=== PATIENT | female | born 1940 | race Caucasian/White ===

== ENCOUNTER 2025-06-24 08:58 | Outpatient (REF) | payer OTHER, SELFPAY ==
--- OUTSIDE RECORDS SUMMARY | 2025-06-20 01:24 | XMS_ITS | Encounter Summary ---
Author Organization [facility] Address [address] [facility] [address] [place] [address] Care Team Providers Care Hospitality Specialist Name Role Phone Unknown, Unknown Primary Care Provider Unavailab le Reason for Visit * Reason Comments Fall * Auth/Cert (Routine) Specialty Diagnoses / Procedures Referred By Contac t Referred To Contact Diagnoses Fall, initial encounter Closed fracture of neck of left femur, initial encounter Guillaume Peck MD [address] [place] [address] Phone: tel: fax: [facility] [address] [place] [phone] Phone: tel: Referral ID Status Reason Start Date Expiration Date Visits Re quested Visits Authorized [id number] 1 1 Encounter Details Date Type Department Care Team (Late st Contact Info) Description 06/20/2025 1:24 AM EST - 06/22/2025 2:30 PM [facility] Hospital Encounter [facility] [address] [place] [phone] Zuly Lees MD [address] [place] [address] Perla Keys MD [address] [facility] [address] [place] [address] Ryan Pierce MD [address] [facility] [address] [place] [address] Sinan Escobedo MD [address] [facility] [address] [place] [address] Guillaume Peck MD [address] [place] [address] Bill Kang MD [address] [place] [address] Closed fracture of neck of left femur, initial encounter (Primary Dx); Fall, initial encounter Discharge Disposition: Penitentiary Facility Social History Tobacco Use Types Packs/Day Years Used Date Smoking Tobacco: Never Smokeless Tobacco: Never Tobacco Cessation:Counseling Given: Not Answered Alcohol Use Standard Drinks/Week Comments Yes 1 (1 standard drink = 0.6 oz pur e alcohol) Social Connection and Isolation Panel Answer Date Recorded In a typical week, how many times do you talk on the phone with family, friends, or neighbors? Three times a week 06/20/2025 How often do you get togethe r with friends or relatives? Twice a week 06/20/2025 How often do you attend [facility] or cheondoism services? Never 06/20/2025 Do you belong to any clubs o r organizations such as presybeterian groups, unions, fraternal or athletic groups, or school groups? No 06/20/2025 How often do you attend meet ings of the clubs or organizations you belong to? Never 06/20/2025 Are you , , di vorced, , never , or living with a partner? Patient declined 06/20/2025 AUDIT-C Answer Date Recorded Q1: How often do you have a drink containing alc ohol? 2-4 times a month 06/20/2025 Q2: How many drinks containi ng alcohol do you have on a typical day when you are drinking? 1 or 2 06/20/2025 Q3: How often do you have si x or more drinks on one occasion? Never 06/20/2025 Overall Financial Resource Strain (CARDIA) Answe r Date Recorded How hard is it for you to pa y for the very basics like food, housing, medical care, and heating? Not hard at all 06/20/2025 Hunger Vital Sign Answer Date Recorded Within the past 12 months, y ou worried that your food would run out before you got the money to buy more. Never true 06/20/20 Ran Out of Food in the Last Year Not on file 06/20/2025 PRAPARE - Transportation Answer Date Re corded In the past 12 months, has l ack of transportation kept you from medical appointments or from getting medications? No 05/28 In the past 12 months, has l ack of transportation kept you from meetings, work, or from getting things needed for daily living? No 06/20/2025 Housing Stability Vital Sign Answer Silverio e Recorded Unable to Pay for Housing in the Last Year Not o n file 06/20/2025 Number of Times Moved in the Last Year Not on fi le 06/20/2025 At any time in the past 12 m [facility], were you homeless or living in a longterm (including now)? No 06/20/2025 Utilities Answer Date Recorded In the past 12 months has th e [email or web address], gas, oil, or water company threatened to shut off services in your home? No 06/20/2025 Comments Unknown Sex and Gender Information Value Date Recorded Sex Assigned at Female 06/20/2025 2:51 PM EST Legal Sex Female 6:05 AM EST Gender Identity Female 06/20/2025 3:20 AM EST Sexual Orientation Straight 06/20/2025 2: 51 PM EST documented as of this encounter Last Filed Vital Signs Vital Sign Reading Time Taken Comments Blood Pressure 122/61 06/22/2025 2:09 PM EST Pulse 83 06/22/2025 2:09 PM EST Temperature 37.2 C (98.9 F) 06/22/2025 2:09 PM EST Respiratory Rate 22 06/22/2025 2:09 PM EST Oxygen Saturation 100% 06/22/2025 2:09 PM EST Inhaled Oxygen Concentration - - Weight 45.6 kg (100 lb 8.5 oz) 06/20/2025 9:21 A M EST Height 154.9 cm (5' 0.98 ) 06/20/2025 9:21 AM ES T Body Mass Index 19 06/20/2025 9:21 AM EST documented in this encounter Functional Status * Head, Ears, Eyes, Nose, and Throat (HEENT) Question Answer Date of Assessment Author Head, Ears, Eyes, Nose, and Throat (WDL) X 06/22/2025 8:00 AM Lucero Zuluaga RN R Eye Mildly impaired vision 06/22/2025 8:00 AM Lucero Zuluaga RN L Eye Mildly impaired vision 06/22/2025 8:00 AM Lucero Zuluaga RN Teeth Dentures upper 06/22/2025 8:00 AM Lucero Zuluaga RN * Post Discharge Planning Question Answer Date of Assessment Author Type of Home Treatment/Devices/Equipme nt Needed for Discharge Standard walker 06/20/2025 2:23 PM Driss Weston RN Assistance Needed For Discharge None 06/20/2025 2:23 PM Driss Weston RN Discharge Plan Discussion Patient agrees with plan;Family agrees with plan;Discussed with interdisciplinary team 06/22/2025 10:36 AM Fior Dodd RN Lives With Alone 06/22/2025 10:36 AM Fior Dodd RN Support Systems Family members;Children 06/22/20 10:36 AM Fior Dodd RN Current Patient Responsibilities Housekeeping;Meal prep;Personal care;Shopping 06/20/2025 2:23 PM Driss Weston RN Type of Residence Apartment 06/22/2025 10: 36 AM Fior Dodd RN Home or Post Acute Services SNF 06/22/2025 10:36 AM Fior Dodd RN Patient [facility] to be discharged to: [facility] 06/22/2025 10:36 AM Fior Dodd RN Does the patient need discharge transport arranged? Yes 06/22/2025 10:36 AM Fior Dodd RN Has discharge transport been arranged? Yes 06/22/2025 10:36 AM Fior Dodd RN What day is the transport expected? [id number] 06/22/2025 10:36 AM Fior Dodd RN What time is the transport expected? [id number] 06/22/2025 10:36 AM Fior Dodd RN Who is requesting discharge planning? Provider 06/22/2025 10:36 AM Fior Dodd RN * Neuromuscular Assessment Question Answer Date of Assessment Author Auditory WFL 06/21/2025 9:24 AM Weston Fall, PT Vestibular WFL 06/21/2025 9:24 AM Weston Fall, PT Vision WFL 06/21/2025 9:24 AM Weston Fall, PT * ADL Question Answer Date of Assessment Author Lower Body Dressing Dependent 06/21/2025 9:23 AM Padmini Vega, OTR/L * Ambulation Question Answer Date of Assessment Author Distance (Feet) 40' 06/22/2025 9:12 AM Yaakov Quinones cas, PT Assistance Level Minimal Assist;X1 Assist;Cues for Sequencing 06/22/2025 9:12 AM Yaakov Spivey PT Assistive Device Rolling Walker 06/22/2025 9:12 AM Yaakov Spivey PT [employer] lateral weightshift, step to leading w/ LLE, RLE held in knee flexion throughout, reduced LE clearance 06/22/2025 9:12 AM Yaakov Spivey PT Ambulation Comments NT 06/21/2025 9:24 AM Weston Mcleod PT * Stairs Question Answer Date of Assessment Author Stairs Comments NT 06/21/2025 9:24 AM Weston Baires, PT * PT Assessment Question Answer Date of Assessment Author PT Functional Impairments Impaired gait;Functional Mobility deficit;Impaired activity tolerance;Impaired safety awareness;Pain;Balanc e deficit;Strength deficit 06/21/2025 9:24 AM Weston Rousseau PT Prognosis Good 06/21/2025 9:24 AM Weston Fall PT * PACU Interventions Question Answer Date of Assessment Author Anti-Embolism Devices Bilateral;Sequenti al compression devices, below knee 06/20/2025 12:10 PM Nicole Smith Anti-Embolism Intervention On 06/20/2025 12:10 PM Nicole Smith Warm Whitakers Applied 06/20/2025 12:10 PM Nicole Smith Additional Comfort/Environmental Interventions Warm blanket 06/20/2025 12:10 PM Nicole Smith * Pupils Question Answer Date of Assessment Author Pupil Reaction Left Brisk 06/20/2025 1:34 AM Darleen Garrido RN Pupil Reaction Right Brisk 06/20/2025 1:34 AM Darleen Hilton RN Pupil Size Left (mm) 3 06/20/2025 1:34 AM Darleen Hilton RN Pupil Size Right (mm) 3 06/20/2025 1:34 AM Darleen Damon RN * [facility] Fall Risk Screening Question Answer Date of Assessment Author Patient has complete paralysis or completely immobilized No (Continue Assessment) 06/22/2025 10:53 AM Lucero Zuluaga RN Patient has a history of more than one fall within 6 months before admission. Yes (Implement High Fall Risk Interventions) 06/22/2025 10:53 AM Lucero Zuluaga RN Patient has experienced a fall during this hospitalization No (Continue Assessment) 06/22/2025 10:53 AM Lucero Zuluaga RN Patient is deemed high fall-risk per protocol (e.g., seizure precautions) Yes (Implement High Fall Risk Interventions) 06/22/2025 10:53 AM Lucero Zuluaga RN * Case Management Initial Assessment Question Answer Date of Assessment Author Source of Information Patient;Family 06/21/2025 1:07 P M Giovana Pereira CM Discharge Services Anticipated at this Time Yes 06/21/2025 1:07 PM Helene Pereira ra, CM Expected Discharge Needs [facility] 06/21/2025 1:07 PM Giovana Pereira CM Patient Discharged Before Able to Interview/Assess No 06/21/2025 1:07 PM Helene Pereira ra, CM Type of Residence Apartment 06/21/2025 1:07 PM Giovana Pereira CM Lives With Alone 06/21/2025 1:07 PM Giovana Balderrama CM * Patient Information Question Answer Date of Assessment Author Anthropology Department Chair Needs None 06/21/2025 1:07 PM Giovana Pereira CM Home Caregiver Self 06/21/2025 1:07 PM Giovana Munguia CM Accompanied by Family 06/21/2025 1:07 PM Giovana Munguia CM Support Systems Children/Family 06/21/2025 1:07 PM Giovana Pereira CM Services Active Prior to Admission Elder services 06/21/2025 1:07 PM Giovana Pereira C M Need PCP on Discharge No 06/21/2025 1:07 PM Giovana Pereira CM * HOUSE COORDINATOR Functional Status Question Answer Date of Assessment Author Stairs to Enter House 0 06/21/2025 1:07 PM Giovana Pereira CM * Current Functional Status Question Answer Date of Assessment Author Bathing Independent 06/21/2025 1:07 PM Giovana Balderrama CM Toileting Independent 06/21/2025 1:07 PM Giovana Balderrama CM Walking in Home Independent 06/21/2025 1:07 PM Giovana Shin CM Assistive Device Used None 06/21/2025 1:07 PM Giovana Pereira CM Community Mobility Independent 06/21/2025 1:07 PM Giovana Pereira CM IADL Assistance Needed No 06/21/2025 1:07 PM Giovana Pereira CM * Financial Information Question Answer Date of Assessment Author Insurance Confirmed with Patient Yes 06/21/20 1:07 PM Giovana Pereira CM Bed Hold No 06/21/2025 1:07 PM Giovana Balderrama CM Financial Coordination Notified Not Needed 1:07 PM Giovana Pereira CM * Legal Information Question Answer Date of Assessment Author Does Patient Have HCP Yes 06/21/2025 1:07 PM Giovana Pereira CM Patient Requests Assistance for HCP Yes 06/21 1:07 PM Giovana Pereira CM Acid Operator Notified to Complete/Assist No 06/21/2025 1:07 PM Giovana Pereira C M Business Dean/Guardian No 06/21/2025 1:07 PM Giovana Pereira CM Business Dean/Guardian Paper work Available No 06/21/2025 1:07 PM Giovana Pereira C M Business Dean/Guardian/SW Notified No 2024 1:07 PM Giovana Pereira CM * Discharge Planning Question Answer Date of Assessment Author Patient/Family/Caregiver Dis charge Preference SNF 06/21/2025 1:07 PM Giovana Pereira C M Anticipated Discharge Disposition SNF 025 1:07 PM Giovana Pereira CM * Referrals Question Answer Date of Assessment Author Is a Social Work Referral Indicated? No 05/28 1:07 PM Giovana Pereira CM Was Social Work referral placed? No 06/21/20 1:07 PM Giovana Pereira CM * Next Actions Question Answer Date of Assessment Author Assessment/High Risk Screening Complete 06/21/2025 1:07 PM Giovana Pereira CM * Audit-C Question Answer Date of Assessment Author Unable To Assess No 06/20/2025 2:47 PM Driss Vasquez RN AUDIT-C Score 2 06/20/2025 8:40 AM Driss Nair RN Q1: How often do you have a drink containing alcohol? 2-4 times a month 06/20/2025 8:40 AM Driss Weston RN Q2: How many drinks containing alcohol do you have on a typical day when you are drinking? 1 or 2 06/20/2025 8:40 AM Driss Weston RN Q3: How often do you have six or more drinks on one occasion? Never 06/20/2025 8:40 AM Driss Weston RN * Four Eyes Assessment Question Answer Date of Assessment Author Four Eyes Skin Assessment Completed on Admission/Transfer? Yes 06/20/2025 2:50 PM Driss Nair RN Were Pressure Injuries Identified? No 2024 2:50 PM Driss Weston RN Four Eyes Skin Assessment Completed With Tita CERNA 06/20/2025 2:50 PM Driss Weston RN * Vital Signs Question Answer Date of Assessment Author Heart Rate Source Monitor 06/21/2025 3:21 PM Rhonda Maldonado RN MAP (mmHg) 95 06/21/2025 9:24 AM Weston Fall, PT * Oxygen Therapy Question Answer Date of Assessment Author O2 Flow Rate (L/min) 10 06/20/2025 12:10 PM Nicole Smith SpO2 Alarm Limit Low 90 06/20/2025 12:10 PM Nicole Smith SpO2 Alarm Limit High 100 06/20/2025 12:10 PM Nicole Smith O2 Delivery Method Simple mask 06/20/2025 12:10 PM ES T Nicole Spivey * Height and Weight Question Answer Date of Assessment Author Height Method Stated 06/20/2025 9:21 AM EST Queta Robledo RN Weight Method Bed scale 06/20/2025 9:21 AM EST Queta Robledo RN * Cardiac Question Answer Date of Assessment Author Cardiac Rhythm NSR 06/20/2025 12:10 PM EST Nicole Pope * Sprinkler Fitter Apprentice Question Answer Date of Assessment Author Bedside Sprinkler Fitter Apprentice On Yes 06/20/2025 12: 10 PM Nicole Smith Bedside Cardiac Audible Yes 06/20/2025 12:10 PM Nicole Smith Bedside Cardiac Alarms Set Yes 06/20/2025 12: 10 PM Nicole Smith * Gastrointestinal Question Answer Date of Assessment Author Last BM Date [address] 06/22/2025 8:00 AM Lucero Zuluaga RN Passing Flatus No 06/22/2025 8:00 AM Lucero Zuluaga RN Abdominal Tenderness Soft 06/22/2025 8:[address] Lucero Morrison RN Bowel Sounds (All Quadrants) Active 06/22/2025 8 :00 AM Lucero Zuluaga RN Gastrointestinal (WDL) X 06/22/2025 8:00 AM Lucero Zuluaga RN Abdomen Inspection Distended;Rounded 06/22/2025 8:00 A M Lucero Zuluaga RN Gastrointestinal Symptoms Distention 06/22/2025 8:00 AM Lucero Zuluaga RN Bowel Sounds All quadrants 06/22/2025 8:00 AM Lucero Zuluaga RN * Peripheral Vascular Question Answer Date of Assessment Author Peripheral Vascular (WDL) X 06/22/2025 8:00 AM Lucero Zuluaga R N Capillary Refill Less than/equal to 2 seconds (All extremities) 06/22/2025 8:00 AM Lucero Zuluaga RN Pulses Right posterior tibial;Left posterior tibial;Right pedal dorsalis;Left pedal dorsalis 06/22/2025 8:00 AM Lucero Zuluaga RN Cyanosis None 06/22/2025 8:00 AM Lucero Zuluaga RN Peripheral Vascular Additional Assessments Right lower extremity;Left lower extremity 06/22/2025 8:00 AM Lucero Zuluaga RN * RUE Neurovascular Assessment Question Answer Date of Assessment Author Right Radial Pulse +2 06/20/2025 7:35 PM Tita Jaimes RN * LUE Neurovascular Assessment Question Answer Date of Assessment Author Left Radial Pulse +2 06/20/2025 7:35 PM Tita Jaimes RN * RLE Neurovascular Assessment Question Answer Date of Assessment Author RLE Capillary Refill Less than/equal to 2 seconds 06/22/2025 8:00 AM Lucero Zuluaga RN RLE Color Appropriate for ethnicity 06/22/2025 8:00 AM Lucero Zuluaga RN RLE Temperature/Moisture Warm;Dry 06/22/2025 8:00 AM Lucero Zuluaga RN Right Posterior Tibial Pulse +2 06/22/2025 8:00 AM Lucero Zuluaga R N Right Pedal Dorsalis Pulse +2 06/22/2025 8:00 AM Lucero Zuluaga R N * LLE Neurovascular Assessment Question Answer Date of Assessment Author Left Buttocks Non-pitting 06/22/2025 8:00 AM Lucero Zuluaga RN Left Thigh Non-pitting 06/22/2025 8:00 AM Lucero Zuluaga RN LLE Edema Left Thigh;Left Buttocks 06/22/2025 8:00 AM Lucero Zuluaga RN LLE Capillary Refill Less than/equal to 2 seconds 06/22/2025 8:00 AM Lucero Zuluaga RN LLE Color Appropriate for ethnicity 06/22/2025 8:00 AM Lucero Zuluaga RN LLE Temperature/Moisture Warm;Dry 06/22/2025 8:00 AM Lucero Zuluaga RN Left Posterior Tibial Pulse +2 06/22/2025 8:00 AM Lucero Zuluaga R N Left Pedal Dorsalis Pulse +2 06/22/2025 8:00 AM Lucero Zuluaga R N * Musculoskeletal Question Answer Date of Assessment Author RUE Full movement 06/22/2025 8:00 AM Lucero Zuluaga RN RLE Full movement 06/22/2025 8:00 AM Lucero Zuluaga RN LUE Full movement 06/22/2025 8:00 AM Lucero Zuluaga RN LLE Limited movement;Injury/traum a;Surgery 06/22/2025 8:00 AM Lucero Zuluaga RN Musculoskeletal ([facility]) X 06/22/2025 8:00 AM Lucero Zuluaga RN * Psychosocial Question Answer Date of Assessment Author Psychosocial (L) WDL 06/22/2025 8:00 AM Lucero Zuluaga RN * Jhoan Scale Question Answer Date of Assessment Author Jhoan Scale Score 19 06/22/2025 8:00 AM Lucero Zuluaga RN Patient Turned No 06/22/2025 8:00 AM Lucero Zuluaga RN * Cardiac Question Answer Date of Assessment Author Cardiac Regularity Regular 06/21/2025 8:42 AM Driss Weston RN Roof Bolter Status Off 06/22/2025 8:00 AM Lucero Zuluaga RN Cardiac ([facility]) WD 06/22/2025 8:00 AM Lucero Zuluaga RN * Respiratory Question Answer Date of Assessment Author Bilateral Breath Sounds Clear;Diminished 06/21/2025 8: 42 AM Driss Weston RN Respiratory Pattern Normal 06/21/2025 1 1:00 PM Edith Anaya RN Chest Assessment Symmetrical 06/20/2025 7:35 PM Tita Cody RN Respiratory ([facility]) WDL 06/22/2025 8:00 AM Lucero Zuluaga RN Respiratory Effort Unlabored 06/21/2025 11 :00 PM Edith Anaya RN Respiratory Depth/Rhythm Regular 06/21/2025 11:00 PM Edith Anaya RN Breath Sounds Bilateral breath sounds 06/21/2025 8:42 AM Driss Weston RN * Charting Type Question Answer Date of Assessment Author Charting Type Shift assessment 06/22/2025 8:00 AM Lucero Zuluaga, RN * Bed Mobility Question Answer Date of Assessment Author Bed Mobility Comments Slow and effortful to incrementally scoot LLE over EOB, ROAD ROLLER OPERATOR to RUE and support at trunk to upright to seated, Mod A for balace while scooting 06/22/2025 9:12 AM Yaakov Spivey PT Bed Position HOB elevated;Use of bedrail 06/22/2025 9:12 AM Yaakov Spivey PT Scooting Moderate Assist;X1 Assist;Cues for Sequencing 06/22/2025 9:12 AM Yaakov Spivey PT Supine to Sit Moderate Assist;X1 Assist;Cues for Sequencing 06/22/2025 9:12 AM Yaakov Spivey, PT * Transfers Question Answer Date of Assessment Author Stand to Sit Minimal Assist;X1 Assist;Cues for Sequencing;Cues for Hand Placement 06/22/2025 9:12 AM Yaakov Spivey PT Transfers Comments slightly retropulsiv e while rising to stand, reduced eccentric control 06/22/2025 9:12 AM Yaakov Spivey PT Assistive Device Rolling Walker 06/22/2025 9:12 AM Yaakov Spivey PT Sit to Stand Minimal Assist;X1 Assist;Cues for Sequencing;Cues for Hand Placement 06/22/2025 9:12 AM Yaakov Spivey PT Bed to Chair Moderate Assist;X2 Assists;Cues for Hand Placement;Cues for Sequencing 06/21/2025 9:24 AM Weston Rousseau PT * Vitals Question Answer Date of Assessment Author Temp src Oral 06/22/2025 2:09 PM Mandy Erwin BP Location Right arm 06/22/2025 2:09 PM Mandy Erwin BP Method Automatic 06/22/2025 2:09 PM Mandy Erwin Patient Position Sitting 06/22/2025 2:09 PM Mandy Lizarraga * Cognition Question Answer Date of Assessment Author Orientation Level Oriented X4 06/22/2025 9:12 AM Yaakov Spivey, PT * Nutrition Screen Question Answer Date of Assessment Author Difficulty Chewing or Swallowing No 06/20/20 8:39 AM Driss Weston RN Pressure Injury or Non-Heali ng Wound No 06/20/2025 8:39 AM Driss Weston RN Home Tube Feeding or Total Parenteral Nutrition (TPN) No 06/20/2025 8:39 AM Cindy Weston RN Dietitian Consult Needed No 06/20/2025 8:39 AM Driss Weston RN * Trauma/Abuse Assessment Question Answer Date of Assessment Author Physical Abuse Denies 06/20/2025 2:47 PM Driss Everett RN Verbal Abuse Denies 06/20/2025 2:47 PM Driss Coates RN * Values/Beliefs Question Answer Date of Assessment Author Cultural Requests During Hospitalization n/a 06/20/2025 2:47 PM Driss Weston RN Spiritual Requests During Hospitalization n/a 06/20/2025 2:47 PM Driss Weston RN * Genitourinary Question Answer Date of Assessment Author Urine Color Yellow/straw 06/22/2025 8:00 AM Lucero Zuluaga RN Urine Appearance Clear 06/22/2025 8:00 AM Lucero Zuluaga RN Urine Odor Malodorous 06/22/2025 8:00 AM Lucero Zuluaga RN Genitourinary (WDL) WDL 06/22/2025 8 :00 AM Lucero Zuluaga RN Urinary Incontinence No 06/22/2025 8:00 AM Lucero Zuluaga RN Genitourinary Symptoms None 8:42 AM Driss Weston RN Genitourinary Additional Assessments Drain/Catheter present: see LDA Documentation 06/20/2025 2:17 PM Driss Weston RN Suprapubic Tenderness No 06/20/2025 2:17 PM Driss Weston RN * Neurological Question Answer Date of Assessment Author Level of Consciousness Alert 06/22/2025 8:00 AM Lucero Zuluaga RN Cognition Follows commands;Appropriate judgement;Appropriate safety awareness 06/21/2025 11:00 PM Edith Anaya RN Speech Delayed responses 06/22/2025 8:00 AM Lucero Zuluaga RN Neuro (WDL) X 06/22/2025 8:00 AM Lucero Zuluaga RN Swallow Other (Comment) 06/21/2025 11:00 PM Edith Anaya RN Neuro Symptoms Forgetful 06/22/2025 8:00 AM Lucero Zuluaga RN Facial Symmetry Symmetrical 06/20/2025 2:17 PM Driss Carter RN * Hygiene Question Answer Date of Assessment Author Bathing/Skin Care bath, complete 06/21/2025 1:00 PM Driss Calixto RN Bathing Assist 06/21/2025 1:00 PM Driss Coates RN Linen Changed Total Bed Change 06/21/2025 1:00 PM Driss Weston RN * Food Insecurity Question Answer Date of Assessment Author Within the past 12 months, y ou worried that your food would run out before you got the money to buy more. Never true 06/20/2025 2:52 PM Driss Weston RN * Safe Environment Question Answer Date of Assessment Author Arm Bands On ID 06/20/2025 12:10 PM EST Nicole Marte Side Rails/Bed Safety 09/2806/20/2025 12:10 PM Nicole Smith The Patient's Environment is Safe Yes 025 12:10 PM Nicole Smith * Mobility Question Answer Date of Assessment Author Positioning Frequency Able to turn self 06/22/2025 10: 53 AM Lucero Zuluaga RN * Precautions Question Answer Date of Assessment Author Precautions Other (Comment) 06/20/2025 12:10 PM EST Nicole Leal * ADL Screening Question Answer Date of Assessment Author Patient's Vision Adequate to Safely Complete Daily Activities No 06/20/2025 8:39 AM Driss Weston RN Patient's Judgment Adequate to Safely Complete Daily Activities No 06/20/2025 8:39 AM Driss Weston RN Patient's Memory Adequate to Safely Complete Daily Activities No 06/20/2025 8:39 AM Driss Weston RN Patient Able to Express Needs/Desires No 06/20/2025 8:39 AM Driss Weston RN Dressing Independent 06/20/2025 8:39 AM Driss Coates RN Grooming Independent 06/20/2025 8:39 AM Driss Coates RN Feeding Independent 06/20/2025 8:39 AM Driss Coates RN Bathing Independent 06/20/2025 8:39 AM Driss Coates RN Toileting Independent 06/20/2025 8:39 AM Driss Coates RN In/Out Bed Independent 06/20/2025 8:39 AM Driss Coates RN Walks in Home Independent 06/20/2025 8:39 AM Driss Nair RN Weakness of Legs None 06/20/2025 8:39 AM Driss Vasquez RN Weakness of Arms/Hands None 06/20/2025 8:39 AM Driss Weston RN Hearing - Right Ear Functional 06/20/2025 8:39 AM Driss Calixto RN Hearing - Left Ear Functional 06/20/2025 8:39 AM Driss Weston RN Which is your dominant hand? Right 06/20/2025 8 :39 AM Driss Weston RN * Therapy Consults Question Answer Date of Assessment Author PT Evaluation Needed 1 06/20/2025 8:39 AM Driss Artis RN OT Evaluation Needed 1 06/20/2025 8:39 AM Driss Artis RN OVERHEAD LINE WORKER Evaluation Needed 2 06/20/2025 8:39 AM Driss Weston RN Spiritual Care Consult Needed No 06/20/2025 8:39 AM Driss Weston RN Social Services Consult Needed No 06/20/2025 8:39 AM Driss Weston RN * Suicide Screening Status Answer Date of Assessment Author NEGATIVE SCREEN 06/20/2025 1:22 AM Radha Ang RN * Airway Question Answer Date of Assessment Author Patency Patent 06/20/2025 1:34 AM Vikram Umanaa, ERYN * Primary Circulation Question Answer Date of Assessment Author Jugular Venous Distention (JVD) No 1:34 AM EST Darleen Srivastava RN * Leveling and Initial Visit Question Answer Date of Assessment Author Leveling Score Moderate 06/21/2025 12:[address]uly Gonzalez RD * Airway Question Answer Date of Assessment Author Airway (L) [facility] 06/20/2025 1:21 AM EST Yudy Epstein RN * Breathing Question Answer Date of Assessment Author Breathing ([facility]) [facility] 06/20/2025 1:21 AM EST Yudy Bustamante RN * Circulation Question Answer Date of Assessment Author Circulation ([facility]) [facility] 06/20/2025 1:21 AM EST Yudy Bazan RN * Disability Question Answer Date of Assessment Author Disability ([facility]) [facility] 06/20/2025 1:21 AM EST Yudy Duval RN * OT Assessment Question Answer Date of Assessment Author Prognosis Good 06/21/2025 9:23 AM EST Padmini Vieira OTR/L OT Functional Impairments ADL/Self care deficit;IADL deficit;Functional Mobility deficit;Strength deficit;Impaired activity tolerance;Impaired safety awareness;Balance deficit;Pain;Range of motion deficit;Impaired cognition 06/21/2025 9:23 AM EST Padmini Vieira OTR/L * Br??set Violence Checklist (BVC) Question Answer Date of Assessment Author Confused 0 06/22/2025 10:00 AM Lucero Zuluaga RN Irritable 0 06/22/2025 10:00 AM Lucero Zuluaga RN Boisterous 0 06/22/2025 10:00 AM Lucero Zuluaga RN Verbal Threats 0 06/22/2025 10:00 AM Lucero Zuluaga RN Physical Threats 0 06/22/2025 10:0 0 AM Lucero Zuluaga RN Attacking Objects 0 06/22/2025 10: 00 AM Lucero Zuluaga RN BVC - SUM (Calculated) 0 10:00 AM Lucero Zuluaga RN Score Interpretation (Calculated) Small Risk of Violence 06/22/2025 10:00 AM Lucero Zuluaga RN * Influenza Vaccine Screen - Feb Through October Question Answer Date of Assessment Author Influenza Vaccine Contraindications/Refu sed Patient or agent declines/refuses vaccine and was educated on benefits of receiving vaccine 06/20/2025 2:59 PM Driss Weston RN Have you had an influenza vaccine this season? No 06/20/2025 2:59 PM Driss Weston RN * Legal Status Answer Date of Assessment Author Voluntary - Patient (ADM) 06/20/2025 2:47 PM Driss Weston RN * Skip to questions 9-10? Answer Date of Assessment Author 1 06/20/2025 8:40 AM Brady Weston RN * Social Connections Question Answer Date of Assessment Author In a typical week, how many times do you talk on the phone with family, friends, or neighbors? Three times a week 06/20/2025 2:57 PM Driss Weston RN Do you belong to any clubs or organizations such as presybeterian groups, unions, fraDidatuan or athletic groups, or school groups? No 06/20/2025 2:57 PM Deb Weston RN * Brief Confusion Assessment Method - bCAM Question Answer Date of Assessment Author Feature 1: Acute Onset or Fluctuating Course Negative 06/20/2025 2:44 AM Zuly Adam MD * bCAM Score Answer Date of Assessment Author Negative 06/20/2025 2:44 AM Zuly Adma MD * Anthropometrics Question Answer Date of Assessment Author Weight Change 0 06/20/2025 9:21 AM Queta Warner RN * Pain Assessment Question Answer Date of Assessment Author Pain Location Hip 06/22/2025 9:12 AM Yaakov Nascimento, PT Pain Orientation Left 06/22/2025 9:12 AM Yaakov Cisneros PT Pain Onset Ongoing 06/22/2025 8:00 AM Lucero Zuluaga, ERYN Patient's Stated Pain Goal No pain 06/22/2025 8:00 AM Lucero Zuluaga R N Pain Type Surgical pain 06/22/2025 9:12 AM Yaakov Nascimento, PT Clinical Progression Gradually improving 06/22/2025 8: 00 AM Lucero Zuluaga RN Pain Assessment 0-10 06/22/2025 9:12 AM Yaakov Quinones cas, PT * IBW (kg) (Calculated) Answer Date of Assessment Author 47.76 06/20/2025 9:21 AM Juan Pablo Burns RN * Patient Belongings at Bedside Question Answer Date of Assessment Author Dentures Uppers 06/20/2025 8:38 AM Driss Coates RN Vision - Corrective Lenses Glasses 06/20/2025 8:38 AM Driss Weston RN Clothing Pants;Shirt;Sweater; Footwear;Jacket/coat 06/20/2025 8:38 AM Driss Weston RN Belongings at Bedside Clothing;Dentures; Vi mercedez 06/20/2025 8:38 AM Driss Weston RN * Integumentary Question Answer Date of Assessment Author Skin Color Ecchymosis 06/22/2025 8:00 AM Lucero Zuluaga RN Skin Condition/Temp Warm;Dry 06/22/2025 8 :00 AM Lucero Zuluaga RN Skin Integrity Bruising;Surgical Incision 06/22/2025 8:00 AM Lucero Zuluaga RN Skin Turgor Epidermis thin with loss of subcutaneous tissue 06/22/2025 8:00 AM Lucero Zuluaga RN Bruising Characteristics scattered 06/22/ 025 8:00 AM Lucero Zuluaga RN Integumentary (WDL) X 06/22/2025 8 :00 AM Lucero Zuluaga RN * Edema Question Answer Date of Assessment Author Edema Left lower extremity 06/22/2025 8:00 AM E Lucero Montoya RN * Pain Score Answer Date of Assessment Author 3 06/22/2025 1:49 PM Edwar Zuluaga RN * Confusion Assessment Method (CAM) Question Answer Date of Assessment Author Acute Onset and Fluctuating Course (1A) No 06/22/2025 8:00 AM Lucero Zuluaga R N * Urine Output/Assessment Question Answer Date of Assessment Author Bladder Scan Volume (mL) 179 06/21/2025 5:00 PM Rhonda Maldonado RN * Stool Output/Assessment Question Answer Date of Assessment Author Stool Color Brown 06/21/2025 10:30 AM Driss Nair RN Stool Amount Medium 06/21/2025 10:30 AM Driss Nair RN Stool Appearance Loose;Watery 06/21/2025 10:30 AM Driss Weston RN Bowel Incontinence No 06/21/2025 10:30 AM Driss Calixto RN * ACS Disability Status Question Answer Date of Assessment Author Are you deaf or do you have serious difficulty hearing? No 06/20/2025 8:39 AM Brady Weston RN Are you blind or do you have serious difficulty seeing, even when wearing glasses? No 06/20/2025 8:39 AM Efra Weston RN Because of a physical, menta l, or emotional condition, do you have serious difficulty concentrating, remembering, or making decisions? No 06/20/2025 8:39 AM Driss Everett RN Do you have serious difficul ty walking or climbing stairs? No 06/20/2025 8:39 AM Brady Weston RN Do you have serious difficul ty dressing or bathing? No 06/20/2025 8:39 AM Driss Weston RN Because of a physical, menta l, or emotional condition, do you have difficulty doing errands such as visiting the doctor's office or shopping? No 06/20/2025 8:39 AM Driss Weston RN * [place] Suicide Severity Rating Scale Question Answer Date of Assessment Author 1. In the past month, have y ou wished you were or wished you could go to sleep and not wake up? No 06/20/2025 2:58 PM Driss Carter RN 2. In the past month, have y ou actually had any thoughts of killing yourself? No 06/20/2025 2:58 PM Driss Weston RN 6. (Lifetime) Have you ever done anything, started to do anything, or prepared to do anything to end your life? No 06/20/2025 2:58 PM Driss Weston RN * Able to Complete Psychiatric Screening Question Answer Date of Assessment Author Were you able to complete al l the behavioral health screenings? Yes 06/20/2025 2:47 PM Driss Weston RN * Patient Strengths/Barriers Question Answer Date of Assessment Author Strengths (Must Choose Two) Support from organized community;Stable domestic situation 06/20/2025 2:47 PM Driss Weston RN Barriers Recreational/leisure /h obbies 06/20/2025 2:47 PM Driss Weston RN * Drug Screening Question Answer Date of Assessment Author Have you used any substances (cocaine, heroin, hallucinogens, inhalants, etc.) in the past 12 months? No 06/20/2025 2:47 PM Driss Weston RN Have you used any prescripti on drugs other than prescribed in the past 12 months? No 06/20/2025 2:47 PM Driss Weston RN * Oxygen Question Answer Date of Assessment Author Oximetry Probe Site Changed Yes 06/22/2025 2: 09 PM Mandy Erwin Pulse Oximetry Type Intermittent 06/22/2025 2:09 PM Mandy Denise Patient Activity During SpO2 Measurement At rest 06/22/2025 2:09 PM Mandy Erwin Oxygen Therapy None (Room air) 06/22/2025 2:09 PM Mandy Erwin * Patient Safety Screener 3 Question Answer Date of Assessment Author Over the past 2 weeks, have you felt down, depressed, or hopeless? No 06/20/2025 1:22 AM Yudy Clarke RN Over the past 2 weeks, have you had thoughts of killing yourself? No 06/20/2025 1:22 AM Yudy Ang RN Have you ever attempted to k ill yourself? No 06/20/2025 1:22 AM uYdy Ang RN * Deterioration Index Score Question Answer Date of Assessment Author Deterioration Index Score 36.2 06/22/2025 2:31 PM Haily Correa * Risk of Suicide Answer Date of Assessment Author No Risk 06/20/2025 2:58 PM Brady Weston RN * Malnutrition Screening Tool (MST) Question Answer Date of Assessment Author Have you recently lost weigh t without trying? 0 06/20/2025 8:39 AM Driss Weston RN Have you been eating poorly because of a decreased appetite? 0 06/20/2025 8:39 AM Driss Nair RN * Weight Loss Score Answer Date of Assessment Author 0 06/20/2025 8:39 AM Brady Weston RN * Malnutrition Score Answer Date of Assessment Author 0 06/20/2025 8:39 AM Brady Weston RN * [facility] Fall Risk Score Question Answer Date of Assessment Author Age 2 06/22/2025 10:53 AM Lucero Zuluaga RN Fall History 5 06/22/2025 10:53 AM Lucero Zuluaga RN Elimination, Bowel and Urine 0 06/22/2025 10:53 AM Lucero Zuluaga RN Medications 5 06/22/2025 10:53 AM Lucero Zuluaga RN Patient Care Equipment 1 10:53 AM Lucero Zuluaga RN Mobility 2 - Requires Assistance 06/22/2025 10:53 AM Lucero Zuluaga RN Cognition Not applicable 06/22/2025 10:53 AM Lucero Zuluaga RN Total Fall Risk Score 14 06/22/2025 10:53 AM Lucero Zuluaga RN * [facility] Question Answer Date of Assessment Author History of falling in the la st 3 months, including since admission? 1 06/20/2025 1:22 AM Yudy Ang RN Confusion, disorientation or delerium? 0 06/20/2025 1:22 AM Yuyd Ang RN Intoxicated or sedated? 0 06/20/2025 1:22 A M Yudy Ang RN Impaired gait? 1 06/20/2025 1:22 AM Yudy Talley RN Altered elimination? 0 06/20/2025 1:22 AM E Yudy Parker RN Mobility assist device used? 0 06/20/2025 1 :22 AM Yudy Ang RN Fall Risk Score 2 06/20/2025 1:22 AM Yudy Clarke RN Assessment Low Risk 06/20/2025 1:22 AM Yudy Reeves RN * Are you deaf or do you have serious difficulty hearing? Answer Date of Assessment Author No 06/20/2025 8:39 AM Brady Weston RN * Are you blind or do you have serious difficulty seeing, even when wearing glasses? Answer Date of Assessment Author No 06/20/2025 8:39 AM EST * Do you have serious difficulty walking or climbing stairs? Answer Date of Assessment Author No 06/20/2025 8:39 AM Brady Weston RN * Do you have serious difficulty dressing or bathing? Answer Date of Assessment Author No 06/20/2025 8:39 AM Brady Weston RN * Because of a physical, mental, or emotional condition, do you have difficulty doing errands such asvisiting the doctor's office or shopping? Answer Date of Assessment Author No 06/20/2025 8:39 AM Brady Weston RN * Head, Ears, Eyes, Nose, and Throat (HEENT) Question Answer Date of Assessment Author Head, Ears, Eyes, Nose, and Throat (WDL) X 06/22/2025 8:00 AM Lucero Zuluaga RN R Eye Mildly impaired vision 06/22/2025 8:00 AM Lucero Zuluaga RN L Eye Mildly impaired vision 06/22/2025 8:00 AM Lucero Zuluaga RN Teeth Dentures upper 06/22/2025 8:00 AM Lucero Zuluaga RN * Post Discharge Planning Question Answer Date of Assessment Author Type of Home Treatment/Devices/Equipme nt Needed for Discharge Standard walker 06/20/2025 2:23 PM Driss Weston RN Assistance Needed For Discharge None 06/20/2025 2:23 PM Driss Weston RN Discharge Plan Discussion Patient agrees with plan;Family agrees with plan;Discussed with interdisciplinary team 06/22/2025 10:36 AM Fior Dodd RN Lives With Alone 06/22/2025 10:36 AM Fior Dodd RN Support Systems Family members;Children 06/22/20 10:36 AM Fior Dodd RN Current Patient Responsibilities Housekeeping;Meal prep;Personal care;Shopping 06/20/2025 2:23 PM Driss Weston RN Type of Residence Apartment 06/22/2025 10: 36 AM Fior Dodd RN Home or Post Acute Services SNF 06/22/2025 10:36 AM Fior Dodd RN Patient [facility] to be discharged to: [facility] 06/22/2025 10:36 AM Fior Dodd RN Does the patient need discharge transport arranged? Yes 06/22/2025 10:36 AM Fior Dodd RN Has discharge transport been arranged? Yes 06/22/2025 10:36 AM Fior Dodd RN What day is the transport expected? [id number] 06/22/2025 10:36 AM Fior Dodd RN What time is the transport expected? [id number] 06/22/2025 10:36 AM Fior Dodd RN Who is requesting discharge planning? Provider 06/22/2025 10:36 AM Fior Dodd RN * General Info Question Answer Date [place] [id number] 06/22/2025 9:12 AM Yaakov Campos, PT * ADL Question Answer Date of Assessment Author Lower Body Dressing Dependent 06/21/2025 9:23 AM Padmini Vega, OTR/L * PACU Interventions Question Answer Date of Assessment Author Anti-Embolism Devices Bilateral;Sequenti al compression devices, below knee 06/20/2025 12:10 PM Nicole Smith Anti-Embolism Intervention On 06/20/2025 12:10 PM Nicole Smith Warm Whitakers Applied 06/20/2025 12:10 PM Nicole Smith Additional Comfort/Environmental Interventions Warm blanket 06/20/2025 12:10 PM Nicole Smith * AMPAC - (Basic Mobility Inpatient Short Form) How much help from another person do you currently need? Question Answer Date of Assessment Author Turning from your back to yo ur side while in a flat bed without using bedrails? 2 - A Lot 06/22/2025 9:12 AM Yaakov Spivey PT Moving from lying on your ba ck to sitting on the side of a flat bed without using bedrails? 2 - A Lot 06/22/2025 9:12 AM Yaakov Sipvey, PT Moving to and from a bed to a chair (including a wheelchair)? 3 - A little 06/22/2025 9:12 AM Yaakov Spivey, PT Standing up from a chair usi ng your arms (e.g., wheelchair, or bedside chair)? 3 - A little 06/22/2025 9:12 AM Yaakov Spivey PT Climbing 3-5 steps with a railing? 1 - Total 06/22/2025 9:12 AM Yaakov Spivey PT To walk in hospital room? 3 - A little 06/22/2025 9:12 AM Yaakov Spivey, PT Raw Score 14 06/22/2025 9:12 AM Yaakov Spivey PT * Pupils Question Answer Date of Assessment Author Pupil Reaction Left Brisk 06/20/2025 1:34 AM Darleen Garrido RN Pupil Reaction Right Brisk 06/20/2025 1:34 AM Darleen Hilton RN Pupil Size Left (mm) 3 06/20/2025 1:34 AM Darleen Hilton RN Pupil Size Right (mm) 3 06/20/2025 1:34 AM Darleen Damon RN * [facility] Fall Risk Screening Question Answer Date of Assessment Author Patient has complete paralysis or completely immobilized No (Continue Assessment) 06/22/2025 10:53 AM Lucero Zuluaga RN Patient has a history of more than one fall within 6 months before admission. Yes (Implement High Fall Risk Interventions) 06/22/2025 10:53 AM Lucero Zuluaga RN Patient has experienced a fall during this hospitalization No (Continue Assessment) 06/22/2025 10:53 AM Lucero Zuluaga RN Patient is deemed high fall-risk per protocol (e.g., seizure precautions) Yes (Implement High Fall Risk Interventions) 06/22/2025 10:53 AM Lucero Zuluaga, ERYN * Case Management Initial Assessment Question Answer Date of Assessment Author Source of Information Patient;Family 06/21/2025 1:07 P M Giovana Pereira CM Discharge Services Anticipated at this Time Yes 06/21/2025 1:07 PM Helene Pereira ra, CM Expected Discharge Needs SNF 06/21/2025 1:07 PM Giovana Pereira CM Patient Discharged Before Able to Interview/Assess No 06/21/2025 1:07 PM Taylor CM Type of Residence Apartment 06/21/2025 1:07 PM Giovana Pereira CM Lives With Alone 06/21/2025 1:07 PM Giovana Balderrama CM * Patient Information Question Answer Date of Assessment Author Anthropology Department Chair Needs None 06/21/2025 1:07 PM Giovana Pereira CM Home Caregiver Self 06/21/2025 1:07 PM Giovana Munguia CM Accompanied by Family 06/21/2025 1:07 PM Giovana Munguia CM Support Systems Children/Family 06/21/2025 1:07 PM Giovana Pereira CM Services Active Prior to Admission Elder services 06/21/2025 1:07 PM Giovana Pereira C M Need PCP on Discharge No 06/21/2025 1:07 PM Giovana Pereira CM * HOUSE COORDINATOR Functional Status Question Answer Date of Assessment Author Stairs to Enter House 0 06/21/2025 1:07 PM Giovana Pereira CM * Current Functional Status Question Answer Date of Assessment Author Bathing Independent 06/21/2025 1:07 PM Giovana Balderrama CM Toileting Independent 06/21/2025 1:07 PM Giovana Balderrama CM Walking in Home Independent 06/21/2025 1:07 PM Giovana Shin CM Assistive Device Used None 06/21/2025 1:07 PM Giovana Pereira CM Community Mobility Independent 06/21/2025 1:07 PM Giovana Pereira CM IADL Assistance Needed No 06/21/2025 1:07 PM Giovana Pereira CM * Financial Information Question Answer Date of Assessment Author Insurance Confirmed with Patient Yes 06/21/20 1:07 PM Giovana Pereira CM Bed Hold No 06/21/2025 1:07 PM Giovana Balderrama CM Financial Coordination Notified Not Needed 1:07 PM Giovana Pereira CM * Legal Information Question Answer Date of Assessment Author Does Patient Have HCP Yes 06/21/2025 1:07 PM Giovana Pereira CM Patient Requests Assistance for HCP Yes 06/21 1:07 PM Giovana Pereira CM Acid Operator Notified to Complete/Assist No 06/21/2025 1:07 PM Giovana Pereira C M Business Dean/Guardian No 06/21/2025 1:07 PM Giovana Pereira CM Business Dean/Guardian Paper work Available No 06/21/2025 1:07 PM Giovana Pereira C M Business Dean/Guardian/SW Notified No 2024 1:07 PM Giovana Pereira CM * Discharge Planning Question Answer Date of Assessment Author Patient/Family/Caregiver Dis charge Preference SNF 06/21/2025 1:07 PM Giovana Pereira C M Anticipated Discharge Disposition SNF 025 1:07 PM Giovana Pereira CM * Referrals Question Answer Date of Assessment Author Is a Social Work Referral Indicated? No 05/28 1:07 PM Giovana Pereira CM Was Social Work referral placed? No 06/21/20 1:07 PM Giovana Pereira CM * Next Actions Question Answer Date of Assessment Author Assessment/High Risk Screening Complete 06/21/2025 1:07 PM Giovana Pereira CM * Vital Signs Question Answer Date of Assessment Author Heart Rate Source Monitor 06/21/2025 3:21 PM Rhonda Maldonado RN MAP (mmHg) 95 06/21/2025 9:24 AM EST Weston Calvillo, PT * Oxygen Therapy Question Answer Date of Assessment Author SpO2 Alarm Limit Low 90 06/20/2025 12:10 PM Nicole Smith SpO2 Alarm Limit High 100 06/20/2025 12:10 PM EST Nicole Spivey * Height and Weight Question Answer Date of Assessment Author Height Method Stated 06/20/2025 9:21 AM EST Queta Robledo RN Weight Method Bed scale 06/20/2025 9:21 AM EST Queta Robledo RN * Cardiac Question Answer Date of Assessment Author Cardiac Rhythm NSR 06/20/2025 12:10 PM EST Nicole Pope * Sprinkler Fitter Apprentice Question Answer Date of Assessment Author Bedside Sprinkler Fitter Apprentice On Yes 06/20/2025 12: 10 PM EST Nicole Spivey Bedside Cardiac Audible Yes 06/20/2025 12:10 PM Nicole Smith Bedside Cardiac Alarms Set Yes 06/20/2025 12: 10 PM Nicole Smith * Gastrointestinal Question Answer Date of Assessment Author [place] BM Date [id number] 06/22/2025 8:00 AM Lucero Zuluaga RN Passing Flatus No 06/22/2025 8:00 AM Lucero Zuluaga RN Abdominal Tenderness Soft 06/22/2025 8:[address] Lucero Morrison RN Bowel Sounds (All Quadrants) Active 06/22/2025 8 :00 AM Lucero Zuluaga RN Gastrointestinal (WDL) X 06/22/2025 8:00 AM Lucero Zuluaga RN Abdomen Inspection Distended;Rounded 06/22/2025 8:00 A M Lucero Zuluaga RN Gastrointestinal Symptoms Distention 06/22/2025 8:00 AM Lucero Zuluaga RN Bowel Sounds All quadrants 06/22/2025 8:00 AM Lucero Zuluaga RN * Peripheral Vascular Question Answer Date of Assessment Author Peripheral Vascular (WDL) X 06/22/2025 8:00 AM Lucero Zuluaga R N Capillary Refill Less than/equal to 2 seconds (All extremities) 06/22/2025 8:00 AM Lucero Zuluaga RN Pulses Right posterior tibial;Left posterior tibial;Right pedal dorsalis;Left pedal dorsalis 06/22/2025 8:00 AM Lucero Zuluaga RN Cyanosis None 06/22/2025 8:00 AM Lucero Zuluaga RN Peripheral Vascular Additional Assessments Right lower extremity;Left lower extremity 06/22/2025 8:00 AM Lucero Zuluaga RN * RURadha Neurovascular Assessment Question Answer Date of Assessment Author Right Radial Pulse +2 06/20/2025 7:35 PM Tita Jaimes RN * LUE Neurovascular Assessment Question Answer Date of Assessment Author Left Radial Pulse +2 06/20/2025 7:35 PM Tita Jaimes RN * RLE Neurovascular Assessment Question Answer Date of Assessment Author RLE Capillary Refill Less than/equal to 2 seconds 06/22/2025 8:00 AM Lucero Zuluaga RN RLE Color Appropriate for ethnicity 06/22/2025 8:00 AM Lucero Zuluaga RN RLRadha Temperature/Moisture Warm;Dry 06/22/2025 8:00 AM Lucero Zuluaga RN Right Posterior Tibial Pulse +2 06/22/2025 8:00 AM Lucero Zuluaga R N Right Pedal Dorsalis Pulse +2 06/22/2025 8:00 AM Lucero Zuluaga R N * LLE Neurovascular Assessment Question Answer Date of Assessment Author Left Buttocks Non-pitting 06/22/2025 8:00 AM Lucero Zuluaga RN Left Thigh Non-pitting 06/22/2025 8:00 AM Lucero Zuluaga RN LLE Edema Left Thigh;Left Buttocks 06/22/2025 8:00 AM Lucero Zuluaga RN LLE Capillary Refill Less than/equal to 2 seconds 06/22/2025 8:00 AM Lucero Zuluaga RN LLE Color Appropriate for ethnicity 06/22/2025 8:00 AM Lucero Zuluaga RN LLE Temperature/Moisture Warm;Dry 06/22/2025 8:00 AM Lucero Zuluaga RN Left Posterior Tibial Pulse +2 06/22/2025 8:00 AM Lucero Zuluaga R N Left Pedal Dorsalis Pulse +2 06/22/2025 8:00 AM Lucero Zuluaga R N * Musculoskeletal Question Answer Date of Assessment Author RUE Full movement 06/22/2025 8:00 AM Lucero Zuluaga RN RLE Full movement 06/22/2025 8:00 AM Lucero Zuluaga RN LUE Full movement 06/22/2025 8:00 AM Lucero Zuluaga RN LLE Limited movement;Injury/traum a;Surgery 06/22/2025 8:00 AM Lucero Zuluaga RN Musculoskeletal (WDL) X 06/22/2025 8:00 AM Lucero Zuluaga RN * Psychosocial Question Answer Date of Assessment Author Psychosocial (WDL) WDL 06/22/2025 8:00 AM Luceor Zuluaga RN * Jhoan Scale Question Answer Date of Assessment Author Jhoan Scale Score 19 06/22/2025 8:00 AM Lucero Zuluaga RN Patient Turned No 06/22/2025 8:00 AM Lucero Zuluaga RN * Cardiac Question Answer Date of Assessment Author Cardiac Regularity Regular 06/21/2025 8:42 AM Driss Weston RN Roof Bolter Status Off 06/22/2025 8:00 AM Lucero Zuluaga RN Cardiac ([facility]) WD 06/22/2025 8:00 AM Lucero Zuluaga RN * Respiratory Question Answer Date of Assessment Author Bilateral Breath Sounds Clear;Diminished 06/21/2025 8: 42 AM Driss Weston RN Respiratory Pattern Normal 06/21/2025 1 1:00 PM Edith Anaya RN Chest Assessment Symmetrical 06/20/2025 7:35 PM Tita Cody RN Respiratory ([facility]) WDL 06/22/2025 8:00 AM Lcuero Zuluaga RN Respiratory Effort Unlabored 06/21/2025 11 :00 PM Edith Anaya RN Respiratory Depth/Rhythm Regular 06/21/2025 11:00 PM Edith Anaya RN Breath Sounds Bilateral breath sounds 06/21/2025 8:42 AM Driss Weston RN * Charting Type Question Answer Date of Assessment Author Charting Type Shift assessment 06/22/2025 8:00 AM Lucero Zuluaga RN * Bed Mobility Question Answer Date of Assessment Author Bed Mobility Comments Slow and effortful to incrementally scoot LLE over EOB, ROAD ROLLER OPERATOR to RUE and support at trunk to upright to seated, Mod A for balace while scooting 06/22/2025 9:12 AM Yaakov Spivey PT Bed Position HOB elevated;Use of bedrail 06/22/2025 9:12 AM Yaakov Spivey PT Scooting Moderate Assist;X1 Assist;Cues for Sequencing 06/22/2025 9:12 AM Yaakov Spivey PT Supine to Sit Moderate Assist;X1 Assist;Cues for Sequencing 06/22/2025 9:12 AM Yaakov Spivey PT * Transfers Question Answer Date of Assessment Author Stand to Sit Minimal Assist;X1 Assist;Cues for Sequencing;Cues for Hand Placement 06/22/2025 9:12 AM Yaakov Spivey PT Transfers Comments slightly retropulsiv e while rising to stand, reduced eccentric control 06/22/2025 9:12 AM Yaakov Spivey PT Sit to Stand Minimal Assist;X1 Assist;Cues for Sequencing;Cues for Hand Placement 06/22/2025 9:12 AM Yaakov Spivey PT Bed to Chair Moderate Assist;X2 Assists;Cues for Hand Placement;Cues for Sequencing 06/21/2025 9:24 AM Weston Rousseau, PT * PROM Right Lower Extremity Question Answer Date of Assessment Author Overall RLE PROM WFL 06/21/2025 9:24 AM Weston Vergara, PT * Strength Right Lower Extremity Question Answer Date of Assessment Author RLE Overall Strength WFL 06/21/2025 9:24 AM E Weston Aguirre, PT * PROM Left Lower Extremity Question Answer Date of Assessment Author Overall LLE PROM Not Tested 06/21/2025 9:24 AM Weston Vergara, PT * Strength Left Lower Extremity Question Answer Date of Assessment Author LLE Overall Strength Not Tested 06/21/2025 9:24 AM E Weston Aguirre, PT * Vitals Question Answer Date of Assessment Author Temcolby src Oral 06/22/2025 2:09 PM Mandy Erwin * Cognition Question Answer Date of Assessment Author Behavioral/Affect Comments pleasantly confused and cooperative 06/22/2025 9:12 AM Yaakov Spivey PT Communication Tangential thoughts 06/22/2025 9 :12 AM EST Andrea, Yaakov, PT Orientation Level Oriented X4 06/22/2025 9:1 2 AM Yaakov Spivey, PT Overall Cognitive Status Impaired 025 9:12 AM Yaakov Spivey, PT Attention Span Impaired 06/22/2025 9:12 AM Yaakov Spivey PT Memory Impaired 06/22/2025 9:12 AM Yaakov Spivey PT Following Commands Follows one step commands 06/22/2025 9:12 AM Yaakov Spivey PT Safety Judgment Decreased Safety awareness 06/22/2025 9:12 AM Yaakov Spivey PT Awareness of Errors/Deficits Impaired 06/22/2025 9:12 AM Yaakov Spivey PT Problem Solving Impaired 06/22/2025 9:12 AM Yaakov Spivey PT * Nutrition Screen Question Answer Date of Assessment Author Difficulty Chewing or Swallowing No 06/20/20 8:39 AM Driss Weston RN Pressure Injury or Non-Heali ng Wound No 06/20/2025 8:39 AM Driss Weston RN Home Tube Feeding or Total Parenteral Nutrition (TPN) No 06/20/2025 8:39 AM Cindy Weston RN Dietitian Consult Needed No 06/20/2025 8:39 AM Driss Weston RN * Trauma/Abuse Assessment Question Answer Date of Assessment Author Physical Abuse Denies 06/20/2025 2:47 PM Driss Everett RN Verbal Abuse Denies 06/20/2025 2:47 PM Driss Coates RN * Values/Beliefs Question Answer Date of Assessment Author Cultural Requests During Hospitalization n/a 06/20/2025 2:47 PM Driss Weston RN Spiritual Requests During Hospitalization n/a 06/20/2025 2:47 PM Driss Weston RN * Genitourinary Question Answer Date of Assessment Author Urine Color Yellow/straw 06/22/2025 8:00 AM Lucero Zuluaga RN Urine Appearance Clear 06/22/2025 8:00 AM Lucero Zuluaga RN Urine Odor Malodorous 06/22/2025 8:00 AM Lucero Zuluaga RN Genitourinary (WDL) WDL 06/22/2025 8 :00 AM Lucero Zuluaga RN Urinary Incontinence No 06/22/2025 8:00 AM Lucero Zuluaga RN Genitourinary Symptoms None 8:42 AM Driss Weston RN Genitourinary Additional Assessments Drain/Catheter present: see LDA Documentation 06/20/2025 2:17 PM Driss Weston RN Suprapubic Tenderness No 06/20/2025 2:17 PM Driss Weston RN * Neurological Question Answer Date of Assessment Author Level of Consciousness Alert 06/22/2025 8:00 AM Lucero Zuluaga RN Cognition Follows commands;Appropriate judgement;Appropriate safety awareness 06/21/2025 11:00 PM Edith Anaya RN Speech Delayed responses 06/22/2025 8:00 AM Lucero Zuluaga RN Neuro (WDL) X 06/22/2025 8:00 AM Lucero Zuluaga RN Swallow Other (Comment) 06/21/2025 11:00 PM Edith Anaya RN Neuro Symptoms Forgetful 06/22/2025 8:00 AM Lucero Zuluaga RN Facial Symmetry Symmetrical 06/20/2025 2:17 PM Driss Carter RN * Strength Right Upper Extremity Question Answer Date of Assessment Author RUE Overall Strength [facility] 06/21/2025 9:24 AM Weston Ferguson, PT * PROM Left Upper Extremity Question Answer Date of Assessment Author Overall LUE PROM WF 06/21/2025 9:24 AM EST Weston Arellano, PT * Strength Left Upper Extremity Question Answer Date of Assessment Author LUE Overall Strength [facility] 06/21/2025 9:24 AM Weston Ferguson, PT * PROM Right Upper Extremity Question Answer Date of Assessment Author Overall RUE PROM WFL 06/21/2025 9:24 AM Weston Vergara, PT * Plan Question Answer Date of Assessment Author PT Frequency and Duration 5-7 x/week unt il Discharge;Twice Daily 06/22/2025 9:12 AM Yaakov Spivey PT Continue or D/C PT? Continued Skilled Inpatient PT Services 06/22/2025 9:12 AM Yaakov Spivey PT Treatment Interventions Therapeutic exercise;Assistive device training;Functional mobility training;Gait training;Stair training 06/22/2025 9:12 AM Yaakov Spivey PT * Hygiene Question Answer Date of Assessment Author Bathing/Skin Care bath, complete 06/21/2025 1:00 PM Driss Calixto RN Bathing Assist 06/21/2025 1:00 PM Driss Coates RN Linen Changed Total Bed Change 06/21/2025 1:00 PM Driss Weston RN * Safe Environment Question Answer Date of Assessment Author Arm Bands On ID 06/20/2025 12:10 PM Nicole Osorio Side Rails/Bed Safety 09/2806/20/2025 12:10 PM Nicole Smith The Patient's Environment is Safe Yes 025 12:10 PM Nicole Smith * Mobility Question Answer Date of Assessment Author Positioning Frequency Able to turn self 06/22/2025 10: 53 AM Lucero Zuluaga RN * Precautions Question Answer Date of Assessment Author Precautions Other (Comment) 06/20/2025 12:10 PM Nicole Jimenez * ADL Screening Question Answer Date of Assessment Author Patient's Vision Adequate to Safely Complete Daily Activities No 06/20/2025 8:39 AM Driss Weston RN Patient's Judgment Adequate to Safely Complete Daily Activities No 06/20/2025 8:39 AM Driss Weston RN Patient's Memory Adequate to Safely Complete Daily Activities No 06/20/2025 8:39 AM Driss Weston RN Patient Able to Express Needs/Desires No 06/20/2025 8:39 AM Driss Weston RN Dressing Independent 06/20/2025 8:39 AM Driss Coates RN Grooming Independent 06/20/2025 8:39 AM Driss Coates RN Feeding Independent 06/20/2025 8:39 AM Driss Coates RN Bathing Independent 06/20/2025 8:39 AM Driss Coates RN Toileting Independent 06/20/2025 8:39 AM Driss Coates RN In/Out Bed Independent 06/20/2025 8:39 AM Driss Coates RN Walks in Home Independent 06/20/2025 8:39 AM Driss Nair RN Weakness of Legs None 06/20/2025 8:39 AM MARIO crowleytyDriss RN Weakness of Arms/Hands None 06/20/2025 8:39 AM Driss Weston RN Hearing - Right Ear Functional 06/20/2025 8:39 AM Driss Calixto RN Hearing - Left Ear Functional 06/20/2025 8:39 AM Driss Weston RN Which is your dominant hand? Right 06/20/2025 8 :39 AM Driss Weston RN * Therapy Consults Question Answer Date of Assessment Author PT Evaluation Needed 1 06/20/2025 8:39 AM Driss Artis RN OT Evaluation Needed 1 06/20/2025 8:39 AM Driss Artis RN OVERHEAD LINE WORKER Evaluation Needed 2 06/20/2025 8:39 AM Driss Weston RN Spiritual Care Consult Needed No 06/20/2025 8:39 AM Driss Weston RN Social Services Consult Needed No 06/20/2025 8:39 AM Driss Weston RN * Primary Circulation Question Answer Date of Assessment Author Jugular Venous Distention (JVD) No 1:34 AM Darleen Damon RN * Br??set Violence Checklist (BVC) Question Answer Date of Assessment Author Confused 0 06/22/2025 10:00 AM Lucero Zuluaga RN Irritable 0 06/22/2025 10:00 AM Lucero Zuluaga RN Boisterous 0 06/22/2025 10:00 AM Lucero Zuluaga RN Verbal Threats 0 06/22/2025 10:00 AM Lucero Zuluaga RN Physical Threats 0 06/22/2025 10:0 0 AM Lucero Zuluaga RN Attacking Objects 0 06/22/2025 10: 00 AM Lucero Zuluaga RN BVC - SUM (Calculated) 0 10:00 AM Lucero Zuluaga RN Score Interpretation (Calculated) Small Risk of Violence 06/22/2025 10:00 AM Lucero Zuluaga RN * Legal Status Answer Date of Assessment Author Voluntary - Patient (ADM) 06/20/2025 2:47 PM Driss Weston RN * Pain Assessment Question Answer Date of Assessment Author Pain Location Hip 06/22/2025 9:12 AM Yaakov Nascimento, PT Pain Orientation Left 06/22/2025 9:12 AM Yaakov Cisneros PT Pain Onset Ongoing 06/22/2025 8:00 AM Lucero Zuluaga RN Patient's Stated Pain Goal No pain 06/22/2025 8:00 AM Lucero Zuluaga R N Pain Type Surgical pain 06/22/2025 9:12 AM Yaakov Nascimento, PT Clinical Progression Gradually improving 06/22/2025 8: 00 AM Lucero Zuluaga RN Pain Assessment 0-10 06/22/2025 9:12 AM Yaakov Quinones cas, RICK * Patient Belongings at Bedside Question Answer Date of Assessment Author Dentures Uppers 06/20/2025 8:38 AM Driss Coates RN Vision - Corrective Lenses Glasses 06/20/2025 8:38 AM Driss Weston RN Clothing Pants;Shirt;Sweater; Footwear;Jacket/coat 06/20/2025 8:38 AM Driss Weston RN Belongings at Bedside Clothing;Dentures; Vi mercedez 06/20/2025 8:38 AM Driss Weston RN * Integumentary Question Answer Date of Assessment Author Skin Color Ecchymosis 06/22/2025 8:00 AM Lucero Zuluaga RN Skin Condition/Temp Warm;Dry 06/22/2025 8 :00 AM Lucero Zuluaga RN Skin Integrity Bruising;Surgical Incision 06/22/2025 8:00 AM Lucero Zuluaga RN Skin Turgor Epidermis thin with loss of subcutaneous tissue 06/22/2025 8:00 AM Lucero Zuluaga RN Bruising Characteristics scattered 025 8:00 AM Lucero Zuluaga RN Integumentary (WDL) X 06/22/2025 8 :00 AM Lucero Zuluaga RN * Edema Question Answer Date of Assessment Author Edema Left lower extremity 06/22/2025 8:[address] Lucero Morrison RN * Pain Score Answer Date of Assessment Author 3 06/22/2025 1:49 PM Edwar Zuluaga RN * Stool Output/Assessment Question Answer Date of Assessment Author Stool Color Brown 06/21/2025 10:30 AM Driss Nair RN Stool Appearance Loose;Watery 06/21/2025 10:30 AM Driss Weston RN Bowel Incontinence No 06/21/2025 10:30 AM Driss Calixto RN * ACS Disability Status Question Answer Date of Assessment Author Are you deaf or do you have serious difficulty hearing? No 06/20/2025 8:39 AM Brady Weston RN Are you blind or do you have serious difficulty seeing, even when wearing glasses? No 06/20/2025 8:39 AM Efra Weston RN Because of a physical, menta l, or emotional condition, do you have serious difficulty concentrating, remembering, or making decisions? No 06/20/2025 8:39 AM Driss Everett RN Do you have serious difficul ty walking or climbing stairs? No 06/20/2025 8:39 AM Brady Weston RN Do you have serious difficul ty dressing or bathing? No 06/20/2025 8:39 AM Driss Weston RN Because of a physical, menta l, or emotional condition, do you have difficulty doing errands such as visiting the doctor's office or shopping? No 06/20/2025 8:39 AM Driss Weston RN * [place] Suicide Severity Rating Scale Question Answer Date of Assessment Author 1. In the past month, have y ou wished you were or wished you could go to sleep and not wake up? No 06/20/2025 2:58 PM Driss Carter RN 2. In the past month, have y ou actually had any thoughts of killing yourself? No 06/20/2025 2:58 PM Driss Weston RN 6. (Lifetime) Have you ever done anything, started to do anything, or prepared to do anything to end your life? No 06/20/2025 2:58 PM Driss Weston RN * Patient Strengths/Barriers Question Answer Date of Assessment Author Strengths (Must Choose Two) Support from organized community;Stable domestic situation 06/20/2025 2:47 PM Driss Weston RN Barriers Recreational/leisure /h obbies 06/20/2025 2:47 PM Driss Weston RN * Risk of Suicide Answer Date of Assessment Author No Risk 06/20/2025 2:58 PM Brady Weston RN * Malnutrition Screening Tool (MST) Question Answer Date of Assessment Author Have you recently lost weigh t without trying? 0 06/20/2025 8:39 AM Driss Weston RN Have you been eating poorly because of a decreased appetite? 0 06/20/2025 8:39 AM Driss Nair RN * Weight Loss Score Answer Date of Assessment Author 0 06/20/2025 8:39 AM Brady Weston RN * Malnutrition Score Answer Date of Assessment Author 0 06/20/2025 8:39 AM Brady Weston RN * [facility] Fall Risk Score Question Answer Date of Assessment Author Age 2 06/22/2025 10:53 AM Lucero Zuluaga RN Fall History 5 06/22/2025 10:53 AM Lucero Zuluaga RN Elimination, Bowel and Urine 0 06/22/2025 10:53 AM Lucero Zuluaga RN Medications 5 06/22/2025 10:53 AM Lucero Zuluaga RN Patient Care Equipment 1 10:53 AM Lucero Zuluaga RN Mobility 2 - Requires Assistance 06/22/2025 10:53 AM Lucero Zuluaga RN Cognition Not applicable 06/22/2025 10:53 AM Lucero Zuluaga RN Total Fall Risk Score 14 06/22/2025 10:53 AM Lucero Zuluaga RN documented as of this encounter Mental Status * Head, Ears, Eyes, Nose, and Throat (HEENT) Question Answer Entry Date Author Head, Ears, Eyes, Nose, and Throat (WDL) X 06/22/2025 8:00 AM Lucero Zuluaga RN R Eye Mildly impaired vision 8:00 AM Lucero Zuluaga RN L Eye Mildly impaired vision 8:00 AM Lucero Zuluaga RN Teeth Dentures upper 06/22/2025 8:00 AM Lucero Zuluaga RN * Post Discharge Planning Question Answer Entry Date Author Type of Home Treatment/Devices/Equipment Needed for Discharge Standard walker 06/20/2025 2:23 PM Driss Weston RN Assistance Needed For Discharge None 06/20/2025 2:23 PM Driss Weston RN Discharge Plan Discussion Patient agrees with plan;Family agrees with plan;Discussed with interdisciplinary team 06/22/2025 10:36 AM Fior Dodd RN Lives With Alone 06/22/2025 10:36 AM Fior Dodd RN Support Systems Family members;Children 06/22/20 10:36 AM Fior Dodd RN Current Patient Responsibilities Housekeeping;Meal prep;Personal care;Shopping 06/20/2025 2:23 PM Driss Weston RN Type of Residence Apartment 06/22/2025 10:36 AM Fior Dodd RN Home or Post Acute Services SNF 05/28 10:36 AM Fior Dodd RN Patient [facility] to be discharged to: [facility] 06/22/2025 10:36 AM Fior Dodd RN Does the patient need discharge transport arranged? Yes 06/22/2025 10:36 AM Fior Dodd RN Has discharge transport been arranged? Yes 06/22/2025 10:36 AM Fior Dodd RN What day is the transport expected? [id number] 06/22/2025 10:36 AM Fior Dodd RN What time is the transport expected? [id number] 06/22/2025 10:36 AM Fior Dodd RN Who is requesting discharge planning? Provider 06/22/2025 10:36 AM Fior Dodd RN * Neuromuscular Assessment Question Answer Entry Date Author Auditory WFL 06/21/2025 9:24 AM EST Weston Porter, PT Vestibular WFL 06/21/2025 9:24 AM EST Weston Porter, PT Vision WFL 06/21/2025 9:24 AM EST Weston Porter, PT * Education Question Answer Entry Date Author Education Provided Role of PT/Plan of Care;Discharge Planning;Activities of Daily Living;Adaptive Equipment/Assistive Device;Mobility Training;Safety Awareness/Fall Risk;Precautions;Weight Bearing Status;Activities Guidelines 06/22/2025 9:12 AM EST Yaakov Mendez, PT * Education Question Answer Entry Date Author Barriers to Learning Cognitive deficits;Memory problems 06/21/2025 9:23 AM EST Padmini Vieira, OTR/L * PACU Interventions Question Answer Entry Date Author Anti-Embolism Devices Bilateral;Sequenti al compression devices, below knee 06/20/2025 12:10 PM Nicole Smith Anti-Embolism Intervention On 06/20 12:10 PM Nicole Smith Warm Whitakers Applied 06/20/2025 12:10 PM Nicole Smith Additional Comfort/Environmental Interventions Warm blanket 06/20/2025 12:10 PM Nicole Smith * Pupils Question Answer Entry Date Author Pupil Reaction Left Brisk 06/20/2025 1:34 AM Darleen Garrido RN Pupil Reaction Right Brisk 06/20/2025 1:34 AM Darleen Hilton RN Pupil Size Left (mm) 3 06/20/2025 1:34 AM Darleen Hilton RN Pupil Size Right (mm) 3 06/20/2025 1:34 AM Darleen Damon RN * [place] Fall Risk Screening Question Answer Entry Date Author Patient has complete paralysis or completely immobilized No (Continue Assessment) 06/22/2025 10:53 AM Lucero Zuluaga RN Patient has a history of mor e than one fall within 6 months before admission. Yes (Implement High Fall Risk Interventions) 06/22/2025 10:53 AM Lucero Zuluaga RN Patient has experienced a fall during this hospitalization No (Continue Assessment) 06/22/2025 10:53 AM Lucero Zuluaga RN Patient is deemed high fall-risk per protocol (e.g., seizure precautions) Yes (Implement High Fall Risk Interventions) 06/22/2025 10:53 AM Lucero Zuluaga RN * Audit-C Question Answer Entry Date Author Unable To Assess No 06/20/2025 2:47 PM Driss Weston RN AUDIT-C Score 2 06/20/2025 8:40 AM Driss Weston RN Q1: How often do you have a drink containing alcohol? 2-4 times a month 06/20/2025 8:40 AM Driss Weston RN Q2: How many drinks containing alcohol do you have on a typical day when you are drinking? 1 or 2 06/20/2025 8:40 AM Driss Weston RN Q3: How often do you have six or more drinks on one occasion? Never 06/20/2025 8:40 AM Driss Weston RN * Vital Signs Question Answer Entry Date Author MAP (mmHg) 95 06/21/2025 9:24 AM EST Weston Porter PT * Cardiac Question Answer Entry Date Author Cardiac Rhythm NSR 06/20/2025 12:10 PM EST Nicole Pope * Sprinkler Fitter Apprentice Question Answer Entry Date Author Bedside Sprinkler Fitter Apprentice On Yes 06/20/2025 12: 10 PM Nicole Smith Bedside Cardiac Audible Yes 06/20/2025 12:10 PM Nicole Smith Bedside Cardiac Alarms Set Yes 06/20/2025 12: 10 PM Nicole Smith * Gastrointestinal Question Answer Entry Date Author Last BM Date [id number] 06/22/2025 8:00 AM Lucero Zuluaga RN Passing Flatus No 06/22/2025 8:00 AM Lucero Zuluaga RN Abdominal Tenderness Soft 06/22/2025 8:00 AM Lucero Zuluaga RN Bowel Sounds (All Quadrants) Active 8:00 AM Lucero Zuluaga RN Gastrointestinal (WDL) X 8:00 AM Lucero Zuluaga RN Abdomen Inspection Distended;Rounded 06/22/2025 8:00 AM Lucero Zuluaga RN Gastrointestinal Symptoms Distention 2024 8:00 AM Lucero Zuluaga RN Bowel Sounds All quadrants 06/22/2025 8:00 AM Lucero Zuluaga RN * Peripheral Vascular Question Answer Entry Date Author Peripheral Vascular (WDL) X 2024 8:00 AM Lucero Zuluaga RN Capillary Refill Less than/equal to 2 seconds (All extremities) 06/22/2025 8:00 AM Lucero Zuluaga RN Pulses Right posterior tibial;Left posterior tibial;Right pedal dorsalis;Left pedal dorsalis 06/22/2025 8:00 AM Lucero Zuluaga RN Cyanosis None 06/22/2025 8:00 AM Lucero Zuluaga RN Peripheral Vascular Additional Assessments Right lower extremity;Left lower extremity 06/22/2025 8:00 AM Lucero Zuluaga RN * RUE Neurovascular Assessment Question Answer Entry Date Author Right Radial Pulse +2 06/20/2025 7:35 PM Tita Jaimes RN * LURadha Neurovascular Assessment Question Answer Entry Date Author Left Radial Pulse +2 06/20/2025 7:35 PM Tita Jaimes RN * RLE Neurovascular Assessment Question Answer Entry Date Author RLE Capillary Refill Less than/equal to 2 seconds 06/22/2025 8:00 AM Lucero Zuluaga RN RLE Color Appropriate for ethnicity 2024 8:00 AM Lucero Zuluaga RN RLE Temperature/Moisture Warm;Dry 06/22/2025 8:00 AM Lucero Zuluaga RN Right Posterior Tibial Pulse +2 06/22/2025 8:00 AM Lucero Zuluaga RN Right Pedal Dorsalis Pulse +2 06/22/2025 8:00 AM Lucero Zuluaga RN * LLE Neurovascular Assessment Question Answer Entry Date Author Left Buttocks Non-pitting 06/22/2025 8:00 AM Lucero Zuluaga RN Left Thigh Non-pitting 06/22/2025 8:00 AM Lucero Zuluaga RN LLE Edema Left Thigh;Left Buttocks 025 8:00 AM Lucero Zuluaga RN LLE Capillary Refill Less than/equal to 2 seconds 06/22/2025 8:00 AM Lucero Zuluaga RN LLE Color Appropriate for ethnicity 2024 8:00 AM Lucero Zuluaga RN LLE Temperature/Moisture Warm;Dry 06/22/2025 8:00 AM Lucero Zuluaga RN Left Posterior Tibial Pulse +2 06/22/2025 8:00 AM Lucero Zuluaga RN Left Pedal Dorsalis Pulse +2 06/22/2025 8:00 AM Lucero Zuluaga RN * Musculoskeletal Question Answer Entry Date Author RUE Full movement 06/22/2025 8:00 AM Lucero Zuluaga RN RLE Full movement 06/22/2025 8:00 AM Lucero Zuluaga RN LUE Full movement 06/22/2025 8:00 AM Lucero Zuluaga RN LLRadha Limited movement;Injury/trauma;S urgery 06/22/2025 8:00 AM Lucero Zuluaga RN Musculoskeletal (WDL) X 06/22/2025 8:00 AM Lucero Zuluaga RN * Psychosocial Question Answer Entry Date Author Psychosocial (WDL) WDL 06/22/2025 8:00 AM Lucero Zuluaga RN * Jhoan Scale Question Answer Entry Date Author Jhoan Scale Score 19 06/22/2025 8:00 AM Lucero Zuluaga RN Patient Turned No 06/22/2025 8:00 AM Lucero Zuluaga RN * Cardiac Question Answer Entry Date Author Cardiac Regularity Regular 06/21/2025 8:42 AM Driss Weston RN Roof Bolter Status Off 06/22/2025 8:00 AM Lucero Zuluaga RN Cardiac (WDL) WDL 06/22/2025 8:00 AM Lucero Zuluaga RN * Respiratory Question Answer Entry Date Author Bilateral Breath Sounds Clear;Diminished 8:42 AM Driss Weston RN Respiratory Pattern Normal 06/21/2025 1 1:00 PM Edith Anaya RN Chest Assessment Symmetrical 06/20/2025 7:35 PM Tita Jaimes RN Respiratory ([facility]) WDL 06/22/2025 8:0 0 AM Lucero Zuluaga RN Respiratory Effort Unlabored 06/21/2025 11 :00 PM Edith Anaya RN Respiratory Depth/Rhythm Regular 11:00 PM Edith Anaya RN Breath Sounds Bilateral breath sounds 06/21/20 8:42 AM Driss Weston RN * Charting Type Question Answer Entry Date Author Charting Type Shift assessment 06/22/2025 8:00 AM Lucero Zuluaga RN * Cognition Question Answer Entry Date Author Behavioral/Affect Comments pleasantly co nfused and cooperative 06/22/2025 9:12 AM Yaakov Spivey PT Communication Tangential thoughts 06/22/2025 9 :12 AM Yaakov Spivey PT Orientation Level Oriented X4 06/22/2025 9:1 2 AM Yaakov Spivey, PT Overall Cognitive Status Impaired 9:12 AM Yaakov Spivey, PT Attention Span Impaired 06/22/2025 9:12 AM Yaakov Spivey PT Memory Impaired 06/22/2025 9:12 AM Yaakov Spivey PT Following Commands Follows one step commands 06/22/2025 9:12 AM Yaakov Spivey PT Safety Judgment Decreased Safety awareness 06/22/2025 9:12 AM Yaakov Spivey PT Awareness of Errors/Deficits Impaired 06/22/2025 9:12 AM Yaakov Spivey, PT Problem Solving Impaired 06/22/2025 9:12 AM Yaakov Spivey PT * Nutrition Screen Question Answer Entry Date Author Difficulty Chewing or Swallowing No 06/20/20 8:39 AM Driss Weston RN Pressure Injury or Non-Heali ng Wound No 06/20/2025 8:39 AM Driss Weston RN Home Tube Feeding or Total Parenteral Nutrition (TPN) No 06/20/2025 8:39 AM Cindy Weston RN Dietitian Consult Needed No 06/20/2025 8:39 AM Driss Weston RN * Trauma/Abuse Assessment Question Answer Entry Date Author Physical Abuse Denies 06/20/2025 2:47 PM Driss Everett RN Verbal Abuse Denies 06/20/2025 2:47 PM Driss Coates RN * Values/Beliefs Question Answer Entry Date Author Cultural Requests During Hospitalization n/a 06/20/2025 2:47 PM Driss Weston RN Spiritual Requests During Hospitalization n/a 06/20/2025 2:47 PM Driss Weston RN * Genitourinary Question Answer Entry Date Author Urine Color Yellow/straw 06/22/2025 8:00 AM Lucero Zuluaga RN Urine Appearance Clear 06/22/2025 8:00 AM Lucero Zuluaga RN Urine Odor Malodorous 06/22/2025 8:00 AM Lucero Zuluaga RN Genitourinary (WDL) WDL 06/22/2025 8 :00 AM Lucero Zuluaga RN Urinary Incontinence No 06/22/2025 8:00 AM Lucero Zuluaga RN Genitourinary Symptoms None 8:42 AM Driss Weston RN Genitourinary Additional Assessments Drain/Catheter present: see LDA Documentation 06/20/2025 2:17 PM Driss Weston RN Suprapubic Tenderness No 06/20/2025 2:17 PM Driss Weston RN * Neurological Question Answer Entry Date Author Level of Consciousness Alert 8:00 AM Lucero Zuluaga RN Cognition Follows commands;Appropriate judgement;Appropriate safety awareness 06/21/2025 11:00 PM Edith Anaya RN Speech Delayed responses 06/22/2025 8:0 0 AM Lucero Zuluaga RN Neuro (WDL) X 06/22/2025 8:00 AM Lucero Zuluaga RN Swallow Other (Comment) 06/21/2025 11:00 PM Edith Anaya RN Neuro Symptoms Forgetful 06/22/2025 8:00 AM Lucero Zuluaga RN Facial Symmetry Symmetrical 06/20/2025 2:17 PM Driss Weston RN * Strength Right Upper Extremity Question Answer Entry Date Author RUE Overall Strength WFL 06/21/2025 9:24 AM E Weston Aguirre, PT * PROM Left Upper Extremity Question Answer Entry Date Author Overall LUE PROM WFL 06/21/2025 9:24 AM EST Weston Arellano, PT * Strength Left Upper Extremity Question Answer Entry Date Author LUE Overall Strength WFL 06/21/2025 9:24 AM E Weston Aguirre, PT * PROM Right Upper Extremity Question Answer Entry Date Author Overall RUE PROM WFL 06/21/2025 9:24 AM EST Weston Arellano, PT * Hygiene Question Answer Entry Date Author Bathing/Skin Care bath, complete 06/21/2025 1:00 PM Driss Calixto RN * Safe Environment Question Answer Entry Date Author Arm Bands On ID 06/20/2025 12:10 PM EST Nicole Marte Side Rails/Bed Safety /06/20/2025 12:10 PM EST Nicole Spivey * Mobility Question Answer Entry Date Author Positioning Frequency Able to turn self 06/22/2025 10: 53 AM Lucero Zuluaga RN * Precautions Question Answer Entry Date Author Precautions Other (Comment) 06/20/2025 12:10 PM EST Nicole Leal * ADL Screening Question Answer Entry Date Author Patient's Vision Adequate to Safely Complete Daily Activities No 06/20/2025 8:39 AM Driss Weston RN Patient's Judgment Adequate to Safely Complete Daily Activities No 06/20/2025 8:39 AM Driss Weston RN Patient's Memory Adequate to Safely Complete Daily Activities No 06/20/2025 8:39 AM Driss Weston RN Patient Able to Express Needs/Desires No 06/20/2025 8:39 AM Driss Weston RN Dressing Independent 06/20/2025 8:39 AM Driss Coates RN Grooming Independent 06/20/2025 8:39 AM Driss Coates RN Feeding Independent 06/20/2025 8:39 AM Driss Coates RN Bathing Independent 06/20/2025 8:39 AM Driss Coates RN Toileting Independent 06/20/2025 8:39 AM Driss Coates RN In/Out Bed Independent 06/20/2025 8:39 AM Driss Coates RN Walks in Home Independent 06/20/2025 8:39 AM Driss Nair RN Weakness of Legs None 06/20/2025 8:39 AM Driss Vasquez RN Weakness of Arms/Hands None 06/20/2025 8:39 AM Driss Weston RN Hearing - Right Ear Functional 06/20/2025 8:39 AM Driss Calixto RN Hearing - Left Ear Functional 06/20/2025 8:39 AM Driss Weston RN Which is your dominant hand? Right 06/20/2025 8 :39 AM Driss Weston RN * Therapy Consults Question Answer Entry Date Author PT Evaluation Needed 1 06/20/2025 8:39 AM Driss Artis RN OT Evaluation Needed 1 06/20/2025 8:39 AM Driss Artis RN OVERHEAD LINE WORKER Evaluation Needed 2 06/20/2025 8:39 AM Driss Weston RN Spiritual Care Consult Needed No 06/20/2025 8:39 AM Driss Weston RN Social Services Consult Needed No 06/20/2025 8:39 AM Driss Weston RN * Primary Circulation Question Answer Entry Date Author Jugular Venous Distention (JVD) No 1:34 AM Darleen Damon RN * Legal Status Answer Entry Date Author Voluntary - Patient (ADM) 06/20/2025 2:47 PM Driss Weston RN * Brief Confusion Assessment Method - bCAM Question Answer Entry Date Author Feature 1: Acute Onset or Fluctuating Course Negative 06/20/2025 2:44 AM Zuly Adam MD * bCAM Score Answer Entry Date Author Negative 06/20/2025 2:44 AM Zuly Adam MD * Pain Assessment Question Answer Entry Date Author Pain Location Hip 06/22/2025 9:12 AM Yaakov Spivey, PT Pain Orientation Left 06/22/2025 9:12 AM Yaakov Spivey, PT Pain Onset Ongoing 06/22/2025 8:00 AM Lucero Zuluaga RN Patient's Stated Pain Goal No pain 06/22 8:00 AM Lucero Zuluaga RN Pain Type Surgical pain 06/22/2025 9:12 AM Yaakov Spivey, PT Clinical Progression Gradually improving 025 8:00 AM Lucero Zuluaga RN Pain Assessment 0-10 06/22/2025 9:12 AM Yaakov Spivey, PT * Patient Belongings at Bedside Question Answer Entry Date Author Dentures Uppers 06/20/2025 8:38 AM Driss Weston RN Vision - Corrective Lenses Glasses 06/20/2025 8:38 AM Driss Weston RN Clothing Pants;Shirt;Sweater; F ootwear;Jacket/coat 06/20/2025 8:38 AM Driss Weston RN Belongings at Bedside Clothing;Dentures; Vis ion 06/20/2025 8:38 AM Driss Weston RN * Integumentary Question Answer Entry Date Author Skin Color Ecchymosis 06/22/2025 8:00 AM Lucero Zuluaga RN Skin Condition/Temp Warm;Dry 06/22/2025 8 :00 AM Lucero Zuluaga RN Skin Integrity Bruising;Surgical Incision 06/22/2025 8:00 AM Lucero Zuluaga RN Skin Turgor Epidermis thin with loss of subcutaneous tissue 06/22/2025 8:00 AM Lucero Zuluaga RN Bruising Characteristics scattered 025 8:00 AM Lucero Zuluaga RN Integumentary (WDL) X 06/22/2025 8 :00 AM Lucero Zuluaga RN * Edema Question Answer Entry Date Author Edema Left lower extremity 06/22/2025 8:[address] Lucero Morrison RN * Pain Score Answer Entry Date Author 3 06/22/2025 1:49 PM Edwar Zuluaga RN * Confusion Assessment Method (CAM) Question Answer Entry Date Author Acute Onset and Fluctuating Course (1A) No 06/22/2025 8:00 AM Lucero Zuluaga R N * Urine Output/Assessment Question Answer Entry Date Author Bladder Scan Volume (mL) 179 06/21/2025 5:00 PM Rhonda Maldonado RN * Stool Output/Assessment Question Answer Entry Date Author Stool Color Brown 06/21/2025 10:30 AM Driss Nair RN Stool Appearance Loose;Watery 06/21/2025 10:30 AM Driss Weston RN Bowel Incontinence No 06/21/2025 10:30 AM Driss Calixto RN * [place] Suicide Severity Rating Scale Question Answer Entry Date Author 1. In the past month, have y ou wished you were or wished you could go to sleep and not wake up? No 06/20/2025 2:58 PM Driss Carter RN 2. In the past month, have y ou actually had any thoughts of killing yourself? No 06/20/2025 2:58 PM Driss Weston RN 6. (Lifetime) Have you ever done anything, started to do anything, or prepared to do anything to end your life? No 06/20/2025 2:58 PM Driss Weston RN * Able to Complete Psychiatric Screening Question Answer Entry Date Author Were you able to complete al l the behavioral health screenings? Yes 06/20/2025 2:47 PM Driss Weston RN * Patient Strengths/Barriers Question Answer Entry Date Author Strengths (Must Choose Two) Support from organized community;Stable domestic situation 06/20/2025 2:47 PM Driss Weston RN Barriers Recreational/leisure /ho bbies 06/20/2025 2:47 PM Driss Weston RN * Drug Screening Question Answer Entry Date Author Have you used any substances (cocaine, heroin, hallucinogens, inhalants, etc.) in the past 12 months? No 06/20/2025 2:47 PM Driss Weston RN Have you used any prescripti on drugs other than prescribed in the past 12 months? No 06/20/2025 2:47 PM Driss Weston RN * Risk of Suicide Answer Entry Date Author No Risk 06/20/2025 2:58 PM Brady Weston RN * Malnutrition Screening Tool (MST) Question Answer Entry Date Author Have you recently lost weigh t without trying? 0 06/20/2025 8:39 AM Driss Weston RN Have you been eating poorly because of a decreased appetite? 0 06/20/2025 8:39 AM Driss Nair RN * Weight Loss Score Answer Entry Date Author 0 06/20/2025 8:39 AM Brady Weston RN * Malnutrition Score Answer Entry Date Author 0 06/20/2025 8:39 AM Brady Weston RN * [facility] Fall Risk Score Question Answer Entry Date Author Age 2 06/22/2025 10:53 AM Lucero Zuluaga RN Fall History 5 06/22/2025 10:53 AM Lucero Zuluaga RN Elimination, Bowel and Urine 0 06/22/2025 10:53 AM Lucero Zuluaga RN Medications 5 06/22/2025 10:53 AM Lucero Zuluaga RN Patient Care Equipment 1 10:53 AM Lucero Zuluaga RN Mobility 2 - Requires Assistance 06/22/20 10:53 AM Lucero Zuluaga RN Cognition Not applicable 06/22/2025 10:53 AM Lucero Zuluaga RN Total Fall Risk Score 14 06/22/2025 10:53 AM Lucero Zuluaga RN * Because of a physical, mental, or emotional condition, do you have serious difficulty concentrating, remembering, or making decisions? Answer Entry Date Author No 06/20/2025 8:39 AM EST Driss Meek RN documented in this encounter Discharge Summaries * Bill Kang MD - 06/22/2025 10:19 AM EST Discharge Summary Hospital diagnosis: #Mechanical fall #Impacted angulated subcapital left femur fracture s/p hemiarthroplasty 06/20, suspected pathologicfracture #Demand ischemia #Uncontrolled hypertension, chronic #ITP, chronic Discharge summary: 84-year-old female with a past medical history significant for ITP, hypertension, and lymphoma who presented to [facility] after a mechanical fall and was found to have an impacted angulated subcapital left femoral neck fracture. Imaging showed an impacted angulated subcapital fracture ofthe left femur without evidence of an underlying lytic or suspicious lesion, most consistent with afracture in the setting of significant osteopenia. Orthopedic surgery was consulted and the patientunderwent left hemiarthroplasty on 06/20. Postoperatively, she was allowed weight bearing as tolerated on the left lower extremity with posterior hip precautions. DVT prophylaxis with apixaban 2.5 mg twice daily to be continued for a month following repair. Pain management with scheduled acetaminophen and low-dose oxycodone as needed. Started on arteaga regimen as needed. Physical and occupational therapy evaluated the patient and recommended discharge to short-term rehabilitation. Orthopedic follow-up with Dr. Keys has been arranged for approximately two weeks after discharge. Of note, during admission, the patient was noted to have a mild troponin elevation of 22 to 23 without associated chest pain, dyspnea, or other ischemic symptoms, most consistent with demand ischemiain the setting of acute injury and stress. Intraoperatively, there was concern for possible ST elevation in a precordial lead; however, repeat electrocardiograms showed no evidence of acute ischemia,and the patient remained asymptomatic postoperatively. Cardiology was notified and reviewed the case, noting a flat low-level troponin elevation without clinical concern for acute coronary syndrome and recommending no further cardiac workup in the absence of symptoms. The patient was also noted to have persistently elevated blood pressures on admission. She reportednonadherence to her outpatient antihypertensive regimen due to perceived side effects. Postoperatively, blood pressures improved. Lisinopril was continued at 20 mg daily, and amlodipine was resumed at a reduced dose of 5 mg daily. 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 She is maintained on eltrombopag and experienced no significant perioperative bleeding beyond expected surgical blood loss. Eltrombopag was resumed on 06/20. Hematology r ecommendations include repeating platelet counts in two weeks and adjusting eltrombopag dosing based on platelet response, with dose increases if platelets fall below 50, decreases if platelets exceed 200, and holding the medication if platelets exceed 400. [facility]. At the time of discharge, the patient was hemodynamically stable with well- controlled pain, no cardiopulmonary symptoms, and appropriate postoperative recovery. She was discharged to rehabilitation in stable condition with close orthopedic and hematology follow-up arranged. Test Results Pending At Discharge Pending Labs Order Current Status Urinalysis Collected (06/20/25311) Urine Testing (UA, UARC, Urine Culture) Collected (06/20/25311) Urine culture Collected (06/20/25311) Vitamin D 25 hydroxy In process Prepare RBC, Leukoreduced: 2 Units Preliminary result Pertinent Physical Exam At Time of Discharge General: well-appearing, in no acute distress, resting comfortably HEENT: normocephalic/atraumatic, extra-ocular movements intact, mucus membranes moist CV: regular rate and rhythm, no murmurs, rubs or gallops, loud S1/S2 Pulm: clear to auscultation bilaterally, no wheezing, crackles or rhonchi, no accessory muscle use Ext: no overlying ecchymosis or gross deformity of L hip, warm and well perfused, no edema, DPs palpable. Bandage c/d/i Skin: no major lesions or rashes noted Neuro: Awake, alert & oriented x3, nonfocal Psych: Mood and affect euthymic, calm and cooperative, intermittently forgetful Outpatient Follow-Up Future Appointments Date Time Provider Department Center 07/05/2025 10:15 AM Perla Keys MD [facility] Bill Kang MD Division of Hospital Medicine [facility] documented in this encounter Discharge Instructions * Discharge Instructions* BLANKA Tran - 06/20/2025 5:17 PM EST Dear Tanisha Cota, Please see the instructions below for the exact medications that you should take as well as symptoms for which you should seek further care. Please do not hesitate to contact us with any questions orconcerns. Your scheduled follow up appointments are attached. Thank you for allowing us to participate in your care. It was a pleasure taking care of you while you were here. Best Regards, Your Inpatient Medicine Team at [facility] Please call your primary care doctor or go to an emergency room or call 911 if you are experiencingany of the following symptoms: Shortness of breath Persistent cough associated with sputum or fever or both Light-headedness/loss of consciousness/ dizziness Persistent nausea, vomiting, or severe abdominal pain Chest pain/palpitations/sudden sweating with radiation down both arms Confusion Any other concerning symptoms In case of an emergency, please call 911, and not your PCP???s office, in order to get immediate medical attention Medication Changes 1. Some of your medications were changed during your visit 2. Please refer to your medication reconciliation sheet for a full list of your discharge medications. 3. Do not start any new medications without discussing them with your PCP. Future Appointments: Future Appointments Date Time Provider Department Center 07/05/2025 10:15 AM Perla Keys MD [facility] Additional Appointments: 1. PCP: Please follow up with your primary care doctor within 1-2 weeks of discharge regarding thisadmission. An appointment request has been made for you. If you do not hear back within 1-2 days, please call the clinic to schedule one. General Discharge Instructions ?? Diet: as tolerated ?? Activity: as tolerated Make sure to bring this paperwork with you to all of your follow-up and primary care appointments regarding this admission. Hematology recommendations regarding Promacta: - Promacta can be restarted at patient's prior home dose. - Should have labs checked in about 2 weeks. - After 2 weeks, if plt count<50k, then increase 25 mg daily for 2 weeks; max is 75 mg. If plt count >200k, decrease 25 mg daily every two weeks. If plt count >400k, hold off med. ORTHOPEDIC DISCHARGE INSTRUCTIONS: Diagnosis: L femoral neck fracture Procedure: left hemiarthroplasty 1. Activity/Restrictions - Weight bearing as tolerated on operative leg with assistive device if needed. Posterior Precautions: ?? Do not bend hip more than 90 degrees ?? Do not cross legs ?? Do not turn leg inward; keep toes pointed to ceiling 2. Wound care - Aquacel dressing, monitor daily for saturation. If dressing remains dry keep intact until follow upvisit. If saturated remove immediately and apply dry sterile dressing and monitor for continued drainage. May shower immediately with Mepilex intact. 3. DVT Prophylaxis: Eliquis 2.5 BID 4. FOLLOW UP: Dr. Keys Location: [address] [place] [address] [facility] [facility] Contact: documented in this encounter Medications at Time of Discharge acetaminophen (Tylenol) 325 mg tabletIndications :Closed fracture of neck of left femur, initial encounter Take 3 tablets (975 mg) by mouth three times daily for 10 doses. 06/22/2025 06/26/2025 amLODIPine (Norvasc) 10 mg tablet Take 10 mg by mouth once daily. apixaban (Eliquis) 2.5 mg tabletIndications :Closed fracture of neck of left femur, initial encounter Take 1 tablet (2.5 mg) by mouth twice daily. 06/22/2025 07/21/2025 calcium citrate-vitamin D3 (Citracal+D) 315 mg-5 mcg (200 unit) tabletIndications :Closed fracture of neck of left femur, initial encounter Take 1 tablet by mouth three times daily. 06/22/2025 cholecalciferol, vitamin D3, (Vitamin D-3) 25 MCG (1000 UT) tabletIndications :Closed fracture of neck of left femur, initial encounter Take 1 tablet (1,000 Units) by mouth once daily. 06/23/2025 eltrombopag olamine (Promacta) 50 mg tablet Take 50 mg by mouth once daily. 08/23/2022 escitalopram (Lexapro) 10 mg tablet Take 10 mg by mouth in the morning. 10/26/2024 lisinopril 20 mg tablet Take 20 mg by mouth in the morning. 08/29/2024 oxyCODONE (Roxicodone) 5 mg immediate release tabletIndications :Closed fracture of neck of left femur, initial encounter Take 1 tablet (5 mg) by mouth every 4 (four) hours if needed for pain score 7-10 (severe) for up to 5 days. 8 tablet 06/22/2025 06/27/2025 polyethylene glycol (Glycolax) 17 gram packetIndications :Closed fracture of neck of left femur, initial encounter Take 17 g by mouth once daily for 3 days. Mix each packet (17 g) with 4 to 8 ounces of liquid. 06/23/2025 06/26/2025 sennosides (Senokot) 8.6 mg tabletIndications :Closed fracture of neck of left femur, initial encounter Take 2 tablets (17.2 mg) by mouth at bedtime. 06/22/2025 documented as of this encounter Progress Notes * Fior Ureña RN - 06/22/2025 10:47 AM EST 06/22/25 1036 Post Discharge Planning Type of Residence Apartment Lives With Alone Support Systems Family members;Children Current Patient Responsibilities (Independent HOUSE COORDINATOR) Who is requesting discharge planning? Provider Home or Post Acute Services SNF Patient expects to be discharged to: [facility] Discharge Plan Discussion Patient agrees with plan;Family agrees with plan;Discussed with interdisciplinary team Does the patient need discharge transport arranged? Yes Has discharge transport been arranged? Yes What day is the transport expected? 06/22/25 What time is the transport expected? 1230 Patient is medically ready for discharge today. Patient is being discharged to to SNF([facility]). CM met with patient at bedside d/c plan reviewed. Pt agreeable with plan. Patients daughter Natty updated with patients permission. Daughter Natty to bring patients home medication(Promacta) to SNF, per SNF request. Transportation via [facility]. D/C Summary and PAS sent via [employer]. * Yaakov Mendez, PT - 06/22/2025 9:12 AM EST Physical Therapy Treatment Progress Note Patient Name: Tanisha Cota : 1940 Today's Date: 06/22/2025 Subjective I can't believe I walked today! Objective General Information General Info PT Received On: 06/22/25 Following Therapy Session:: Call betts within reach, Patient in Chair, Chair Alarm Activated, Nursing Staff Aware of Patient Location Plan of Care Reviewed With:: Patient, RN/Charge Nurse Recommended mobility with nursing staff: 2A w/ RW for OOB to chair/commode, posterior hip precautions, encourage OOB for meals and as tolerated Precautions Precautions Weight Bearing Status-1: LLE, Weight Bearing as Tolerated Hip Precautions: Posterior Hip Precautions Other Precautions: Fall Risk, Delirium Risk Activity Restrictions: Ambulate with assist Pain Pain Assessment Pain Assessment: 0-10 Pain Score: 6 Pain Type: Surgical pain Pain Location: Hip Pain Orientation: Left Vital Signs Oxygen Therapy SpO2: 99 % Patient Activity During SpO2 Measurement: At rest Cognition Overall Cognitive Status: Impaired Orientation Level: Oriented X4 Following Commands: Follows one step commands Safety Judgment: Decreased Safety awareness Awareness of Errors/Deficits: Impaired Attention Span: Impaired Memory: Impaired Problem Solving: Impaired Communication: Tangential thoughts Behavioral/Affect Comments: pleasantly confused and cooperative Integumentary Integumentary Integumentary: surgical dressing c/d/i, visible skin intact LDA Integrity: Intact Pre and Post Therapy Mobility Assessment Bed Position: HOB elevated, Use of bedrail Supine to Sit: Moderate Assist, X1 Assist, Cues for Sequencing Scooting: Moderate Assist, X1 Assist, Cues for Sequencing Bed Mobility Comments: Slow and effortful to incrementally scoot LLE over EOB, ROAD ROLLER OPERATOR to RUE and support at trunk to upright to seated, Mod A for balace while scooting Sit to Stand: Minimal Assist, X1 Assist, Cues for Sequencing, Cues for Hand Placement Stand to Sit: Minimal Assist, X1 Assist, Cues for Sequencing, Cues for Hand Placement Assistive Device: Rolling Walker Transfers Comments: slightly retropulsive while rising to stand, reduced eccentric control Distance (Feet): 40' Assistance Level: Minimal Assist, X1 Assist, Cues for Sequencing Assistive Device: Rolling Walker Gait Characteristics: Inc lateral weightshift, step to leading w/ LLE, RLE held in knee flexion throughout, reduced LE clearance [facility] Balance Scale: Yes Sitting Balance Scale: 2 - Independently supports self with both upper extremities. [facility] Standing Balance Scale: 1 - Supports self with upper extremities but requires therapist assistance. Patient performs 25-50% of effort (moderate assist). AMPAC - (Basic Mobility Inpatient Short Form) How much help from another person do you currently need? Turning from your back to your side while in a flat bed without using bedrails?: 2 - A Lot Moving from lying on your back to sitting on the side of a flat bed without using bedrails?: 2 - A Lot Moving to and from a bed to a chair (including a wheelchair)?: 3 - A little Standing up from a chair using your arms (e.g., wheelchair, or bedside chair)?: 3 - A little To walk in hospital room?: 3 - A little Climbing 3-5 steps with a railing?: 1 - Total Raw Score: 14 Education Education Education Provided: Role of PT/Plan of Care, Discharge Planning, Activities of Daily Living, Adaptive Equipment/Assistive Device, Mobility Training, Safety Awareness/Fall Risk, Precautions, Weight Bearing Status, Activities Guidelines Education Provided to: Patient Teaching Method: Demonstration, Discussion Barriers to learning: Acuity of illness, Cognitive deficits Learning Evaluation: Verbalizes understanding, Needs practice, Needs reinforcement/further teaching Assessment Pt is 84/F reporting to [facility] on 06/20/25 for management of closed fracture of Lt femur resulting from a fall. Now s/p L hip hemiarthroplasty with Dr Keys on 06/20/25 without complication. Pt presents to PT follow up session continuing to mobilize well below functional baseline, but shows excellent progression towards short term PT goals. Pt able to tolerate pre-gait and ambulatory activity w/ fairly well controlled pain and reduced assistance needs as compared to evaluation. Pt remains limited by impaired balance, strength, activity tolerance, and safety awareness, and will require rehab d/c to optimize mobility independence prior to returning home. PT will continue to follow and progress pt as able. Goals Short Term Goals Date Established/Amended: 06/21/25 Goal timeframe: 2 weeks Bed mobility goal: perform bed mobility supine<>sit with CGA (Progressing) Transfers goal: sit<>stand transfers with RW and CGA (Progressing) Ambulation goal: ambulate for >50 feet with RW and CGA (Progressing) Stairs goal: stair climb 4 steps with hand rail and CGA (Ongoing) Group Home Goals Goal established/Amended: 06/21/25 Goal timeframe: 6 weeks Transfers goal: perform sit<>stand transfers with LRAD and MOD I (Progressing) Ambulation goal: ambulate for >300 feet with LRAD and MOD I (Progressing) Stairs goal: stair climb 1 FOS with LRAD and MOD I (Ongoing) Plan Plan: Continued Skilled Inpatient PT Services Treatment Interventions: Therapeutic exercise, Assistive device training, Functional mobility training, Gait training, Stair training PT Frequency and Duration: 5-7 x/week until Discharge, Twice Daily Recommendations Anticipate Discharge to: Rehab Recommended mobility with nursing staff: 2A w/ RW for OOB to chair/commode, posterior hip precautions, encourage OOB for meals and as tolerated Yaakov Mendez PT [place] lic # [id number] * Julita Mustafa MD - 06/22/2025 7:40 AM EST Images from the original note were not included. DEPARTMENT OF ORTHOPAEDIC SURGERY Orthopaedic Surgery Progress Note Subjective: Resting comfortably, pain controlled. Continues to be confused and forgetful overnight but easily redirectable. Seen by PT who is recommending rehab Physical Exam: Temp: [36.7 ??C (98 ??F)-37.1 ??C (98.8 ??F)] 36.8 ??C (98.3 ??F) Pulse: [68-96] 68 Resp: [16-22] 22 SpO2: [96 %-99 %] 99 % BP: (114-153)/(59-73) 139/73 Gen: resting comfortably, NAD Left Lower Extremity Exam: Dressing c/d/i Fires TA, EHL, GSC, peroneals, wiggles lesser toes SILT Sa, Santiago, T, DP, SP nerve distributions Palpable DP pulse, foot WWP Labs: Lab Results Component Value Date WBC 10.0 06/22/2025 HGB 10.5 (L) 06/22/2025 HCT 31.8 (L) 06/22/2025 MCV 91.9 06/22/2025 PLT 135 (L) 06/22/2025 Lab Results Component Value Date GLUCOSE 98 06/22/2025 CALCIUM 8.7 06/22/2025 NA 132 (L) 06/22/2025 K 3.9 06/22/2025 CO2 25 06/22/2025 CL 98 06/22/2025 BUN 11 06/22/2025 CREATININE 0.61 06/22/2025 A/P: Tanisha Cota is a 84 y.o. 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 Intraoperatively, had ST elevations. Cardiology recommended no further work-up. - LLE: WBAT, posterior precautions - PT/OT - dvt ppx: eliquis 2.5 BID x 30 days - periop abx: ancef x 24 - pain control per primary team - would avoid IV narcotics - dressing: dermabond, aquacel - dispo: PT recommending rehab Julita Mustafa MD [employer] [facility] Adult/Ped Res Consult * BLANKA Tran - 06/21/2025 3:00 PM EST [facility] Daily Progress Note Date: June 21, 2025 Time: 3:00 PM Attending: Sinan Escobedo MD Hospital Day: 1 SUBJECTIVE AND INTERVAL EVENTS: Interval events: S/p L hip hemiarthroplasty 06/20 Subjective: Patient seated in chair in no acute distress. Reports difficulty with word finding but is otherwiseA&O x3. Informed patient we will be removing blanco today. No acute complaints at this time. OBJECTIVE: Physical Exam: General: well-appearing, in no acute distress, resting comfortably HEENT: normocephalic/atraumatic, extra-ocular movements intact, mucus membranes moist CV: regular rate and rhythm, no murmurs, rubs or gallops, loud S1/S2 Pulm: clear to auscultation bilaterally, no wheezing, crackles or rhonchi, no accessory muscle use Ext: no overlying ecchymosis or gross deformity of L hip, warm and well perfused, no edema, DPs palpable. Bandage c/d/i Skin: no major lesions or rashes noted Neuro: Awake, alert & oriented x3, nonfocal Psych: Mood and affect euthymic, calm and cooperative, intermittently forgetful Data/Results: Vitals, Labs, microbiology, and imaging, medications reviewed on team rounds. ASSESSMENT AND PLAN: Tanisha Cota is a 84 y.o. female with a past medical history of ITP, hypertension, lymphoma [facility] after mechanical fall found to have left femoral neck fracture. #Impacted angulated subcapital left femur fracture s/p hemiarthroplasty 06/20- new #Suspected pathologic fracture #Mechanical fall- new Patient presented after mechanical fall. Patient reports she was bending over, lost her balance andthen fell which she was then unable to get back up prompting visit to the ED. Patient was found to have an impacted angulated subcapital left femur fracture without suspicious underlying lesion, mostlikely in the setting of pronounced osteopenia per radiology. Patient underwent hemiarthroplasty 06/20 with EBL 200 cc. - Orthopedics consulted, appreciate recs - LLE: WBAT, posterior precautions - DVT ppx: eliquis 2.5 BID - periop abx: ancef x 24 - dressing: dermabond, aquacel - Follow up Dr. Keys in 2 weeks which orthopedics will schedule at discharge - PT/OT recs rehab - Pain control: tylenol 975 mg Q8hrs, oxycodone 2.5-5 mg Q4hrs PRN mod-severe pain - Bowel regimen #Elevated troponin most likely in the setting of demand ischemia- new #Possible ST elevation intra-operatively, ruled out via EKG- resolved #Hypertension, uncontrolled- chronic Patient noted to have elevated troponin 22 -> 23 upon admission though remained asymptomatic- was likely due to demand ischemia at that time. Intra-operatively, patient was noted to have possible ST elevation in lead V though EKG showed no evidence of ST elevation, patient remained asymptomatic post-op without chest pain, SOB, and nausea. Cardiology was made aware of this by orthopedics and thiago mcclelland in PACU and reported her elevated troponin, with repeat post-op troponin of 22, appears to be a flat low level troponin elevation that could be from very minor cardiac injury in the setting of her fall. Cardiology recommended no further work-up if patient asymptomatic which she continued to deny any symptoms concerning for acute cardiac etiology. This was also confirmed with anesthesia a s well and they stated no further concerns on their end- most likely demand ischemia given reassuring post-op EKG. In addition, patient noted to be persistently hypertensive upon admission. Reports she is supposed to be taking lisinopril and amlodipine but has stopped because of various side effects. Post- op BPs improved at this time. - Continue lisinopril 20 mg daily - Decreased amlodipine 5 mg from 10 mg #ITP- chronic #History of lymphoma- chronic Patient on promacta. Op note states 200 cc EBL intra-operatively. Promacta resumed 06/20. She follows with Dr. Javad Camejo at [facility] for Hematology. Heme recs: - Repeat labs in 2 weeks - If plt count<50k, then increase 25 mg daily for 2 weeks; max is 75 mg. If plt count >200k, decrease 25 mg daily every two weeks. If plt count >400k, hold off med. Hospital Bundle Code Status: Full Code Diet: Adult diet Regular DVT Prophylaxis: Eliquis 2.5 mg BID Contact: no contacts provided #) Readmission Risk Reduction: -Factors Affecting Readmission Risk: [x] Medical Complexity [x] Medication Management [] SDOH [] Other: -Interventions: [x] Discussion at CAPP Rounds [] Pharmacy Consultation (i.e. Complex medication regimen, high risk medications, medication education, challenges obtaining medications) [] Social Work Consultation (i.e. SDOH, community services, transportation challenges) [] Palliative Care Consultation [] Behavioral Health Consultation -Discharge Planning: [] Follow Up Appointments with PCP/Specialist (ideally within 7 days) [] Disease Management Follow Up (Diabetes Management and Anticoagulation Management for Primary Care [place] patients) 30 minutes spent with patient and coordinating care Cortez Reddy PA-C [facility] Direct Care Hospitalist Team Cosigned by Sinan Escobedo MD at 06/21/2025 3:54 PM EST Associated attestation - Sinan Escobedo MD - 06/21/2025 3:54 PM EST I saw and evaluated the patient, participating in the richey portions of the service. I reviewed with the PA the medical history and findings on physical examination. I discussed with the PA the patient???s diagnosis, reviewed new studies in the past 24 hours (labs, radiographic, and diagnostic) as noted, and concur with the treatment plan as documented in their note. 84 yo female with hx of ITP, HTN, lymphoma p/w mechanical fall (bending over, lost balance) resulting in left femur fracture now s/p hemiarthroplasty 06/20. POD1 already sitting in chair with PT/OT recommending rehab. Void trial today, otherwise plan for pain management, HTN management. Mild hyponatremia - encourage po intake, monitor daily. Corrected calcium is wnl. Resume home promacta today with heme recs to repeat labs in 2 weeks. After 2 weeks, if plt count<50k, then increase 25 mg daily for 2 weeks; max is 75 mg. If plt count >200k, decrease 25 mg daily every two weeks. If plt count >400k, hold off med. She follows with Dr. Javad Camejo at [facility] for Hematology. On exam- AOx4, CN intact; 5/5 strength in UE, LLE is pain limited; RLE normal. SNF auth sent 06/21 * Guillaume Peck MD - 06/21/2025 2:09 PM EST Trauma Surgery staff. Principal Problem: Closed fracture of neck of left femur, initial encounter Active Problems: Impaired functional mobility and activity tolerance Assessment and Plan Isolated hip fracture. Yesterday underwent surgical fixation of the fracture. No acute events. Trauma surgery will sign off. I saw and evaluated the patient, participating in the richey portions of the service. I personally reviewed patient's labs, and radiology studies. I reviewed the resident???s/fellow's note. I agree withthe resident???s/fellow's findings and plan. * Giovana Gruber CM - 06/21/2025 1:09 PM EST 06/21/25 3882 Case Management Initial Assessment Patient Discharged Before Able to Interview/Assess No Source of Information Patient;Family Type of Residence Apartment Lives With Alone Discharge Services Anticipated at this Time Yes Expected Discharge Needs SNF Patient Information Anthropology Department Chair Needs None Home Caregiver Self Accompanied by Family Support Systems Children/Family Services Active Prior to Admission Elder services Need PCP on Discharge No (Dr Nato Pugh) HOUSE COORDINATOR Functional Status Stairs to Enter House 0 Current Functional Status Bathing Independent Toileting Independent Walking in Home Independent Assistive Device Used None Community Mobility Independent IADL Assistance Needed No Financial Information Insurance Confirmed with Patient Yes Bed Hold No Financial Coordination Notified Not Needed Legal Information Does Patient Have HCP Yes Patient Requests Assistance for HCP Yes Acid Operator Notified to Complete/Assist No Business Dean/Guardian No Business Dean/Guardian Paperwork Available No Business Dean/Guardian/SW Notified No Discharge Planning Patient/Family/Caregiver Discharge Preference SNF Anticipated Discharge Disposition SNF Referrals Is a Social Work Referral Indicated? No Was Social Work referral placed? No Next Actions Assessment/High Risk Screening Complete Initial Case Management Assessment Plan Reviewed with Medical Team this AM at CaPP Rounds. Reason for Admission: S/P fall w/ L femur fx Medical Team Plan: OR yesterday Femur Fx repair Patient baseline prior to admission: Independent, lives alone in apartment, is active with [facility]. Denies DME. HCP completed w/ CM. PCP on record Barriers anticipated: Med clearance/Ins auth Patient/Caregiver Goals of Hospitalization: To return to prior level of fx independence I have explained the nurse case resource manager role and discussed patient choice, post- acute levels of care, insurance, medical clearance and discharge planning. Anticipated Discharge Plan/Needs: SNF placement-daughters live in [facility] and would like rehabplacement at [facility] if bed available-referral pending acceptance * Feliciano Oreilly MD - 06/21/2025 11:58 AM EST Images from the original note were not included. TRAUMA DIVISION - TERTIARY SURVEY EXAM: BP (!) 153/71 Pulse 96 Temp 36.4 ??C (97.5 ??F) (Oral) Resp 16 Ht 1.549 m Wt 45.6 kg BMI 19.00 kg/m?? BURRING WHEEL OPERATOR: CN 2-12 intact, No focal deficit, A&Ox3, and appropriate and cooperative PNS: Strength and sensation intact bilaterally Intubated: No HEENT: PERRL, EOMI, Neck supple, and no midline cervical tenderness Cervical Collar: No Thorax: RRR, no murmurs, rubs, or gallops, CTAB, and Chest wall nontender, atraumatic Chest Tube: No Abdomen: Soft, nontender, nondistended : Deferred Pelvis: stable Blanco Catheter: No Back: Atraumatic, no stepoffs or deformities Extremity: Left Upper: Shoulder, elbow, wrist, hand atraumatic, with no arthralgia, swelling, or pain with movement Left Lower: Left hip tender with movement, surgical dressing over left hip site Right Upper: Small abrasion to the right elbow Right Lower: Hip, knee, ankle, and foot atraumatic, with no arthralgia, swelling, or pain with movement Central Line: No CRITICAL LABS: 10.2 \ 10.3 / 132 / 31.4 \ 131 97 10 / 108 3.8 25 0.69 \ -8.1 -2.0 -3.7 IMAGING: All reads are final attending reads unless otherwise noted: All studies performed 06/20/2025 unless otherwise noted XR Chest: - No acute injuries XR Pelvis: - Acute comminuted displaced transcervical fracture of the left femoral neck CT C-spine: - No acute injuries CT Head: - No acute injuries XR Femur Left: - Acute comminuted displaced transcervical fracture of the left femoral neck XR Knee Left: - No acute injuries CT Femur Left: - Impacted angulated subcapital left femur fracture CT Chest: - No acute injuries CT Abdomen/pelvis: - Acute mildly comminuted displaced fracture of the left femoral neck FINDINGS: Non-actionable Incidental Findings: - Cervical Lordosis - 9 mm calcified meningioma along the left parietal convexity - Multilevel degenerative changes in the spine - Possible deep tissue ulcer overlying the coccyx Actionable Findings: None List of procedures performed: Hemiarthroplasty, Hip, Bipolar or Unipolar - Left 06/20/25 Summary of Injuries: - Acute mildly comminuted displaced fracture of the left femoral neck Consultants: Medicine Orthopedic Surgery ASSESSMENT AND PLAN: 84 y.o. female with a PMHx of HTN, TTP, MGUS, low-grade B cell lymphoma who is presenting as an MTRfollowing a fall from chair at home resulting in acute left hip discomfort. Primary survey intact. Secondary survey significant for pain with left hip movement. Perez scan obtained significant for Acute mildly comminuted displaced fracture of the left femoral neck now s/p L hip hemiarthroplasty on 06/20/25. No other injuries on tertiary exam. No acute surgical intervention needed by general surgery. - No acute surgical intervention by general surgery - Orthopedic surgery to manage left femoral neck fracture - Rest of care per primary team Actionable Findings None Radiology results with incidental findings: There are no matching recommendations for this patient. } Feliciano Oreilly MD General Surgery Resident Please TigerText T Emergency Surg Adult Res Consult for urgent/emergent consults or questions. The person who wrote this note may be post-call or in a procedure, and TigerTexting them personally/directly may lead to a delay in care. Cosigned by Guillaume Peck MD at 06/21/2025 6:52 PM EST Associated attestation - Guillaume Peck MD - 06/21/2025 6:52 PM EST Images from the original note were not included. Trauma Surgery staff. Principal Problem: Closed fracture of neck of left femur, initial encounter Active Problems: Impaired functional mobility and activity tolerance Assessment and Plan Isolated hip fracture. Yesterday underwent surgical fixation of the fracture. No acute events. Trauma surgery will sign off. I saw and evaluated the patient, participating in the richey portions of the service. I personally reviewed patient's labs, and radiology studies. I reviewed the resident???s/fellow's note. I agree withthe resident???s/fellow's findings and plan. * Julita Mustafa MD - 06/21/2025 6:45 AM EST Images from the original note were not included. DEPARTMENT OF ORTHOPAEDIC SURGERY Orthopaedic Surgery Progress Note Subjective: Resting comfortably, pain controlled. This morning mildly confused. Has word finding difficulties but is otherwise AOx3. Denies any new numbness/tingling. Heme consulted yesterday for ITP. Physical Exam: Temp: [36.4 ??C (97.5 ??F)-36.9 ??C (98.4 ??F)] 36.4 ??C (97.5 ??F) Pulse: [59-89] 85 Resp: [11-16] 16 SpO2: [95 %-100 %] 95 % BP: (132-167)/(53-80) 132/57 Gen: resting comfortably, NAD Left Lower Extremity Exam: Dressing c/d/i Fires TA, EHL, GSC, peroneals, wiggles lesser toes SILT Sa, Santiago, T, DP, SP nerve distributions Palpable DP pulse, foot WWP Labs: Lab Results Component Value Date WBC 10.2 06/21/2025 HGB 10.3 (L) 06/21/2025 HCT 31.4 (L) 06/21/2025 MCV 91.0 06/21/2025 PLT 132 (L) 06/21/2025 Lab Results Component Value Date GLUCOSE 96 06/20/2025 CALCIUM 9.1 06/20/2025 NA 135 06/20/2025 K 4.1 06/20/2025 CO2 26 06/20/2025 CL 98 06/20/2025 BUN 15 06/20/2025 CREATININE 0.81 06/20/2025 A/P: Tanisha Cota is a 84 y.o. 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 Intraoperatively, had ST elevations. Cardiology recommended no further work-up. - LLE: WBAT, posterior precautions - PT/OT - dvt ppx: eliquis 2.5 BID x 30 days - periop abx: ancef x 24 - pain control per primary team - would avoid IV narcotics - dressing: dermabond, aquacel Julita Mustafa MD TigerText T Ortho Adult/Ped Res Consult * Akash Ramirez MD - 06/20/2025 4:47 PM EST Hematology Communication Note: 84 yo F with history of lymphoma s/p BR and ITP on promacta (50 mg daily) who presents to [facility] aftermechanical fall and found to have L femoral neck fracture s/p hemiarthroplasty (06/20). Primary team reached out about restarting Promacta. Promacta can be restarted at patient's prior home dose. She should have labs checked in about 2 weeks. After 2 weeks, if plt count<50k, then increase 25 mg daily for 2 weeks; max is 75 mg. If plt count >200k, decrease 25 mg daily every two weeks. If plt count >400k, hold off med. She follows with Dr. Javad Camejo at [facility] for Hematology. Discussed with Hematology Consult Attending, Dr. Adeola Ramirez MD Heme Onc Fellow, PGY4 * BLANKA Rob - 06/20/2025 1:04 PM EST [facility] Daily Progress Note Date: June 20, 2025 Time: 1:05 PM Attending: Sinan Escobedo MD Hospital Day: 0 SUBJECTIVE AND INTERVAL EVENTS: Interval events: Admitted to DCS2. No acute events overnight. Noted to persistently hypertensive. Subjective: Patient reports she feels well this morning. Denies any pain, numbness or tingling of LEs. Denies any new or worsening complaints at this time. Was shortly transported to the OR after seeing the patient this morning. Patient seen post-operatively and reports she is doing well. Denies any pain at rest. A&O x3. Is glad the procedure went well. Denies any CP, dyspnea, N/V, palpitations. OBJECTIVE: Physical Exam: General: well-appearing, in no acute distress, resting comfortably HEENT: normocephalic/atraumatic, extra-ocular movements intact, mucus membranes moist CV: regular rate and rhythm, no murmurs, rubs or gallops, normal S1/S2 Pulm: clear to auscultation bilaterally, no wheezing, crackles or rhonchi, no accessory muscle use Ext: no overlying ecchymosis or gross deformity of L hip, warm and well perfused, no edema, DPs palpable Skin: no major lesions or rashes noted Neuro: Awake, alert & oriented x3, nonfocal Psych: Mood and affect euthymic, calm and cooperative, intermittently forgetful Data/Results: Vitals, Labs, microbiology, and imaging, medications reviewed on team rounds. ASSESSMENT AND PLAN: Tanisha Cota is a 84 y.o. female with a past medical history of ITP, hypertension, lymphoma whopresented to [facility] after mechanical fall found to have left femoral neck fracture. #Impacted angulated subcapital left femur fracture s/p hemiarthroplasty 06/20- new #Suspected pathologic fracture #Mechanical fall- new Patient presented after mechanical fall. Patient reports she was bending over, lost her balance andthen fell which she was then unable to get back up prompting visit to the ED. Patient was found to have an impacted angulated subcapital left femur fracture without suspicious underlying lesion, mostlikely in the setting of pronounced osteopenia per radiology. Patient underwent hemiarthroplasty 06/20 with EBL 200 cc. - Orthopedics consulted, appreciate recs - LLE: WBAT, posterior precautions - DVT ppx: eliquis 2.5 BID starting tomorrow AM x 30 days - Of note, recent orthopedic progress note states to start eliquis tonight 06/20- confirmed with orthopedics Eliquis to start tomorrow AM 06/21 - periop abx: ancef x 24 - pain control per primary team - would avoid IV narcotics - dressing: dermabond, aquacel - Remove blanco POD#1 - Follow up Dr. Keys in 2 weeks which orthopedics will schedule at discharge - PT/OT evaluation - Pain control: tylenol 975 mg Q8hrs, oxycodone 2.5-5 mg Q4hrs PRN mod-severe pain, dilaudid 0.2 [id number] PRN breakthrough pain - Bowel regimen #Elevated troponin most likely in the setting of demand ischemia- new #Possible ST elevation intra-operatively, ruled out via EKG- resolved #Hypertension, uncontrolled- chronic Patient noted to have elevated troponin 22 -> 23 upon admission though remained asymptomatic- was likely due to demand ischemia at that time. Intra-operatively, patient was noted to have possible ST elevation in lead V though EKG showed no evidence of ST elevation, patient remained asymptomatic post-op without chest pain, SOB, and nausea. Cardiology was made aware of this by orthopedics and thiago mcclelland in PACU and reported her elevated troponin, with repeat post-op troponin of 22, appears to be a flat low level troponin elevation that could be from very minor cardiac injury in the setting of her fall. Cardiology recommended no further work-up if patient asymptomatic which she continued to deny any symptoms concerning for acute cardiac etiology. This was also confirmed with anesthesia a s well and they stated no further concerns on their end- most likely demand ischemia given reassuring post-op EKG. In addition, patient noted to be persistently hypertensive upon admission. Reports she is supposed to be taking lisinopril and amlodipine but has stopped because of various side effects. Post- op BPs improved at this time. - Resume home amlodipine and lisinopril post-operatively as able - Resume lisinopril first if BP becomes elevated then amlodipine - Consider labetalol 100 mg PO PRN SBP >160 once lisinopril is resumed #ITP- chronic #History of lymphoma- chronic Patient on promacta. Op note states 200 cc EBL intra-operatively. Per discussion with heme-onc, promacta can be resumed post-operatively without issue. Most recent platelet count 114. - Monitor for bleeding post-operatively - Resume promacta post-operatively - Monitor platelet count with CBC daily Hospital Bundle Code Status: Full Code Diet: Adult diet Regular DVT Prophylaxis: Eliquis 2.5 mg BID Contact: no contacts provided #) Readmission Risk Reduction: -Factors Affecting Readmission Risk: [x] Medical Complexity [x] Medication Management [] SDOH [] Other: -Interventions: [x] Discussion at CAPP Rounds [] Pharmacy Consultation (i.e. Complex medication regimen, high risk medications, medication education, challenges obtaining medications) [] Social Work Consultation (i.e. SDOH, community services, transportation challenges) [] Palliative Care Consultation [] Behavioral Health Consultation -Discharge Planning: [] Follow Up Appointments with PCP/Specialist (ideally within 7 days) [] Disease Management Follow Up (Diabetes Management and Anticoagulation Management for Primary Care [place] patients) 30 minutes spent with patient and coordinating care BLANKA Rob-C [facility] Direct Care Hospitalist Team Cosigned by Sinan Escobedo MD at 06/20/2025 5:14 PM EST Associated attestation - Sinan Escobedo MD - 06/20/2025 5:14 PM EST I saw and evaluated the patient, participating in the richey portions of the service. I reviewed with the PA the medical history and findings on physical examination. I discussed with the PA the patient???s diagnosis, reviewed new studies in the past 24 hours (labs, radiographic, and diagnostic) as noted, and concur with the treatment plan as documented in their note. OR today Pt with ITP - asked Hematology about her promacta in periop period * Clarisa Corona MD - 06/20/2025 12:01 PM EST Images from the original note were not included. DEPARTMENT OF ORTHOPAEDIC SURGERY Orthopaedic Surgery Progress Note Subjective: Resting comfortably, pain controlled. Patient had ST elevations intraoperatively, plan for cards c/s in PACU per anesthesia recommendations. Physical Exam: Temp: [36.4 ??C (97.6 ??F)-36.9 ??C (98.4 ??F)] 36.8 ??C (98.3 ??F) Pulse: [67-88] 82 Resp: [12-21] 15 SpO2: [98 %-100 %] 98 % BP: (167-209)/(32-91) 167/80 Gen: resting comfortably, NAD Left Lower Extremity Exam: Dressing c/d/i Fires TA, EHL, GSC, peroneals, wiggles lesser toes SILT Sa, Santiago, T, DP, SP nerve distributions Palpable DP pulse, foot WWP Labs: Lab Results Component Value Date WBC 7.2 06/20/2025 HGB 13.2 06/20/2025 HCT 40.1 06/20/2025 MCV 92.0 06/20/2025 PLT 114 (L) 06/20/2025 Lab Results Component Value Date GLUCOSE 96 06/20/2025 CALCIUM 9.1 06/20/2025 NA 135 06/20/2025 K 4.1 06/20/2025 CO2 26 06/20/2025 CL 98 06/20/2025 BUN 15 06/20/2025 CREATININE 0.81 06/20/2025 A/P: Tanisha Cota is a 84 y.o. 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 Intraoperatively, had ST elevations. Plan for cards eval in PACU per anesthesia team. - LLE: WBAT, posterior precautions - PT/OT - dvt ppx: eliquis 2.5 BID starting tonight x 30 days, if ok with cards c/s - periop abx: ancef x 24 - pain control per primary team - would avoid IV narcotics - dressing: dermabond, aquacel Clarisa Corona MD TigerText T Ortho Adult/Ped Res Consult * Rafal Sheridan MD - 06/20/2025 8:10 AM EST Orthopaedic Surgery Consent Note: I had a discussion with Tanisha Cota in person and her daughter Natty was present by phone regarding her hip fracture, prognosis, and management options. We discussed that a hip fracture is a sign of organ system failure and reviewed the available evidence which demonstrates up to an 80% mortality rate with nonoperative treatment. Even with operative treatment the mortality rate is between 25and 30% at 1 year and this is truly a life-changing injury. Of those would you recover, we discussed that they typically take a step backwards in terms of mobility. Patient and daughter were interested in proceeding with surgery. We then had an extensive discussion regarding plan for left hip hemiarthroplasty surgery. Indications, alternatives, benefits, and risks were discussed. Risks include but are not limited to bleeding,infection, damage surrounding structures, painful hardware, need for further surgery, scar, incisional numbness, wound problems, stiffness, hardware failure/loosening, blood clots, groin/hip pain, limp, fracture on the implant, leg length discrepancy, dislocation, . Tanisha Cota and her daughter Natty expressed understanding of the above and agreed to proceed as planned. All questions were answered and consent forms were signed. Plan to proceed to OR. Rafal Sheridan MD PGY-2 Orthopaedic Surgery * Don aRmirez MD - 06/20/2025 8:03 AM EST Images from the original note were not included. DEPARTMENT OF ORTHOPAEDIC SURGERY Orthopaedic Surgery Progress Note Subjective: NAEO. Patient resting in bed. Pain well controlled. No CP or SOB. Denies numbness/tingling in affected extremity Physical Exam: Temp: [36.4 ??C (97.6 ??F)-36.9 ??C (98.4 ??F)] 36.8 ??C (98.3 ??F) Pulse: [67-88] 82 Resp: [12-21] 16 SpO2: [99 %-100 %] 100 % BP: (170-209)/(32-91) 170/80 Gen: resting comfortably, NAD Left Lower Extremity Exam: Skin intact Fires TA, EHL, GSC, peroneals, wiggles lesser toes SILT Sa, Santiago, T, DP, SP nerve distributions Palpable DP pulse, foot WWP Labs: Lab Results Component Value Date WBC 7.2 06/20/2025 HGB 13.2 06/20/2025 HCT 40.1 06/20/2025 MCV 92.0 06/20/2025 PLT 114 (L) 06/20/2025 Lab Results Component Value Date GLUCOSE 96 06/20/2025 CALCIUM 9.1 06/20/2025 NA 135 06/20/2025 K 4.1 06/20/2025 CO2 26 06/20/2025 CL 98 06/20/2025 BUN 15 06/20/2025 CREATININE 0.81 06/20/2025 No results found for: SEDRATE No results found for: HSCRP , CRP A/P: Tanisha Cota is a 84 y.o. female with a left femoral neck fracture. This is an operative injury. We will plan for francis vs BERTA 06/20/25 pending consent. There is also a chance the patient will require ICU post-operatively. - admit to ortho - NPO for possible OR - f/u pre-op labs, CXR, EKG, lactate - Please place blanco - NWB LLE - pain control per primary team - DVT ppx: hold prior to OR MD Rocio [facility] T Ortho Adult/Ped Res Consult * Julita Mustafa MD - 06/20/2025 5:29 AM EST Due to patient's advanced medical problems patient will be transferred to the medicine/hospitalist service. Julita Mustafa MD Orthopaedic Surgery [id number] or [facility] Ortho Adult/Ped Res Consult Role with questions * Ryan Pierce MD - 06/20/2025 3:36 AM EST Assessment/Plan 84-year-old lady with a history of ITP, hypertension, lymphoma presented to ED with a mechanical fall. She was found to have a left femoral neck fracture and several rib fracture as well. Left femoral neck fracture Rib fracture Seems like patient would like to discuss with family before making a decision on surgery versus conservative management. However, in a medicine standpoint, her platelet count was greater than 100. Patient had no history of significant bleeding. At the same time, patient's were active at her baseline and had no history of stroke or heart attack in the past, therefore pulm medicine perspective there is no contraindication for surgery should she decide to go through her surgery. -No contraindication for surgery and the medicine perspective - Please continue to monitor for bleeding ITP History of lymphoma -Please monitor for bleeding -Suggest consulting heme regarding its management and resuming promacta Hypertension Patient is supposed to be taking lisinopril and amlodipine but was stop because of various side effect. -Suggest labetalol 100 mg twice daily as needed for blood pressure greater than 180 -Continue pain control Medicine will follow Consults Consulted by orthopedics team for preoperative risk assessment for Ms. Cota. Subjective Patient is a 84-year-old lady with history of ITP, hypertension, lymphoma presented to the ED with a mechanical fall. This evening, she was trying to bend over and lost balance, and had a mechanical fall. Afterward, she was unable to get up. Therefore, she came to the ED for further evaluation. In the ED, vital signs are stable except for hypertension. Lab work showed no significant change aswell. Images are pending. However, there might be some rib fracture as well. Patient denied history of stroke or heart attack. She had never had any issues with bleeding as well. She stopped her blood pressure medication a couple months ago because of problems with him. Fall Pertinent negatives include no abdominal pain. Review of Systems Review of Systems Constitutional: Negative for activity change and appetite change. HENT: Negative for congestion. Respiratory: Negative for shortness of breath. Cardiovascular: Negative for chest pain and leg swelling. Gastrointestinal: Negative for abdominal pain. Endocrine: Negative for polyuria. Genitourinary: Negative for dysuria. Musculoskeletal: Positive for arthralgias and back pain. Neurological: Negative for dizziness. Hematological: Negative for adenopathy. Psychiatric/Behavioral: Negative for agitation. Objective Vital signs for last 24 hours: Temp: [36.4 ??C (97.6 ??F)-36.9 ??C (98.4 ??F)] 36.9 ??C (98.4 ??F) Pulse: [67-88] 81 Resp: [12-21] 12 SpO2: [99 %-100 %] 99 % BP: (173-209)/(32-91) 177/32 Intake/Output this shift: No intake/output data recorded. Physical Exam Physical Exam Vitals reviewed. HENT: Head: Normocephalic. Right Ear: External ear normal. Left Ear: External ear normal. Nose: Nose normal. Eyes: Pupils: Pupils are equal, round, and reactive to light. Cardiovascular: Rate and Rhythm: Normal rate and regular rhythm. Pulmonary: Effort: Pulmonary effort is normal. Abdominal: General: Abdomen is flat. Musculoskeletal: General: Normal range of motion. Skin: General: Skin is warm. Neurological: General: No focal deficit present. Mental Status: She is alert and oriented to person, place, and time. Psychiatric: Mood and Affect: Mood normal. Behavior: Behavior normal. documented in this encounter H&P Notes * Ryan Pierce MD - 06/20/2025 5:28 AM EST ADMISSION H&P Today's Date: 06/20/2025 Name: Tanisha Cota : 1940 Chief Complaint fall History Of Present Illness Patient is a 84-year-old lady with history of ITP, hypertension, lymphoma presented to the ED with a mechanical fall. This evening, she was trying to bend over and lost balance, and had a mechanical fall. Afterward, she was unable to get up. Therefore, she came to the ED for further evaluation. In the ED, vital signs are stable except for hypertension. Lab work showed no significant change aswell. Images are pending. However, there might be some rib fracture as well. Patient denied history of stroke or heart attack. She had never had any issues with bleeding as well. She stopped her blood pressure medication a couple months ago because of problems with him. Past Medical History ITP lymphoma Surgical History She has no past surgical history on file. Social History She has no history on file for tobacco use, alcohol use, and drug use. Family History Family History[1] Advance Care Plan No emergency contact information on file. No Order I confirmed today that the patient's Advanced Care Plan is documented in the medical record either by discussing and documenting the patient's Advanced Care Plan, confirming that the patient's surrogate decision maker is documented in the medical record, or confirming that the patient's Advanced Care Plan is presently documented. Allergies Patient has no known allergies. Medications (Not in a hospital admission) Medications Start Medication Dose/Rate, Route, Frequency Ordered Stop 06/20/25 0126 sodium chloride 0.9 % flush 10 mL Placed in And Linked Group 10 mL, IV, As needed 06/20/25 0127 -- Review of System Constitutional: Negative for activity change and appetite change. HENT: Negative for congestion. Respiratory: Negative for shortness of breath. Cardiovascular: Negative for chest pain and leg swelling. Gastrointestinal: Negative for abdominal pain. Endocrine: Negative for polyuria. Genitourinary: Negative for dysuria. Musculoskeletal: Positive for arthralgias and back pain. Neurological: Negative for dizziness. Hematological: Negative for adenopathy. Psychiatric/Behavioral: Negative for agitation. Objective Last Recorded Vitals Blood pressure (!) 177/32, pulse 82, temperature 36.9 ??C (98.4 ??F), resp. rate 16, SpO2 99%. Vitals reviewed. HENT: Head: Normocephalic. Right Ear: External ear normal. Left Ear: External ear normal. Nose: Nose normal. Eyes: Pupils: Pupils are equal, round, and reactive to light. Cardiovascular: Rate and Rhythm: Normal rate and regular rhythm. Pulmonary: Effort: Pulmonary effort is normal. Abdominal: General: Abdomen is flat. Musculoskeletal: General: Normal range of motion. Skin: General: Skin is warm. Neurological: General: No focal deficit present. Mental Status: She is alert and oriented to person, place, and time. Psychiatric: Mood and Affect: Mood normal. Behavior: Behavior normal. Relevant Results See HPI Assessment/Plan Principal Problem: Closed fracture of neck of left femur, initial encounter 84-year-old lady with a history of ITP, hypertension, lymphoma presented to ED with a mechanical fall. She was found to have a left femoral neck fracture and several rib fracture as well. Left femoral neck fracture Rib fracture Seems like patient would like to discuss with family before making a decision on surgery versus conservative management. However, in a medicine standpoint, her platelet count was greater than 100. Patient had no history of significant bleeding. At the same time, patient's were active at her baseline and had no history of stroke or heart attack in the past, therefore pulm medicine perspective there is no contraindication for surgery should she decide to go through her surgery. -No contraindication for surgery and the medicine perspective - Please continue to monitor for bleeding ITP History of lymphoma -Please monitor for bleeding - will need to consult heme regarding its management and resuming promacta Hypertension Patient is supposed to be taking lisinopril and amlodipine but was stop because of various side effect. -labetalol 100 mg twice daily as needed for blood pressure greater than 180 -Continue pain control Ryan Pierce MD [1] No family history on file. * Julita Mustafa MD - 06/20/2025 2:10 AM EST [facility] Orthopaedic Surgery Consult Note Patient Name: Tanisha Cota Reason for Consult: left hip fracture History of Present Illness: Tanisha Cota is a 84 y.o. 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 Patient reports she was putting on her shoes and slipped out of the chair, landing directly on her left hip. The patienthad immediate hip pain and inability to ambulate. The patient denies head strike/LOC or any other injury, as well as numbness/tingling. Patient lives alone and is independent at baseline. Community ambulator and performs all her own ADLs including grocery shopping. Allergies: Allergies[1] Medical History: Medical History[2] Surgical History: Surgical History[3] Current Medications: Current Medications[4] Social history: Tobacco Use: Low Risk (04/15/2025) Received from [facility] Patient History Smoking Tobacco Use: Never Smokeless Tobacco Use: Never Passive Exposure: Never Alcohol Use: Not At Risk (08/23/2024) Received from [facility] AUDIT C How often have you had a drink containing alcohol, in the past year?: 2 How many standard drinks containing alcohol have you had on a typical day when you are drinking, inthe past year?: 00 How often have you had six or more drinks on one occasion, in the past year?: 0 Physical Exam Visit Vitals BP (!) 177/32 (BP Location: Right arm, Patient Position: Semi-Lou) Pulse 81 Temp 36.9 ??C (98.4 ??F) Resp 12 Gen: well-appearing, in NAD, A&O HEENT: NCAT Pulm: breathing comfortably left lower extremity: Skin is intact. Leg is shortened and externally rotated. TTP over hip. No tenderness with palpation or ROM over thigh, knee, ankle, foot. Log roll axial load deferred due to known fracture. SILT SP/DP/T/Sa/Santiago nerve distributions Fires EHL, TA, GSC, FHL Palpable DP and PT pulses, DP and PT pulses Secondary exam is otherwise negative for abrasion/ecchymosis or tenderness with palpation/ROM. Imaging: XR left hip and AP pelvis shows a femoral neck fracture Labs: Lab Results Component Value Date WBC 7.2 06/20/2025 HGB 13.2 06/20/2025 HCT 40.1 06/20/2025 PLT 114 (L) 06/20/2025 Lab Results Component Value Date NA 135 06/20/2025 K 4.1 06/20/2025 CL 98 06/20/2025 CO2 26 06/20/2025 BUN 15 06/20/2025 CREATININE 0.81 06/20/2025 Lab Results Component Value Date PT 11.5 06/20/2025 INR 1.00 06/20/2025 APTT 29.7 06/20/2025 No results found for: PRDBLDTYPE Lab Results Component Value Date LACTATE 0.8 06/20/2025 Assessment/Plan: Tanisha Cota is a 84 y.o. female with a left femoral neck fracture. This is an operative injury, and should be done within 48 hours from time of injury. Spoke with patient the expectations for recovery and overall health implications of having a hip fracture. There is chance the pt will need assistive device for ambulation post op, and may have a leg length discrepancy and/or a limp. There isalso a chance the patient will require ICU post-operatively. At this time patient did not want to engage in any of this discussion. She did not want to hear anymore about risks/benefits of surgery vs. Conservative treatment. She would like to wait to the later hours in the morning to call her daughter. She refused to call her daughter on the phone ludin. - admit to ortho - NPO past midnight for possible OR later today - f/u pre-op labs, CXR, EKG, lactate - Please place blanco - NWB LLE - pain control per primary team - DVT ppx: hold prior to OR Julita Mustafa MD Orthopaedic Surgery [id number] or [facility] T Ortho Res 1st Call Consult/Floor with questions [1] No Known Allergies [2] No past medical history on file. [3] No past surgical history on file. [4] Current Facility-Administered Medications Medication Dose Route Frequency Provider Last Rate Last Admin sodium chloride 0.9 % flush 10 mL 10 mL intravenous PRN Zuly Lees MD Current Outpatient Medications Medication Sig Dispense Refill eltrombopag olamine (Promacta) 50 mg tablet Take 50 mg by mouth once daily. escitalopram (Lexapro) 10 mg tablet Take 10 mg by mouth in the morning. lisinopril 20 mg tablet Take 20 mg by mouth in the morning. amLODIPine (Norvasc) 10 mg tablet Take 10 mg by mouth once daily. Cosigned by Perla Keys MD at 06/20/2025 9:05 AM EST Associated attestation - Perla Keys MD - 06/20/2025 9:05 AM EST I have reviewed the documentation done by my team (nurse, PA, resident) and any necessary changes are reflected below. I personally reviewed any relevant radiographs and participated in the patient'streatment recommendations. I have conducted the substantive portion of the patient???s evaluation and management by completing medical decision making (MDM). Patient with a left femoral neck fracture. Benefits and risks of surgical intervention and conservative management were discussed with the patient. Specific risks of conservative management includingblood clots, pressure ulcers, cardiopulmonary decompensation, pneumonia, nonunion and persistent pain were all addressed. Risks of surgical intervention including blood loss/bleeding, medication reactions, pulmonary aspiration, fracture, nonunion, persistent pain, neurovascular injury, dvt/pe, needfor further surgeries and length length inequality were all discussed. Will plan for left hip arthroplasty today. PERLA KEYS MD documented in this encounter Consult Notes * Milena Dodge NP - 06/21/2025 9:50 AM EST FRACTURE LIAISON SERVICE NOTE Date: 06/21/2025 Milena Dodge NP Reason for consult: Fragility Fracture Chief complaint & HPI Chief complaint: Hip fracture HPI Tanisha Cota is a 84 y.o. female with a past medical history of ITP, hypertension, lymphoma [facility] found to have left femoral neck fracture. Osteoporosis History -Diagnosed by bone density scan. No scans are available to review today. -Osteoporosis therapy to date: IV zoledronic acid annually x 3 years (07/2020-07/2022) Fracture History -No fragility fractures prior to this admission Risk Factors Race/ethnicity Height 155 cm Weight 46 kg BMI Body mass index is 19 kg/m??. Alcohol use No Tobacco use No Steroid use Based on chart review, it appears patient intermittently received systemic steroids while undergoing treatment for lymphoma. Details are not available, but it doesn't appear she has had chronic exposure to systemic steroids. Pre-admission physical activity level Patient lives alone and is independent at baseline. Communityambulator and performs all her own ADLs. Recurrent falls no Parental/family history of hip fracture or osteoporosis no Malabsorption no Early menopause (age <45) or bilateral ovariectomy Unkown Outpatient Calcium and Vit D intake -Dietary sources: She follows a vegan diet and avoids dairy. -Calcium supplement: No -Vitamin D supplement: Some days. Potential Medication Contraindications GERD/peptic ulcer/GI bleed yes- GERD CKD no Hypocalcemia no Cancer yes- B-cell lymphoma Past Medical History Medical History[1] Surgical History[2] Family History[3] Social History[4] Objective Relevant Osteoporosis Labs Lab Results Component Value Date CREATININE 0.69 06/21/2025 EGFR 85 06/21/2025 CALCIUM 8.1 (L) 06/21/2025 ALBUMIN 4.5 06/20/2025 MG 2.0 06/20/2025 PHOS 3.7 06/20/2025 ALKPHOS 84 06/20/2025 No results found for: SPEP , IFEINTERP , UPEP Assessment and Plan Tanisha Cota is a 84 y.o. female with a past medical history of ITP, hypertension, lymphoma [facility] mechanical fall found to have left femoral neck fracture. #Osteoporosis with Pathologic Fracture #Left Femoral Neck Fracture Patient presents after a ground level fall resulting in left hip fragility fracture. This fracture is likely a complication of her known osteoporosis. She previously was treated with IV bisphosphonate between 2020-07/2022, and has been on drug holiday since that time. Risk factors for osteoporosis include age, postmenopausal status, frailty and inadequate calcium and vitamin D intake. Recommend re-initiating IV bisphosphonate therapy at this time pending lab workup. Family is agreeable to this plan and prefer that she receive this inpatient if possible. -Order 25-OHD and PTH -Start calcium citrate 315 mg TID -Start vitamin D3 1000 IU daily -Administer IV zoledronic acid 3 mg over 45 minutes pending 25-OHD >25 -Follow up with pcp and heme/onc team For any questions about osteoporosis management, please contact the [facility] tiger text (T Fracture Liaison Adult ELECTRIC METER INSTALLER) from 8am - 5pm M-F. Other times contact the on-call endocrinology fellow (T Endo AdultFel Consult). Total time on the date of encounter was invested in one or more of the following activities: preparing to see the patient (e.g., review of prior notes, tests that need updating), obtaining and/or reviewing separately obtained history, performing a medically focused examination and/or evaluation, counseling and educating the patient and family, ordering medications, tests, or procedures, referringand communicating with other health cardiac care nurse (including the referring physician), documenting clinical information in the electronic or other health record, independently interpreting results and communicating results to the patient and family, care coordination. Total time invested: 55 mi sparklees [1] History reviewed. No pertinent past medical history. [2] History reviewed. No pertinent surgical history. [3] No family history on file. [4] Social History Socioeconomic History Marital status: Spouse name: None Number of children: None Years of education: None Highest education level: None Occupational History None Tobacco Use Smoking status: Never Smokeless tobacco: Never Vaping Use Vaping status: Never Used Substance and Sexual Activity Alcohol use: Yes Alcohol/week: 1.0 - 2.0 standard drink of alcohol Types: 1 - 2 Standard drinks or equivalent per week Drug use: None Sexual activity: None Other Topics Concern None Social History Narrative None Social Determinants of Health Financial Resource Strain: Low Risk (06/20/2025) Overall Financial Resource Strain (CARDIA) Difficulty of Paying Living Expenses: Not hard at all Food Insecurity: Unknown (06/20/2025) Hunger Vital Sign Worried About Running Out of Food in the Last Year: Never true Ran Out of Food in the Last Year: Not on file Transportation Needs: No Transportation Needs (06/20/2025) PRAPARE - Transportation Lack of Transportation (Medical): No Lack of Transportation (Non-Medical): No Physical Activity: Not on file Stress: Not on file Social Connections: Unknown (06/20/2025) Social Connection and Isolation Panel Frequency of Communication with Friends and Family: Three times a week Frequency of Social Gatherings with Friends and Family: Twice a week Attends Hinduism Services: Never Active Member of Clubs or Organizations: No Attends Club or Organization Meetings: Never Marital Status: Patient declined Intimate Partner Violence: Unknown (08/23/2024) Received from [facility] Humiliation, Afraid, Rape, and Kick questionnaire Within the last year, have you been afraid of your partner or ex-partner?: No Emotionally Abused: Not on file Physically Abused: Not on file Sexually Abused: Not on file Housing Stability: Unknown (06/20/2025) Housing Stability Vital Sign Unable to Pay for Housing in the Last Year: Not on file Number of Times Moved in the Last Year: Not on file Homeless in the Last Year: No * Weston Nolan, PT - 06/21/2025 9:24 AM EST Physical Therapy Evaluation Patient Name: Tanisha Cota : 1940 Evaluation Date: 06/21/2025 Subjective HPI/Hospital Course: Pt is 84/F reporting to [facility] on 06/20/25 for management of closed fracture of Lt femur resulting from a fall. Now s/p L hip hemiarthroplasty with Dr Keys on 06/20/25 without complication. Now POD 1 with no reports of adverse reaction, on posterior hip precautions. PT consulted, medically cleared for PT eval. Problem List[1] Medical History[2] Surgical History[3] Objective General Information General Info PT Received On: 06/21/25 Following Therapy Session:: Call betts within reach, Patient in Chair, Nursing Staff Aware of Patient Location, Chair Alarm Activated Plan of Care Reviewed With:: Patient, Family Consumer Science [employer] Teacher, RN/Charge Nurse, OT Recommended mobility with nursing staff: 2A w/ RW for OOB to chair/commode, posterior hip precautions, encourage OOB for meals and as tolerated Eval Information Type of Evaluation: Initial Evaluation Precautions Weight Bearing Status-1: LLE, Weight Bearing as Tolerated Hip Precautions: Posterior Hip Precautions Other Precautions: Fall Risk, Delirium Risk Activity Restrictions: Ambulate with assist Home Living Was Patient Admitted from [facility]?: No Lives With: Alone Type of Home: Apartment Home Layout: One Level Number of Stairs to Enter Home: 0 Number of Stairs Within Home: 0 Bathroom Shower/Tub: Tub/Shower Unit Bathroom Toilet: Standard Home Equipment: None ADL/IADL Equipment: None in Place Prior Level of Function Information Provided By: Patient Independent at Baseline: All Household Mobility, All Community Mobility, All ADL's/IADL's History of Recent Falls: Yes (resulting in admission) Work Status: Retired Occupational Profile/Social History: Lives alone in 9th floor apt with elevator, reports normally IND for all activities/mobility. States she has x2 daughters, with one living 90 miles away so doesnot normally assist. Takes public transit mostly [employer] so she stair climbs often. Pain Pain Assessment: 0-10 Pain Score: 8 Pain Type: Acute pain, Surgical pain Vital Signs Vital Signs Pulse: 96 BP: (!) 153/71 MAP (mmHg): 95 Oxygen Therapy SpO2: 98 % Oxygen Therapy: None (Room air) Cognition Overall Cognitive Status: Impaired Orientation Level: Oriented to person, Oriented to place, Oriented to situation (Oriented to time and situation with cueing and increased time, almost appearing that patient initially did not understand questioning of what month and year is it.) Following Commands: Follows one step commands (did well with redirection and tactile cues) Safety Judgment: Decreased Safety awareness Awareness of Errors/Deficits: Impaired Attention Span: Impaired Memory: Impaired Problem Solving: Impaired Communication: Tangential thoughts (Difficulty with word finding, tangential thoughts requiring frequent redirection) Behavioral/Affect Comments: Pleasantly confused, cooperative and motivated to participate. Impairedmemory and communication with word finding difficulty. Integumentary Integumentary: surgical dressing c/d/i, visible skin intact LDA Integrity: Intact Pre and Post Therapy ROM/Strength PROM Right Upper Extremity Overall RUE PROM: WFL PROM Left Upper Extremity Overall LUE PROM: WFL PROM Right Lower Extremity Overall RLE PROM: WFL PROM Left Lower Extremity Overall LLE PROM: Not Tested Strength Right Upper Extremity RUE Overall Strength: WFL Strength Left Upper Extremity LUE Overall Strength: WFL Strength Right Lower Extremity RLE Overall Strength: WFL Strength Left Lower Extremity LLE Overall Strength: Not Tested Neuromuscular Assessment Auditory: WFL Vestibular: WFL Vision: WFL (wearing corrective lenses) Mobility Assessment Bed Position: HOB elevated, Use of bedrail Supine to Sit: Moderate Assist, X1 Assist, Cues for Sequencing Scooting: Moderate Assist, X1 Assist, Cues for Sequencing Bed Mobility Comments: Performed bed mobility with repeated cues and redirection to task, MOD A x1.Able to maintain sitting balance at EOB with MIN A progressing to SPV. Sit to Stand: Moderate Assist, X2 Assists, Cues for Hand Placement, Cues for Sequencing Stand to Sit: Moderate Assist, X2 Assists, Cues for Hand Placement, Cues for Sequencing Bed to Chair: Moderate Assist, X2 Assists, Cues for Hand Placement, Cues for Sequencing Assistive Device: Rolling Walker Transfers Comments: Sit<>stand and stand/step transfer to bedside chair with MOD A x2 and RW,patient initially retropulsed however improved with standing weight shifting. Able to maintain standing balance with RW and MOD A. Ambulation Comments: NT Stairs Comments: NT Sitting Balance - Static: Supervision Sitting Balance - Dynamic: Min A Standing Balance - Static: Mod A w/ RW Standing Balance - Dynamic: Mod A w/ RW [facility] Balance Scale: Yes Sitting Balance Scale: 2 - Independently supports self with both upper extremities. [facility] Standing Balance Scale: 1 - Supports self with upper extremities but requires therapist assistance. Patient performs 25-50% of effort (moderate assist). AMPAC - (Basic Mobility Inpatient Short Form) How much help from another person do you currently need? Turning from your back to your side while in a flat bed without using bedrails?: 2 - A Lot Moving from lying on your back to sitting on the side of a flat bed without using bedrails?: 2 - A Lot Moving to and from a bed to a chair (including a wheelchair)?: 2 - A Lot Standing up from a chair using your arms (e.g., wheelchair, or bedside chair)?: 2 - A Lot To walk in hospital room?: 2 - A Lot Climbing 3-5 steps with a railing?: 1 - Total Raw Score: 11 Education Education Provided: Role of PT/Plan of Care, Discharge Planning, Activities of Daily Living, Adaptive Equipment/Assistive Device, Mobility Training, Safety Awareness/Fall Risk, Precautions, Weight Bearing Status, Activities Guidelines Education Provided to: Patient Teaching Method: Demonstration, Discussion Barriers to learning: Acuity of illness, Cognitive deficits Learning Evaluation: Verbalizes understanding, Needs practice, Needs reinforcement/further teaching Assessment Pt is 84/F reporting to [facility] on 06/20/25 for management of closed fracture of Lt femur resulting from a fall. Now s/p L hip hemiarthroplasty with Dr Keys on 06/20/25 without complication. Now POD 1 with no reports of adverse reaction, on posterior hip precautions. Presenting to PT evaluation below her baseline of functional mobility. Patient at baseline reports she is IND for mobility with no AD use, IND for ADLs, and IND for IADLs. She states that occasionally a daughter will come to see her, but she self manages at home. She presented with impaired strength, endurance, balance, and activity tolerance with increased pain, demonstrating an ability to perform bed mobility and transfer to bedside chair with RW and MOD A. She will benefit from continued skilled PT services in order to improve up her impairments and return to participation with normal activities. PT recommend rehab when medically cleared for DC, acute care PT will continue to follow and colby mitchell as able. Patient presents with Impaired gait, Functional Mobility deficit, Impaired activity tolerance, Impaired safety awareness, Pain, Balance deficit, Strength deficit Prognosis: Good Goals Short Term Goals Date Established/Amended: 06/21/25 Goal timeframe: 2 weeks Bed mobility goal: perform bed mobility supine<>sit with CGA Transfers goal: sit<>stand transfers with RW and CGA Ambulation goal: ambulate for >50 feet with RW and CGA Stairs goal: stair climb 4 steps with hand rail and CGA Group Home Goals Goal established/Amended: 06/21/25 Goal timeframe: 6 weeks Transfers goal: perform sit<>stand transfers with LRAD and MOD I Ambulation goal: ambulate for >300 feet with LRAD and MOD I Stairs goal: stair climb 1 FOS with LRAD and MOD I Plan Plan: Continued Skilled Inpatient PT Services Treatment Interventions: Therapeutic exercise, Assistive device training, Functional mobility training, Gait training, Stair training PT Frequency and Duration: 5-7 x/week until Discharge, Twice Daily Treatment: Comment: 1 unit functional activity Recommendations Anticipate Discharge to: Rehab Recommended mobility with nursing staff: 2A w/ RW for OOB to chair/commode, posterior hip precautions, encourage OOB for meals and as tolerated Weston Nolan PT [place] lic # [id number] [1] Patient Active Problem List Diagnosis Closed fracture of neck of left femur Closed fracture of neck of left femur, initial encounter Osteoporosis with pathological fracture [2] History reviewed. No pertinent past medical history. [3] History reviewed. No pertinent surgical history. * CORINNE Ambrocio/Stephanie - 06/21/2025 9:23 AM EST Occupational Therapy Evaluation Patient Name: Tanisha Cota : 1940 Today's Date: 06/21/2025 Subjective This wasn't as bad as I thought HPI/Hospital Course: 84 y.o. 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 Intraoperatively, had ST elevations. Cardiology recommended no further work-up. Per discussion with RN patient is appropriate for OT eval. Problem List[1] Medical History[2] Surgical History[3] Objective General Information General Info OT Received On: 06/21/25 Following Therapy Session:: Call betts within reach, Patient in Chair, Chair Alarm Activated, Nursing Staff Aware of Patient Location Plan of Care Reviewed With:: Patient, Family [employer] Teacher, RN/Charge Nurse, PT Recommended mobility with nursing staff: Weight bearing as tolerated left leg, posterior hip precautions. 2 person assist bed to chair or commode with walker, sit up in chair for meals Eval Information Type of Evaluation: Initial Evaluation Precautions Precautions Weight Bearing Status-1: LLE, Weight Bearing as Tolerated Hip Precautions: Posterior Hip Precautions Other Precautions: Fall Risk, Delirium Risk Activity Restrictions: Ambulate with assist Home Living Was Patient Admitted from [facility] No Lives With: Alone Type of Home: Apartment Home Layout: One Level Number of Stairs to Enter Home: 0 Number of Stairs Within Home: 0 Bathroom Shower/Tub: Tub/Shower Unit Prior Level of Function Information Provided By: Patient Dominance: Right Independent at Baseline: All Household Mobility, All Community Mobility, All ADL's/IADL's, Without Device (Takes MBTA for community tasks) History of Recent Falls: Yes (Fall reason for admit) Occupational Profile/Social History: Reports [place]. Pain Pain Assessment Pain Assessment: 0-10 Pain Score: 9 (Difficulty quantifying pain, requiring multiple repetitions and approaches to questioning) Pain Type: Acute pain, Surgical pain Pain Location: Hip Pain Orientation: Left Vital Signs Vital Signs Pulse: 88 BP: (!) 153/71 Oxygen Therapy SpO2: 99 % Oxygen Therapy: None (Room air) Cognition Cognition Overall Cognitive Status: Impaired Orientation Level: Oriented X4 (Requires multiple rounds of questioning to state date and situation, but ultimately able to report accurately) Following Commands: Follows one step commands (Benefits from cues and simple commands) Safety Judgment: Decreased Safety awareness Awareness of Errors/Deficits: Impaired Attention Span: Impaired Memory: Impaired Problem Solving: Impaired Communication: Other (Word finding difficulty, often talking off topic requiring frequent redirection to task.) Behavioral/Affect Comments: Pleasantly confused, impaired memory and wordfinding difficulty requiring frequent redirection and cues Integumentary Integumentary Integumentary: post operative dressing c/d/i LDA Integrity: Intact Pre and Post Therapy ROM/Strength PROM Right Upper Extremity Overall RUE PROM: WFL PROM Left Upper Extremity Overall LUE PROM: WFL PROM Right Lower Extremity Overall RLE PROM: WFL PROM Left Lower Extremity Overall LLE PROM: Other (Comment) (see PT note, pain inhibited) Strength Right Upper Extremity RUE Overall Strength: WFL Strength Left Upper Extremity LUE Overall Strength: WFL Strength Right Lower Extremity RLE Overall Strength: WFL Strength Left Lower Extremity LLE Overall Strength: Other (Comment) (See PT note, impaired and pain inhibited) Neuromuscular Assessment Neuromuscular Assessment Auditory: WFL Functional Mobility Assessment Bed Position: HOB elevated, Use of bedrail Supine to Sit: Moderate Assist, X1 Assist Scooting: Moderate Assist, X1 Assist Sit to Stand: Moderate Assist, X2 Assists, Cues for Hand Placement Stand to Sit: Moderate Assist, X2 Assists, Cues for Sequencing Bed to Chair: Moderate Assist, X2 Assists, Cues for Hand Placement Transfers Comments: Initially retropulsive, improves with practice and cues, marches in place and stand step transfer bed to chair Sitting Balance - Static: Sup Sitting Balance - Dynamic: Min A Standing Balance - Static: Mod A with RW Standing Balance - Dynamic: Mod A with RW ADL's Lower Body Dressing: Dependent (donning socks) AMPAC - (Daily Activity Inpatient Short Form) How much help from another person do you currently need? Putting on and taking off regular lower body clothing?: 1 - Total Bathing (including washing, rinsing, drying)?: 2- A Lot Toileting, which includes using toilet,bedpan or urinal?: 2- A Lot Putting on and taking off regular upper body clothing?: 2- A Lot Taking care of personal grooming such as brushing teeth?: 3 - A Little Eating meals?: 4 - None Raw Score: 14 Education Education Education Provided: Role of OT/Plan of Care, Discharge Planning, ADL Training, Adaptive Equipment/Assistive Device, Mobility Training, Safety Awareness/Fall Risk, Activities Guidelines, Weight Bearing Status Education Provided to: Patient Teaching Method: Discussion Barriers to Learning: Cognitive deficits, Memory problems Learning Evaluation: Needs reinforcement/further teaching, Needs practice Assessment 84 yo female with mechanical fall sustaining left femoral neck fracture now POD#1 from left hip hemiarthroplasty, posterior hip precautions, WBAT LLE. Patient presents to OT most limited by impaired pain control, strength, balance and cognition, resulting in significantly impaired ADLs and functional mobility. Patient is well below baseline and will benefit from OT and rehab stay to maximize safety and independence. Patient presents with ADL/Self care deficit, IADL deficit, Functional Mobility deficit, Strength deficit, Impaired activity tolerance, Impaired safety awareness, Balance deficit, Pain, Range of motion deficit, Impaired cognition Prognosis: Good Goals Short Term Goals Date Established/Amended: 06/21/25 Goal timeframe: 3 weeks Goal 1: Min A toilet transfer Goal 2: Min A toileting routine including clothing management and hygiene Goal 3: Supervision maintaining precautions with visual cue Goal 4: Min A grooming routine at sink x 8 min with seated rest breaks as needing Goal 5: Min A LB dressing with LHAE as needed Radiology Director Goals Date Established/Amended: 06/21/25 Goal timeframe: 3 months Goal 1: Mod I ADLs, light IADLs and in home mobility with LRAD Plan Plan: Continued skilled Inpatient OT services Treatment Interventions: ADLs/Self Care Training, Patient/Caregiver Education, Functional Mobility,Bed Mobility, Transfer Training, Assistive Device Training, Adaptive Equipment Training, Home Management Training, Cognitive Skills Training, Exercise/Range of Motion OT Frequency and Duration: 3-5 x/week until Discharge Treatment: Comment: 1 unit theract Recommendations Anticipate Discharge to: Rehab Recommended mobility with nursing staff: Weight bearing as tolerated left leg, posterior hip precautions. 2 person assist bed to chair or commode with walker, sit up in chair for meals CORINNE Ambrocio/Stephanie MS lic # [id number] [1] Patient Active Problem List Diagnosis Closed fracture of neck of left femur Closed fracture of neck of left femur, initial encounter Osteoporosis with pathological fracture [2] History reviewed. No pertinent past medical history. [3] History reviewed. No pertinent surgical history. * Ryan Pierce MD - 06/20/2025 3:28 AM EST error documented in this encounter Nursing Notes * Rhonda Pierce RN - 06/21/2025 5:57 PM EST Progress Note: [id number] AOx3, VSS. Pt can be confused and forgetful at times. Pt tolerating diet. X2 assist OOB pivot to BSC. Pt DTV at 430pm. Bladder scan for 179. Pt voided 100cc. Having loose stool. Dressing to L hip, c/d/i. Call light within reach and safety maintained. * Driss Meek RN - 06/21/2025 3:51 PM EST Pt A&O x4, confused & forgetful. Flight of ideas, troubles w/ word finding. VS as documented, afebrile. Denies cardiac/resp complaints. On sats, satting WDL on RA. Denies b/b complaints. Blanco pulled this shift, DTV 2:30-4:30. X1 BM in commode this shift. Tolerating regular diet well, denies n/v. L hip dressing c/d/i. +CSM +PP -numbness. PIV patent. Minimal pain controlled by PRN oxycodone. Worked w/ PT today, see note. Call light within reach, safety maintained. * Driss Meek RN - 06/20/2025 7:01 PM EST Pt went to OR this AM. Pt A&O x4, confused & forgetful. More confused after returning from PACU, takes a few minutes to remember last name & current year. VS as documented, hypertensive to 170s before OR, svc aware. BP down to 140s post-op. Denies cardiac/resp complaints. On sats, satting WDL on RA. Denies b/b complaints. Voiding CYU in blanco. Tolerating regular diet well, denies n/v.L hip dressing c/d/i. +CSM +PP -numbness. PIVs patent. Denies pain. Call light within reach, safetymaintained. * Nicole Spivey - 06/20/2025 12:52 PM EST Pt appears confused, cannot answer question appropriately. Pt does not know her last name. called Oli Paige to speak with primary nurse, Driss to get an understanding of pt mental status. Pt was alert and oriented x 4 prior to OR with occasional forgetfulness. Will continue to monitor. documented in this encounter OR Notes * Op Note - Perla Keys MD - 06/20/2025 10:14 AM EST Hemiarthroplasty, Hip, Bipolar or Unipolar (L) Operative Note Date: 06/20/2025 Location: [facility] OR Name: Tanisha oCta, : 1940, Diagnosis Pre-op Diagnosis * Closed fracture of neck of left femur, initial encounter [S72.002A] Post-op Diagnosis * Closed fracture of neck of left femur, initial encounter [S72.002A] Procedures Hemiarthroplasty, Hip, Bipolar or Unipolar 01831 - OR PARTIAL HIP REPLACEMENT Surgeons * Perla Keys - Primary Don Ramirez - Resident Clarisa Corona Resident Procedure Summary Anesthesia: General ASA: III Estimated Blood Loss: 200 Total IV Fluids: See Anesthsia Record Drains: Urethral Catheter Double-lumen/Indwelling 14 Fr. (Active) Site Assessment Clean;Skin intact 06/20/25310 Blanco/Perineal Care Provided Yes 06/20/25310 Collection Container Standard drainage bag 06/20/25310 Securement Method Securing/Stabilization Device 06/20/25310 Reason for Continuing Urinary Catheterization Hourly urinary output measures with no reasonable alternative 06/20/25310 Are there no dependent loops? Yes 06/20/25310 Is the bag not touching floor? Yes 06/20/25310 Is this a Closed System (seal intact)? Yes 06/20/25310 Is the bag below the bladder? Yes 06/20/25310 Output (mL) 2100 mL 06/20/25 0700 Implants Type Name Action Serial No. Joint Hip STEM SUMMIT FEM SZ5 CEMENTED - [id number] - [id number] Implanted [id number] Insert Stem centralizer 10mm cemented Implanted 1376-48-000 Joint Knee HEAD DELTA CER 06/09 36MM +1.5 - [id number] - [id number] Implanted [id number] Staff: Director Of Field Sales: Bonnie Freedman RN Scrub Person: Alaina Woods RN; [facility] Indications: Tanisha Cota is an 84 y.o. female who is having surgery for Closed fracture of neck of left femur, initial encounter [S72.002A]. She was noted to have a mechanical drop trip and fall. At that time she was noted to have a left femoral neck fracture which was displaced. [facility] We discussed the benefits and risks of surgical intervention. We discussedthe benefits of surgery being pain relief improve function. We discussed the risks associated with surgery including infection, fracture, blood clots, blood loss, persistent pain, reoperation, damageto nerves, arteries, vessels, tendons and ligaments. The patient would like to undergo left hip francis arthroplasty. Procedure Details: The patient was seen in the preoperative area. The risks, benefits, complications, treatment options, non-operative alternatives, expected recovery and outcomes were discussed with the patient. The patient was marked. The patient was transferred to the operating room where a preinduction timeout was performed was again confirming the correct patient and site of surgery. Anesthesia was then induced and the patient was placed in the lateral decubitus position. The patient was prepped and draped. A formal timeout was performed. A skin incision was made about the lateral aspect of the hip. This was taken down to the IT band and gluteus fascia. This was then incised with the Bovie. This exposed the glue medius. We then identified the short external rotators underneath the gluteus medius. We took down the short external rotators exposing the hip capsule. We then proceeded to elevate the glue minimus. We then performed a capsular flap. This was tagged with Ethibond. We then proceeded to remove the femoral head. This was measured to be a size 45. We then proceeded to start preparing the femur. We r used a box osteotome at the level of the piriformis fossa. We then proceeded to use a canal finder as well as reamers. We reamed up to the size 4 5 reamer. We then proceeded to broach. We broached up to a size 5 femur. We trialed this with a standard offset neck with a 45+0 trial. This trial appeared to give the best combination of leg length, offset and hip stability. We therefore removed the trial and open the stem. We inserted a cement restrictor down the canal approximately 2 cm distal to the distal tip of the stem. We then irrigated the canal and mixed the cement. We inserted the 2 bags of cement into the femur. And cemented the femoral component in appropriate anteversion. Once the cement was hardened we proceeded to trial the head again. We trialed with the +5 trial however this was noted to be too long. We then retrialed with the 45+0 trial and felt this to be appropriate. We then opened the dual mobility ceramic +1.5 construct. We reduced the hip and once again to get through a range of motion and it felt stable throughout. We then irrigated the wound with normal saline. We closed the short external rotators and capsule with Ethibond. We then proceeded to close the IT band and gluteal fascia with #1 Vicryl. We then closedthe subcutaneous tissues with 0 Nicollet Derm and 2 oh Nicollet Derm. We used Dermabond and an Aquacel for skin. The patient was transferred to the recovery room. Intraoperatively the patient was noted to have possible ST elevations. We therefore will have them consult cardiology immediately postoperatively. From surgical standpoint there were no complications. The patient to be weightbearing as tolerated with no hip precautions. She will follow-up with me in 2 weeks for wound check. She will be on Eliquis2.5 mg twice daily for DVT prophylaxis for 1 month unless cardiology feels differently. Perla Keys * Brief Op Note - Clarisa Corona MD - 06/20/2025 10:14 AM EST Date: 06/20/2025 Location: [facility] OR Name: Tanisha Cota, : 1940, Diagnosis Pre-op Diagnosis * Closed fracture of neck of left femur, initial encounter [S72.002A] Post-op Diagnosis * Closed fracture of neck of left femur, initial encounter [S72.002A] Procedures Hemiarthroplasty, Hip, Bipolar or Unipolar 04861 - OR PARTIAL HIP REPLACEMENT Left Surgeons * Perla Keys - Primary Procedure Summary Anesthesia: General ASA: III Estimated Blood Loss: See complete operative report Total IV Fluids: See anesthesia record Drains: Urethral Catheter Double-lumen/Indwelling 14 Fr. (Active) Site Assessment Clean;Skin intact 06/20/25310 Blanco/Perineal Care Provided Yes 06/20/25310 Collection Container Standard drainage bag 06/20/25310 Securement Method Securing/Stabilization Device 06/20/25310 Reason for Continuing Urinary Catheterization Hourly urinary output measures with no reasonable alternative 06/20/25310 Are there no dependent loops? Yes 06/20/25310 Is the bag not touching floor? Yes 06/20/25310 Is this a Closed System (seal intact)? Yes 06/20/25310 Is the bag below the bladder? Yes 06/20/25310 Output (mL) 2100 mL 06/20/25 0700 Implants Type Name Action Serial No. Joint Hip STEM SUMMIT FEM SZ5 CEMENTED - [id number] - [id number] Implanted [id number] Insert Stem centralizer 10mm cemented Implanted 1376-48-000 Joint Knee HEAD DELTA CER 06/09 36MM +1.5 - [id number] - [id number] Implanted [id number] Staff: Director Of Field Sales: Bonnie Freedman RN Scrub Person: Alaina Woods RN; [facility] Indications: Tanisha Cota is an 84 y.o. female who is having surgery for Closed fracture of neck of left femur, initial encounter [S72.002A]. Findings: See complete operative report Complications: None; patient tolerated the procedure well. Disposition: PACU - hemodynamically stable. Condition: stable Specimens Collected: Order Name Source Comment Collection Info Order Time PREPARE RBC, LEUKOREDUCED 06/20/2025 9:48 AM Transfusion indications Procedural requirement Has consent been obtained? Yes Cosigned by Perla Keys MD at 06/20/2025 12:10 PM EST documented in this encounter ED Notes * Chris Cain MD - 06/20/2025 1:47 AM EST INITIAL TRAUMA ENCOUNTER HISTORY AND PHYSICAL 06/20/2025 1:47 AM MTR HISTORY OF INJURY: Tanisha Cota is a 84 y.o. female with a PMHx of HTN, TTP, MGUS, low-grade B cell lymphoma who presents in [facility] following an unwitnessed fall from chair at home. Patient reports that she was bending over to tie her shoes when she lost her balance and fell out of the chair to the left. Distance tothe floor was less than 2 feet. Reports that she fell on her left hip and immediately experienced left hip pain. She has no other complaints. Denies head strike, denies loss of consciousness, no reported anticoagulation use. PMH: HTN, TTP, MGUS, low-grade B cell lymphoma PRIMARY SURVEY: A: Airway patent B: CTAB C: Hypertensive, Nontachycardic, and Pulses present and symmetric: radial, femoral BP Readings from Last 1 Encounters: 06/20/25 (!) 177/32 Pulse Readings from Last 1 Encounters: 06/20/25 81 D: GCS: 15 PERRL E: Pt fully exposed, no active bleeding. Intubation: No Chest tube: No Central Line: No Blood hung: No Fluids running: No Adequate IV Access: No ADJUNCT STUDIES: FAST Exam: Not performed CXR: No pneumothorax or effusion PXR: Notable for Left femoral neck fracture; no obvious acute pelvic injury SECONDARY SURVEY: Scalp: Atraumatic Face: Atraumatic, midface stable Eyes: Normal Ears: Normal Mandible: Normal Mouth: Normal Teeth: Normal Throat: Normal Neck: Atraumatic, No tracheal deviation, no stepoffs or deformities Cervical Collar in place: No Chest: No chest wall tenderness Lungs: Clear to auscultation bilaterally Axilla: Atraumatic Heart: has a regular rate and rhythm without murmurs, rubs, or gallops Abdomen: soft, non-tender; bowel sounds normal; no masses, no organomegaly Pelvis: stable Genitalia: exam deferred Rectum: exam deferred Back: Atraumatic, no stepoffs or deformities Extremities: LUE: Normal RUE: ABNORMAL: minor superficial hemostatic abrasion to the right elbow. Otherwise atraumatic. LLE: ABNORMAL: Left medial mid thigh tenderness. LLE shortened and externally rotated. Otherwise atraumatic. RLE: Normal Neuro: GCS: (4 - Opens eyes on own/ 5 - Alert and oriented/ 6 - Follows simple motor commands): Total: 15 IMAGING: CXR: No pneumothorax or effusion CT Head: No acute bleed, mass, or shift. CT Cspine: No acute fracture or subluxation XR PELVIS and XR LEFT HIP: Acute left femoral neck fracture LABS: 7.2 \ 13.2 / 114 / 40.1 \ 135 98 15 / 96 4.1 26 0.81 \ Results from last 7 days Lab Units 06/20/25 0150 06/20/25 0149 LACTATE mmol/L 0.8 -- INR -- 1.00 ETHANOL LEVEL, PLASMA/SERUM mg/dL -- <10 SUMMARY OF INJURIES: - Acute left femoral neck fracture ASSESSMENT/PLAN: Tanisha Cota is a 84 y.o. female with a PMHx of HTN, TTP, MGUS, low-grade B cell lymphoma who is presenting as an MTR following a fall from chair at home resulting in acute left hip discomfort. On trauma survey, patient is found to have medial mid left thigh discomfort and a shortened and externally rotated left lower extremity. CT Head is negative for acute intracranial bleeding or osseous abnormalities, CT C-spine is negative for acute fractures or malalignment. XR of the LLE notable for left femoral neck fracture. Patient is hemodynamically stable. - No acute trauma surgery intervention - Recommend Orthopedic Surgery consult, follow-up recs - Follow-up all final imaging reads - Tertiary within 24 hrs if admitted Chris Cain MD PGY 1 Die [employer] Dies Trauma Surgery Please TigerText T Emergency Surg Adult Res Consult for urgent/emergent consults or questions. The person who wrote this note may be post-call or in a procedure, and TigerTexting them personally/directly may lead to a delay in care. * Yudy Bazan RN - 06/20/2025 1:28 AM EST MTR paged @[phone] Yudy Bazan RN 06/20/25 0128 * Yudy Bazan RN - 06/20/2025 1:20 AM EST Pt BIBEMS for inability to ambulate her left leg after falling off a chair. No head strike. No LOC.Pt was unable to get up by herself. * Zuly Lees MD - 06/20/2025 1:20 AM ESTAssociated Order(s): Critical Care Procedure Critical Care Performed by: Zuly Lees MD Authorized by: Zuly Lees MD Critical care provider statement: Critical care time (minutes): 30 This time was exclusive of all other procedures, treating other patients, and teaching time. Critical care was necessary to treat or prevent imminent or life-threatening deterioration of the following conditions: Trauma Critical care was time spent personally by me on the following activities: Development of treatmentplan with patient or surrogate, discussions with consultants, examination of patient, interpretation of cardiac output measurements, obtaining history from patient or surrogate, review of old charts, ordering and review of radiographic studies, ordering and review of laboratory studies, ordering and performing treatments and interventions and re-evaluation of patient's condition Care discussed with: admitting provider Zuly Lees MD 06/20/25 0619 * Zuly Lees MD - 06/20/2025 1:20 AM EST Images from the original note were not included. [facility] [address] [place] [id number] [facility] Chief Complaint Patient presents with Fall The patient is an 84-year-old female with no documented chronic medical history who presents after a ground-level fall with left hip pain and inability to bear weight. She was seated in a chair changing her socks when she fell to her left side, landing directly on the left hip. She denies head impact or loss of consciousness. EMS noted she was unable to stand at the scene. She is not on anticoagulation. She reports focal pain in the medial left upper thigh when attempting to stand; when lying flat and with palpation in that position, she has no tenderness there. Additional injuries noted include a bruise on the left elbow and an abrasion on the right elbow. She denies abdominal pain. Reviewof systems otherwise not discussed. History provided by: Patient Patient History Medical History[1] Surgical History[2] Family History[3] Social History Tobacco Use Smoking status: Not on file Smokeless tobacco: Not on file Substance Use Topics Alcohol use: Not on file Drug use: Not on file Review of Systems Review of Systems Constitutional: As noted in HPI Physical Exam ED Triage Vitals Temp Pulse Resp BP 06/20/2512206/20/2512206/20/2512206/20/25122 36.4 ??C (97.6 ??F) 88 18 (!) 209/91 SpO2 Temp src Heart Rate Source Patient Position 06/20/25122 -- 06/20/2514406/20/25144 100 % Monitor Semi-Lou BP Location FiO2 (%) 06/20/25144 -- Left arm Physical Exam Vitals and nursing note reviewed. GENERAL: Awake, alert, conversant, GCS 15. HEENT: Head atraumatic. CV: Regular rate and rhythm; palpable distal pulses. PULMONARY: Clear to auscultation bilaterally. ABDOMEN/: Soft, non-tender, no distension. EXTREMITIES/BACK: Left leg shortened and externally rotated with approximately 2 cm leg-length discrepancy; focal tenderness over left hip; tenderness of medial left upper thigh only with weight-bearing attempt; no crepitus; normal strength at feet and ankles. Bruise noted on left elbow; abrasion on right elbow. SKIN: Bruising left elbow; abrasion right elbow; no other rashes or breaks. NEURO: Moves all extremities to command. PSYCH: Calm, cooperative CT ABDOMEN PELVIS W CONTRAST Preliminary Result 1. Acute comminuted displaced transcervical fracture of the left femoral neck. No evidence of periarticular hemorrhage. 2. Refer to same day separately reported CT chest for thoracic findings. DICTATED: Alejandro Campo MD IN ACCORDANCE WITH DEPARTMENT POLICY, TEACHING PHYSICIANS REVIEW ALL IMAGES, AND EDIT REPORTS REQUIRED. A REPORT IS NOT FINAL UNTIL APPROVED BY A STAFF RADIOLOGIST. XR KNEE LEFT 1-2 VIEWS Preliminary Result No acute osseous abnormality. DICTATED: Alejandro Campo MD IN ACCORDANCE WITH DEPARTMENT POLICY, TEACHING PHYSICIANS REVIEW ALL IMAGES, AND EDIT REPORTS REQUIRED. A REPORT IS NOT FINAL UNTIL APPROVED BY A STAFF RADIOLOGIST. XR FEMUR LEFT 2+ VIEWS Preliminary Result Acute comminuted displaced transcervical fracture of the left femoral neck. DICTATED: Alejandro Campo MD IN ACCORDANCE WITH DEPARTMENT POLICY, TEACHING PHYSICIANS REVIEW ALL IMAGES, AND EDIT REPORTS REQUIRED. A REPORT IS NOT FINAL UNTIL APPROVED BY A STAFF RADIOLOGIST. CT HEAD WO CONTRAST Preliminary Result No acute territorial infarct, space-occupying lesion, or intracranial hemorrhage. Preliminary imaging findings were communicated via telephone at the time of image acquisition by Alejandro Campo MD, to Dr. Leonid Bella. The clinical scenario, relevant exam findings, and impression were discussed. Full findings and a final report will follow. DICTATED: Alejandro Campo MD IN ACCORDANCE WITH DEPARTMENT POLICY, TEACHING PHYSICIANS REVIEW ALL IMAGES, AND EDIT REPORTS REQUIRED. A REPORT IS NOT FINAL UNTIL APPROVED BY A STAFF RADIOLOGIST. CT CERVICAL SPINE WO CONTRAST Preliminary Result No acute fracture or malalignment of the cervical spine. Degenerative changes. DICTATED: Alejandro Campo MD IN ACCORDANCE WITH DEPARTMENT POLICY, TEACHING PHYSICIANS REVIEW ALL IMAGES, AND EDIT REPORTS REQUIRED. A REPORT IS NOT FINAL UNTIL APPROVED BY A STAFF RADIOLOGIST. XR HIP LEFT 2 OR 3 VIEWS Preliminary Result Acute comminuted displaced transcervical fracture of the left femoral neck. DICTATED: Alejandro Campo MD IN ACCORDANCE WITH DEPARTMENT POLICY, TEACHING PHYSICIANS REVIEW ALL IMAGES, AND EDIT REPORTS REQUIRED. A REPORT IS NOT FINAL UNTIL APPROVED BY A STAFF RADIOLOGIST. XR PELVIS 1-2 VIEWS Preliminary Result Acute comminuted displaced transcervical fracture of the left femoral neck. DICTATED: Alejandro Campo MD IN ACCORDANCE WITH DEPARTMENT POLICY, TEACHING PHYSICIANS REVIEW ALL IMAGES, AND EDIT REPORTS REQUIRED. A REPORT IS NOT FINAL UNTIL APPROVED BY A STAFF RADIOLOGIST. XR CHEST PORTABLE Final Result Suspected acute mildly displaced fractures of the posterior right seventh, eighth, and ninth ribs. Consider dedicated CT chest. DICTATED: Alejandro Campo MD IN ACCORDANCE WITH DEPARTMENT POLICY, TEACHING PHYSICIANS REVIEW ALL IMAGES, AND EDIT REPORTS REQUIRED. A REPORT IS NOT FINAL UNTIL APPROVED BY A STAFF RADIOLOGIST. APPROVED BY STAFF RADIOLOGIST: Paulino Harris 06/20/2025 3:26 AM EST Labs Reviewed COMPREHENSIVE METABOLIC PANEL - Abnormal Result Value Sodium 135 Potassium 4.1 Chloride 98 CO2 (Bicarbonate) 26 Anion Gap 11 BUN 15 Creatinine 0.81 eGFRcr 71 Glucose 96 Fasting? Unknown Calcium 9.1 AST 32 ALT 15 Alkaline phosphatase 84 Protein, total 8.8 (*) Albumin 4.5 Bilirubin, total 0.6 CBC WITH DIFFERENTIAL - Abnormal WBC 7.2 RBC 4.36 Hemoglobin 13.2 Hematocrit 40.1 MCV 92.0 MCH 30.3 MCHC 32.9 RDW-CV 13.0 RDW-SD 43.9 Platelets 114 (*) MPV 10.2 Neutrophil % 90.4 Lymphocyte % 4.0 Monocytes % 4.3 Eosinophils % 0.3 Basophils % 0.4 Immature Granulocytes % 0.6 NRBC % 0.0 Neutrophils Absolute 6.52 Lymphocytes Absolute 0.29 (*) Monocytes Absolute 0.31 (*) Eosinophils Absolute 0.02 Basophils Absolute 0.03 Immature Granulocytes Absolute 0.04 NRBC Absolute 0.00 PROTIME-INR - Normal Protime 11.5 INR 1.00 PTT - Normal aPTT 29.7 SDS, SERUM DRUG SCREEN - Normal Acetaminophen level <5 Ethanol level, plasma/serum <10 Salicylate level <0.5 Benzodiazepines screen, serum Not Detected Tricyclics screen, serum Not Detected URINE DRUG SCREEN - Normal Amphetamines screen, urine Not Detected Barbiturates screen, urine Not Detected Benzodiazepines screen, urine Not Detected Buprenorphine screen, urine Not Detected Cannabinoids screen, urine Not Detected Cocaine screen, urine Not Detected Ethanol screen, urine Not Detected Fentanyl screen, urine Not Detected Methadone screen, urine Not Detected Opiates screen, urine Not Detected Oxycodone screen, urine Not Detected Creatinine, urine, specimen validity 20.80 Narrative: These are unconfirmed screening results and should be used only for medical purposes. If the clinical setting requires confirmation, contact the clinical laboratory. LACTIC ACID - Normal Lactic acid 0.8 POCT GLUCOSE - Normal POCT Glucose 76 URINE CULTURE TYPE AND SCREEN ABORh A POS Antibody Screen NEG Specimen Expiration Date 06/23/2025 23:59 CONFIRM ABO/RH URINE TESTING (UA, UARC, URINE CULTURE) Narrative: The following orders were created for panel order Urine Testing (UA, UARC, Urine Culture). Procedure Abnormality Status --------- ------ Urinalysis[[id number]] Urine culture[[id number]] Please view results for these tests on the individual orders. URINALYSIS TROPONIN T, HIGH SENSITIVITY LACTIC ACID POCT GLUCOSE METER bCAM Score: Negative Tucker Coma Scale Score: 15 ED Course & [facility] ED Course as of 06/20/25 0526 Sofía Jun 20, 2025 0245 Comprehensive metabolic panel(!) 0245 Lactic acid 0245 SDS, Serum Drug Screen, [facility] 0245 POCT glucose meter 0245 APTT 0245 Protime-INR 0245 CBC w/ Differential(!) 0309 CT chest ordered. Radiology noted three posterior right sided rib fractures 25 CT noted no rib fractures. Patient admitted Diagnoses as of 06/20/25525 Closed fracture of neck of left femur, initial encounter Fall, initial encounter Medical Decision Making The patient is an 84-year-old female presenting with left hip pain and inability to bear weight after a ground-level fall onto her left side. Trauma team paged given elderly fall with inability to ambulate. Exam reveals a shortened, externally rotated left leg with focal hip tenderness and leg-length discrepancy. Working differential includes left femoral neck fracture, intertrochanteric fracture, and acetabular fracture. Pelvic contusion or soft- tissue injury is less likely given the degree ofdeformity and inability to bear weight. C-spine injury is unlikely in the absence of head impact orcervical tenderness however given distracting injury from hip, CT head and cervical spine were ordered Xray demonstrated left hip fracture. Patient evaluated by orthopedics. Patient received IV fentanylfor pain. Patient admitted for operative management of left hip fracture. Problems Addressed: Closed fracture of multiple ribs of right side, initial encounter: complicated acute illness or injury Closed fracture of neck of left femur, initial encounter: complicated acute illness or injury Fall, initial encounter: complicated acute illness or injury Amount and/or Complexity of Data Reviewed Labs: ordered. Decision-making details documented in ED Course. Radiology: ordered and independent interpretation performed. Details: X-ray pelvis independently visualized and interpreted by me with left hip fracture ECG/medicine tests: ordered and independent interpretation performed. Details: ECG independently visualized and interpreted by me with NSR rate of 82, PAC, short OR interval LVH with Q waves. Xray chest independently visualized and interpreted by me without displaced rib fracture or pneumothorax Risk Prescription drug management. Notes reviewed: Patient with prior admission at outside facility for syncope, notes in Epic with history of anemia, B cell lymphoma, hypertension, GERD, ureteral stricture [1] No past medical history on file. [2] No past surgical history on file. [3] No family history on file. Zuly Lees MD 06/20/25525 documented in this encounter Miscellaneous Notes * Care Plan - Lucero Morrison RN - 06/22/2025 10:54 AM EST Goal Outcome Evaluation: Plan of Care Reviewed With: patient Pt a/ox4, but forgetful & has trouble finding words at times. VSS. Refused amlodipine this morning, svc aware. No cardiac/resp complaints. Reg diet, pt slightly distended. +BS, +flatus, last BM yesterday. Voiding in bathroom. X1 w/ RW OOB, worked w/ PT. [place] mepilex to L hip. +wiggle, +pulses, denies numbness/tingling. Pain managed with scheduled tylenol. Family at the bedside this shift. Family took all belongings to rehab. Up in chair most of shift. Paperwork signed. PIV removed. Discharged to rehab via ambulance. RN to RN report given. [phone] * Post-Acute Services - Fior Ureña RN - 06/22/2025 10:33 AM EST Images from the original note were not included. [facility] POST ACUTE SERVICES REFERRAL FORM Demographics Address [address] [place] [address] Phone Numbers Hm: [phone] Marital Status Insurance Information [facility] MEDICARE REPLACEMENT [employer] None Allergies (Reviewed on: 06/20/25) No Known Allergies Health Care Agents There are no Health Care Agents on file. Preferred Language Preferred Language Citizen Of [place] Preferred Written Language Citizen Of [place] Medication List START taking these medications acetaminophen 325 mg tablet Commonly known as: Tylenol Take 3 tablets (975 mg) by mouth three times daily for 10 doses. Last time this was given: June 22, 2025 8:49 AM apixaban 2.5 mg tablet Commonly known as: Eliquis Take 1 tablet (2.5 mg) by mouth twice daily. Last time this was given: June 22, 2025 8:52 AM calcium citrate-vitamin D3 315 mg-5 mcg (200 unit) tablet Commonly known as: Citracal+D Take 1 tablet by mouth three times daily. Last time this was given: June 22, 2025 8:52 AM cholecalciferol (vitamin D3) 25 MCG (1000 UT) tablet Commonly known as: Vitamin D-3 Start taking on: June 23, 2025 Take 1 tablet (1,000 Units) by mouth once daily. Last time this was given: June 22, 2025 8:52 AM oxyCODONE 5 mg immediate release tablet Commonly known as: Roxicodone Take 1 tablet (5 mg) by mouth every 4 (four) hours if needed for pain score 7-10 (severe) for up to5 days. Last time this was given: June 21, 2025 9:01 AM polyethylene glycol 17 gram packet Commonly known as: Glycolax Start taking on: June 23, 2025 Take 17 g by mouth once daily for 3 days. Mix each packet (17 g) with 4 to 8 ounces of liquid. Last time this was given: June 22, 2025 8:52 AM sennosides 8.6 mg tablet Commonly known as: Senokot Take 2 tablets (17.2 mg) by mouth at bedtime. Last time this was given: June 21, 2025 9:24 PM CONTINUE taking these medications amLODIPine 10 mg tablet Commonly known as: Norvasc Take 10 mg by mouth once daily. eltrombopag olamine 50 mg tablet Commonly known as: Promacta Take 50 mg by mouth once daily. Last time this was given: June 22, 2025 8:52 AM escitalopram 10 mg tablet Commonly known as: Lexapro Take 10 mg by mouth in the morning. Last time this was given: June 22, 2025 8:51 AM lisinopril 20 mg tablet Take 20 mg by mouth in the morning. Last time this was given: June 22, 2025 8:52 AM Discharge Referral Orders (From admission, onward) None Nursing Post-Acute/Referral Information (Page 2) Flowsheet Row Most Recent Value Self Care Activities Functional Level Dressing Independent Grooming Independent Feeding Independent Bathing Independent Toileting Independent Bowel and Bladder Last BM Date 06/21/25 Height and Weight Height 1.549 m Height Method Stated Weight 45.6 kg Weight Method Bed scale Patient Lines/Drains/Airways Status Active Lines, Drains, Airways Peripheral IV 06/20/25 Right Forearm Properties Placement date 06/20/25 06/20/25 1040 Site Forearm 06/20/25 1040 Placement time 1030 created via procedure documentation 06/20/25 1040 Days 2 Size (Gauge): 18 G 06/20/25 1040 Orientation: Right 06/20/25 1040 Site Prep: Alcohol 06/20/25 1040 Local Anesthetic: None 06/20/25 1040 Insertion attempts: 1 06/20/25 1040 Difficult Venous Access: No 06/20/25 1040 Assessments Row Name 06/22/25 0000 06/21/25 2300 06/21/25 1500 Site Assessment Ecchymotic 06/22/2531 -- Clean;Dry;Intact 06/21/25 1508 Dressing Type Transparent 06/22/2531 -- Transparent 06/21/25 1508 Lumen Status Flushed;Saline locked;Capped 06/22/25 003 -- Flushed;Saline locked;Capped 06/21/25 1508 Dressing Status Old drainage 06/22/252 -- Old drainage 06/21/25 1508 Dressing Change Due 06/27/25 06/22/25 0032 -- -- Wound 06/20/25 Surgical Closed Surgical Incision Hip Left Properties Date First Assessed 06/20/25 06/20/25 1100 Site Hip 06/20/25 1100 Time First Assessed 1045 06/20/25 1100 Days 1 Present on Original Admission: Y 06/20/25 1100 Primary Wound Type: Surgical 06/20/25 1100 Secondary Wound Type - Surgical: Closed Surgi 06/20/25 1100 Wound Location Orientation: Left 06/20/25 1100 Wound Description (Comments): Dressed with dermabond andAquacel. 06/20/25 1143 Number of Sutures Placed: 3 06/20/25 1143 Assessments Row Name 06/22/25 0000 06/21/25229906/21/25 1500 Site Assessment -- Unable to assess 06/22/2553 -- Haily-Wound Assessment -- [place];Erythematous 06/22/25 005 -- Dressing -- Other (Comment) mepilex 06/22/25 005 -- Dressing Status -- Clean/Dry/Intact 06/22/2553 -- After Discharge Information Penitentiary Facility: [facility] Address: [address] [place] [address] Penitentiary Facility Phone #: [phone] General Therapy Patient Information (Page 3) Flowsheet Row Most Recent Value Precautions Weight Bearing Status-1 LLE, Weight Bearing as Tolerated Filed at 06/21/2025 09 Hip Precautions Posterior Hip Precautions Filed at 06/21/2025 0924 Other Precautions Fall Risk, Delirium Risk Filed at 06/21/2025 09 Activity Restrictions Ambulate with assist Filed at 06/21/2025 09 Home Living Was Patient Admitted from [facility]? No Filed at 06/21/2025923 Lives With Alone Filed at 06/21/2025 09 Type of Home Apartment Filed at 06/21/2025 0924 Home Layout One Level Filed at 06/21/2025 09 Number of Stairs to Enter Home 0 Filed at 06/21/2025 09 Number of Stairs Within Home 0 Filed at 06/21/2025 09 Bathroom Shower/Tub Tub/Shower Unit Filed at 06/21/2025 09 Bathroom Toilet Standard Filed at 06/21/2025 09 Home Equipment None Filed at 06/21/2025 09 ADL/IADL Equipment None in Place Filed at 06/21/2025 09 Prior Level of Function Information Provided By Patient Filed at 06/21/2025 09 Dominance Right Filed at 06/21/2025 09 Independent at Baseline All Household Mobility, All Community Mobility, All ADL's/IADL's Filed at 06/21/2025 09 History of Recent Falls Yes [resulting in admission] Filed at 06/21/2025 09 Work Status Retired Filed at 06/21/2025 09 Occupational Profile/Social History Lives alone in 9th floor apt with elevator, reports normally IND for all activities/mobility. States she has x2 daughters, with one living 90 miles away so does not normally assist. Takes public transit mostly [employer] so she stair climbs often. Filed at 924 Cognition Overall Cognitive Status Impaired Filed at 06/21/2025 09 Orientation Level Oriented X4, Other (Comment) [forgetful @ times, difficulty finding words @ times] Filed at 06/21/2025 2300 Following Commands Follows one step commands [did well with redirection and tactile cues] Filed at 06/21/2025923 Safety Judgment Decreased Safety awareness Filed at 06/21/2025923 Awareness of Errors/Deficits Impaired Filed at 06/21/2025923 Attention Span Impaired Filed at 06/21/2025923 Memory Impaired Filed at 06/21/2025923 Problem Solving Impaired Filed at 06/21/2025923 Communication Tangential thoughts [Difficulty with word finding, tangential thoughts requiring frequent redirection] Filed at 06/21/2025923 Behavioral/Affect Comments Pleasantly confused, cooperative and motivated to participate. Impaired memory and communication with word finding difficulty. Filed at 06/21/2025923 Combined Therapy Assessment (Page 3) Flowsheet Row Most Recent Value Bed Mobility Bed Position HOB elevated, Use of bedrail Filed at 06/21/2025923 Supine to Sit Moderate Assist, X1 Assist, Cues for Sequencing Filed at 06/21/2025923 Scooting Moderate Assist, X1 Assist, Cues for Sequencing Filed at 06/21/2025923 Bed Mobility Comments Performed bed mobility with repeated cues and redirection to task, MOD A x1. Able to maintain sitting balance at EOB with MIN A progressing to SPV. Filed at 06/21/2025923 Transfers Sit to Stand Moderate Assist, X2 Assists, Cues for Hand Placement, Cues for Sequencing Filed at 06/21/2025923 Stand to Sit Moderate Assist, X2 Assists, Cues for Hand Placement, Cues for Sequencing Filed at 06/21/2025923 Bed to Chair Moderate Assist, X2 Assists, Cues for Hand Placement, Cues for Sequencing Filed at 06/21/2025923 Transfers Comments Sit<>stand and stand/step transfer to bedside chair with MOD A x2 and RW, patient initially retropulsed however improved with standing weight shifting. Able to maintain standing balance with RW and MOD A. Filed at 06/21/2025923 Physical Therapy - Mobility (Page 3) Flowsheet Row Most Recent Value Ambulation Ambulation Comments NT Filed at 06/21/2025923 Stairs Stairs Comments NT Filed at 06/21/2025 0924 Occupational Therapy(Page 3) Flowsheet Row Most Recent Value ADL Lower Body Dressing Dependent [donning socks] Filed at 06/21/2025 0923 Discharge Summary Discharge Summary by Bill Kang MD at 06/22/2025 10:19 AM Version 1 of 1 Author: Bill Kang MD Service: Internal Medicine Author Type: Physician Filed: 06/22/2025 10:22 AM Date of Service: 06/22/2025 10:19 AM Status: Signed [employer] Technician: Bill Kang MD (Physician) Discharge Summary Hospital diagnosis: #Mechanical fall #Impacted angulated subcapital left femur fracture s/p hemiarthroplasty 06/20, suspected pathologicfracture #Demand ischemia #Uncontrolled hypertension, chronic #ITP, chronic Discharge summary: 84-year-old female with a past medical history significant for ITP, hypertension, and lymphoma who presented to [facility] after a mechanical fall and was found to have an impacted angulated subcapital left femoral neck fracture. Imaging showed an impacted angulated subcapital fracture ofthe left femur without evidence of an underlying lytic or suspicious lesion, most consistent with afracture in the setting of significant osteopenia. Orthopedic surgery was consulted and the patientunderwent left hemiarthroplasty on 06/20. Postoperatively, she was allowed weight bearing as tolerated on the left lower extremity with posterior hip precautions. DVT prophylaxis with apixaban 2.5 mg twice daily to be continued for a month following repair. Pain management with scheduled acetaminophen and low-dose oxycodone as needed. Started on arteaga regimen as needed. Physical and occupational therapy evaluated the patient and recommended discharge to short-term rehabilitation. Orthopedic follow-up with Dr. Keys has been arranged for approximately two weeks after discharge. Of note, during admission, the patient was noted to have a mild troponin elevation of 22 to 23 without associated chest pain, dyspnea, or other ischemic symptoms, most consistent with demand ischemiain the setting of acute injury and stress. Intraoperatively, there was concern for possible ST elevation in a precordial lead; however, repeat electrocardiograms showed no evidence of acute ischemia,and the patient remained asymptomatic postoperatively. Cardiology was notified and reviewed the case, noting a flat low-level troponin elevation without clinical concern for acute coronary syndrome and recommending no further cardiac workup in the absence of symptoms. The patient was also noted to have persistently elevated blood pressures on admission. She reportednonadherence to her outpatient antihypertensive regimen due to perceived side effects. Postoperatively, blood pressures improved. Lisinopril was continued at 20 mg daily, and amlodipine was resumed at a reduced dose of 5 mg daily. 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 She is maintained on eltrombopag and experienced no significant perioperative bleeding beyond expected surgical blood loss. Eltrombopag was resumed on 06/20. Hematology r ecommendations include repeating platelet counts in two weeks and adjusting eltrombopag dosing based on platelet response, with dose increases if platelets fall below 50, decreases if platelets exceed 200, and holding the medication if platelets exceed 400. [facility]. At the time of discharge, the patient was hemodynamically stable with well- controlled pain, no cardiopulmonary symptoms, and appropriate postoperative recovery. She was discharged to rehabilitation in stable condition with close orthopedic and hematology follow-up arranged. Test Results Pending At Discharge Pending Labs Order Current Status Urinalysis Collected (06/20/25311) Urine Testing (UA, UARC, Urine Culture) Collected (06/20/25311) Urine culture Collected (06/20/25311) Vitamin D 25 hydroxy In process Prepare RBC, Leukoreduced: 2 Units Preliminary result Pertinent Physical Exam At Time of Discharge General: well-appearing, in no acute distress, resting comfortably HEENT: normocephalic/atraumatic, extra-ocular movements intact, mucus membranes moist CV: regular rate and rhythm, no murmurs, rubs or gallops, loud S1/S2 Pulm: clear to auscultation bilaterally, no wheezing, crackles or rhonchi, no accessory muscle use Ext: no overlying ecchymosis or gross deformity of L hip, warm and well perfused, no edema, DPs palpable. Bandage c/d/i Skin: no major lesions or rashes noted Neuro: Awake, alert & oriented x3, nonfocal Psych: Mood and affect euthymic, calm and cooperative, intermittently forgetful Outpatient Follow-Up Future Appointments Date Time Provider Department Center 07/05/2025 10:15 AM [facility] Bill Kang MD Division of Hospital Medicine [facility] * Hospital Course - Bill Kang MD - 06/22/2025 10:19 AM EST Hospital diagnosis: #Mechanical fall #Impacted angulated subcapital left femur fracture s/p hemiarthroplasty 06/20, suspected pathologicfracture #Demand ischemia #Uncontrolled hypertension, chronic #ITP, chronic Discharge summary: 84-year-old female with a past medical history significant for ITP, hypertension, and lymphoma who presented to [facility] after a mechanical fall and was found to have an impacted angulated subcapital left femoral neck fracture. Imaging showed an impacted angulated subcapital fracture ofthe left femur without evidence of an underlying lytic or suspicious lesion, most consistent with afracture in the setting of significant osteopenia. Orthopedic surgery was consulted and the patientunderwent left hemiarthroplasty on 06/20. Postoperatively, she was allowed weight bearing as tolerated on the left lower extremity with posterior hip precautions. DVT prophylaxis with apixaban 2.5 mg twice daily to be continued for a month following repair. Pain management with scheduled acetaminophen and low-dose oxycodone as needed. Started on arteaga regimen as needed. Physical and occupational therapy evaluated the patient and recommended discharge to short-term rehabilitation. Orthopedic follow-up with Dr. Keys has been arranged for approximately two weeks after discharge. Of note, during admission, the patient was noted to have a mild troponin elevation of 22 to 23 without associated chest pain, dyspnea, or other ischemic symptoms, most consistent with demand ischemiain the setting of acute injury and stress. Intraoperatively, there was concern for possible ST elevation in a precordial lead; however, repeat electrocardiograms showed no evidence of acute ischemia,and the patient remained asymptomatic postoperatively. Cardiology was notified and reviewed the case, noting a flat low-level troponin elevation without clinical concern for acute coronary syndrome and recommending no further cardiac workup in the absence of symptoms. The patient was also noted to have persistently elevated blood pressures on admission. She reportednonadherence to her outpatient antihypertensive regimen due to perceived side effects. Postoperatively, blood pressures improved. Lisinopril was continued at 20 mg daily, and amlodipine was resumed at a reduced dose of 5 mg daily. 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 She is maintained on eltrombopag and experienced no significant perioperative bleeding beyond expected surgical blood loss. Eltrombopag was resumed on 06/20. Hematology r ecommendations include repeating platelet counts in two weeks and adjusting eltrombopag dosing based on platelet response, with dose increases if platelets fall below 50, decreases if platelets exceed 200, and holding the medication if platelets exceed 400. She [facility]. At the time of discharge, the patient was hemodynamically stable with well- controlled pain, no cardiopulmonary symptoms, and appropriate postoperative recovery. She was discharged to rehabilitation in stable condition with close orthopedic and hematology follow-up arranged. * Care Plan - Edith Bennett RN - 06/22/2025 6:03 AM EST Goal Outcome Evaluation: pt a&ox4, confused + forgetful @ times but redirectable. Vss. Not on tele, hr + bp wdl. Sating well on RA. Tolerating diet. Voiding in bsc/ bedpan cyu. L hip w mepilex cdi, +csm +pp. Oob x2 pivot. Minimal c/o pain. * Surgeon Attestation - Perla Keys MD - 06/20/2025 9:04 AM EST Surgeon Attestation I confirm that I will remain on hospital campus and am available for the planned procedure. PERLA KEYS MD 9:04 AM documented in this encounter Plan of Treatment Upcoming Encounters Date Type Department Care Team (Late st Contact Info) Description 07/05/2025 10:15 AM EST Office Visit [facility] [address] [place] [address] Perla Keys MD [address] [facility] [address] [place] [address] Pending Results Name Type Priority Associated Diagnoses Date /Time ECG 12 lead ECG STAT Closed fracture of neck of left femur, initial encounter 06/20/2025 12:17 PM EST Scheduled Orders Name Type Priority Associated Diagnoses Orde r Schedule Urine Testing (UA, UARC, Urine Culture) Lab STAT STAT (Lab) for 1 Occurrences starting 06/20/2025 until 06/20/2025 Urinalysis Lab Routine Once for 1 Occurrences starting 06/20/2025 until 06/20/2025 Urine culture Microbiology Routine Once for 1 Occurrences starting 06/20/2025 until 06/20/2025 documented as of this encounter Goals Goal Patient Goal Type Associated Problems Recent Progress Patient-Stated? Author Autogenerat ed Goal Care Plan Autogenerated Problem No Julita Mustafa MD documented as of this encounter Procedures Procedure Name Priority Date/Time Associated Diagnosis Comments CBC WITH DIFFERENTIAL Routine 06/22/2025 6:35 AM EST CBC W/DIFF Routine 06/22/2025 6:35 AM EST PHOSPHORUS Routine 06/22/2025 6:35 AM EST MAGNESIUM Routine 06/22/2025 6:35 AM EST BASIC METABOLIC PANEL Routine 06/22/2025 6:35 AM EST CBC WITH DIFFERENTIAL Routine 06/21/2025 5:27 AM EST VITAMIN D 25 HYDROXY Routine 06/21/2025 5:27 AM EST CBC W/DIFF Routine 06/21/2025 5:27 AM EST PTH, INTACT Add-On 06/21/2025 5:27 AM EST ALBUMIN Add-On 06/21/2025 5:27 AM EST BASIC METABOLIC PANEL Routine 06/21/2025 5:27 AM EST TROPONIN T, HIGH SENSITIVITY STAT 06/20/2025 1:56 PM EST XR PELVIS 1-2 VIEWS STAT 06/20/2025 1 :48 PM EST ECG 12-LEAD STAT 06/20/2025 12:17 PM EST Closed fracture of neck of left femur, initial encounter TROPONIN T, HIGH SENSITIVITY STAT 06/20/2025 8:21 AM EST EXTRA TUBES Routine 06/20/2025 8:17 AM EST LAVENDER TOP Routine 06/20/2025 8:17 AM EST ECG 12-LEAD STAT 06/20/2025 5:02 AM EST Closed fracture of neck of left femur, initial encounter TROPONIN T, HIGH SENSITIVITY Routine 06/20/2025 4:48 AM EST CONFIRM ABO/RH STAT 06/20/2025 4:48 AM EST PHOSPHORUS Add-On 06/20/2025 4:48 AM EST MAGNESIUM Add-On 06/20/2025 4:48 AM EST LACTIC ACID Routine 06/20/2025 4:[address] 3D RECONSTRUCTION STAT 06/20/2025 4:[address] ABDOMEN PELVIS W CONTRAST STAT 06/20/2025 4:[address] CHEST W CONTRAST STAT 06/20/2025 4 :[address] FEMUR LEFT WO CONTRAST STAT 06/20/2025 4:27 AM EST URINE DRUG SCREEN STAT 06/20/2025 3:1 2 AM EST XR KNEE 1-2 VIEWS LEFT STAT 2:50 AM EST XR FEMUR 2+ VIEWS LEFT STAT 2:[address] HEAD WO CONTRAST STAT 06/20/2025 2 :[address] CERVICAL SPINE WO CONTRAST STAT 06/20/2025 2:44 AM EST XR HIP 2 OR 3 VIEWS LEFT STAT 06/20/2025 2:18 AM EST XR PELVIS 1-2 VIEWS STAT 06/20/2025 2:18 AM EST XR CHEST PORTABLE STAT 06/20/2025 2:1 8 AM EST POCT GLUCOSE Routine 06/20/2025 1:57 AM EST MCKEON TOP STAT 06/20/2025 1:50 AM EST RAINBOW DRAW STAT 06/20/2025 1:50 AM EST LACTIC ACID STAT Add-on 06/20/2025 1:50 AM EST CBC WITH DIFFERENTIAL STAT 06/20/2025 1:49 AM EST SDS, SERUM DRUG SCREEN STAT 1:49 AM EST PTT STAT 06/20/2025 1:49 AM EST PROTIME-INR STAT 06/20/2025 1:49 AM EST PREPARE RBC, LEUKOREDUCED STAT 06/20/2025 1:49 AM EST TYPE AND SCREEN STAT 06/20/2025 1:49 AM EST COMPREHENSIVE METABOLIC PANEL STAT 06/20/2025 1:49 AM EST HC CRITICAL CARE ILL/INJURED PATIENT INIT 30-103 MIN Routine 06/20/2025 1:20 AM EST OR CRITICAL CARE, E/M 30-103 MINUTES Routine 06/20/2025 1:20 AM EST documented in this encounter Results * (ABNORMAL) CBC w/ Differential (06/22/2025 6:35 AM EST) WBC 10.0 4.0 - 11.0 K/uL 06/22/2025 6:59 AM EST [facility] RBC 3.46(L) 3.70 - 5.20 M/uL 06/22/2025 6:59 AM EST [facility] Hemoglobin 10.5(L) 11.0 - 16.0 g/dL 06/22/2025 6:59 AM EST [facility] Hematocrit 31.8(L) 32.0 - 47.0 % 06/22/2025 6:59 AM EST [facility] MCV 91.9 80.0 - 100.0 fL 06/22/2025 6:59 AM EST [facility] MCH 30.3 26.0 - 34.0 pg 06/22/2025 6:59 AM EST [facility] MCHC 33.0 31.0 - 37.0 g/dL 06/22/2025 6:59 AM EST [facility] RDW-CV 13.2 11.5 - 14.5 % 06/22/2025 6:59 AM EST [facility] RDW-SD 44.4 35.0 - 51.0 fL 06/22/2025 6:59 AM EST [facility] Platelets 135(L) 150 - 400 K/uL 06/22/2025 6:59 AM EST [facility] MPV 10.6 9.1 - 12.4 fL 06/22/2025 6:59 AM EST [facility] Neutrophil % 89.5 % 06/22/2025 6:59 AM EST [facility] Lymphocyte % 2.6 % 06/22/2025 6:59 AM EST [facility] Monocytes % 7.3 % 06/22/2025 6:59 AM [facility] Eosinophils % 0.1 % 06/22/2025 6:59 AM [facility] Basophils % 0.2 % 06/22/2025 6:59 AM [facility] Immature Granulocytes % 0.3 % 06/22/2025 6:59 AM [facility] NRBC % 0.0 0.0 - 0.0 % 06/22/2025 6:59 AM [facility] Neutrophils Absolute 8.92(H) 1.50 - 7.95 K/uL 06/22/2025 6:59 AM [facility] Lymphocytes Absolute 0.26(L) 0.70 - 4.00 K/uL 06/22/2025 6:59 AM [facility] Monocytes Absolute 0.73 0.36 - 0.77 K/uL 06/22/2025 6:59 AM [facility] Eosinophils Absolute 0.01 0.00 - 0.50 K/uL 06/22/2025 6:59 AM [facility] Basophils Absolute 0.02 0.00 - 0.22 K/uL 06/22/2025 6:59 AM [facility] Immature Granulocytes Absolute 0.03 0.00 - 0.10 K/uL 06/22/2025 6:59 AM [facility] NRBC Absolute 0.00 0.00 - 2.00 K/uL 06/22/2025 6:59 AM [facility] Blood Venous blood specimen / Unknown Venipuncture / Unknown 06/22/2025 6:35 AM EST 06/22/2025 6:54 AM EST us Kelsea MOSCOSO LAB BLOOD ORDERABLES Final Resul t [facility] [address] [place] [address], * Phosphorus (06/22/2025 6:35 AM EST) Phosphorus 2.4 2.4 - 4.9 mg/dL 06/22/2025 7:27 AM EST [facility] Blood Venous blood specimen / Unknown Venipuncture / Unknown 06/22/2025 6:35 AM EST 06/22/2025 6:55 AM EST Sinan Escobedo MD LAB BLOOD ORDERABLES Final Resu lt Performing Organization Address [facility] Co de Phone Number [facility] [address] [place] [address], * Magnesium (06/22/2025 6:35 AM EST) Pathologist [facility] Magnesium 1.8 1.6 - 2.6 mg/dL 06/22/2025 7:27 AM [facility] Blood Venous blood specimen / Unknown Venipuncture / Unknown 06/22/2025 6:35 AM EST 06/22/2025 6:55 AM EST Sinan Escobedo MD LAB BLOOD ORDERABLES Final Resu lt Performing Organization Address [facility] de Phone Number [facility] [address] [place] [address], * (ABNORMAL) Basic metabolic panel (06/22/2025 6:35 AM EST) Sodium 132(L) 135 - 146 mmol/L 06/22/2025 7:27 AM [facility] Potassium 3.9 3.6 - 5.2 mmol/L 06/22/2025 7:27 AM [facility] Comment:Specimen hemolyzed r esult may be falsely increased up to 1.0 mmol/L. Chloride 98 98 - 110 mmol/L 06/22/2025 7:27 AM [facility] CO2 (Bicarbonate) 25 20 - 32 mmol/L 06/22/2025 7:27 AM [facility] Anion Gap 9 3 - 14 mmol/L 06/22/2025 7:27 AM [facility] BUN 11 6 - 24 mg/dL 06/22/2025 7:27 AM [facility] Creatinine 0.61 0.55 - 1.30 mg/dL 06/22/2025 7:27 AM [facility] eGFRcr 88 >=60 mL/min/1.7 3m*2 06/22/2025 7:27 AM EST [facility] Comment:Calculated using CKD -EPI 2020 creatinine equation. Glucose 98 70 - 139 mg/dL 06/22/2025 7:27 AM EST [facility] Fasting? Unknown [facility] IN[facility] 06/22/2025 7:27 AM EST [facility] Calcium 8.7 8.5 - 10.5 mg/dL 06/22/2025 7:27 AM EST [facility] Blood Venous blood specimen / Unknown Venipuncture / Unknown 06/22/2025 6:35 AM EST 06/22/2025 6:55 AM EST Sinan Escobedo MD LAB BLOOD ORDERABLES Final Resu lt Performing Organization Address City/[facility]/ZIP Co de Phone Number [facility] [address] [place] [address], * Albumin (06/21/2025 5:27 AM EST) Albumin 3.3 3.2 - 5.0 g/dL 06/21/2025 10:29 AM EST [facility] Blood Venous blood specimen / Unknown Venipuncture / Unknown 06/21/2025 5:27 AM EST 06/21/2025 6:21 AM EST Wilfredo MOSCOSO LAB BLOOD ORDERABLES Final Result Performing Organization Address City/[facility]/ZIP Co de Phone Number [facility] [address] [place] [address], * (ABNORMAL) PTH, intact (06/21/2025 5:27 AM EST) PTH 68.8(H) 15.0 - 65.0 pg/mL 06/22/2025 4:37 AM EST [facility] Blood Venous blood specimen / Unknown Venipuncture / Unknown 06/21/2025 5:27 AM EST 06/21/2025 6:21 AM EST Wilfredo MOSCOSO LAB BLOOD ORDERABLES Final Result [facility] [address] [place] [address], * (ABNORMAL) CBC w/ Differential (06/21/2025 5:27 AM EST) WBC 10.2 4.0 - 11.0 K/uL 06/21/2025 6:35 AM EST [facility] RBC 3.45(L) 3.70 - 5.20 M/uL 06/21/2025 6:35 AM EST [facility] Hemoglobin 10.3(L) 11.0 - 16.0 g/dL 06/21/2025 6:35 AM EST [facility] Hematocrit 31.4(L) 32.0 - 47.0 % 06/21/2025 6:35 AM EST [facility] MCV 91.0 80.0 - 100.0 fL 06/21/2025 6:35 AM EST [facility] MCH 29.9 26.0 - 34.0 pg 06/21/2025 6:35 AM EST [facility] MCHC 32.8 31.0 - 37.0 g/dL 06/21/2025 6:35 AM EST [facility] RDW-CV 13.2 11.5 - 14.5 % 06/21/2025 6:35 AM EST [facility] RDW-SD 43.9 35.0 - 51.0 fL 06/21/2025 6:35 AM EST [facility] Platelets 132(L) 150 - 400 K/uL 06/21/2025 6:35 AM EST [facility] MPV 10.4 9.1 - 12.4 fL 06/21/2025 6:35 AM EST [facility] Neutrophil % 90.0 % 06/21/2025 6:35 AM EST [facility] Lymphocyte % 2.6 % 06/21/2025 6:35 AM EST [facility] Monocytes % 6.8 % 06/21/2025 6:35 AM EST [facility] Eosinophils % 0.1 % 06/21/2025 6:35 AM EST [facility] Basophils % 0.1 % 06/21/2025 6:35 AM EST [facility] Immature Granulocytes % 0.4 % 06/21/2025 6:35 AM EST [facility] NRBC % 0.0 0.0 - 0.0 % 06/21/2025 6:35 AM EST [facility] Neutrophils Absolute 9.20(H) 1.50 - 7.95 K/uL 06/21/2025 6:35 AM [facility] Lymphocytes Absolute 0.27(L) 0.70 - 4.00 K/uL 06/21/2025 6:35 AM EST [facility] Monocytes Absolute 0.69 0.36 - 0.77 K/uL 06/21/2025 6:35 AM [facility] Eosinophils Absolute 0.01 0.00 - 0.50 K/uL 06/21/2025 6:35 AM [facility] Basophils Absolute 0.01 0.00 - 0.22 K/uL 06/21/2025 6:35 AM [facility] Immature Granulocytes Absolute 0.04 0.00 - 0.10 K/uL 06/21/2025 6:35 AM [facility] NRBC Absolute 0.00 0.00 - 2.00 K/uL 06/21/2025 6:35 AM [facility] Blood Venous blood specimen / Unknown Venipuncture / Unknown 06/21/2025 5:27 AM EST 06/21/2025 6:21 AM EST us Kelsea MOSCOSO LAB BLOOD ORDERABLES Final Resul t Performing Organization Address City/State/[facility] Co de Phone Number [facility] [address] [place] [address], * (ABNORMAL) Basic metabolic panel (06/21/2025 5:27 AM EST) Sodium 131(L) 135 - 146 mmol/L 06/21/2025 6:55 AM [facility] Potassium 3.8 3.6 - 5.2 mmol/L 06/21/2025 6:55 AM [facility] Chloride 97(L) 98 - 110 mmol/L 06/21/2025 6:55 AM [facility] CO2 (Bicarbonate) 25 20 - 32 mmol/L 06/21/2025 6:55 AM [facility] Anion Gap 9 3 - 14 mmol/L 06/21/2025 6:55 AM EST [facility] BUN 10 6 - 24 mg/dL 06/21/2025 6:55 AM EST [facility] Creatinine 0.69 0.55 - 1.30 mg/dL 06/21/2025 6:55 AM EST [facility] eGFRcr 85 >=60 mL/min/1.7 3m*2 06/21/2025 6:55 AM EST [facility] Comment:Calculated using CKD -EPI 2020 creatinine equation. Glucose 108 70 - 139 mg/dL 06/21/2025 6:55 AM EST [facility] Fasting? Unknown [facility] 06/21/2025 6:55 AM EST [facility] Calcium 8.1(L) 8.5 - 10.5 mg/dL 06/21/2025 6:55 AM EST [facility] Blood Venous blood specimen / Unknown Venipuncture / Unknown 06/21/2025 5:27 AM EST 06/21/2025 6:21 AM EST Sinan Escobedo MD LAB BLOOD ORDERABLES Final Resu lt [facility] [address] [place] [address], * (ABNORMAL) Vitamin D 25 hydroxy (06/21/2025 5:27 AM EST) Vitamin D, 25-Hydroxy 27.5(L) 30.0 - 100.0 ng/mL 06/22/2025 4:05 PM EST [facility] Comment: Vitamin D deficiency has been defined by the [place] of [employer] and an Endocrine Society practice guideline as a level of serum 25-OH vitamin D less than 20 ng/mL (1,2). The Endocrine Society went on to further define vitamin D insufficiency as a level between 21 and 29 ng/mL (2). 1. IOM ([place] of [employer]). 2010. Dietary reference intakes for calcium and D. [place]: The National Academies Press. 2. Gaye GAYLE, Chantel GARIBAY, Marco Antonio BEE, et al. Evaluation, treatment, and prevention of vitamin D deficiency: an Endocrine Society clinical practice guideline. JCEM. 2010; 96(7):1911-30. Blood Venous blood specimen / Unknown Venipuncture / Unknown 06/21/2025 5:27 AM EST 06/21/2025 6:21 AM EST Narrative [facility] - 06/22/2025 4:05 PM EST Performed at: 01 - [facility] [address] [place], [place] [id number] Forms Analysis Manager: Maryana Thao MD, Phone: [phone] Kelsea MOSCOSO LAB BLOOD ORDERABLES Final Resul t [facility] [address] [place] [address], * (ABNORMAL) Troponin T, High Sensitivity (06/20/2025 1:56 PM EST) [facility] Troponin T, High Sensitivity 22(H) <12 ng/L 06/20/2025 3:25 PM EST [facility] Comment: Performed by [facility] electrochemiluminescence immunoassay (ECLIA). [facility] cut-off for healthy adults: 11 ng/L. More information available on JULES. Blood Venous blood specimen / Unknown Venipuncture / Unknown 06/20/2025 1:56 PM EST 06/20/2025 2:56 PM EST Kelsea Lui AL LAB BLOOD ORDERABLES Final Resul t Performing Organization Address City/[facility]/ZIP Co de Phone Number [facility] [address] [place] [address], [place] * XR PELVIS 1-2 VIEWS (06/20/2025 1:48 PM EST) Anatomical Region Laterality Modality Body, Pelvis Computed Radiogr aphy 06/20/2025 11:1 5 PM EST Impressions 06/20/2025 11:16 PM EST FINDINGS/IMPRESSION: 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 The alignment is normal. APPROVED BY STAFF RADIOLOGIST: Lena Cordova MD 06/20/2025 11:16 PM EST Narrative 06/20/2025 11:16 PM EST NAME: TANISHA COTA : 1940 AGE: 84 years GENDER: Female ORD PHYS: DHRUSTI ESCOBEDO LOCATION: [facility] 06/20/2025 1:48 PM EST [id number] (XR PELVIS 1-2 VIEWS) [id number] Indication: s/p L hip francis COMPARISON: Radiograph earlier the same day Procedure Note Lena Cordova MD - 06/20/2025 NAME: TANISHA COTA : 1940 AGE: 84 years GENDER: Female ORD PHYS: DHRUSTI ESCOBEDO LOCATION: [facility] 06/20/2025 1:48 PM EST [id number] (XR PELVIS 1-2 VIEWS) [id number] Indication: s/p L hip francis COMPARISON: Radiograph earlier the same day IMPRESSION: FINDINGS/IMPRESSION: 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 Thealignment is normal. APPROVED BY STAFF RADIOLOGIST: Lena Cordova MD 06/20/2025 11:16PM EST Sinan Escobedo MD IMG XR PROCEDURES Final Result * (ABNORMAL) Troponin T, High Sensitivity (06/20/2025 8:21 AM EST) [facility] Troponin T, High Sensitivity 23(H) <12 ng/L 06/20/2025 9:18 AM EST [facility] Comment: Performed by [employer] electrochemiluminescence immunoassay (ECLIA). [facility] cut-off for healthy adults: 11 ng/L. More information available on JULES. Blood Venous blood specimen / Unknown Venipuncture / Unknown 06/20/2025 8:21 AM EST 06/20/2025 8:45 AM EST Kelsea MOSCOSO LAB BLOOD ORDERABLES Final Resul t [facility] [address] [place] [address], * Lavender Top (06/20/2025 8:17 AM EST) [facility] Extra Tube Hold for add-ons. [facility] SANCHEZ 06/20/2025 10:02 AM EST [facility] Comment:Auto resulted. Blood Venous blood specimen / Unknown 06/20/2025 8:17 AM EST 06/20/2025 8:47 AM EST Sinan Escobedo MD LAB BLOOD ORDERABLES Final Resu lt [facility] [address] [place] [address], * ECG 12 lead (06/20/2025 5:02 AM EST) 06/20/2025 5:02 AM EST Narrative [facility] STRESS/ECG EPIPHANY CARDIOSERVER - 06/21/2025 12:32 PM EST [facility] Test Date: 2025-06-20 Pat Name: TANISHA COTA Department: N1-ED Room: 4 Gender: Female Access Control Specialist: JAZMIN : 1940 Requested By: ZULY LEES Order Number: [id number] Reading MD: Erwin Eastman Measurements Intervals [place] Rate: 82 P: 12 OR: 118 QRS: -27 QRSD: 100 T: 36 QT: 414 QTc: 484 Interpretive Statements Sinus rhythm Atrial premature complex ANTEROSEPTAL INFARCT, AGE INDETERMINATE No previous ECG available for comparison Electronically Signed On 06-21-2025 12:32:11 EST by Erwin Eastman us Zuly Lees MD ECG ORDERABLES Final Resu lt [facility] STRESS/ECG EPIPHANY CARDIOSERVER * Phosphorus (06/20/2025 4:48 AM EST) Phosphorus 3.7 2.4 - 4.9 mg/dL 06/21/2025 4:30 AM EST [facility] Blood Venous blood specimen / Unknown Venipuncture / Unknown 06/20/2025 4:48 AM EST 06/20/2025 4:59 AM EST Sinan Escobedo MD LAB BLOOD ORDERABLES Final Resu lt Performing Organization Address City/[facility]/ZIP Co de Phone Number [facility] [address] [place] [address], * Magnesium (06/20/2025 4:48 AM EST) [facility] Magnesium 2.0 1.6 - 2.6 mg/dL 06/21/2025 4:30 AM EST [facility] Blood Venous blood specimen / Unknown Venipuncture / Unknown 06/20/2025 4:48 AM EST 06/20/2025 4:59 AM EST Sinan Escobedo MD LAB BLOOD ORDERABLES Final Resu lt Performing Organization Address City/[facility]/ZIP Co de Phone Number [facility] [address] [place] [address], [place] * Lactic acid (06/20/2025 4:48 AM EST) [facility] Lactic acid 0.7 0.5 - 2.2 mmol/L 06/20/2025 5:34 AM EST [facility] Blood Venous blood specimen / Unknown Venipuncture / Unknown 06/20/2025 4:48 AM EST 06/20/2025 4:59 AM EST Zuly Lees MD LAB BLOOD ORDERABLES Final Result Performing Organization Address City/[facility] Co de Phone Number [facility] [address] [place] [address], * (ABNORMAL) Troponin T, High Sensitivity (06/20/2025 4:48 AM EST) [facility] Troponin T, High Sensitivity 22(H) <12 ng/L 06/20/2025 5:36 AM EST [facility] Comment: Performed by [employer] electrochemiluminescence immunoassay (ECLIA). [facility] cut-off for healthy adults: 11 ng/L. More information available on JULES. Blood Venous blood specimen / Unknown Venipuncture / Unknown 06/20/2025 4:48 AM EST 06/20/2025 4:59 AM EST Zuly Lees MD LAB BLOOD ORDERABLES Final Result [facility] [address] [place] [address], [place] * Confirm ABO/Rh (06/20/2025 4:48 AM EST) Confirm ABORh A POS 06/20/2025 6:15 AM EST [facility] Blood Venous blood specimen / Unknown Venipuncture / Unknown 06/20/2025 4:48 AM EST 06/20/2025 5:16 AM EST Zuly Lees MD LAB BLOOD BANK TEST ORDERA BLES Final Result Performing Organization Address [facility] Co de Phone Number [facility] [address] [place] [address], * CT 3D RECONSTRUCTION (06/20/2025 4:41 AM EST) Anatomical Region Laterality Modality Lower Extremities, Upper Extremities Computed Tomography 06/20/2025 8:26 AM EST Impressions 06/21/2025 5:30 AM EST Impacted angulated subcapital left femur fracture without suspicious underlying lesion. DICTATED: Micheal Lai DO IN ACCORDANCE WITH DEPARTMENT POLICY, TEACHING PHYSICIANS REVIEW ALL IMAGES, AND EDIT REPORTS REQUIRED. A REPORT IS NOT FINAL UNTIL APPROVED BY A STAFF RADIOLOGIST. APPROVED BY STAFF RADIOLOGIST: Merlin Davis 06/21/2025 5:30 AM EST Narrative 06/21/2025 5:30 AM EST NAME: TANISHA COTA : 1940 AGE: 84 years GENDER: Female ORD PHYS: ZULY LEES LOCATION: [facility] 06/20/2025 4:41 AM EST [id number] (CT 3D RECONSTRUCTION) [id number] PROCEDURE: CT 3D RECONSTRUCTION, CT FEMUR LEFT WO CONTRAST 06/20/2025 4:34 AM EST INDICATIONS: 84 years old Female patient with r/o lesions, please include from L hip to knee COMPARISON: Pelvis and left hip radiographs from earlier same day. TECHNIQUE: Contiguous axial 1 mm images were acquired of the left thigh, without IV contrast. Multiplanar reformations and 3-D reconstructions were created. FINDINGS: Bones: The bones are diffusely demineralized. Impacted and apex anterior angulated subcapital left femur fracture. No suspicious radiolucent lesion. Joints: The visualized left hip, left sacroiliac, and left knee joints are in anatomic alignment. There are moderate degenerative changes of the pubic symphysis and left sacroiliac joint, with subchondral cysts. Mild narrowing and tiny osteophyte formation about the left hip joint. Mild to moderate degenerative changes of the knee. Soft Tissues: Mild stranding surrounding the left hip joint capsule. Mild fatty replacement of the hamstring muscles. Scattered vascular calcifications. Other: Please see separately dictated CT abdomen/pelvis for pelvic findings. Procedure Note Merlin Davis MD - 06/21/2025 NAME: TANISHA COTA : 1940 AGE: 84 years GENDER: Female ORD PHYS: ZULY LEES LOCATION: [facility] 06/20/2025 4:41 AM EST [id number] (CT 3D RECONSTRUCTION) [id number] PROCEDURE: CT 3D RECONSTRUCTION, CT FEMUR LEFT WO CONTRAST 54:34 AM EST INDICATIONS: 84 years old Female patient with r/o lesions, please includefrom L hip to knee COMPARISON: Pelvis and left hip radiographs from earlier same day. TECHNIQUE: Contiguous axial 1 mm images were acquired of the left thigh, without IVcontrast. Multiplanar reformations and 3-D reconstructions were created. FINDINGS: Bones: The bones are diffusely demineralized. Impacted and apex anteriorangulated subcapital left femur fracture. No suspicious radiolucentlesion. Joints: The visualized left hip, left sacroiliac, and left knee joints arein anatomic alignment. There are moderate degenerative changes of thepubic symphysis and left sacroiliac joint, with subchondral cysts. Mildnarrowing and tiny osteophyte formation about the left hip joint. Mild tomoderate degenerative changes of the knee. Soft Tissues: Mild stranding surrounding the left hip joint capsule. Mildfatty replacement of the hamstring muscles. Scattered vascularcalcifications. Other: Please see separately dictated CT abdomen/pelvis for pelvicfindings. IMPRESSION: Impacted angulated subcapital left femur fracture without suspiciousunderlying lesion. DICTATED: Micheal Lai DO IN ACCORDANCE WITH DEPARTMENT POLICY, TEACHING PHYSICIANS REVIEW ALLIMAGES, AND EDIT REPORTS REQUIRED. A REPORT IS NOT FINAL UNTIL APPROVEDBY A STAFF RADIOLOGIST. APPROVED BY STAFF RADIOLOGIST: Merlin Davis 06/21/2025 5:30 AM EST Ryan Pierce MD IMG CT PROCEDURES Final Result * CT ABDOMEN PELVIS W CONTRAST (06/20/2025 4:31 AM EST) Anatomical Region Laterality Modality Body, Pelvis, Abdomen Computed T omography 06/20/2025 4:37 AM EST Impressions 06/20/2025 9:14 AM EST 1. Acute mildly comminuted displaced fracture of the left femoral neck. Minimal periarticular blood products. 2. Possible deep tissue ulcer overlying the coccyx. Refer to same day separately reported CT chest for thoracic findings. APPROVED BY STAFF RADIOLOGIST: Merlin Davis 06/20/2025 9:14 AM EST Narrative 06/20/2025 9:14 AM EST NAME: TANISHA COTA : 1940 AGE: 84 years GENDER: Female ORD PHYS: ZULY Simona YOANA LOCATION: [facility] 06/20/2025 4:31 AM EST [id number] (CT ABDOMEN PELVIS W CONTRAST) [id number] CT ABDOMEN PELVIS W CONTRAST Reason for exam (per EHR order): fall, rib fractures, hip fracture ?hemorrhage TECHNIQUE: Multidetector-row CT of the abdomen and pelvis was performed after administration of intravenous contrast using tailored dose modulation techniques. Images were reconstructed in the axial, coronal, and sagittal planes. COMPARISON: None. FINDINGS: Lower thorax: Refer to same day separately reported CT chest. Liver: Scattered subcentimeter hypodensities are too small to characterize but likely represent cysts versus hemangiomas. Spleen: No splenomegaly. Gallbladder/bile ducts: Cholelithiasis without inflammatory changes. No intrahepatic biliary ductal dilatation. CBD measures 0.8 cm. Pancreas: No main ductal dilatation. Adrenal glands: No adrenal nodules. Kidneys: No hydronephrosis or solid lesions. Large left extrarenal pelvis. Bowel: Stomach is unremarkable. No focal bowel wall thickening or obstruction. Diverticulosis without acute diverticulitis. No evidence of appendicitis. Vessels: Moderate atherosclerotic disease of the aorta and its branches. Patent vessels. Peritoneum/retroperitoneum: No free air or free fluid. Lymph nodes: No lymphadenopathy by size criteria. Urinary Bladder: Underdistended with Blanco catheter present. Reproductive: Calcified fibroid uterus. Bones and soft tissues: Multilevel degenerative changes in the spine. Severe dextroscoliosis with apex at L2-3. Acute mildly comminuted displaced fracture of the left femoral neck. Minimal periarticular blood products. Possible deep tissue ulcer overlying the coccyx. Procedure Note Merlin Davis MD - 06/20/2025 NAME: TANISHA COTA : 1940 AGE: 84 years GENDER: Female ORD PHYS: ZULY Simona YOANA LOCATION: [facility] 06/20/2025 4:31 AM EST [id number] (CT ABDOMEN PELVIS W CONTRAST) [id number] CT ABDOMEN PELVIS W CONTRAST Reason for exam (per EHR order): fall, rib fractures, hip fracture?hemorrhage TECHNIQUE: Multidetector-row CT of the abdomen and pelvis was performedafter administration of intravenous contrast using tailored dosemodulation techniques. Images were reconstructed in the axial, coronal,and sagittal planes. COMPARISON: None. FINDINGS: Lower thorax: Refer to same day separately reported CT chest. Liver: Scattered subcentimeter hypodensities are too small to characterizebut likely represent cysts versus hemangiomas. Spleen: No splenomegaly. Gallbladder/bile ducts: Cholelithiasis without inflammatory changes. Nointrahepatic biliary ductal dilatation. CBD measures 0.8 cm. Pancreas: No main ductal dilatation. Adrenal glands: No adrenal nodules. Kidneys: No hydronephrosis or solid lesions. Large left extrarenalpelvis. Bowel: Stomach is unremarkable. No focal bowel wall thickening orobstruction. Diverticulosis without acute diverticulitis. No evidence ofappendicitis. Vessels: Moderate atherosclerotic disease of the aorta and its branches.Patent vessels. Peritoneum/retroperitoneum: No free air or free fluid. Lymph nodes: No lymphadenopathy by size criteria. Urinary Bladder: Underdistended with Blanco catheter present. Reproductive: Calcified fibroid uterus. Bones and soft tissues: Multilevel degenerative changes in the spine.Severe dextroscoliosis with apex at L2-3. Acute mildly comminuteddisplaced fracture of the left femoral neck. Minimal periarticular bloodproducts. Possible deep tissue ulcer overlying the coccyx. IMPRESSION: 1. Acute mildly comminuted displaced fracture of the left femoral neck.Minimal periarticular blood products. 2. Possible deep tissue ulcer overlying the coccyx. Refer to same day separately reported CT chest for thoracic findings. APPROVED BY STAFF RADIOLOGIST: Merlin Davis 06/20/2025 9:14 AM EST us Zuly Lees MD IMG CT PROCEDURES Final Re sult * CT CHEST W CONTRAST (06/20/2025 4:29 AM EST) Anatomical Region Laterality Modality Body, Chest Computed Tomogra phy 06/20/2025 5:26 AM EST Impressions 06/20/2025 8:45 AM EST No acute traumatic abnormality in the chest. Please see separately dictated CT abdomen/pelvis for further evaluation. APPROVED BY STAFF RADIOLOGIST: Merlin Davis 06/20/2025 8:45 AM EST Narrative 06/20/2025 8:45 AM EST NAME: TANISHA COTA : 1940 AGE: 84 years GENDER: Female ORD PHYS: ZULY LEES LOCATION: [facility] 06/20/2025 4:29 AM EST [id number] (CT CHEST W CONTRAST) [id number] EXAM: CONTRAST ENHANCED CT OF THE CHEST Provided History: fall, trauma, multiple rib fractures Technique: Contrast enhanced contiguous axial CT images were obtained of the chest. Isovue-370 was administered intravenously without immediate adverse effect. Multiplanar reformats were performed. Radiation optimization: All CT scans at this facility use at least one of these dose optimization techniques: automated exposure control; mA and/or kV adjustment per patient size (includes targeted exams where dose is matched to clinical indication); or iterative reconstruction. Comparison: Chest radiograph from earlier same day. Findings: Mediastinum/Hilum/Lymph nodes: Subcentimeter bilateral thyroid nodules for which no follow-up is recommended. No lymphadenopathy by size criteria. Nonaneurysmal thoracic aorta. Atherosclerotic disease of the aorta and its branches. Nondilated pulmonary trunk. Small hiatal hernia. Heart: Heart size is within normal limits. No significant pericardial effusion. Coronary artery calcifications are noted. Aortic valve calcifications. Lungs/Pleura: The trachea and proximal airways are unremarkable. No focal consolidation. No pleural effusions. No pneumothorax. Upper abdomen: Refer to same day separately reported CT of abdomen/pelvis. Bones/Soft Tissue: No acute osseous abnormality. No acute fracture. Degenerative changes of the spine. Soft tissues are within normal limits. Procedure Note Merlin Davis MD - 06/20/2025 NAME: TANISHA COTA : 1940 AGE: 84 years GENDER: Female ORD PHYS: ZULY LEES LOCATION: [facility] 06/20/2025 4:29 AM EST [id number] (CT CHEST W CONTRAST) [id number] EXAM: CONTRAST ENHANCED CT OF THE CHEST Provided History: fall, trauma, multiple rib fractures Technique: Contrast enhanced contiguous axial CT images were obtained ofthe chest. Isovue-370 was administered intravenously without immediateadverse effect. Multiplanar reformats were performed. Radiation optimization: All CT scans at this facility use at least one ofthese dose optimization techniques: automated exposure control; mA and/orkV adjustment per patient size (includes targeted exams where dose ismatched to clinical indication); or iterative reconstruction. Comparison: Chest radiograph from earlier same day. Findings: Mediastinum/Hilum/Lymph nodes: Subcentimeter bilateral thyroid nodules for which no follow-up isrecommended. No lymphadenopathy by size criteria. Nonaneurysmal thoracic aorta. Atherosclerotic disease of the aorta and itsbranches. Nondilated pulmonary trunk. Small hiatal hernia. Heart: Heart size is within normal limits. No significant pericardial effusion. Coronary artery calcifications are noted. Aortic valve calcifications. Lungs/Pleura: The trachea and proximal airways are unremarkable. No focal consolidation. No pleural effusions. No pneumothorax. Upper abdomen: Refer to same day separately reported CT of abdomen/pelvis. Bones/Soft Tissue: No acute osseous abnormality. No acute fracture. Degenerative changes of the spine. Soft tissues are within normal limits. IMPRESSION: No acute traumatic abnormality in the chest. Please see separately dictated CT abdomen/pelvis for further evaluation. APPROVED BY STAFF RADIOLOGIST: Merlin aDvis 06/20/2025 8:45 AM EST us Zuly Lees MD [facility] CT PROCEDURES Final Re sult * CT FEMUR LEFT WO CONTRAST (06/20/2025 4:27 AM EST) Anatomical Region Laterality Modality Lower Extremities, Femur Left Compute d Tomography 06/20/2025 8:26 AM EST Impressions 06/21/2025 5:30 AM EST Impacted angulated subcapital left femur fracture without suspicious underlying lesion. DICTATED: Micheal Lai DO IN ACCORDANCE WITH DEPARTMENT POLICY, TEACHING PHYSICIANS REVIEW ALL IMAGES, AND EDIT REPORTS REQUIRED. A REPORT IS NOT FINAL UNTIL APPROVED BY A STAFF RADIOLOGIST. APPROVED BY STAFF RADIOLOGIST: Merlin Davis 06/21/2025 5:30 AM EST Narrative 06/21/2025 5:30 AM EST NAME: TANISHA COTA : 1940 AGE: 84 years GENDER: Female ORD PHYS: ZULY LEES LOCATION: [facility] 06/20/2025 4:41 AM EST [id number] (CT 3D RECONSTRUCTION) [id number] PROCEDURE: CT 3D RECONSTRUCTION, CT FEMUR LEFT WO CONTRAST 06/20/2025 4:34 AM EST INDICATIONS: 84 years old Female patient with r/o lesions, please include from L hip to knee COMPARISON: Pelvis and left hip radiographs from earlier same day. TECHNIQUE: Contiguous axial 1 mm images were acquired of the left thigh, without IV contrast. Multiplanar reformations and 3-D reconstructions were created. FINDINGS: Bones: The bones are diffusely demineralized. Impacted and apex anterior angulated subcapital left femur fracture. No suspicious radiolucent lesion. Joints: The visualized left hip, left sacroiliac, and left knee joints are in anatomic alignment. There are moderate degenerative changes of the pubic symphysis and left sacroiliac joint, with subchondral cysts. Mild narrowing and tiny osteophyte formation about the left hip joint. Mild to moderate degenerative changes of the knee. Soft Tissues: Mild stranding surrounding the left hip joint capsule. Mild fatty replacement of the hamstring muscles. Scattered vascular calcifications. Other: Please see separately dictated CT abdomen/pelvis for pelvic findings. Procedure Note Merlin Davis MD - 06/21/2025 NAME: TANISHA COTA : 1940 AGE: 84 years GENDER: Female ORD PHYS: ZULY LEES LOCATION: [facility] 06/20/2025 4:41 AM EST [id number] (CT 3D RECONSTRUCTION) [id number] PROCEDURE: CT 3D RECONSTRUCTION, CT FEMUR LEFT WO CONTRAST :34 AM EST INDICATIONS: 84 years old Female patient with r/o lesions, please includefrom L hip to knee COMPARISON: Pelvis and left hip radiographs from earlier same day. TECHNIQUE: Contiguous axial 1 mm images were acquired of the left thigh, without IVcontrast. Multiplanar reformations and 3-D reconstructions were created. FINDINGS: Bones: The bones are diffusely demineralized. Impacted and apex anteriorangulated subcapital left femur fracture. No suspicious radiolucentlesion. Joints: The visualized left hip, left sacroiliac, and left knee joints arein anatomic alignment. There are moderate degenerative changes of thepubic symphysis and left sacroiliac joint, with subchondral cysts. Mildnarrowing and tiny osteophyte formation about the left hip joint. Mild tomoderate degenerative changes of the knee. Soft Tissues: Mild stranding surrounding the left hip joint capsule. Mildfatty replacement of the hamstring muscles. Scattered vascularcalcifications. Other: Please see separately dictated CT abdomen/pelvis for pelvicfindings. IMPRESSION: Impacted angulated subcapital left femur fracture without suspiciousunderlying lesion. DICTATED: Micheal Lai DO IN ACCORDANCE WITH DEPARTMENT POLICY, TEACHING PHYSICIANS REVIEW ALLIMAGES, AND EDIT REPORTS REQUIRED. A REPORT IS NOT FINAL UNTIL APPROVEDBY A STAFF RADIOLOGIST. APPROVED BY STAFF RADIOLOGIST: Merlin Davis 06/21/2025 5:30 AM EST Ryan Pierce MD [facility] CT PROCEDURES Final Result * Urine Drug Screen (06/20/2025 3:12 AM EST) Amphetamines screen, urine Not Detected Not Detected 06/20/2025 3:55 AM EST [facility] Comment:Cutoff concentration = 1000 ng/mL. Barbiturates screen, urine Not Detected Not Detected 06/20/2025 3:55 AM [facility] Comment:Cutoff concentration = 200 ng/mL. Benzodiazepines screen, urine Not Detected Not Detected 06/20/2025 3:55 AM [facility] Comment:Cutoff concentration = 200 ng/mL. Buprenorphine screen, urine Not Detected Not Detected 06/20/2025 3:55 AM [facility] Comment:Cutoff concentration = 5 ng/mL Cannabinoids screen, urine Not Detected Not Detected 06/20/2025 3:55 AM [facility] Comment:Cutoff concentration = 50 ng/mL. Cocaine screen, urine Not Detected Not Detected 06/20/2025 3:55 AM [facility] Comment:Cutoff concentration = 300 ng/mL. Ethanol screen, urine Not Detected Not Detected 06/20/2025 3:55 AM [facility] Comment:Cutoff concentration = 20 mg/dL. Fentanyl screen, urine Not Detected Not Detected 06/20/2025 3:55 AM [facility] Comment:Cutoff concentration = 1.0 ng/mL. Methadone screen, urine Not Detected Not Detected 06/20/2025 3:55 AM [facility] Comment:Cutoff concentration = 300 mg/dL. Opiates screen, urine Not Detected Not Detected 06/20/2025 3:55 AM [facility] Comment:Cutoff concentration = 300 ng/mL. Oxycodone screen, urine Not Detected Not Detected 06/20/2025 3:55 AM [facility] Comment:Cutoff concentration = 100 ng/mL. Creatinine, urine, specimen validity 20.80 >=20.00 mg/dL 06/20/2025 3:55 AM [facility] Urine Urine specimen / Unknown Non-blood Collection / Unknown 06/20/2025 3:12 AM EST 06/20/2025 3:21 AM [facility] - 06/20/2025 3:55 AM EST These are unconfirmed screening results and should be used only for medical purposes. If the clinical setting requires confirmation, contact the clinical laboratory. us Zuly Lees MD LAB URINE ORDERABLES Final Result [facility] [address] [place] [address], * XR KNEE LEFT 1-2 VIEWS (06/20/2025 2:50 AM EST) Anatomical Region Laterality Modality Lower Extremities, Knee Left Computed Radiography 06/20/2025 3:48 AM EST Impressions 06/20/2025 10:32 AM EST No acute osseous abnormality. DICTATED: Alejandro Campo MD IN ACCORDANCE WITH DEPARTMENT POLICY, TEACHING PHYSICIANS REVIEW ALL IMAGES, AND EDIT REPORTS REQUIRED. A REPORT IS NOT FINAL UNTIL APPROVED BY A STAFF RADIOLOGIST. APPROVED BY STAFF RADIOLOGIST: Lena Cordova MD 06/20/2025 10:32 AM EST Narrative 06/20/2025 10:32 AM EST NAME: TANISHA COTA : 1940 AGE: 84 years GENDER: Female ORD PHYS: ZULY LEES LOCATION: [facility] 06/20/2025 2:50 AM EST [id number] (XR KNEE LEFT 1-2 VIEWS ) [id number] PROCEDURE: XR KNEE LEFT 1-2 VIEWS 06/20/2025 2:39 AM EST INDICATIONS: pain after fall COMPARISON: None. VIEWS: 2 views of the left knee. FINDINGS: No acute fracture. Anatomic joint alignment. Preserved joint spaces. Unremarkable soft tissues. No radiopaque foreign body. No sizable joint effusion. Procedure Note Lena Cordova MD - 06/20/2025 NAME: TANISHA COTA : 1940 AGE: 84 years GENDER: Female ORD PHYS: ZULY Simona YOANA LOCATION: [facility] 06/20/2025 2:50 AM EST [id number] (XR KNEE LEFT 1-2 VIEWS ) [id number] PROCEDURE: XR KNEE LEFT 1-2 VIEWS 06/20/2025 2:39 AM EST INDICATIONS: pain after fall COMPARISON: None. VIEWS: 2 views of the left knee. FINDINGS: No acute fracture. Anatomic joint alignment. Preserved joint spaces. Unremarkable soft tissues. No radiopaque foreign body. No sizable joint effusion. IMPRESSION: No acute osseous abnormality. DICTATED: Alejandro Campo MD IN ACCORDANCE WITH DEPARTMENT POLICY, TEACHING PHYSICIANS REVIEW ALLIMAGES, AND EDIT REPORTS REQUIRED. A REPORT IS NOT FINAL UNTIL APPROVEDBY A STAFF RADIOLOGIST. APPROVED BY STAFF RADIOLOGIST: Lena Cordova MD 06/20/2025 10:32AM EST us Zuly Lees MD IMG XR PROCEDURES Final Re sult * XR FEMUR LEFT 2+ VIEWS (06/20/2025 2:49 AM EST) Anatomical Region Laterality Modality Lower Extremities, Femur Left Compute d Radiography 06/20/2025 4:21 AM EST Impressions 06/20/2025 10:31 AM EST Acute comminuted displaced transcervical fracture of the left femoral neck. DICTATED: Alejandro Campo MD IN ACCORDANCE WITH DEPARTMENT POLICY, TEACHING PHYSICIANS REVIEW ALL IMAGES, AND EDIT REPORTS REQUIRED. A REPORT IS NOT FINAL UNTIL APPROVED BY A STAFF RADIOLOGIST. APPROVED BY STAFF RADIOLOGIST: Lena Cordova MD 06/20/2025 10:31 AM EST Narrative 06/20/2025 10:31 AM EST NAME: TANISHA COTA : 1940 AGE: 84 years GENDER: Female ORD PHYS: ZULY LEES LOCATION: [facility] 06/20/2025 2:18 AM EST PROCEDURE: XR HIP LEFT 2 OR 3 VIEWS, XR FEMUR LEFT 2+ VIEWS , XR PELVIS 1-2 VIEWS 06/20/2025 2:17 AM EST INDICATIONS: hip pain, leg length discrepancy ?fx COMPARISON: None. VIEWS: 2 views of the left hip. 3 views of the pelvis. 4 views of the left femur. FINDINGS: Acute comminuted displaced transcervical fracture of the left femoral neck. Anatomic joint is preserved. Unremarkable soft tissues. No radiopaque foreign body. Procedure Note Lena Cordova MD - 06/20/2025 NAME: TANISHA COTA : 1940 AGE: 84 years GENDER: Female ORD PHYS: ZULY LEES LOCATION: [facility] 06/20/2025 2:18 AM EST PROCEDURE: XR HIP LEFT 2 OR 3 VIEWS, XR FEMUR LEFT 2+ VIEWS , XR PELVIS1-2 VIEWS 06/20/2025 2:17 AM EST INDICATIONS: hip pain, leg length discrepancy ?fx COMPARISON: None. VIEWS: 2 views of the left hip. 3 views of the pelvis. 4 views of the leftfemur. FINDINGS: Acute comminuted displaced transcervical fracture of the left femoralneck. Anatomic joint is preserved. Unremarkable soft tissues. No radiopaque foreign body. IMPRESSION: Acute comminuted displaced transcervical fracture of the left femoralneck. DICTATED: Alejandro Campo MD IN ACCORDANCE WITH DEPARTMENT POLICY, TEACHING PHYSICIANS REVIEW ALLIMAGES, AND EDIT REPORTS REQUIRED. A REPORT IS NOT FINAL UNTIL APPROVEDBY A STAFF RADIOLOGIST. APPROVED BY STAFF RADIOLOGIST: Lena Cordova MD 06/20/2025 10:31AM EST us Zluy Lees MD IMG XR PROCEDURES Final Re sult * CT HEAD WO CONTRAST (06/20/2025 2:46 AM EST) Anatomical Region Laterality Modality Head, Brain, Neck Computed Tomog dayron 06/20/2025 3:28 AM EST Impressions 06/20/2025 8:33 AM EST No acute territorial infarct, space-occupying lesion, or intracranial hemorrhage. DICTATED: Alejandro Campo MD IN ACCORDANCE WITH DEPARTMENT POLICY, TEACHING PHYSICIANS REVIEW ALL IMAGES, AND EDIT REPORTS REQUIRED. A REPORT IS NOT FINAL UNTIL APPROVED BY A STAFF RADIOLOGIST. APPROVED BY STAFF RADIOLOGIST: Yasmeen Ball 06/20/2025 8:33 AM EST Narrative 06/20/2025 8:33 AM EST NAME: TANISHA COTA : 1940 AGE: 84 years GENDER: Female ORD PHYS: ZULY LEES LOCATION: [facility] 06/20/2025 2:46 AM EST [id number] (CT HEAD WO CONTRAST) [id number] CT HEAD WO CONTRAST [id number] HISTORY: Pain with Trauma TECHNIQUE: Serial axial images were obtained on a multidetector CT through the head without the use of intravenous contrast. Multiplanar 2D MPR reformatted images were then obtained. Radiation optimization: All CT scans at this facility use at least one of these dose optimization techniques: automated exposure control; mA and/or kV adjustment per patient size (includes targeted exams where dose is matched to clinical history); or iterative reconstruction. COMPARISON: None FINDINGS: No acute infarct, or hemorrhage. 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 Presumable 9 mm calcified meningioma along the left parietal convexity. No shift of normally midline structures. Parenchymal volume loss predominantly involving the bilateral parietal lobes. Ventricles, cisterns and sulci are symmetric. No extension of the sella. Cerebellar tonsils are normal position. Bilateral lens replacement. Paranasal sinuses and mastoid air cells are clear. Calvarium is unremarkable. Procedure Note Yasmeen Ball - 06/20/2025 NAME: TANISHA COTA : 1940 AGE: 84 years GENDER: Female ORD PHYS: ZULY LEES LOCATION: [facility] 06/20/2025 2:46 AM EST [id number] (CT HEAD WO CONTRAST) [id number] CT HEAD WO CONTRAST [id number] HISTORY: Pain with Trauma TECHNIQUE: Serial axial images were obtained on a multidetector CTthrough the head without the use of intravenous contrast. Multiplanar 2DMPR reformatted images were then obtained. Radiation optimization: All CT scans at this facility use at least one ofthese dose optimization techniques: automated exposure control; mA and/orkV adjustment per patient size (includes targeted exams where dose ismatched to clinical history); or iterative reconstruction. COMPARISON: None FINDINGS: No acute infarct, or hemorrhage. There are confluent areas of hypodensityin the periventricular, subcortical and deep white matter, a non-specificfinding but likely reflecting chronic microangiopathy. Presumable 9 mmcalcified meningioma along the left parietal convexity. No shift ofnormally midline structures. Parenchymal volume loss predominantly involving the bilateral parietallobes. Ventricles, cisterns and sulci are symmetric. No extension of the sella. Cerebellar tonsils are normal position. Bilateral lens replacement. Paranasal sinuses and mastoid air cells are clear. Calvarium isunremarkable. IMPRESSION: No acute territorial infarct, space-occupying lesion, or intracranialhemorrhage. DICTATED: Alejandro Campo MD IN ACCORDANCE WITH DEPARTMENT POLICY, TEACHING PHYSICIANS REVIEW ALLIMAGES, AND EDIT REPORTS REQUIRED. A REPORT IS NOT FINAL UNTIL APPROVEDBY A STAFF RADIOLOGIST. APPROVED BY STAFF RADIOLOGIST: Yasmeen Ball 06/20/2025 8:33 AM EST us Zuly Lees MD IMG CT PROCEDURES Final Re sult * CT CERVICAL SPINE WO CONTRAST (06/20/2025 2:44 AM EST) Anatomical Region Laterality Modality C-spine Computed Tomogra phy 06/20/2025 3:34 AM EST Impressions 06/20/2025 9:54 AM EST No acute fracture or malalignment of the cervical spine. Degenerative changes. DICTATED: Alejandro Campo MD IN ACCORDANCE WITH DEPARTMENT POLICY, TEACHING PHYSICIANS REVIEW ALL IMAGES, AND EDIT REPORTS REQUIRED. A REPORT IS NOT FINAL UNTIL APPROVED BY A STAFF RADIOLOGIST. APPROVED BY STAFF RADIOLOGIST: Yasmeen Ball 06/20/2025 9:54 AM EST Narrative 06/20/2025 9:54 AM EST NAME: TANISHA COTA : 1940 AGE: 84 years GENDER: Female ORD PHYS: ZULY LEES LOCATION: [facility] 06/20/2025 2:44 AM EST [id number] (CT CERVICAL SPINE WO CONTRAST) [id number] CT CERVICAL SPINE WO CONTRAST [id number] HISTORY: Pain with Trauma TECHNIQUE: Serial axial images were obtained through the cervical spine without the use of intravenous contrast on a multidetector CT. Multiplanar reformatted images were then obtained. Radiation optimization: All CT scans at this facility use at least one of these dose optimization techniques: automated exposure control; mA and/or kV adjustment per patient size (includes targeted exams where dose is matched to clinical history); or iterative reconstruction. COMPARISON: None FINDINGS: Cervical lordosis preserved. Vertebral body heights and intervertebral disc spaces are preserved. Atlantoaxial and atlantooccipital alignment is normal. Facets are normally aligned. No acute fracture or traumatic subluxation. No soft tissue abnormality. Multilevel degenerative changes of the cervical spine. Visualized lung apices demonstrates periapical scarring. Bilateral carotid bulb calcifications. Procedure Note Yasmeen Ball - 06/20/2025 NAME: TANISHA COTA : 1940 AGE: 84 years GENDER: Female ORD PHYS: ZULY LEES LOCATION: [facility] 06/20/2025 2:44 AM EST [id number] (CT CERVICAL SPINE WO CONTRAST) [id number] CT CERVICAL SPINE WO CONTRAST [id number] HISTORY: Pain with Trauma TECHNIQUE: Serial axial images were obtained through the cervical spinewithout the use of intravenous contrast on a multidetector CT.Multiplanar reformatted images were then obtained. Radiation optimization: All CT scans at this facility use at least one ofthese dose optimization techniques: automated exposure control; mA and/orkV adjustment per patient size (includes targeted exams where dose ismatched to clinical history); or iterative reconstruction. COMPARISON: None FINDINGS: Cervical lordosis preserved. Vertebral body heights and intervertebraldisc spaces are preserved. Atlantoaxial and atlantooccipital alignment isnormal. Facets are normally aligned. No acute fracture or traumaticsubluxation. No soft tissue abnormality. Multilevel degenerative changesof the cervical spine. Visualized lung apices demonstrates periapical scarring. Bilateral carotidbulb calcifications. IMPRESSION: No acute fracture or malalignment of the cervical spine. Degenerative changes. DICTATED: Alejandro Campo MD IN ACCORDANCE WITH DEPARTMENT POLICY, TEACHING PHYSICIANS REVIEW ALLIMAGES, AND EDIT REPORTS REQUIRED. A REPORT IS NOT FINAL UNTIL APPROVEDBY A STAFF RADIOLOGIST. APPROVED BY STAFF RADIOLOGIST: Yasmeen Ball 06/20/2025 9:54 AM EST us Zuly Lees MD IMG CT PROCEDURES Final Re sult * XR HIP LEFT 2 OR 3 VIEWS (06/20/2025 2:18 AM EST) Anatomical Region Laterality Modality Lower Extremities, Hip Left Computed Radiography 06/20/2025 4:21 AM EST Impressions 06/20/2025 10:31 AM EST Acute comminuted displaced transcervical fracture of the left femoral neck. DICTATED: Alejandro Campo MD IN ACCORDANCE WITH DEPARTMENT POLICY, TEACHING PHYSICIANS REVIEW ALL IMAGES, AND EDIT REPORTS REQUIRED. A REPORT IS NOT FINAL UNTIL APPROVED BY A STAFF RADIOLOGIST. APPROVED BY STAFF RADIOLOGIST: Lena Cordova MD 06/20/2025 10:31 AM EST Narrative 06/20/2025 10:31 AM EST NAME: TANISHA COTA : 1940 AGE: 84 years GENDER: Female ORD PHYS: ZULY LEES LOCATION: [facility] 06/20/2025 2:18 AM EST PROCEDURE: XR HIP LEFT 2 OR 3 VIEWS, XR FEMUR LEFT 2+ VIEWS , XR PELVIS 1-2 VIEWS 06/20/2025 2:17 AM EST INDICATIONS: hip pain, leg length discrepancy ?fx COMPARISON: None. VIEWS: 2 views of the left hip. 3 views of the pelvis. 4 views of the left femur. FINDINGS: Acute comminuted displaced transcervical fracture of the left femoral neck. Anatomic joint is preserved. Unremarkable soft tissues. No radiopaque foreign body. Procedure Note Lena Cordova MD - 06/20/2025 NAME: TANISHA COTA : 1940 AGE: 84 years GENDER: Female ORD PHYS: ZULY LEES LOCATION: [facility] 06/20/2025 2:18 AM EST PROCEDURE: XR HIP LEFT 2 OR 3 VIEWS, XR FEMUR LEFT 2+ VIEWS , XR PELVIS1-2 VIEWS 06/20/2025 2:17 AM EST INDICATIONS: hip pain, leg length discrepancy ?fx COMPARISON: None. VIEWS: 2 views of the left hip. 3 views of the pelvis. 4 views of the leftfemur. FINDINGS: Acute comminuted displaced transcervical fracture of the left femoralneck. Anatomic joint is preserved. Unremarkable soft tissues. No radiopaque foreign body. IMPRESSION: Acute comminuted displaced transcervical fracture of the left femoralneck. DICTATED: Alejandro Campo MD IN ACCORDANCE WITH DEPARTMENT POLICY, TEACHING PHYSICIANS REVIEW ALLIMAGES, AND EDIT REPORTS REQUIRED. A REPORT IS NOT FINAL UNTIL APPROVEDBY A STAFF RADIOLOGIST. APPROVED BY STAFF RADIOLOGIST: Lena Cordova MD 06/20/2025 10:31AM EST us Zuly Lees MD IMG XR PROCEDURES Final Re sult * XR PELVIS 1-2 VIEWS (06/20/2025 2:18 AM EST) Anatomical Region Laterality Modality Body, Pelvis Computed Radiogr aphy 06/20/2025 4:21 AM EST Impressions 06/20/2025 10:31 AM EST Acute comminuted displaced transcervical fracture of the left femoral neck. DICTATED: Alejandro Campo MD IN ACCORDANCE WITH DEPARTMENT POLICY, TEACHING PHYSICIANS REVIEW ALL IMAGES, AND EDIT REPORTS REQUIRED. A REPORT IS NOT FINAL UNTIL APPROVED BY A STAFF RADIOLOGIST. APPROVED BY STAFF RADIOLOGIST: Lena Cordova MD 06/20/2025 10:31 AM EST Narrative 06/20/2025 10:31 AM EST NAME: TANISHA COTA : 1940 AGE: 84 years GENDER: Female ORD PHYS: ZULY LEES LOCATION: [facility] 06/20/2025 2:18 AM EST PROCEDURE: XR HIP LEFT 2 OR 3 VIEWS, XR FEMUR LEFT 2+ VIEWS , XR PELVIS 1-2 VIEWS 06/20/2025 2:17 AM EST INDICATIONS: hip pain, leg length discrepancy ?fx COMPARISON: None. VIEWS: 2 views of the left hip. 3 views of the pelvis. 4 views of the left femur. FINDINGS: Acute comminuted displaced transcervical fracture of the left femoral neck. Anatomic joint is preserved. Unremarkable soft tissues. No radiopaque foreign body. Procedure Note Lena Cordova MD - 06/20/2025 NAME: TANISHA COTA : 1940 AGE: 84 years GENDER: Female ORD PHYS: ZULY Simona YOANA LOCATION: [facility] 06/20/2025 2:18 AM EST PROCEDURE: XR HIP LEFT 2 OR 3 VIEWS, XR FEMUR LEFT 2+ VIEWS , XR PELVIS1-2 VIEWS 06/20/2025 2:17 AM EST INDICATIONS: hip pain, leg length discrepancy ?fx COMPARISON: None. VIEWS: 2 views of the left hip. 3 views of the pelvis. 4 views of the leftfemur. FINDINGS: Acute comminuted displaced transcervical fracture of the left femoralneck. Anatomic joint is preserved. Unremarkable soft tissues. No radiopaque foreign body. IMPRESSION: Acute comminuted displaced transcervical fracture of the left femoralneck. DICTATED: Alejandro Campo MD IN ACCORDANCE WITH DEPARTMENT POLICY, TEACHING PHYSICIANS REVIEW ALLIMAGES, AND EDIT REPORTS REQUIRED. A REPORT IS NOT FINAL UNTIL APPROVEDBY A STAFF RADIOLOGIST. APPROVED BY STAFF RADIOLOGIST: Lena Cordova MD 06/20/2025 10:31AM EST us Zuly Lees MD IMG XR PROCEDURES Final Re sult * XR CHEST PORTABLE (06/20/2025 2:18 AM EST) Anatomical Region Laterality Modality Chest Right Computed Radiogr aphy 06/20/2025 2:51 AM EST Impressions 06/20/2025 3:26 AM EST Suspected acute mildly displaced fractures of the posterior right seventh, eighth, and ninth ribs. Consider dedicated CT chest. DICTATED: Alejandro Campo MD IN ACCORDANCE WITH DEPARTMENT POLICY, TEACHING PHYSICIANS REVIEW ALL IMAGES, AND EDIT REPORTS REQUIRED. A REPORT IS NOT FINAL UNTIL APPROVED BY A STAFF RADIOLOGIST. APPROVED BY STAFF RADIOLOGIST: Paulino Harris 06/20/2025 3:26 AM EST Narrative 06/20/2025 3:26 AM EST NAME: TANISHA COTA : 1940 AGE: 84 years GENDER: Female ORD PHYS: ZULY LEES LOCATION: [facility] 06/20/2025 2:18 AM EST [id number] (XR CHEST PORTABLE) [id number] TECHNIQUE: AP view of the chest. INDICATION: Pain with Trauma COMPARISON: None. FINDINGS: Cardiomediastinal silhouette within normal limits. Calcifications of the aortic arch. No focal consolidations, interstitial edema or pleural effusions. No pneumothorax. Suspected acute mildly displaced fractures of the posterior right seventh, eighth, and ninth ribs. Procedure Note Paulino Harris MD - 06/20/2025 NAME: TANISHA COTA : 1940 AGE: 84 years GENDER: Female ORD PHYS: ZULY LEES LOCATION: [facility] 06/20/2025 2:18 AM EST [id number] (XR CHEST PORTABLE) [id number] TECHNIQUE: AP view of the chest. INDICATION: Pain with Trauma COMPARISON: None. FINDINGS: Cardiomediastinal silhouette within normal limits. Calcifications of theaortic arch. No focal consolidations, interstitial edema or pleural effusions. No pneumothorax. Suspected acute mildly displaced fractures of the posterior right seventh,eighth, and ninth ribs. IMPRESSION: Suspected acute mildly displaced fractures of the posterior right seventh,eighth, and ninth ribs. Consider dedicated CT chest. DICTATED: Alejandro Campo MD IN ACCORDANCE WITH DEPARTMENT POLICY, TEACHING PHYSICIANS REVIEW ALLIMAGES, AND EDIT REPORTS REQUIRED. A REPORT IS NOT FINAL UNTIL APPROVEDBY A STAFF RADIOLOGIST. APPROVED BY STAFF RADIOLOGIST: Paulino Harris 06/20/2025 3:26 AM EST Zuly Lees MD IMG XR PROCEDURES Final Re sult * POCT glucose meter (06/20/2025 1:57 AM EST) Pathologist [facility] POCT Glucose 76 70 - 139 mg/dL 06/20/2025 1:57 AM EST [facility] Blood Blood specimen / Unknown 06/20/2025 1:57 AM EST 06/20/2025 1:57 AM EST Zuly Lees MD LAB POINT OF CARE TEST DOCKED DEVICE UNSOLICITED RESULTS Final Result [facility] [address] [place] [address], * Lactic acid (06/20/2025 1:50 AM EST) Pathologist [facility] Lactic acid 0.8 0.5 - 2.2 mmol/L 06/20/2025 2:32 AM EST [facility] Blood Venous blood specimen / Unknown Venipuncture / Unknown 06/20/2025 1:50 AM EST 06/20/2025 1:53 AM EST Zuly Lees MD LAB BLOOD ORDERABLES Final Result Performing Organization Address City/[facility]/ZIP Co de Phone Number [facility] [address] [place] [address], * Mckeon Top (06/20/2025 1:50 AM EST) Extra Tube Hold for add-ons. [facility] IM 06/20/2025 3:02 AM EST [facility] Comment:Auto resulted. Blood Venous blood specimen / Unknown Venipuncture / Unknown 06/20/2025 1:50 AM EST 06/20/2025 1:53 AM EST Zuly Lees MD LAB BLOOD ORDERABLES Final Result Performing Organization Address [facility] Co de Phone Number [facility] [address] [place] [address], [place] * Prepare RBC, Leukoreduced: 2 Units (06/20/2025 1:49 AM EST) Unit Number [id number] [facility] Product Code E0332 [facility] Product Blood Type A POS [facility] Dispense Status Released [facility] Blood Expiration Date [id number] [facility] Barcoded Product Code E9414F24 [facility] Barcoded ABO/Rh 6200 [facility] BLOOD [facility] Crossmatch Interpretation Compatible [facility] Unit Number [id number] [facility] BLOOD [facility] Product Code E0332 [facility] Product Blood Type A POS [facility] Dispense Status Released [facility] Blood Expiration Date [id number] [facility] Barcoded Product Code H2851D29 [facility] Barcoded ABO/Rh 6200 [facility] BLOOD [facility] Crossmatch Interpretation Compatible [facility] Other 06/20/2025 1:49 AM EST 06/20/2025 1:49 AM EST Tracy Saleh MD BLOOD BANK PRODUCT ORDERABLE S Final Result Performing Organization Address City/[facility]/ZIP Co de Phone Number [facility] [address] [place] [address], * SDS, Serum Drug Screen, [facility] (06/20/2025 1:49 AM EST) Acetaminophen level <5 <=30 ug/mL 06/20/2025 2:32 AM EST [facility] Ethanol level, plasma/serum <10 <=10 mg/dL 06/20/2025 2:32 AM EST [facility] Salicylate level <0.5 0.0 - 29.9 mg/dL 06/20/2025 2:32 AM EST [facility] Benzodiazepines screen, serum Not Detected Not Detected 06/20/2025 2:32 AM EST [facility] Tricyclics screen, serum Not Detected Not Detected 06/20/2025 2:32 AM [facility] Blood Venous blood specimen / Unknown Venipuncture / Unknown 06/20/2025 1:49 AM EST 06/20/2025 1:53 AM EST Zuly Lees MD LAB BLOOD ORDERABLES Final Result [facility] [address] [place] [address], * (ABNORMAL) CBC w/ Differential (06/20/2025 1:49 AM EST) WBC 7.2 4.0 - 11.0 K/uL 06/20/2025 2:08 AM EST [facility] RBC 4.36 3.70 - 5.20 M/uL 06/20/2025 2:08 AM [facility] Hemoglobin 13.2 11.0 - 16.0 g/dL 06/20/2025 2:08 AM [facility] Hematocrit 40.1 32.0 - 47.0 % 06/20/2025 2:08 AM [facility] MCV 92.0 80.0 - 100.0 fL 06/20/2025 2:08 AM [facility] MCH 30.3 26.0 - 34.0 pg 06/20/2025 2:08 AM [facility] MCHC 32.9 31.0 - 37.0 g/dL 06/20/2025 2:08 AM [facility] RDW-CV 13.0 11.5 - 14.5 % 06/20/2025 2:08 AM [facility] RDW-SD 43.9 35.0 - 51.0 fL 06/20/2025 2:08 AM [facility] Platelets 114(L) 150 - 400 K/uL 06/20/2025 2:08 AM [facility] MPV 10.2 9.1 - 12.4 fL 06/20/2025 2:08 AM [facility] Neutrophil % 90.4 % 06/20/2025 2:08 AM [facility] Lymphocyte % 4.0 % 06/20/2025 2:08 AM [facility] Monocytes % 4.3 % 06/20/2025 2:08 AM [facility] Eosinophils % 0.3 % 06/20/2025 2:08 AM [facility] Basophils % 0.4 % 06/20/2025 2:08 AM [facility] Immature Granulocytes % 0.6 % 06/20/2025 2:08 AM [facility] NRBC % 0.0 0.0 - 0.0 % 06/20/2025 2:08 AM [facility] Neutrophils Absolute 6.52 1.50 - 7.95 K/uL 06/20/2025 2:08 AM [facility] Lymphocytes Absolute 0.29(L) 0.70 - 4.00 K/uL 06/20/2025 2:08 AM [facility] Monocytes Absolute 0.31(L) 0.36 - 0.77 K/uL 06/20/2025 2:08 AM [facility] Eosinophils Absolute 0.02 0.00 - 0.50 K/uL 06/20/2025 2:08 AM [facility] Basophils Absolute 0.03 0.00 - 0.22 K/uL 06/20/2025 2:08 AM [facility] Immature Granulocytes Absolute 0.04 0.00 - 0.10 K/uL 06/20/2025 2:08 AM [facility] NRBC Absolute 0.00 0.00 - 2.00 K/uL 06/20/2025 2:08 AM EST [facility] Blood Venous blood specimen / Unknown Venipuncture / Unknown 06/20/2025 1:49 AM EST 06/20/2025 1:53 AM EST Zuly Lees MD LAB BLOOD ORDERABLES Final Result Performing Organization Address City/[facility]/ZIP Co de Phone Number [facility] [address] [place] [address], * Type and screen (06/20/2025 1:49 AM EST) ABORh A POS 06/20/2025 2:46 AM EST [facility] Antibody Screen NEG NEG 2:46 AM EST [facility] Specimen Expiration Date 06/23/2025 23:59 06/20/2025 2:46 AM EST [facility] Blood Venous blood specimen / Unknown Venipuncture / Unknown 06/20/2025 1:49 AM EST 06/20/2025 1:59 AM EST Zuly Lees MD LAB BLOOD BANK TEST ORDERA BLES Final Result Performing Organization Address [facility] Co de Phone Number [facility] [address] [place] [address], * APTT (06/20/2025 1:49 AM EST) aPTT 29.7 25.7 - 35.7 Seconds 06/20/2025 2:12 AM EST [facility] Blood Venous blood specimen / Unknown Venipuncture / Unknown 06/20/2025 1:49 AM EST 06/20/2025 1:53 AM EST Zuly Lees MD LAB BLOOD ORDERABLES Final Result Performing Organization Address City/[facility] Co de Phone Number [facility] [address] [place] [address], * Protime-INR (06/20/2025 1:49 AM EST) Pathologist [facility] Protime 11.5 9.7 - 14.0 seconds 06/20/2025 2:12 AM EST [facility] INR 1.00 See Comment 06/20/2025 2:12 AM EST [facility] Comment: NORMAL PATIENTS NOT ON ANTICOAGULANTS: INR: 0.9-1.3 RECOMMENDED INR WITH WARFARIN/COUMADIN THERAPY: INR: 2.00-3.00 Deep vein thrombosis Atrial Fibrillation Tissue Prosthetic Valve Stroke Prevention INR:2.50-3.50 Mechanical Prosthetic Valve and Recurrent Systemic Embolism Blood Venous blood specimen / Unknown Venipuncture / Unknown 06/20/2025 1:49 AM EST 06/20/2025 1:53 AM EST us Zuly Lees MD LAB BLOOD ORDERABLES Final Result Performing Organization Address City/State/[facility] Co de Phone Number [facility] [address] [place] [address], * (ABNORMAL) Comprehensive metabolic panel (06/20/2025 1:49 AM EST) Pathologist [facility] Sodium 135 135 - 146 mmol/L 06/20/2025 2:32 AM [facility] Potassium 4.1 3.6 - 5.2 mmol/L 06/20/2025 2:32 AM [facility] Comment:Specimen hemolyzed r esult may be falsely increased up to 1.0 mmol/L. Chloride 98 98 - 110 mmol/L 06/20/2025 2:32 AM [facility] CO2 (Bicarbonate) 26 20 - 32 mmol/L 06/20/2025 2:32 AM [facility] Anion Gap 11 3 - 14 mmol/L 06/20/2025 2:32 AM [facility] BUN 15 6 - 24 mg/dL 06/20/2025 2:32 AM [facility] Creatinine 0.81 0.55 - 1.30 mg/dL 06/20/2025 2:32 AM [facility] eGFRcr 71 >=60 mL/min/1. 73m*2 06/20/2025 2:32 AM [facility] Comment:Calculated using CKD -EPI 2020 creatinine equation. Glucose 96 70 - 139 mg/dL 06/20/2025 2:32 AM EST [facility] Fasting? Unknown [facility] 06/20/2025 2:32 AM EST [facility] Calcium 9.1 8.5 - 10.5 mg/dL 06/20/2025 2:32 AM EST [facility] AST 32 6 - 42 U/L 06/20/2025 2:32 AM EST [facility] Comment:Specimen hemolyzed. Hemolysis may cause a positive bias. ALT 15 0 - 55 U/L 06/20/2025 2:32 AM EST [facility] Alkaline phosphatase 84 30 - 130 U/L 06/20/2025 2:32 AM EST [facility] Protein, total 8.8(H) 6.0 - 8.4 g/dL 06/20/2025 2:32 AM EST [facility] Albumin 4.5 3.2 - 5.0 g/dL 06/20/2025 2:32 AM EST [facility] Bilirubin, total 0.6 0.2 - 1.2 mg/dL 06/20/2025 2:32 AM EST [facility] Blood Venous blood specimen / Unknown Venipuncture / Unknown 06/20/2025 1:49 AM EST 06/20/2025 1:53 AM EST us Zuly Lees MD LAB BLOOD ORDERABLES Final Result Performing Organization Address City/State/[facility] Co de Phone Number [facility] [address] [place] [address], * OR CRITICAL CARE, E/M 30-103 MINUTES, HC CRITICAL CARE ILL/INJURED PATIENT INIT 30-103 MIN (06/20/2025 1:20 AM EST) Narrative Zuly Lees MD - 06/20/2025 1:20 AM EST Zuly Lees MD 06/20/2025 6:19 AM Critical Care Performed by: Zuly Lees MD Authorized by: Zuly Lees MD Critical care provider statement: Critical care time (minutes): 30 This time was exclusive of all other procedures, treating other patients, and teaching time. Critical care was necessary to treat or prevent imminent or life-threatening deterioration of the following conditions: Trauma Critical care was time spent personally by me on the following activities: Development of treatment plan with patient or surrogate, discussions with consultants, examination of patient, interpretation of cardiac output measurements, obtaining history from patient or surrogate, review of old charts, ordering and review of radiographic studies, ordering and review of laboratory studies, ordering and performing treatments and interventions and re-evaluation of patient's condition Care discussed with: admitting provider Zuly Lees MD IN CLINIC/BEDSIDE ORDERABL ES Final Result documented in this encounter Visit Diagnoses Diagnosis Closed fracture of neck of left femur, initial encounter- Primary Closed fracture of neck of left femur, initial encounter Fall, initial encounter Impaired functional mobility and activity tolerance documented in this encounter Admitting Diagnoses Diagnosis Closed fracture of neck of left femur, initial encounter documented in this encounter Administered Medications Inactive Administered Medications - up to 3 most recent administrations Medication Order MAR Action Action Date Dose Rate Site acetaminophen (Tylenol) tablet 975 mg 975 mg, oral, 3 times daily, First dose on Sofía 06/20/25 at 0900, For 5 days Given 06/22/2025 1:49 PM EST 975 mg Given 06/22/2025 8:49 AM EST 975 mg Given 06/21/2025 9:24 PM EST 975 mg amLODIPine (Norvasc) tablet 5 mg 5 mg, oral, Daily, First dose (after last modification) on 06/22/25 at 0900 apixaban (Eliquis) tablet 2.5 mg 2.5 mg, oral, 2 times daily, First dose (after last modification) on Tue06/21/25 at 0900, For 30 days, Recovery & On Unit, Indication for use: Joint replacement, Type of therapy: New start Given 06/22/2025 8:52 AM EST 2.5 mg Given 06/21/2025 9:24 PM EST 2.5 mg Given 06/21/2025 8:42 AM EST 2.5 mg calcium citrate-vitamin D3 (Citracal+D) 315 mg-5 mcg (200 unit) per tablet 1 tablet 1 tablet, oral, 3 times daily, First dose on Tue06/21/25 at 1015 Given 06/22/2025 1:49 PM EST 1 tablet Given 06/22/2025 8:52 AM EST 1 tablet Given 06/21/2025 9:24 PM EST 1 tablet ceFAZolin (Ancef) 1 g in sodium chloride 0.9 % 100 mL IVPB-MBP 1 g, intravenous, at 200 mL/hr, Administer over 30 Minutes, Every 8 hours, First dose on Sofía 06/20/25 at 1830, For 3 doses, Recovery & On Unit, Mini-Bag Plus bag, Select Indication: Surgical Prophylaxis New Bag 06/21/2025 10:30 AM EST 1 g 200 mL/hr New Bag 06/21/2025 4:17 AM EST 1 g 200 mL/hr New Bag 06/20/2025 6:15 PM EST 1 g 200 mL/hr cholecalciferol (vitamin D3) (Vitamin D-3) tablet 1,000 Units 1,000 Units, oral, Daily, First dose on Tue06/21/25 at 1015 Given 06/22/2025 8:52 AM EST 1,000 Units Given 06/21/2025 10:25 AM EST 1,000 Units eltrombopag olamine (Promacta) tablet 50 mg 50 mg, oral, Daily, First dose on Tue06/20/25 at 0900, Do not split, crush, or chew. Give on an empty stomach. Space at least 2 hrs before/4 hrs after antacids, dairy, or calcium, iron, magnesium, aluminum, selenium, or zinc. Given 06/22/2025 8:52 AM EST 50 mg Given 06/21/2025 8:42 AM EST 50 mg escitalopram (Lexapro) tablet 10 mg 10 mg, oral, Every morning, First dose (after last modification) on Tue06/21/25 at 0900, Recovery & On Unit Given 06/22/2025 8:51 AM EST 10 mg Given 06/21/2025 8:42 AM EST 10 mg fentaNYL (Sublimaze) injection 50 mcg 50 mcg, intravenous, Once, On Sofía 06/20/25 at 0155, For 1 dose, If ordered IV, slowly push over 3-5 minutes. Given 06/20/2025 2:05 AM EST 50 mcg HYDROmorphone (Dilaudid) injection 0.2 mg 0.2 mg, intravenous, Every 3 hours PRN, pain score 4-6 (moderate), Starting on Sofía 06/20/25 at 0645, For 7 days, If inadequate response within 60 minutes, proceed to next-line agent for same PRN reason or contact provider if no further options ordered. Confirm route. If ordered IV push, must be given slowly over 2 to 3 minutes (rapid IVP has been associated with an increase in side effects). No dilution is necessary prior to administration. Given 06/20/2025 8:42 AM EST 0.2 mg iopamidol (Isovue-370) 370 mg iodine /mL (76 %) injection 90 mL 90 mL, intravenous, Once in imaging, Starting on Sofía 06/20/25 at 0429, For 1 dose Given 06/20/2025 4:29 AM EST 90 mL lactated Ringer's infusion 100 mL/hr, intravenous, Continuous, Starting on Sofía 06/20/25 at 0630 New Bag 06/20/2025 10:20 AM EST 50 mL/hr Continued by Anesthesia 06/20/2025 10:14 AM EST 100 mL/hr New Bag 06/20/2025 8:42 AM EST 100 mL/hr 100 mL/hr lactated Ringer's infusion 100 mL/hr, intravenous, Continuous, Starting on Sofía 06/20/25 at 1215, For 12 hours, Recovery & On Unit Continued from OR 06/20/2025 12:15 PM EST 100 mL/hr 100 mL/hr lisinopril tablet 20 mg 20 mg, oral, Every morning, First dose (after last modification) on Sofía 06/20/25 at 2000 Given 06/22/2025 8:52 AM EST 20 mg Given 06/21/2025 8:42 AM EST 20 mg melatonin tablet 6 mg 6 mg, oral, Nightly, First dose on Tue06/21/25 at 2200 Given 06/21/2025 9:24 PM EST 6 mg ondansetron (Zofran) injection 4 mg 4 mg, intravenous, Every 8 hours PRN, nausea, vomiting, Starting on Sofía 06/20/25 at 1817, Give IV if patient is unable to take orally. Administer IV injection as undiluted solution over at least 30 seconds but preferably over 2 to 5 minutes. ondansetron ODT (Zofran-ODT) disintegrating tablet 4 mg 4 mg, oral, Every 8 hours PRN, nausea, vomiting, Starting on Sofía 06/20/25 at 1817, Patient should allow tablet to dissolve on tongue. Do not remove from blister pack until just before administering. oxyCODONE (Roxicodone) immediate release tablet 5 mg 5 mg, oral, Every 4 hours PRN, pain score 7-10 (severe), Starting on Sofía 06/20/25 at 1153, For 7 days, Recovery & On Unit Given 06/21/2025 9:01 AM EST 5 mg Given 06/20/2025 9:21 PM EST 5 mg polyethylene glycol (Glycolax) packet 17 g 17 g, oral, Daily, First dose on Sofía 06/20/25 at 1700, Mix contents of one packet (17 grams) in 8 ounces of water, juice, soda, coffee, tea Given 06/22/2025 8: 52 AM EST 17 g Given 06/21/2025 9:00 AM EST 17 g Given 06/20/2025 6:00 PM EST 17 g sennosides (Senokot) tablet 17.2 mg 17.2 mg (2 tablet), oral, Nightly, First dose on Tue06/21/25 at 2200 Given 06/21/2025 9:24 PM EST 17.2 mg sodium chloride 0.9 % flush 10 mL 10 mL, intravenous, As needed, line care, Starting on Sofía 06/20/25 at 0126 documented in this encounter Active and Recently Administered Medications Times are shown in EST. Scheduled Medication Order 06/20/2025 06/21/2025 06/22/2025 acetaminophen (Tylenol) tablet 975 mg 975 mg, oral, 3 times daily, First dose on Sofía 06/20/25 at 0900, For 5 days 0900 (Not Given - Provider: Driss Meek RN - Reason: NPO)0907 (MAR Hold - Provider: Automatic Transfer Provider - Reason: Unreviewed Transfer Orders)1339 (MAR Unhold - Provider: Automatic Transfer Provider)1417 (Given - Provider: Driss Meek RN)2100 (Not Given - Provider: Armida Beltran RN - Reason: Patient/family refused) 0842 (Given - Provider: Driss Meek RN)1417 (Given - Provider: Driss Meek RN)2124 (Given - Provider: Edith Bennett RN) 0849 (Given - Provider: Lucero Morrison RN)1349 (Given - Provider: Lucero Morrison RN) amLODIPine (Norvasc) tablet 5 mg 5 mg, oral, Daily, First dose (after last modification) on Tue06/22/25 at 0900 1402 (Held by provider - Provider: BLANKA Tran - Reason: Change in vital signs) 1209 (Unheld by provider - Provider: BLANKA Tran) 0900 (Not Given - Provider: Lucero Morrison RN - Reason: Patient/family refused - Comment: refused, c aware) apixaban (Eliquis) tablet 2.5 mg 2.5 mg, oral, 2 times daily, First dose (after last modification) on Tue06/21/25 at 0900, For 30 days, Recovery & On Unit, Indication for use: Joint replacement, Type of therapy: New start 0842 (Given - Provider: Driss Meek RN)2123 (Given - Provider: Edith Bennett RN) 0852 (Given - Provider: Lucero Morrison RN) calcium citrate-vitamin D3 (Citracal+D) 315 mg-5 mcg (200 unit) per tablet 1 tablet 1 tablet, oral, 3 times daily, First dose on Tue06/21/25 at 1015 1015 (Given - Provider: Driss Meek RN)1417 (Given - Provider: Driss Meek RN)2124 (Given - Provider: Edith Bennett RN) 0852 (Given - Provider: Lucero Morrison RN)1349 (Given - Provider: Lucero Morrison RN) ceFAZolin (Ancef) 1 g in sodium chloride 0.9 % 100 mL IVPB-MBP (COMPLETED) 1 g, intravenous, at 200 mL/hr, Administer over 30 Minutes, Every 8 hours, First dose on Sofía 06/20/25 at 1830, For 3 doses, Recovery & On Unit, Mini-Bag Plus bag, Select Indication: Surgical Prophylaxis 1815 (New Bag - Provider: Driss Meek RN) 0417 (New Bag - Provider: Tita Cochran RN)1030 (New Bag - Provider: Driss Meek RN) cholecalciferol (vitamin D3) (Vitamin D-3) tablet 1,000 Units 1,000 Units, oral, Daily, First dose on Tue06/21/25 at 1015 1025 (Given - Provider: Driss Meek RN) 0852 (Given - Provider: Lucero Morrison, RN) eltrombopag olamine (Promacta) tablet 50 mg 50 mg, oral, Daily, First dose on Tue06/20/25 at 0900, Do not split, crush, or chew. Give on an empty stomach. Space at least 2 hrs before/4 hrs after antacids, dairy, or calcium, iron, magnesium, aluminum, selenium, or zinc. 0645 (Held by provider - Provider: Ryan Pierce MD - Reason: Change in vital signs)0900 (Dose Auto Held)1402 (Unheld by provider - Provider: BLANKA Rob) 0842 (Given - Provider: Driss Meek RN) 0852 (Given - Provider: Lucero Morrison RN) escitalopram (Lexapro) tablet 10 mg 10 mg, oral, Every morning, First dose (after last modification) on Tue06/21/25 at 0900, Recovery & On Unit 0645 (Held by provider - Provider: Clarisa Corona MD - Reason: Change in vital signs)1158 (Unheld by provider - Provider: Clarisa Corona MD - Reason: Change in vital signs) 0842 (Given - Provider: Driss Meek RN) 0851 (Given - Provider: Lucero Morrison, ERYN) fentaNYL (Sublimaze) injection 50 mcg (COMPLETED) 50 mcg, intravenous, Once, On Sofía 06/20/25 at 0155, For 1 dose, If ordered IV, slowly push over 3-5 minutes. 0205 (Given - Provider: Darleen Srivastava RN) iopamidol (Isovue-370) 370 mg iodine /mL (76 %) injection 90 mL (COMPLETED) 90 mL, intravenous, Once in imaging, Starting on Tue06/20/25 at 0429, For 1 dose 0429 (Given - Provider: Clarisa Shahid, RT) lisinopril tablet 20 mg 20 mg, oral, Every morning, First dose (after last modification) on Sofía 06/20/25 at 2000 2000 (Not Given - Provider: Armida Beltran RN - Reason: Patient/family refused) 0842 (Given - Provider: Driss Meek RN) 0852 (Given - Provider: Lucero Morrison, RN) melatonin tablet 6 mg 6 mg, oral, Nightly, First dose on Tue06/21/25 at 2200 2124 (Given - Provider: Edith Bennett, ERYN) polyethylene glycol (Glycolax) packet 17 g 17 g, oral, Daily, First dose on Sofía 06/20/25 at 1700, Mix contents of one packet (17 grams) in 8 ounces of water, juice, soda, coffee, tea 1800 (Given - Provider: Driss Meek RN) 0900 (Given - Provider: Driss Meek RN) 0852 (Given - Provider: Lucero Morrison, ERYN) sennosides (Senokot) tablet 17.2 mg 17.2 mg (2 tablet), oral, Nightly, First dose on Tue06/21/25 at 2200 2124 (Given - Provider: Edith Bennett, ERYN) Continuous Medication Order 06/20/2025 06/21/2025 06/22/2025 lactated Ringer's infusion (CANCELED) 100 mL/hr, intravenous, Continuous, Starting on Sofía 06/20/25 at 0630 0842 (New Bag - Provider: Driss Meek RN)1014 (Continued by Anesthesia - Provider: Tracy Saleh MD)1020 (New Bag - Provider: Tracy Saleh MD)1103 (Anesthesia Volume Adjustment - Provider: Tracy Saleh MD)1219 (Stopped - Provider: Tracy Saleh MD) lactated Ringer's infusion (CANCELED) 100 mL/hr, intravenous, Continuous, Starting on Sofía 06/20/25 at 1215, For 12 hours, Recovery & On Unit 1215 (Continued from OR - Provider: Nicole Spivey) PRN Medication Order 06/20/2025 06/21/2025 06/22/2025 bisacodyl (Dulcolax) EC tablet 10 mg 10 mg, oral, Daily PRN, constipation, Starting on Sofía 06/20/25 at 0645, 1st line for treatment of constipation - give scheduled if no bowel movement in past 24 hours. Do not crush. Use suppository 0907 ([facility] Hold - Provider: Automatic Transfer Provider - Reason: Unreviewed Transfer Orders)1339 ([facility] Unhold - Provider: Automatic Transfer Provider) HYDROmorphone (Dilaudid) injection 0.2 mg (CANCELED) 0.2 mg, intravenous, Every 3 hours PRN, pain score 4-6 (moderate), Starting on Sofía 06/20/25 at 0645, For 7 days, If inadequate response within 60 minutes, proceed to next-line agent for same PRN reason or contact provider if no further options ordered. Confirm route. If ordered IV push, must be given slowly over 2 to 3 minutes (rapid IVP has been associated with an increase in side effects). No dilution is necessary prior to administration. 0842 (Given - Provider: Driss Meek RN)0907 ([facility] Hold - Provider: Automatic Transfer Provider - Reason: Unreviewed Transfer Orders)1339 ([facility] Unhold - Provider: Automatic Transfer Provider) ondansetron (Zofran) injection 4 mg(Linked Group 1) 4 mg, intravenous, Every 8 hours PRN, nausea, vomiting, Starting on Sofía 06/20/25 at 1817, Give IV if patient is unable to take orally. Administer IV injection as undiluted solution over at least 30 seconds but preferably over 2 to 5 minutes. ondansetron ODT (Zofran-ODT) disintegrating tablet 4 mg(Linked Group 1) 4 mg, oral, Every 8 hours PRN, nausea, vomiting, Starting on Sofía 06/20/25 at 1817, Patient should allow tablet to dissolve on tongue. Do not remove from blister pack until just before administering. oxyCODONE (Roxicodone) immediate release tablet 2.5 mg 2.5 mg, oral, Every 4 hours PRN, pain score 4-6 (moderate), Starting on Sofía 06/20/25 at 1152, For 7 days, Recovery & On Unit oxyCODONE (Roxicodone) immediate release tablet 5 mg 5 mg, oral, Every 4 hours PRN, pain score 7-10 (severe), Starting on Sofía 06/20/25 at 1153, For 7 days, Recovery & On Unit 2121 (Given - Provider: Armida Beltran, ERYN) 0901 (Given - Provider: Driss Meek RN) sodium chloride 0.9 % flush 10 mL(Linked Group 2) 10 mL, intravenous, As needed, line care, Starting on Sofía 06/20/25 at 0126 0907 (MAR Hold - Provider: Automatic Transfer Provider - Reason: Unreviewed Transfer Orders)1339 (MAR Unhold - Provider: Automatic Transfer Provider) Linked Groups Order Group 1: ondansetron ODT (Zofran-ODT) disintegrating tablet 4 mgJump to med 4 mg, oral, Every 8 hours PRN, nausea, vomiting, Starting on Sofía 06/20/25 at 1817, Patient should allow tablet to dissolve on tongue. Do not remove from blister pack until just before administering. Or ondansetron (Zofran) injection 4 mgJump to med 4 mg, intravenous, Every 8 hours PRN, nausea, vomiting, Starting on Sofía 06/20/25 at 1817, Give IV if patient is unable to take orally. Administer IV injection as undiluted solution over at least 30 seconds but preferably over 2 to 5 minutes. Group 2: Insert peripheral IV - Large Bore (COMPLETED) Once, On Sofía 06/20/25 at 0127, For 1 occurrence And Saline lock IV (COMPLETED) Once, On Sofía 06/20/25 at 0127, For 1 occurrence And sodium chloride 0.9 % flush 10 mLJump to med 10 mL, intravenous, As needed, line care, Starting on Sofía 06/20/25 at 0126 documented in this encounter Additional Health Concerns Active Problems Noted Date Diagnosed Date Autogenerated Problem 06/20/2025 documented as of this encounter Care Teams Hospitality Specialist Relationship Specialty Start Date End Date Unknown, Unknown PCP - General 06/20/25 documented as of this encounter
--- OUTSIDE RECORDS SUMMARY | 2025-06-20 08:00 | XMS_ITS | Encounter Summary ---
Author Organization [facility] Address [address] [facility] [address] [place] [address] Care Team Providers Care Nfl Player Name Role Phone Unknown, Unknown Primary Care Provider Unavailab le Reason for Visit * Reason Comments Fall * Auth/Cert (Routine) Specialty Diagnoses / Procedures [facility] Referred To Contact Diagnoses Fall, initial encounter Closed fracture of neck of left femur, initial encounter Guillaume Peck MD [address] [place] [address] Phone: tel: fax: [facility] [address] [place] [address] Phone: tel: Referral ID Status Reason Start Date Expiration Date Visits Re quested Visits Authorized [id number] 1 1 Encounter Details Date Type Department Care Team (Late st Contact Info) Description 06/20/2025 8:00 AM EST - 06/20/2025 9:50 AM EST Surgery [facility] Main OR [address] [place] [address] Perla Keys MD [address] [facility] [address] [place] [address] Hemiarthroplasty, Hip, Bipolar or Unipolar [48882 (CPT )] Social History Tobacco Use Types Packs/Day Years [...] week 06/20/2025 How often do you attend chur ch or faith services? Never 06/20/2025 Do you belong to any clubs o r organizations such as mandaeism groups, unions, fraternal or athletic groups, or [...] any time in the past 12 m [facility], were you homeless or living in a [place] health care facility (including now)? No 06/20/2025 Utilities Answer Date Recorded In the past 12 months has e electric, gas, oil, or water company threatened to [...] Sign Reading Time Taken Comments Blood Pressure 167/80 06/20/2025 9:21 AM EST Pulse 82 06/20/2025 9:21 AM EST Temperature 36.8 C (98.3 F) 06/20/2025 6:44 AM EST Respiratory Rate 15 06/20/2025 9:21 AM EST Oxygen Saturation 98% 06/20/2025 9:21 AM EST Inhaled Oxygen Concentration - - Weight [...] RN Patient expects to be discharged to: [facility] 06/22/2025 10:36 AM Fior Dodd RN Does the patient need discharge transport arranged? Yes 06/22/2025 10:36 AM Fior Dodd RN Has discharge transport been arranged? Yes 06/22/2025 10:36 AM Fior Dodd RN What day is the transport expected? [id number] 06/22/2025 10:36 AM Fior Dodd RN What time is the transport expected? [id number] 06/22/2025 10:36 AM Fior Dodd RN Who [...] Device Rolling Walker 06/22/2025 9:12 AM Yaakov Spivey, PT [employer] lateral weightshift, step [...] e deficit;Strength deficit 06/21/2025 9:24 AM Weston Rousseau, PT Prognosis Good 06/21/2025 9:24 AM Weston Fall PT * PACU Interventions Question Answer Date of Assessment Author Anti-Embolism Devices Bilateral;Sequenti al compression devices, below knee 06/20/2025 12:10 PM Nicole Smith Anti-Embolism Intervention On 06/20/2025 12:10 PM Nicole Smith Warm [place] Applied 06/20/2025 12:10 PM Nicole Smith Additional [...] Darleen Damon RN * [facility] Fall Risk Screening Question Answer [...] Information Question Answer Date of Assessment Author Senior Copywriter Needs None 06/21/2025 1:07 PM Giovana Pereira CM Home Caregiver Self 06/21/2025 1:07 PM Giovana Munguia CM Accompanied by Family 06/21/2025 1:07 PM Giovana Munguia CM Support Systems Children/Family 06/21/2025 1:07 PM Giovana Pereira CM Services Active Prior to Admission Elder services 06/21/2025 1:07 PM Giovana Pereira C M Need PCP on Discharge No 06/21/2025 1:07 PM Giovana Pereira CM * PATROL LADY Functional Status Question Answer Date of Assessment Author Stairs to Enter House 0 06/21/2025 1:07 PM Giovana Pereira CM * Current Functional Status Question Answer Date of Assessment Author Bathing Independent 06/21/2025 1:07 PM Giovana Balderrama CM Toileting Independent 06/21/2025 1:07 PM Giovana Balderrama CM Walking in Home Independent 06/21/2025 1:07 PM Giovana Shin CM Assistive Device Used None 06/21/2025 1:07 PM EST Yasmani, Giovana, CM Community Mobility Independent 06/21/2025 1:07 PM Giovana Pereira CM IADL Assistance Needed No 06/21/2025 1:07 PM Giovana ePreira CM * Financial Information Question Answer Date [...] Yes 06/21 1:07 PM Giovana Pereira CM Bee Producer Notified to Complete/Assist No 06/21/2025 1:07 PM Giovana Pereira C M Dynamite Shooter/Guardian No 06/21/2025 1:07 PM Giovana Pereira CM Dynamite Shooter/Guardian Paper work Available No 06/21/2025 1:07 PM Giovana Pereira C M Dynamite Shooter/Guardian/SW Notified No 2024 1:07 PM Giovana Pereira [...] Heart Rate Source Monitor 06/21/2025 3:21 PM EST Rhonda Pierce RN MAP (mmHg) 95 06/21/2025 9:24 AM EST Weston Porter PT * Oxygen Therapy Question Answer Date of Assessment Author O2 Flow Rate (L/min) 10 06/20/2025 12:10 PM Nicole Smith SpO2 Alarm Limit Low 90 06/20/2025 12:10 PM Nicole Smith SpO2 Alarm Limit High 100 06/20/2025 12:10 PM Nicole Smith O2 Delivery Method Simple mask 06/20/2025 12:10 PM Nicole Thacker * Height and Weight Question Answer Date of Assessment Author Height Method Stated 06/20/2025 9:21 AM Queta Warner RN Weight Method Bed scale 06/20/2025 9:21 AM EST Queta Robledo RN * Cardiac Question Answer Date of Assessment Author Cardiac Rhythm NSR 06/20/2025 12:10 PM EST Nicole Pope * Wallcovering Texturer Question Answer Date of Assessment Author Bedside Wallcovering Texturer On Yes 06/20/2025 12: 10 PM Nicole Smith Bedside Cardiac Audible Yes 06/20/2025 12:10 PM Nicole Smith Bedside Cardiac Alarms Set Yes 06/20/2025 12: 10 PM MARIO Spivey Marchae * Gastrointestinal Question Answer Date of Assessment [place] Date [id number] 06/22/2025 8:00 AM Lucero Zuluaga RN Passing [...] Regular 06/21/2025 8:42 AM Driss Weston RN Product Manager Financial Services Status Off 06/22/2025 8:00 AM Lucero Zuluaga RN Cardiac ([facility]) WDL 06/22/2025 8:00 AM Lucero Zuluaga RN * Respiratory Question Answer Date of Assessment Author Bilateral Breath Sounds Clear;Diminished 06/21/2025 8: 42 AM Driss Weston RN Respiratory Pattern Normal 06/21/2025 1 1:00 PM Edith Anaya RN Chest Assessment Symmetrical 06/20/2025 7:35 PM Tita Cody RN Respiratory ([facility]) WDL 06/22/2025 8:00 AM Lucero Zuluaga RN Respiratory Effort Unlabored 06/21/2025 11 :00 PM Edith Anaya RN Respiratory Depth/Rhythm Regular 06/21/2025 11:00 PM Edith Anyaa RN Breath Sounds Bilateral breath sounds 06/21/2025 8:42 AM Driss Weston RN * Charting Type Question Answer Date of Assessment Author Charting Type Shift assessment 06/22/2025 8:00 AM Lucero Zuluaga RN * Bed Mobility Question Answer Date of Assessment Author Bed Mobility Comments Slow and effortful to incrementally scoot LLE over EOB, CONTACT LENS POLISHER to RUE and support at trunk to upright to seated, Mod A for balace while scooting 06/22/2025 9:12 AM Yaakov Spivey PT Bed Position HOB elevated;Use of bedrail 06/22/2025 9:12 AM Yaakov Spivey PT Scooting Moderate Assist;X1 Assist;Cues for Sequencing 06/22/2025 9:12 AM Yaakov Spivey PT Supine to Sit Moderate Assist;X1 Assist;Cues for Sequencing 06/22/2025 9:12 AM Yaakov Spivey, RICK * Transfers Question Answer Date of Assessment [...] Vitals Question Answer Date of Assessment Author Lucila src Oral 06/22/2025 2:09 PM Mandy Erwin BP Location Right arm 06/22/2025 2:09 PM Mandy Erwin BP Method Automatic 06/22/2025 2:09 PM Mandy Erwin Patient Position Sitting 06/22/2025 2:09 PM Mandy Lizarraga * Cognition Question Answer Date of Assessment Author Orientation Level Oriented X4 06/22/2025 9:12 AM Yaakov Spivey, RICK * Nutrition Screen Question Answer Date of [...] During Hospitalization n/a 06/20/2025 2:47 PM Driss Weston, ERYN Spiritual Requests During Hospitalization n/a 06/20/2025 2:47 [...] Right Ear Functional 06/20/2025 8:39 AM Driss Artis RN Hearing - Left Ear Functional 06/20/2025 8:39 AM Driss Weston RN Which is your dominant hand? Right 06/20/2025 8 :39 AM Driss Weston RN * Therapy Consults Question Answer Date of Assessment Author PT Evaluation Needed 1 06/20/2025 8:39 AM Driss Artis RN OT Evaluation Needed 1 06/20/2025 8:39 AM Driss Artis RN FIELD CROP I FARMWORKER Evaluation Needed 2 06/20/2025 8:39 AM Driss Weston RN Spiritual Care Consult Needed No 06/20/2025 8:39 AM Driss Weston RN Social Services Consult Needed No 06/20/2025 8:39 AM Driss Weston RN * Suicide Screening Status Answer Date of Assessment Author NEGATIVE SCREEN 06/20/2025 1:22 AM Radha Ang RN * Airway Question Answer Date of Assessment Author Patency Patent 06/20/2025 1:34 AM Darleen Umana RN * Primary Circulation Question Answer Date of Assessment Author Jugular Venous Distention (JVD) No 1:34 AM Darleen Damon RN * Leveling and Initial Visit Question Answer Date of Assessment Author Leveling Score Moderate 06/21/2025 12:31 PM EST [address]uly Gonzalez RD * Airway Question Answer Date of Assessment Author Airway (WDL) WD 06/20/2025 1:21 AM EST Yudy Epstein RN * Breathing Question Answer Date of Assessment Author Breathing (WDL) WD 06/20/2025 1:21 AM Yudy Clarke RN * Circulation Question Answer Date of Assessment Author Circulation (WDL) [facility] 06/20/2025 1:21 AM Yudy Ang RN * Disability Question Answer Date of Assessment Author Disability (WDL) WD 06/20/2025 1:21 AM Yudy Wilson RN * OT Assessment Question Answer Date of Assessment Author Prognosis Good 06/21/2025 9:23 AM Padmini Ellis, OTR/L OT Functional Impairments ADL/Self care deficit;IADL deficit;Functional Mobility deficit;Strength deficit;Impaired activity tolerance;Impaired safety awareness;Balance deficit;Pain;Range of motion deficit;Impaired cognition 06/21/2025 9:23 AM Padmini Ellis, OTR/L * Br??set Violence Checklist (BVC) Question [...] BVC - SUM (Calculated) 0 10:00 AM uLcero Zuluaga RN Score Interpretation (Calculated) Small Risk [...] Three times a week 06/20/2025 2:57 PM EST Gaviota, Anoushka, RN Do you belong to any clubs or organizations such as mandaeism groups, unions, fraternal or athletic groups, or school groups? No 06/20/2025 2:57 PM Deb Weston RN * Brief Confusion Assessment Method - bCAM Question Answer Date of Assessment Author Feature 1: Acute Onset or Fluctuating Course Negative 06/20/2025 2:44 AM Zuly Adam MD * bCAM Score Answer Date of Assessment Author Negative 06/20/2025 2:44 AM Zuly Adam MD * Anthropometrics Question Answer Date of Assessment Author Weight Change 0 06/20/2025 9:21 AM Queta Warner RN * Pain Assessment Question Answer Date of Assessment Author Pain Location Hip 06/22/2025 9:12 AM EST Yaakov Barrera, PT Pain Orientation Left 06/22/2025 9:12 AM EST Yaakov Solis PT Pain Onset Ongoing 06/22/2025 8:00 AM Lucero Zuluaga RN Patient's Stated Pain Goal No pain 06/22/2025 8:00 AM Lucero Zuluaga R N Pain Type Surgical pain 06/22/2025 9:12 AM EST Yaakov Barrera, PT Clinical Progression Gradually improving 06/22/2025 8: 00 AM Lucero Zuluaga RN Pain Assessment 0-10 06/22/2025 9:12 AM EST Yaakov Webster cas PT * IBW (kg) (Calculated) Answer Date [...] 06/20/2025 8:39 AM Driss Weston RN * [place] Suicide Severity Rating Scale Question Answer Date [...] past 12 months? No 06/20/2025 2:47 PM Dirss Weston RN Have you used any prescripti [...] k ill yourself? No 06/20/2025 1:22 AM Yudy Ang RN * Deterioration Index Score Question [...] Brady Weston RN * [facility] Fall Risk Score Question Answer [...] Lucero Zuluaga RN * Fall Risk Assessment ([facility]) Question Answer Date of Assessment Author History of falling in the la [facility] 3 months, including since admission? 1 06/20/2025 1:22 AM Yudy Ang RN Confusion, disorientation or delerium? 0 06/20/2025 1:22 AM Yudy Ang RN Intoxicated or sedated? 0 06/20/2025 1:22 A M Yudy Ang RN Impaired gait? 1 06/20/2025 1:22 AM Yudy Talley RN Altered elimination? 0 06/20/2025 1:[address] Yudy Bazan RN Mobility assist device used? 0 06/20/2025 [...] RN Patient expects to be discharged to: [facility] 06/22/2025 10:36 AM Fior Dodd RN Does the patient need discharge transport arranged? Yes 06/22/2025 10:36 AM Fior Dodd RN Has discharge transport been arranged? Yes 06/22/2025 10:36 AM Fior Dodd RN What day is the transport expected? [id number] 06/22/2025 10:36 AM Fior Dodd RN What time is the transport expected? [id number] 06/22/2025 10:36 AM Fior Dodd RN Who is requesting discharge planning? Provider 06/22/2025 10:36 AM Fior Dodd RN * General Info Question Answer Date [place] [id number] 06/22/2025 9:12 AM Yaakov Campos PT * ADL Question Answer Date of Assessment Author Lower Body Dressing Dependent 06/21/2025 9:23 AM Padmini Vega, OTR/L * PACU Interventions Question Answer Date of Assessment Author Anti-Embolism Devices Bilateral;Sequenti al compression devices, below knee 06/20/2025 12:10 PM Nicole Smith Anti-Embolism Intervention On 06/20/2025 12:10 PM Nicole Smith Warm [place] Applied 06/20/2025 12:10 PM Nicole Smith Additional [...] 06/22/2025 9:12 AM Yaakov Spivey PT Moving to and from a bed to a chair (including a wheelchair)? 3 - A little 06/22/2025 9:12 AM Yaakov Spivey PT Standing up from a chair usi ng your arms (e.g., wheelchair, or bedside chair)? 3 - A little 06/22/2025 9:12 AM Yaakov Spivey PT Climbing 3-5 steps with a railing? 1 - Total 06/22/2025 9:12 AM Yaakov Spivey PT To walk in hospital room? 3 - A little 06/22/2025 9:12 AM Yaakov Spivey PT Raw Score 14 06/22/2025 9:12 AM [...] Darleen Damon RN * [facility] Fall Risk Screening Question Answer [...] of Residence Apartment 06/21/2025 1:07 PM Giovana Preeira CM Lives With Alone 06/21/2025 1:07 PM Giovana Balderrama CM * Patient Information Question Answer Date of Assessment Author Senior Copywriter Needs None 06/21/2025 1:07 PM Giovana Pereira CM Home Caregiver Self 06/21/2025 1:07 PM Giovana Munguia CM Accompanied by Family 06/21/2025 1:07 PM Giovana Munguia CM Support Systems Children/Family 06/21/2025 1:07 PM Giovana Pereira CM Services Active Prior to Admission Elder services 06/21/2025 1:07 PM Giovana Pereira C M Need PCP on Discharge No 06/21/2025 1:07 PM Giovana Pereira CM * PATROL LADY Functional Status Question Answer Date of Assessment [...] Yes 06/21 1:07 PM Giovana Pereira CM Bee Producer Notified to Complete/Assist No 06/21/2025 1:07 PM Giovana Pereira C M Dynamite Shooter/Guardian No 06/21/2025 1:07 PM Giovana Pereira CM Dynamite Shooter/Guardian Paper work Available No 06/21/2025 1:07 PM Giovana Pereira C M Dynamite Shooter/Guardian/SW Notified No 2024 1:07 PM Giovana Pereira [...] Heart Rate Source Monitor 06/21/2025 3:21 PM EST Rhonda Pierce RN MAP (mmHg) 95 06/21/2025 9:24 AM EST Weston Porter, PT * Oxygen Therapy Question Answer Date of Assessment Author SpO2 Alarm Limit Low 90 06/20/2025 12:10 PM EST Nicole Spivey SpO2 Alarm Limit High 100 06/20/2025 12:10 PM Nicole Smith * Height and Weight Question Answer Date of Assessment Author Height Method Stated 06/20/2025 9:21 AM EST Queta Robledo RN Weight Method Bed scale 06/20/2025 9:21 AM EST Queta Robledo RN * Cardiac Question Answer Date of Assessment Author Cardiac Rhythm NSR 06/20/2025 12:10 PM EST Nicole Pope * Wallcovering Texturer Question Answer Date of Assessment Author Bedside Wallcovering Texturer On Yes 06/20/2025 12: 10 PM Nicole Smith Bedside Cardiac Audible Yes 06/20/2025 12:10 PM Nicole Smith Bedside Cardiac Alarms Set Yes 06/20/2025 12: 10 PM Nicole Smith * Gastrointestinal Question Answer Date of Assessment Author [place] Date [id number] 06/22/2025 8:00 AM Lucero Zuluaga RN Passing [...] RN * LURadha Neurovascular Assessment Question Answer Date of Assessment [...] 8:00 AM Lucero Zuluaga RN LLRadha Limited movement;Injury/traum a;Surgery 06/22/2025 8:00 AM Lucero [...] Regular 06/21/2025 8:42 AM Driss Weston RN Product Manager Financial Services Status Off 06/22/2025 8:00 AM Lucero Zuluaga RN Cardiac (WDL) WDL 06/22/2025 8:00 AM Lucero Zuluaga RN * Respiratory Question Answer Date of Assessment Author Bilateral Breath Sounds Clear;Diminished 06/21/2025 8: 42 AM Driss Weston RN Respiratory Pattern Normal 06/21/2025 1 1:00 PM Edith Anaya RN Chest Assessment Symmetrical 06/20/2025 7:35 PM Tita Cody RN Respiratory (WDL) WDL 06/22/2025 8:00 AM Lucero Zuluaga [...] effortful to incrementally scoot LLE over EOB, CONTACT LENS POLISHER to RUE and support at trunk to upright to seated, Mod A for balace while scooting 06/22/2025 9:12 AM Yaakov Spivey PT Bed Position HOB elevated;Use of bedrail 06/22/2025 9:12 AM Yaakov Spivey, PT Scooting Moderate Assist;X1 Assist;Cues for Sequencing 06/22/2025 9:12 AM Yaakov Spivey, PT Supine to Sit Moderate Assist;X1 Assist;Cues for Sequencing 06/22/2025 9:12 AM Yaakov Spivey, PT * Transfers Question Answer Date of Assessment Author Stand to Sit Minimal Assist;X1 Assist;Cues for Sequencing;Cues for Hand Placement 06/22/2025 9:12 AM Yaakov Spivey, PT Transfers Comments slightly retropulsiv e while rising to stand, reduced eccentric control 06/22/2025 9:12 AM Yaakov Spivey, PT Sit to Stand Minimal Assist;X1 Assist;Cues for Sequencing;Cues for Hand Placement 06/22/2025 9:12 AM Yaakov Spivey PT Bed to Chair Moderate Assist;X2 Assists;Cues for Hand Placement;Cues for Sequencing 06/21/2025 9:24 AM Weston Rousseau, PT * PROM Right Lower Extremity Question Answer Date of Assessment Author Overall RLE PROM WFL 06/21/2025 9:24 AM EST Weston Arellano, PT * Strength Right Lower Extremity Question Answer Date of Assessment Author RLE Overall Strength WFL 06/21/2025 9:24 AM E Weston Aguirre, PT * PROM Left Lower Extremity Question Answer Date of Assessment Author Overall LLE PROM Not Tested 06/21/2025 9:24 AM EST Weston Arellano, PT * Strength Left Lower Extremity Question Answer Date of Assessment Author LLE Overall Strength Not Tested 06/21/2025 9:24 AM E Weston Aguirre, PT * Vitals Question Answer Date of Assessment Author Lucila joiner Oral 06/22/2025 2:09 PM Mandy Erwin * Cognition Question Answer Date of Assessment Author Behavioral/Affect Comments pleasantly confused and cooperative 06/22/2025 9:12 AM Yaakov Spivey PT Communication Tangential thoughts 06/22/2025 9 :12 AM Yaakov Spivey PT Orientation Level Oriented X4 06/22/2025 9:1 2 AM Yaakov Spivey PT Overall Cognitive Status Impaired 025 9:12 AM Yaakov Spivey PT Attention Span Impaired 06/22/2025 9:12 AM [...] RN Facial Symmetry Symmetrical 06/20/2025 2:17 PM EST Driss Ho RN * Strength Right Upper Extremity Question Answer Date of Assessment Author TAYLOR Overall Strength WFL 06/21/2025 9:24 AM E Weston Aguirre, PT * PROM Left Upper Extremity Question Answer Date of Assessment Author Overall LUE PROM WFL 06/21/2025 9:24 AM EST Weston Arellano, PT * Strength Left Upper Extremity Question Answer Date of Assessment Author ANDRA Overall Strength WFL 06/21/2025 9:24 AM E Weston Aguirre, PT * PROM Right Upper Extremity Question Answer Date of Assessment Author Overall RUE PROM WFL 06/21/2025 9:24 AM Weston Vergara, PT * Plan Question Answer Date of Assessment Author PT Frequency and Duration 5-7 x/week unt il Discharge;Twice Daily 06/22/2025 9:12 AM Yaakov Spivey, PT Continue or D/C PT? Continued Skilled Inpatient PT Services 06/22/2025 9:12 AM Yaakov Spivey, PT Treatment Interventions Therapeutic exercise;Assistive device training;Functional mobility training;Gait training;Stair training 06/22/2025 9:12 AM Yaakov Spivey, PT * Hygiene Question Answer Date of Assessment Author Bathing/Skin Care bath, complete 06/21/2025 1:00 PM Driss Calixto, ERYN Bathing Assist 06/21/2025 1:00 PM Driss Coates RN Linen Changed Total Bed Change 06/21/2025 1:00 PM Driss Weston RN * Safe Environment Question Answer Date of Assessment Author Arm Bands On ID 06/20/2025 12:10 PM EST Nicole Marte Side Rails/Bed Safety 4/4 06/20/2025 12:10 PM EST Spivey, Marchae The Patient's Environment is Safe Yes 025 [...] Coates RN Feeding Independent 06/20/2025 8:39 AM Dirss Coates RN Bathing Independent 06/20/2025 8:39 AM Driss Coates RN Toileting Independent 06/20/2025 8:39 AM Driss Coates RN In/Out Bed Independent 06/20/2025 8:39 AM Driss Coates RN Walks in Home Independent 06/20/2025 8:39 AM Driss Nair RN Weakness of Legs None 06/20/2025 8:39 AM MARIO S jose carlosDriss RN Weakness of Arms/Hands None 06/20/2025 8:39 AM Driss Weston RN Hearing - Right Ear Functional 06/20/2025 8:39 AM Driss Calixto RN Hearing - Left Ear Functional 06/20/2025 8:39 AM Driss Weston RN Which is your dominant hand? Right 06/20/2025 8 :39 AM Driss Weston RN * Therapy Consults Question Answer Date of Assessment Author PT Evaluation Needed 1 06/20/2025 8:39 AM E Driss Dorantes RN OT Evaluation Needed 1 06/20/2025 8:39 AM Driss Artis RN FIELD CROP I FARMWORKER Evaluation Needed 2 06/20/2025 8:39 AM Driss [...] Objects 0 06/22/2025 10: 00 AM Lucero uZluaga RN BVC - SUM (Calculated) 0 10:00 [...] PT Pain Orientation Left 06/22/2025 9:12 AM EST Yaakov Solis, PT Pain Onset Ongoing 06/22/2025 8:00 AM Lucero Zuluaga RN Patient's Stated Pain Goal No pain 06/22/2025 8:00 AM Lucero Zuluaga R N Pain Type Surgical pain 06/22/2025 9:12 AM Yaakov Nascimento PT Clinical Progression Gradually improving 06/22/2025 8: [...] Clothing;Dentures; Vi mercedez 06/20/2025 8:38 AM Driss Wseton RN * Integumentary Question Answer Date of [...] 06/20/2025 8:39 AM Driss Weston RN * [place] Suicide Severity Rating Scale Question Answer Date [...] Brady Weston RN * [facility] Fall Risk Score Question Answer [...] Zuluaga RN L Eye Mildly impaired vision 5 8:00 AM Lucero Zuluaga RN Teeth Dentures [...] RN Patient expects to be discharged to: [facility] 06/22/2025 10:36 AM Fior Dodd RN Does the patient need discharge transport arranged? Yes 06/22/2025 10:36 AM Fior Dodd RN Has discharge transport been arranged? Yes 06/22/2025 10:36 AM Fior Dodd RN What day is the transport expected? [id number] 06/22/2025 10:36 AM Fior Dodd RN What time is the transport expected? [id number] 06/22/2025 10:36 AM Fior Dodd RN Who is requesting discharge planning? Provider 06/22/2025 10:36 AM Fior Dodd RN * Neuromuscular Assessment Question Answer Entry Date Author Auditory WFL 06/21/2025 9:24 AM Weston Fall, PT Vestibular WFL 06/21/2025 9:24 AM Weston Fall, PT Vision WFL 06/21/2025 9:24 AM Weston Fall PT * Education Question Answer Entry Date [...] On 06/20 12:10 PM Nicole Smith Warm [place] Applied 06/20/2025 12:10 PM Nicole Smith Additional Comfort/Environmental Interventions Warm blanket 06/20/2025 12:10 PM Nicole Smith * Pupils Question Answer Entry Date Author Pupil Reaction Left Brisk 06/20/2025 1:34 AM Darleen Garrido RN Pupil Reaction Right Brisk 06/20/2025 1:34 AM aDrleen Hilton RN Pupil Size Left (mm) 3 06/20/2025 1:34 AM Darleen Hilton RN Pupil Size Right (mm) 3 06/20/2025 1:34 AM Darleen Damon RN * [facility] Fall Risk Screening Question Answer Entry Date [...] (mmHg) 95 06/21/2025 9:24 AM EST Weston Porter, PT * Cardiac Question Answer Entry Date Author Cardiac Rhythm NSR 06/20/2025 12:10 PM EST Nicole Pope * Wallcovering Texturer Question Answer Entry Date Author Bedside Wallcovering Texturer On Yes 06/20/2025 12: 10 PM Nicole Smith Bedside Cardiac Audible Yes 06/20/2025 12:10 PM Nicole Smith Bedside Cardiac Alarms Set Yes 06/20/2025 12: 10 PM Nicole Smith * Gastrointestinal Question Answer Entry Date Author Last [place] Date [id number] 06/22/2025 8:00 AM Lucero Zuluaga RN Passing [...] RN * LUE Neurovascular Assessment Question Answer Entry Date Author [...] 8:00 AM Lucero Zuluaga RN LLE Limited movement;Injury/trauma;S urgery 06/22/2025 8:00 AM Lucero Zuluaga RN Musculoskeletal ([facility]) X 06/22/2025 8:00 AM Lucero Zuluaga RN * Psychosocial Question Answer Entry Date Author Psychosocial (L) WDL 06/22/2025 8:00 AM Lucero Zuluaga RN * Jhoan Scale Question Answer Entry Date Author Jhoan Scale Score 19 06/22/2025 8:00 AM Lucero Zuluaga RN Patient Turned No 06/22/2025 8:00 AM Lucero Zuluaga RN * Cardiac Question Answer Entry Date Author Cardiac Regularity Regular 06/21/2025 8:42 AM Driss Weston RN Product Manager Financial Services Status Off 06/22/2025 8:00 AM Lucero Zuluaga RN Cardiac ([facility]) WDL 06/22/2025 8:00 AM Lucero Zuluaga RN * Respiratory Question Answer Entry Date Author Bilateral Breath Sounds Clear;Diminished 8:42 AM Driss Weston RN Respiratory Pattern Normal 06/21/2025 1 1:00 PM Edith Anaya RN Chest Assessment Symmetrical 06/20/2025 7:35 PM Tita Jaimes RN Respiratory ([facility]) WDL 06/22/2025 8:0 0 AM Lucero Zuluaga RN Respiratory Effort Unlabored 06/21/2025 11 :00 PM Edith Anaya RN Respiratory Depth/Rhythm Regular 025 11:00 PM Edith Anaya RN Breath Sounds [...] Attention Span Impaired 06/22/2025 9:12 AM Yaakov Spivey, RICK Memory Impaired 06/22/2025 9:12 AM Yaakov Spivey [...] Overall LUE PROM WFL 06/21/2025 9:24 AM Weston Vergara, PT * Strength Left Upper Extremity Question Answer Entry Date Author LUE Overall Strength WFL 06/21/2025 9:24 AM Weston Ferguson, PT * PROM Right Upper Extremity Question Answer Entry Date Author Overall RUE PROM WFL 06/21/2025 9:24 AM Weston Vergara, PT * Hygiene Question Answer Entry Date Author Bathing/Skin Care bath, complete 06/21/2025 1:00 PM Driss Calixto RN * Safe Environment Question Answer Entry Date Author Arm Bands On ID 06/20/2025 12:10 PM EST Nicole Marte Side Rails/Bed Safety /06/20/2025 12:10 PM Nicole Smith * Mobility Question Answer Entry Date Author Positioning Frequency Able to turn self 06/22/2025 10: 53 AM Lucero Zuluaga RN * Precautions Question Answer Entry Date Author Precautions Other (Comment) 06/20/2025 12:10 PM Nicole Jimenez * ADL Screening Question Answer Entry Date [...] 1 06/20/2025 8:39 AM Driss Artis RN FIELD CROP I FARMWORKER Evaluation Needed 2 06/20/2025 8:39 AM Driss [...] - Patient (ADM) 06/20/2025 2:47 PM Driss Westno RN * Brief Confusion Assessment Method - bCAM Question Answer Entry Date Author Feature 1: Acute Onset or Fluctuating Course Negative 06/20/2025 2:44 AM Zuly Adam MD * bCAM Score Answer Entry Date Author Negative 06/20/2025 2:44 AM Zuly Adam MD * Pain Assessment Question Answer Entry Date Author Pain Location Hip 06/22/2025 9:12 AM Yaakov Spivey PT Pain Orientation Left 06/22/2025 9:12 AM Yaakov Spivey PT Pain Onset Ongoing 06/22/2025 8:00 AM Lucero Zuluaga, ERYN Patient's Stated Pain Goal No pain 06/22 8:00 AM Lucero Zuluaga, ERYN Pain Type Surgical pain 06/22/2025 9:12 AM Yaakov Spivey PT Clinical Progression Gradually improving 12/27/2 025 8:00 AM Lucero Zuluaga RN Pain Assessment 0-10 06/22/2025 9:12 AM Yaakov Spivey PT * Patient Belongings at Bedside Question [...] Lucero Montoya RN * Pain Score Answer Entry Date [...] 06/21/2025 10:30 AM Driss Calixto RN * [place] Suicide Severity Rating Scale Question Answer Entry Date Author 1. In the past month, have y ou wished you were or wished you could go to sleep and not wake up? No 06/20/2025 2:58 PM Driss Weston RN 2. In the past month, have [...] Brady Weston RN * [facility] Fall Risk Score Question Answer [...] Entry Date Author No 06/20/2025 8:39 AM Brady Weston RN documented in this encounter Discharge Summaries * Bill Kang MD - 06/22/2025 10:19 AM EST Discharge Summary Hospital diagnosis: #Mechanical fall #Impacted angulated subcapital left femur fracture s/p hemiarthroplasty 06/20, suspected pathologicfracture #Demand ischemia #Uncontrolled hypertension, chronic #ITP, chronic Discharge summary: 84-year-old female with a past medical history significant for ITP, hypertension, and lymphoma who presented to [facility] after a mechanical fall and was found [...] [facility]. At the time of discharge, the patient was hemodynamically stable with well- controlled pain, no cardiopulmonary symptoms, and appropriate postoperative recovery. She was discharged to rehabilitation in stable condition with close orthopedic and hematology follow-up arranged. Test Results Pending At Discharge Pending Labs Order Current Status Urinalysis Collected (06/20/25311) Urine Testing (UA, UARC, Urine Culture) Collected (06/20/25311) Urine culture Collected (12/25/25 0312) Vitamin D 25 hydroxy In process Prepare [...] Center 07/05/2025 10:15 AM Perla Keys MD [facility] Bill Kang MD Division of Hospital Medicine [facility] documented in this encounter Discharge Instructions * [...] Best Regards, Your Inpatient Medicine Team at [facility] Please call your primary care doctor or [...] Center 07/05/2025 10:15 AM Perla Keys MD [facility] Additional Appointments: 1. PCP: Please follow [...] Eliquis 2.5 BID 4. FOLLOW UP: Dr. White Location: [address] [place] [address] 4th Floor [facility] Contact: documented in this encounter Medications [...] Systems Family members;Children Current Patient Responsibilities (Independent PATROL LADY) Who is requesting discharge planning? Provider Home or Post Acute Services SNF Patient expects to be discharged to: [facility] [place] Discharge Plan Discussion Patient agrees with plan;Family agrees with plan;Discussed with interdisciplinary team Does the patient need discharge transport arranged? Yes Has discharge transport been arranged? Yes What day is the transport expected? 06/22/25 What time is the transport expected? 1230 Patient is medically ready for discharge today. Patient is being discharged to to SNF([facility]). CM met with patient at bedside d/c plan reviewed. Pt agreeable with plan. Patients daughter Natty updated with patients permission. Daughter Natty to bring patients home medication(Promacta) to SNF, per SNF request. Transportation via [facility]. D/C Summary and PAS sent via [facility]. * Yaakov Mendez, PT - 06/22/2025 9:12 [...] effortful to incrementally scoot LLE over EOB, CONTACT LENS POLISHER to RUE and support at trunk to [...] in knee flexion throughout, reduced LE clearance [employer] Balance Scale: Yes [employer] Sitting Balance Scale: 2 - Independently supports [...] teaching Assessment Pt is 84/F reporting to [facility] on 06/20/25 for management of closed fracture [...] steps with hand rail and CGA (Ongoing) Half-Way Goals Goal established/Amended: 06/21/25 Goal timeframe: 6 [...] meals and as tolerated Yaakov Mendez PT [place] lic # [id number] * Julita Mustafa MD - 06/22/2025 7:40 [...] GSC, peroneals, wiggles lesser toes SILT Sa, Santigao, T, DP, SP nerve distributions Palpable DP [...] lymphoma s/p R Jackie 2014, monoclonal IgG Toston who presents after a mechanical fall with [...] BLANKA Tran - 06/21/2025 3:00 PM EST [facility] Daily Progress Note Date: June 21, 2025 [...] history of ITP, hypertension, lymphoma whop[facility] to [facility] after mechanical fall found to have left [...] She follows with Dr. Javad Camejo at [facility] for Hematology. Heme recs: - Repeat labs [...] Management and Anticoagulation Management for Primary Care [facility] patients) 30 minutes spent with patient and coordinating care Cortez Reddy PA-C [facility] Direct Care Hospitalist Team Cosigned by Sinan [...] She follows with Dr. Javad Camejo at [facility] for Hematology. On exam- AOx4, CN intact; [...] CM - 06/21/2025 1:09 PM EST 06/21/25 1307 Case Management Initial Assessment Patient Discharged Before Able to Interview/Assess No Source of Information Patient;Family Type of Residence Apartment Lives With Alone Discharge Services Anticipated at this Time Yes Expected Discharge Needs SNF Patient Information Senior Copywriter Needs None Home Caregiver Self Accompanied by Family Support Systems Children/Family Services Active Prior to Admission Elder services Need PCP on Discharge No (Dr Nato Pugh) PATROL LADY Functional Status Stairs to Enter House 0 Current Functional Status Bathing Independent Toileting Independent Walking in Home Independent Assistive Device Used None Community Mobility Independent IADL Assistance Needed No Financial Information Insurance Confirmed with Patient Yes Bed Hold No Financial Coordination Notified Not Needed Legal Information Does Patient Have HCP Yes Patient Requests Assistance for HCP Yes Bee Producer Notified to Complete/Assist No Dynamite Shooter/Guardian No Dynamite Shooter/Guardian Paperwork Available No Dynamite Shooter/Guardian/SW Notified No Discharge Planning Patient/Family/Caregiver Discharge Preference [...] lives alone in apartment, is active with [facility]. Denies DME. HCP completed w/ CM. PCP on record Barriers anticipated: Med clearance/Ins auth Patient/Caregiver Goals of Hospitalization: To return to prior level of fx independence I have explained the nurse case preparer and liner role and discussed patient choice, post- acute levels of care, insurance, medical clearance and discharge planning. Anticipated Discharge Plan/Needs: SNF placement-daughters live in [facility] and would like rehabplacement at [facility] if bed available-referral pending acceptance * Feliciano Oreilly MD - 06/21/2025 11:58 AM EST Images from the original note were not included. TRAUMA DIVISION - TERTIARY SURVEY EXAM: BP (!) 153/71 Pulse 96 Temp 36.4 ??C (97.5 ??F) (Oral) Resp 16 Ht 1.549 m Wt 45.6 kg BMI 19.00 kg/m?? WASTEWATER MANAGER: CN 2-12 intact, No focal deficit, A&Ox3, [...] lymphoma s/p R Jackie 2014, monoclonal IgG Toston who presents after a mechanical fall with [...] promacta (50 mg daily) who presents to [facility] aftermechanical fall and found to have L [...] She follows with Dr. Javad Camejo at [facility] for Hematology. Discussed with Hematology Consult Attending, Dr. Adeola Ramirez MD Heme Onc Fellow, PGY4 * BLANKA Rob - 06/20/2025 1:04 PM EST [facility] Daily Progress Note Date: June 20, 2025 [...] history of ITP, hypertension, lymphoma whopresented to [facility] after mechanical fall found to have left [...] mg Q4hrs PRN mod-severe pain, dilaudid 0.2 [id number] PRN breakthrough pain - Bowel regimen #Elevated [...] Management and Anticoagulation Management for Primary Care [facility] patients) 30 minutes spent with patient and coordinating care Kelsea Lui PA-C [facility] Direct Care Hospitalist Team Cosigned by Sinan [...] lymphoma s/p R Jackie 2014, monoclonal IgG Toston who presents after a mechanical fall with [...] Sheridan MD PGY-2 Orthopaedic Surgery * Don Ramirez MD - 06/20/2025 8:03 AM EST Images [...] - DVT ppx: hold prior to OR Don Ramirez MD Tiger[employer] T Ortho Adult/Ped Res Consult * Julita Mustafa MD - 06/20/2025 5:29 AM EST Due to patient's advanced medical problems patient will be transferred to the medicine/hospitalist service. Julita Mustafa MD Orthopaedic Surgery [phone] or TigerText Ortho Adult/Ped Res Consult Role with questions [...] Mustafa MD - 06/20/2025 2:10 AM EST [facility] Orthopaedic Surgery Consult Note Patient Name: Tanisha Cota Reason for Consult: left hip fracture History of Present Illness: Tanisha Cota is a 84 y.o. 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 - admit to ortho - NPO past [...] history of ITP, hypertension, lymphoma whopresented to [facility] after mechanical fall found to have left [...] history of ITP, hypertension, lymphoma whopresented to [facility] after mechanical fall found to have left [...] questions about osteoporosis management, please contact the [place] tiger text (T Fracture Liaison Adult FOIL STAMP OPERATOR) from 8am - 5pm M-F. Other times contact the on-call endocrinology fellow (Sharon Endo AdultFel Consult). Total time on the [...] or procedures, referringand communicating with other health critical care paramedic (including the referring physician), documenting clinical information [...] Friends and Family: Twice a week Attends Yazidi Services: Never Active Member of Clubs or Organizations: No Attends Club or Organization Meetings: Never Marital Status: Patient declined Intimate Partner Violence: Unknown (08/23/2024) Received from [facility] Humiliation, Afraid, Rape, and Kick questionnaire Within [...] HPI/Hospital Course: Pt is 84/F reporting to [facility] on 06/20/25 for management of closed fracture [...] Activated Plan of Care Reviewed With:: Patient, Food Porter, RN/Charge Nurse, OT Recommended mobility with nursing staff: 2A w/ RW for OOB to chair/commode, posterior hip precautions, encourage OOB for meals and as tolerated Eval Information Type of Evaluation: Initial Evaluation Precautions Weight Bearing Status-1: LLE, Weight Bearing as Tolerated Hip Precautions: Posterior Hip Precautions Other Precautions: Fall Risk, Delirium Risk Activity Restrictions: Ambulate with assist Home Living Was Patient Admitted from [facility]?: No Lives With: Alone Type of Home: [...] Balance - Dynamic: Mod A w/ RW [facility] Balance Scale: Yes Sitting Balance Scale: 2 [...] teaching Assessment Pt is 84/F reporting to [facility] on 06/20/25 for management of closed fracture [...] care PT will continue to follow and p paula as able. Patient presents with Impaired gait, [...] 4 steps with hand rail and CGA Consumer Relations Complaint Clerk Goals Goal established/Amended: 06/21/25 Goal timeframe: 6 [...] OOB for meals and as tolerated Weston Nolan, PT [place] lic # [id number] [1] Patient Active Problem List Diagnosis Closed fracture of neck of left femur Closed fracture of neck of left femur, initial encounter Osteoporosis with pathological fracture [2] History reviewed. No pertinent past medical history. [3] History reviewed. No pertinent surgical history. * Padmini Vieira OTR/L - 06/21/2025 9:23 AM EST Occupational Therapy [...] Location Plan of Care Reviewed With:: Patient, Food Porter, RN/Charge Nurse, PT Recommended mobility with nursing [...] assist Home Living Was Patient Admitted from [facility]?: No Lives With: Alone Type of Home: [...] reason for admit) Occupational Profile/Social History: Reports j[place]ughers live 90 miles away. Pain Pain Assessment [...] A LB dressing with LHAE as needed Half-Way Goals Date Established/Amended: 06/21/25 Goal timeframe: 3 [...] walker, sit up in chair for meals Padmini Vieira OTR/L [place] lic # [id number] [1] Patient Active Problem [...] - 06/21/2025 5:57 PM EST Progress Note: [id number] AOx3, VSS. Pt can be confused and [...] does not know her last name. called [facility] to speak with primary nurse, Driss to get an understanding of pt mental status. Pt was alert and oriented x 4 prior to OR with occasional forgetfulness. Will continue to monitor. documented in this encounter OR Notes * Op Note - Perla Keys MD - 06/20/2025 10:14 AM EST Hemiarthroplasty, Hip, Bipolar or Unipolar (L) Operative Note Date: 06/20/2025 Location: [facility] OR Name: Tanisha Cota, : 1940, Diagnosis Pre-op Diagnosis * Closed fracture of neck of left femur, initial encounter [S72.002A] Post-op Diagnosis * Closed fracture of neck of left femur, initial encounter [S72.002A] Procedures Hemiarthroplasty, Hip, Bipolar or Unipolar 05781 - [place] PARTIAL HIP REPLACEMENT Surgeons * Perla Keys [...] Hip STEM SUMMIT FEM SZ5 CEMENTED - [id number] - [id number] Implanted [id number] Insert Stem centralizer 10mm cemented Implanted 1376-48-000 Joint Knee HEAD DELTA CER 06/09 36MM +1.5 - [id number] - [id number] Implanted [id number] Staff: Phlebotomist Prn: Bonnie Freedman RN Scrub Person: Alaina Woods RN; [facility] Indications: Tanisha Cota is an 84 y.o. female who is having surgery for Closed fracture of neck of left femur, initial encounter [S72.002A]. She was noted to have a mechanical drop trip and fall. At that time she was noted to have a left femoral neck fracture which was displaced. [facility]. We discussed the benefits and risks of [...] We then closedthe subcutaneous tissues with 0 Kent Derm and 2 oh Kent Derm. We used Dermabond and an Aquacel [...] for wound check. She will be on Eliquis 2.5 mg twice daily for DVT prophylaxis for 1 month unless cardiology feels differently. Perla Keys * Brief Op Note - Clarisa Corona MD - 06/20/2025 10:14 AM EST Date: 06/20/2025 Location: [facility] OR Name: Tanisha Cota, : 1940, Diagnosis Pre-op Diagnosis * Closed fracture of neck of left femur, initial encounter [S72.002A] Post-op Diagnosis * Closed fracture of neck of left femur, initial encounter [S72.002A] Procedures Hemiarthroplasty, Hip, Bipolar or Unipolar 47942 - [place] PARTIAL HIP REPLACEMENT Left Surgeons * Perla [...] Hip STEM SUMMIT FEM SZ5 CEMENTED - [id number] - [id number] Implanted [id number] Insert Stem centralizer 10mm cemented Implanted 1376-48-000 Joint Knee HEAD DELTA CER 06/09 36MM +1.5 - [id number] - [id number] Implanted [id number] Staff: Phlebotomist Prn: Bonnie Freedman RN Scrub Person: Alaina Woosd RN; [facility] Indications: Tanisha Cota is [...] ENCOUNTER HISTORY AND PHYSICAL 06/20/2025 1:47 AM [facility] HISTORY OF INJURY: Tanisha Cota is a 84 y.o. female with a PMHx of HTN, TTP, MGUS, low-grade B cell lymphoma who presents in [facility] following an unwitnessed fall from chair at [...] if admitted Chris Cain MD PGY 1 Concrete Laborer Trauma Surgery Please TigerText T Emergency Surg Adult Res Consult for urgent/emergent consults or questions. The person who wrote this note may be post-call or in a procedure, and TigerTexting them personally/directly may lead to a delay in care. * Yudy Bazan RN - 06/20/2025 1:28 AM EST MTR paged @[phone] Yudy Bazan RN 06/20/25 0128 * Yuyd Bazan RN - 06/20/2025 1:20 AM EST [...] from the original note were not included. [facility] EMERGENCY DEPARTMENT [address] [place] [phone] [facility] Chief Complaint Patient presents with Fall The [...] % Monitor Semi-Lou BP Location FiO2 (%) 06/20/25 0145 -- Left arm Physical Exam Vitals and [...] Urine Culture). Procedure Abnormality Status --------- ------ Urinalysis[[id number]] Urine culture[[id number]] Please view results for these tests on the individual orders. URINALYSIS TROPONIN T, HIGH SENSITIVITY LACTIC ACID POCT GLUCOSE METER bCAM Score: Negative Tucker Coma Scale Score: 15 ED Course & MDM ED Course as of 06/20/25 0526 Sofía Jun 20, 2025 0245 Comprehensive metabolic panel(!) 0245 Lactic acid 0245 SDS, Serum Drug Screen, [facility] 0245 POCT glucose meter 0245 APTT 0245 Protime-INR 0245 CBC w/ Differential(!) 0309 CT chest ordered. Radiology noted three posterior right sided rib fractures 0525 CT noted no rib fractures. Patient admitted Diagnoses as of 06/20/25 0526 Closed fracture of neck of left femur, [...] with NSR rate of 82, PAC, short [place] interval LVH with Q waves. Xray chest [...] family history on file. Zuly Lees MD 06/20/25 05 documented in this encounter Miscellaneous Notes * [...] via ambulance. RN to RN report given. [id number] * Post-Acute Services - Fior Ureña RN - 06/22/2025 10:33 AM EST Images from the original note were not included. [facility] POST ACUTE SERVICES REFERRAL FORM Demographics Address [address] [place] [phone] Phone Numbers Hm: [phone] Marital Status Insurance Information [employer] MEDICARE REPLACEMENT [facility] None Allergies (Reviewed on: 06/20/25) No Known Allergies Health Care Agents There are no Health Care Agents on file. Preferred Language Preferred Language Faroese Preferred Written Language Faroese Medication List START taking these medications acetaminophen [...] 06/21/25 2300 06/21/25 1500 Site Assessment Ecchymotic 06/22/25 0032 -- Clean;Dry;Intact 06/21/25 1508 Dressing Type Transparent 06/22/25 0032 -- Transparent 06/21/25 1508 Lumen Status Flushed;Saline locked;Capped 06/22/25 0032 -- Flushed;Saline locked;Capped 06/21/25 1508 Dressing Status Old drainage 06/22/25 0032 -- Old drainage 06/21/25 1508 Dressing Change [...] 06/20/25 1143 Assessments Row Name 06/22/25 0000 06/21/25 2300 06/21/25 1500 Site Assessment -- Unable to assess 06/22/25 0054 -- Haily-Wound Assessment -- [place]undy;Erythematous 06/22/25 0054 -- Dressing -- Other (Comment) mepilex 06/22/25 0054 -- Dressing Status -- Clean/Dry/Intact 06/22/25 005 -- After Discharge Information Half-Way Facility: [facility] Half-Way Facility Address: [address] [place] [address] Half-Way Facility Phone #: [phone] General Therapy Patient Information (Page 3) Flowsheet Row Most Recent Value Precautions Weight Bearing Status-1 LLE, Weight Bearing as Tolerated Filed at 06/21/2025 0924 Hip Precautions Posterior Hip Precautions Filed at 06/21/2025 0924 Other Precautions Fall Risk, Delirium Risk Filed at 06/21/2025 0924 Activity Restrictions Ambulate with assist Filed at 06/21/2025 0924 Home Living Was Patient Admitted from [facility]? No Filed at 06/21/2025 0924 Lives With Alone Filed at 06/21/2025 0924 Type of Home Apartment Filed at 06/21/2025 0924 Home Layout One Level Filed at 06/21/2025 0924 Number of Stairs to Enter Home 0 Filed at 06/21/2025 0924 Number of Stairs Within Home 0 Filed at 06/21/2025923 Bathroom Shower/Tub Tub/Shower Unit Filed at 06/21/2025923 Bathroom Toilet Standard Filed at 06/21/2025923 Home Equipment None Filed at 06/21/2025923 ADL/IADL Equipment None in Place Filed at 06/21/2025923 Prior Level of Function Information Provided By Patient Filed at 06/21/2025923 Dominance Right Filed at 06/21/2025922 Independent at Baseline All Household Mobility, All Community Mobility, All ADL's/IADL's Filed at 06/21/2025923 History of Recent Falls Yes [resulting in admission] Filed at 06/21/2025923 Work Status Retired Filed at 06/21/2025923 Occupational Profile/Social History Lives alone in 9th floor apt with elevator, reports normally IND for all activities/mobility. States she has x2 daughters, with one living 90 miles away so does not normally assist. Takes public transit mostly [employer] so she stair climbs often. Filed at 4 Cognition Overall Cognitive Status Impaired Filed at 06/21/2025923 Orientation Level Oriented X4, Other (Comment) [forgetful [...] HOB elevated, Use of bedrail Filed at 06/21/2025 09 Supine to Sit Moderate Assist, X1 Assist, [...] 06/21/2025923 Stairs Stairs Comments NT Filed at 06/21/2025923 Occupational Therapy(Page 3) Flowsheet Row Most Recent Value ADL Lower Body Dressing Dependent [donning socks] Filed at 06/21/2025922 Discharge Summary Discharge Summary by Bill Kang MD at 06/22/2025 10:19 AM Version 1 of 1 Author: Bill Kang MD Service: Internal Medicine Author Type: Physician Filed: 06/22/2025 10:22 AM Date of Service: 06/22/2025 10:19 AM Status: Signed Global Engineering Manager: Bill Kang MD (Physician) Discharge Summary Hospital diagnosis: #Mechanical fall #Impacted angulated subcapital left femur fracture s/p hemiarthroplasty 06/20, suspected pathologicfracture #Demand ischemia #Uncontrolled hypertension, chronic #ITP, chronic Discharge summary: 84-year-old female with a past medical history significant for ITP, hypertension, and lymphoma who presented to [facility] after a mechanical fall and was found [...] [facility]. At the time of [...] Center 07/05/2025 10:15 AM Perla Keys MD [facility] Bill Kang MD Division of Hospital Medicine [facility] * Hospital Course - Bill Kang MD - 06/22/2025 10:19 AM EST Hospital diagnosis: #Mechanical fall #Impacted angulated subcapital left femur fracture s/p hemiarthroplasty 06/20, suspected pathologicfracture #Demand ischemia #Uncontrolled hypertension, chronic #ITP, chronic Discharge summary: 84-year-old female with a past medical history significant for ITP, hypertension, and lymphoma who presented to [facility] after a mechanical fall and was found [...] [facility]. At the time of [...] Description 07/05/2025 10:15 AM EST Office Visit [facility] [address], [address] [place] [address] Perla Keys MD [address] [address] Pending Results Name Type Priority Associated Diagnoses [...] EST XR PELVIS 1-2 VIEWS STAT 06/20/2025 2 :18 AM EST XR CHEST PORTABLE STAT 06/20/2025 [...] 30-103 MIN Routine 06/20/2025 1:20 AM EST [place] [facility], E/M 30-103 MINUTES Routine 06/20/2025 1:20 AM EST documented in this encounter Results * (ABNORMAL) CBC w/ Differential (06/22/2025 6:35 AM EST) WBC 10.0 4.0 - 11.0 K/uL 06/22/2025 6:59 AM EST [facility] RBC 3.46(L) 3.70 - 5.20 M/uL 06/22/2025 6:59 AM EST [facility] Hemoglobin 10.5(L) 11.0 - 16.0 g/dL 06/22/2025 6:59 AM [facility] Hematocrit 31.8(L) 32.0 - 47.0 % 06/22/2025 6:59 AM [facility] MCV 91.9 80.0 - 100.0 fL 06/22/2025 6:59 AM [facility] MCH 30.3 26.0 - 34.0 pg 06/22/2025 6:59 AM [facility] MCHC 33.0 31.0 - 37.0 g/dL 06/22/2025 6:59 AM [facility] RDW-CV 13.2 11.5 - 14.5 % 06/22/2025 6:59 AM [facility] RDW-SD 44.4 35.0 - 51.0 fL 06/22/2025 6:59 AM [facility] Platelets 135(L) 150 - 400 K/uL 06/22/2025 6:59 AM [facility] MPV 10.6 9.1 - 12.4 fL 06/22/2025 6:59 AM [facility] Neutrophil % 89.5 % 06/22/2025 6:59 AM [facility] Lymphocyte % 2.6 % 06/22/2025 6:59 AM [facility] Monocytes % 7.3 % 06/22/2025 6:59 AM [facility] Eosinophils % 0.1 % 06/22/2025 6:59 AM [facility] Basophils % 0.2 % 06/22/2025 6:59 AM [facility] Immature Granulocytes % 0.3 % 06/22/2025 6:59 AM [facility] NRBC % 0.0 0.0 - 0.0 % 06/22/2025 6:59 AM [facility] Neutrophils Absolute 8.92(H) 1.50 - 7.95 K/uL 06/22/2025 6:59 AM [facility] Lymphocytes Absolute 0.26(L) 0.70 - 4.00 K/uL 06/22/2025 6:59 AM [facility] Monocytes Absolute 0.73 0.36 - 0.77 K/uL 06/22/2025 6:59 AM [facility] Eosinophils Absolute 0.01 0.00 - 0.50 K/uL 06/22/2025 6:59 AM EST [facility] Basophils Absolute 0.02 0.00 - 0.22 K/uL 06/22/2025 6:59 AM EST [facility] Immature Granulocytes Absolute 0.03 0.00 - 0.10 K/uL 06/22/2025 6:59 AM EST [facility] NRBC Absolute 0.00 0.00 - 2.00 K/uL 06/22/2025 6:59 AM EST [facility] Blood Venous blood specimen / Unknown Venipuncture / Unknown 06/22/2025 6:35 AM EST 06/22/2025 6:54 AM EST Kelsea MOSCOSO LAB BLOOD ORDERABLES Final Resul t Performing Organization Address City/[facility]/ZIP Co de Phone Number [facility] [address] [place] [address], * Phosphorus (06/22/2025 6:35 AM EST) Phosphorus 2.4 2.4 - 4.9 mg/dL 06/22/2025 7:27 AM EST [facility] Blood Venous blood specimen / Unknown Venipuncture / Unknown 06/22/2025 6:35 AM EST 06/22/2025 6:55 AM EST Sinan Escobedo MD LAB BLOOD ORDERABLES Final Resu lt [facility] [address] [place] [address], * Magnesium (06/22/2025 6:35 AM EST) Magnesium 1.8 1.6 - 2.6 mg/dL 06/22/2025 7:27 AM EST [facility] Blood Venous blood specimen / Unknown Venipuncture / Unknown 06/22/2025 6:35 AM EST 06/22/2025 6:55 AM EST Sinan Escobedo MD LAB BLOOD ORDERABLES Final Resu lt Performing Organization Address City/[facility]/ZIP Co de Phone Number [facility] [address] [place] [address], [place] * (ABNORMAL) Basic metabolic panel (06/22/2025 6:35 AM EST) Sodium 132(L) 135 - 146 mmol/L 06/22/2025 7:27 AM EST [facility] Potassium 3.9 3.6 - 5.2 mmol/L 06/22/2025 7:27 AM EST [facility] Comment:Specimen hemolyzed r esult may be falsely increased up to 1.0 mmol/L. Chloride 98 98 - 110 mmol/L 06/22/2025 7:27 AM [facility] CO2 (Bicarbonate) 25 20 - 32 mmol/L 06/22/2025 7:27 AM [facility] Anion Gap 9 3 - 14 mmol/L 06/22/2025 7:27 AM [facility] BUN 11 6 - 24 mg/dL 06/22/2025 7:27 AM EST [facility] Creatinine 0.61 0.55 - 1.30 mg/dL 06/22/2025 7:27 AM [facility] eGFRcr 88 >=60 mL/min/1.7 3m*2 06/22/2025 7:27 AM [facility] Comment:Calculated using CKD -EPI 2020 creatinine equation. Glucose 98 70 - 139 mg/dL 06/22/2025 7:27 AM [facility] Fasting? Unknown [facility] INFINITY 06/22/2025 7:27 AM EST [facility] Calcium 8.7 8.5 - 10.5 mg/dL 06/22/2025 7:27 AM [facility] Blood Venous blood specimen / Unknown Venipuncture / Unknown 06/22/2025 6:35 AM EST 06/22/2025 6:55 AM EST us Sinan Escobedo MD LAB BLOOD ORDERABLES Final Resu lt Performing Organization Address City/[facility]/ZIP Co de Phone Number [facility] [address] [place] [address], [place] * Albumin (06/21/2025 5:27 AM EST) Pathologist [facility] Albumin 3.3 3.2 - 5.0 g/dL 06/21/2025 10:29 AM EST [facility] Blood Venous blood specimen / Unknown Venipuncture / Unknown 06/21/2025 5:27 AM EST 06/21/2025 6:21 AM EST Wilfredo MOSCOSO LAB BLOOD ORDERABLES Final Result Performing Organization Address City/[facility]/ZIP Co de Phone Number [facility] [address] * (ABNORMAL) PTH, intact (06/21/2025 5:27 AM EST) Pathologist [facility] PTH 68.8(H) 15.0 - 65.0 pg/mL 06/22/2025 4:37 AM EST [facility] Blood Venous blood specimen / Unknown Venipuncture / Unknown 06/21/2025 5:27 AM EST 06/21/2025 6:21 AM EST Wilfredo MOSCOSO LAB BLOOD ORDERABLES Final Result Performing Organization Address City/[facility] Co de Phone Number [address] * (ABNORMAL) CBC w/ Differential (06/21/2025 5:27 AM EST) Pathologist [facility] WBC 10.2 4.0 - 11.0 K/uL 06/21/2025 6:35 AM EST [facility] RBC 3.45(L) 3.70 - 5.20 M/uL 06/21/2025 6:35 AM EST [facility] Hemoglobin 10.3(L) 11.0 - 16.0 g/dL 06/21/2025 6:35 AM EST [facility] Hematocrit 31.4(L) 32.0 - 47.0 % 06/21/2025 6:35 AM EST [facility] MCV 91.0 80.0 - 100.0 fL 06/21/2025 6:35 AM EST [facility] MCH 29.9 26.0 - 34.0 pg 06/21/2025 6:35 AM [facility] MCHC 32.8 31.0 - 37.0 g/dL 06/21/2025 6:35 AM [facility] RDW-CV 13.2 11.5 - 14.5 % 06/21/2025 6:35 AM [facility] RDW-SD 43.9 35.0 - 51.0 fL 06/21/2025 6:35 AM [facility] Platelets 132(L) 150 - 400 K/uL 06/21/2025 6:35 AM [facility] MPV 10.4 9.1 - 12.4 fL 06/21/2025 6:35 AM [facility] Neutrophil % 90.0 % 06/21/2025 6:35 AM [facility] Lymphocyte % 2.6 % 06/21/2025 6:35 AM [facility] Monocytes % 6.8 % 06/21/2025 6:35 AM [facility] Eosinophils % 0.1 % 06/21/2025 6:35 AM [facility] Basophils % 0.1 % 06/21/2025 6:35 AM [facility] Immature Granulocytes % 0.4 % 06/21/2025 6:35 AM [facility] NRBC % 0.0 0.0 - 0.0 % 06/21/2025 6:35 AM [facility] Neutrophils Absolute 9.20(H) 1.50 - 7.95 K/uL 06/21/2025 6:35 AM [facility] Lymphocytes Absolute 0.27(L) 0.70 - 4.00 K/uL 06/21/2025 6:35 AM [facility] Monocytes Absolute 0.69 0.36 - 0.77 K/uL 06/21/2025 6:35 AM [facility] Eosinophils Absolute 0.01 0.00 - 0.50 K/uL 06/21/2025 6:35 AM [facility] Basophils Absolute 0.01 0.00 - 0.22 K/uL 06/21/2025 6:35 AM [facility] Immature Granulocytes Absolute 0.04 0.00 - 0.10 K/uL 06/21/2025 6:35 AM [facility] NRBC Absolute 0.00 0.00 - 2.00 K/uL 06/21/2025 6:35 AM EST [facility] Blood Venous blood specimen / Unknown Venipuncture / Unknown 06/21/2025 5:27 AM EST 06/21/2025 6:21 AM EST us Kelsea MOSCOSO LAB BLOOD ORDERABLES Final Resul t [facility] [address] [place] [address], * (ABNORMAL) Basic metabolic panel (06/21/2025 5:27 AM EST) Sodium 131(L) 135 - 146 mmol/L 06/21/2025 6:55 AM EST [facility] Potassium 3.8 3.6 - 5.2 mmol/L 06/21/2025 6:55 AM [facility] Chloride 97(L) 98 - 110 mmol/L 06/21/2025 6:55 AM [facility] CO2 (Bicarbonate) 25 20 - 32 mmol/L 06/21/2025 6:55 AM [facility] Anion Gap 9 3 - 14 mmol/L 06/21/2025 6:55 AM [facility] BUN 10 6 - 24 mg/dL 06/21/2025 6:55 AM [facility] Creatinine 0.69 0.55 - 1.30 mg/dL 06/21/2025 6:55 AM [facility] eGFRcr 85 >=60 mL/min/1.7 3m*2 06/21/2025 6:55 AM [facility] Comment:Calculated using CKD -EPI 2020 creatinine equation. Glucose 108 70 - 139 mg/dL 06/21/2025 6:55 AM [facility] Fasting? Unknown [facility] INFINITY 06/21/2025 6:55 AM EST [facility] Calcium 8.1(L) 8.5 - 10.5 mg/dL 06/21/2025 6:55 AM [facility] Blood Venous blood specimen / Unknown Venipuncture / Unknown 06/21/2025 5:27 AM EST 06/21/2025 6:21 AM EST us Sinan Escobedo MD LAB BLOOD ORDERABLES Final Resu lt [facility] [address] [place] [address], [place] * (ABNORMAL) Vitamin D 25 hydroxy (06/21/2025 5:27 AM EST) Vitamin D, 25-Hydroxy 27.5(L) 30.0 - 100.0 ng/mL 06/22/2025 4:05 PM EST [facility] Comment: Vitamin D deficiency has been defined by the [place] [employer] and an Endocrine Society practice guideline as a level of serum 25-OH vitamin D less than 20 ng/mL (1,2). The Endocrine Society went on to further define vitamin D insufficiency as a level between 21 and 29 ng/mL (2). 1. IOM ([place] [employer]). 2010. Dietary reference intakes for calcium and D. [place]: The National Academies Press. 2. Gaye MF, Chantel GARIBAY, Marco Antonio BEE, et al. Evaluation, treatment, and prevention of vitamin D deficiency: an Endocrine Society clinical practice guideline. JCEM. 2010; 96(7):1911-30. Blood Venous blood specimen / Unknown Venipuncture / Unknown 06/21/2025 5:27 AM EST 06/21/2025 6:21 AM EST Narrative [facility] - 06/22/2025 4:05 PM EST Performed at: 01 - [facility] [id number] Batch Mixer Operator: Maryana Thao MD, Phone: [phone] us Kelsea MOSCOSO LAB BLOOD ORDERABLES Final Resul t Performing Organization Address City/[facility]/ZIP Co de Phone Number [facility] [address] [place] [address], * (ABNORMAL) Troponin T, High Sensitivity (06/20/2025 1:56 PM EST) Troponin T, High Sensitivity 22(H) <12 ng/L 06/20/2025 3:25 PM EST [facility] Comment: Performed by [employer] electrochemiluminescence immunoassay (ECLIA). [facility] cut-off for healthy adults: 11 ng/L. More information available on JULES. Blood Venous blood specimen / Unknown Venipuncture / Unknown 06/20/2025 1:56 PM EST 06/20/2025 2:56 PM EST Kelsea Lui BLANKA LAB BLOOD ORDERABLES Final Resul t [facility] [address] [place] [address], [place] * XR PELVIS 1-2 VIEWS (06/20/2025 [...] GENDER: Female ORD PHYS: DHRUSTI ESCOBEDO LOCATION: [facility] 06/20/2025 1:48 PM EST [id number] (XR PELVIS 1-2 VIEWS) [id number] Indication: s/p L hip francis COMPARISON: Radiograph earlier the same day Procedure Note Lena Cordova MD - 06/20/2025 NAME: TANISHA COTA : 1940 AGE: 84 years GENDER: Female ORD PHYS: DHRUSTI ESCOBEDO LOCATION: [facility] 06/20/2025 1:48 PM EST [id number] (XR PELVIS 1-2 VIEWS) [id number] Indication: s/p L hip francis COMPARISON: Radiograph earlier the same day IMPRESSION: FINDINGS/IMPRESSION: 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 Thealignment is normal. APPROVED BY STAFF RADIOLOGIST: Lena Cordova MD 06/20/2025 11:16PM EST Sinan Escobedo MD IMG XR PROCEDURES Final Result * (ABNORMAL) Troponin T, High Sensitivity (06/20/2025 8:21 AM EST) Troponin T, High Sensitivity 23(H) <12 ng/L 06/20/2025 9:18 AM EST [facility] Comment: Performed by [facility] electrochemiluminescence immunoassay (ECLIA). [facility] cut-off for healthy adults: 11 ng/L. More information available on JULES. Blood Venous blood specimen / Unknown Venipuncture / Unknown 06/20/2025 8:21 AM EST 06/20/2025 8:45 AM EST Kelsea MOSCOSO LAB BLOOD ORDERABLES Final Resul t Performing Organization Address City/[facility] Co de Phone Number [facility] [address] [place] [address], * Lavender Top (06/20/2025 8:17 AM EST) [facility] Extra Tube Hold for add-ons. [facility] SANCHEZ IM 06/20/2025 10:02 AM EST [facility] Comment:Auto resulted. Blood Venous blood specimen / Unknown 06/20/2025 8:17 AM EST 06/20/2025 8:47 AM EST Sinan Escobedo MD LAB BLOOD ORDERABLES Final Resu lt [facility] [address] [place] [address], * ECG 12 lead (06/20/2025 5:02 AM EST) 06/20/2025 5:02 AM EST Narrative C STRESS/ECG EPIPHANY CARDIOSERVER - 06/21/2025 12:32 PM EST [facility] Test Date: 2025-06-20 Pat Name: TANISHA COTA Department: N1-ED Room: T04 Gender: Female Mask Design Engineer: JAZMIN : 1940 Requested By: ZLUY LEES Order Number: [id number] Reading MD: Erwin Eastman Measurements Intervals [place] Rate: 82 P: 12 [place]: 118 QRS: -27 QRSD: 100 T: 36 QT: 414 QTc: 484 Interpretive Statements Sinus rhythm Atrial premature complex ANTEROSEPTAL INFARCT, AGE INDETERMINATE No previous ECG available for comparison Electronically Signed On 06-21-2025 12:32:11 EST by Erwin Eastman us Zuly Lees MD ECG ORDERABLES Final Resu lt [facility] STRESS/ECG EPIPHANY CARDIOSERVER * Phosphorus (06/20/2025 4:48 AM EST) Phosphorus 3.7 2.4 - 4.9 mg/dL 06/21/2025 4:30 AM EST [facility] Blood Venous blood specimen / Unknown Venipuncture / Unknown 06/20/2025 4:48 AM EST 06/20/2025 4:59 AM EST Sinan Escobedo MD LAB BLOOD ORDERABLES Final Resu lt Performing Organization Address [facility] Co de Phone Number [facility] [address] [place] [address], * Magnesium (06/20/2025 4:48 AM EST) Magnesium 2.0 1.6 - 2.6 mg/dL 06/21/2025 4:30 AM EST [facility] Blood Venous blood specimen / Unknown Venipuncture / Unknown 06/20/2025 4:48 AM EST 06/20/2025 4:59 AM EST Sinan Escobedo MD LAB BLOOD ORDERABLES Final Resu lt Performing Organization Address City/[facility] Co de Phone Number [facility] [address] [place] [address], * Lactic acid (06/20/2025 4:48 AM EST) Lactic acid 0.7 0.5 - 2.2 mmol/L 06/20/2025 5:34 AM EST [facility] Blood Venous blood specimen / Unknown Venipuncture / Unknown 06/20/2025 4:48 AM EST 06/20/2025 4:59 AM EST Zuly Lees MD LAB BLOOD ORDERABLES Final Result Performing Organization Address [facility] Co de Phone Number [facility] [address] [place] [address], * (ABNORMAL) Troponin T, High Sensitivity (06/20/2025 4:48 AM EST) Troponin T, High Sensitivity 22(H) <12 ng/L 06/20/2025 5:36 AM EST [facility] Comment: Performed by [employer] electrochemiluminescence immunoassay (ECLIA). [facility] cut-off for healthy adults: 11 ng/L. More information available on JULES. Blood Venous blood specimen / Unknown Venipuncture / Unknown 06/20/2025 4:48 AM EST 06/20/2025 4:59 AM EST Zuly Lees MD LAB BLOOD ORDERABLES Final Result Performing Organization Address [facility] de Phone Number [facility] [address] [place] [address], * Confirm ABO/Rh (06/20/2025 4:48 AM EST) Confirm ABORh A POS 06/20/2025 6:15 AM EST [facility] Blood Venous blood specimen / Unknown Venipuncture / Unknown 06/20/2025 4:48 AM EST 06/20/2025 5:16 AM EST Zuly Lees MD LAB BLOOD BANK TEST ORDERA BLES Final Result Performing Organization Address [facility] Co de Phone Number [facility] [address] [place] [address], * CT 3D RECONSTRUCTION (06/20/2025 4:41 AM [...] GENDER: Female ORD PHYS: ZULY LEES LOCATION: [facility] 06/20/2025 4:41 AM EST [id number] (CT 3D RECONSTRUCTION) [id number] PROCEDURE: CT 3D RECONSTRUCTION, CT FEMUR LEFT [...] GENDER: Female ORD PHYS: ZULY LEES LOCATION: [facility] 06/20/2025 4:41 AM EST [id number] (CT 3D RECONSTRUCTION) [id number] PROCEDURE: CT 3D RECONSTRUCTION, CT FEMUR LEFT [...] femur fracture without suspiciousunderlying lesion. DICTATED: Micheal Lai, DO IN ACCORDANCE WITH DEPARTMENT POLICY, TEACHING PHYSICIANS REVIEW ALLIMAGES, AND EDIT REPORTS REQUIRED. A REPORT IS NOT FINAL UNTIL APPROVEDBY A STAFF RADIOLOGIST. APPROVED BY STAFF RADIOLOGIST: Merlin Davis 06/21/2025 5:30 AM EST Ryan Pierce MD IM CT PROCEDURES Final Result * CT ABDOMEN [...] GENDER: Female ORD PHYS: ZULY LEES LOCATION: [facility] 06/20/2025 4:31 AM EST [id number] (CT ABDOMEN PELVIS W CONTRAST) [id number] CT ABDOMEN PELVIS W CONTRAST Reason for [...] GENDER: Female ORD PHYS: ZULY LEES LOCATION: [facility] 06/20/2025 4:31 AM EST [id number] (CT ABDOMEN PELVIS W CONTRAST) [id number] CT ABDOMEN PELVIS W CONTRAST Reason for [...] RADIOLOGIST: Merlin Davis 06/20/2025 9:14 AM EST Zuly Lees MD [facility] [place] PROCEDURES Final Re sult * CT [...] GENDER: Female ORD PHYS: ZULY LEES LOCATION: [facility] 06/20/2025 4:29 AM EST [id number] (CT CHEST W CONTRAST) [id number] EXAM: CONTRAST ENHANCED CT OF THE CHEST [...] GENDER: Female ORD PHYS: ZULY LEES LOCATION: [facility] 06/20/2025 4:29 AM EST [id number] (CT CHEST W CONTRAST) [id number] EXAM: CONTRAST ENHANCED CT OF THE CHEST [...] RADIOLOGIST: Merlin Davis 06/20/2025 8:45 AM EST Zuly Lees MD IMG CT PROCEDURES Final [...] GENDER: Female ORD PHYS: ZULY LEES LOCATION: [facility] 06/20/2025 4:41 AM EST [id number] (CT 3D RECONSTRUCTION) [id number] PROCEDURE: CT 3D RECONSTRUCTION, CT FEMUR LEFT [...] GENDER: Female ORD PHYS: ZULY LEES LOCATION: [facility] 06/20/2025 4:41 AM EST [id number] (CT 3D RECONSTRUCTION) [id number] PROCEDURE: CT 3D RECONSTRUCTION, CT FEMUR LEFT [...] femur fracture without suspiciousunderlying lesion. DICTATED: Micheal Lai, DO IN ACCORDANCE WITH DEPARTMENT POLICY, TEACHING PHYSICIANS REVIEW ALLIMAGES, AND EDIT REPORTS REQUIRED. A REPORT IS NOT FINAL UNTIL APPROVEDBY A STAFF RADIOLOGIST. APPROVED BY STAFF RADIOLOGIST: Merlin Davis 06/21/2025 5:30 AM EST Ryan Pierce MD [facility] [place] PROCEDURES Final Result * Urine Drug Screen (06/20/2025 3:12 AM EST) [facility] Amphetamines screen, urine Not Detected Not Detected 06/20/2025 3:55 AM [facility] Comment:Cutoff concentration = 1000 ng/mL. Barbiturates screen, urine Not Detected Not Detected 06/20/2025 3:55 AM [facility] Comment:Cutoff concentration = 200 ng/mL. Benzodiazepines screen, urine Not Detected Not Detected 06/20/2025 3:55 AM [facility] Comment:Cutoff concentration = 200 ng/mL. Buprenorphine screen, urine Not Detected Not Detected 06/20/2025 3:55 AM [facility] Comment:Cutoff concentration = 5 ng/mL Cannabinoids screen, urine Not Detected Not Detected 06/20/2025 3:55 AM [facility] Comment:Cutoff concentration = 50 ng/mL. Cocaine screen, urine Not Detected Not Detected 06/20/2025 3:55 AM [facility] Comment:Cutoff concentration = 300 ng/mL. Ethanol screen, urine Not Detected Not Detected 06/20/2025 3:55 AM [facility] Comment:Cutoff concentration = 20 mg/dL. Fentanyl screen, urine Not Detected Not Detected 06/20/2025 3:55 AM EST [facility] Comment:Cutoff concentration = 1.0 ng/mL. Methadone screen, urine Not Detected Not Detected 06/20/2025 3:55 AM EST [facility] Comment:Cutoff concentration = 300 mg/dL. Opiates screen, urine Not Detected Not Detected 06/20/2025 3:55 AM EST [facility] Comment:Cutoff concentration = 300 ng/mL. Oxycodone screen, urine Not Detected Not Detected 06/20/2025 3:55 AM EST [facility] Comment:Cutoff concentration = 100 ng/mL. Creatinine, urine, specimen validity 20.80 >=20.00 mg/dL 06/20/2025 3:55 AM EST [facility] Urine Urine specimen / Unknown Non-blood Collection / Unknown 06/20/2025 3:12 AM EST 06/20/2025 3:21 AM EST Narrative [facility] - 06/20/2025 3:55 AM EST These are unconfirmed screening results and should be used only for medical purposes. If the clinical setting requires confirmation, contact the clinical laboratory. us Zuly Lees MD LAB URINE ORDERABLES Final Result [facility] [address] [place] [address], * XR KNEE LEFT 1-2 VIEWS (06/20/2025 [...] GENDER: Female ORD PHYS: ZULY LEES LOCATION: [facility] 06/20/2025 2:50 AM EST [id number] (XR KNEE LEFT 1-2 VIEWS ) [id number] PROCEDURE: XR KNEE LEFT 1-2 VIEWS 06/20/2025 [...] GENDER: Female ORD PHYS: ZULY LEES LOCATION: [facility] 06/20/2025 2:50 AM EST [id number] (XR KNEE LEFT 1-2 VIEWS ) [id number] PROCEDURE: XR KNEE LEFT 1-2 VIEWS 06/20/2025 [...] RADIOLOGIST: Lena Cordova MD 06/20/2025 10:32AM EST Zuly Lees MD IMG XR PROCEDURES [...] GENDER: Female ORD PHYS: ZULY LEES LOCATION: [facility] 06/20/2025 2:18 AM EST PROCEDURE: XR HIP [...] GENDER: Female ORD PHYS: ZULY LEES LOCATION: [facility] 06/20/2025 2:18 AM EST PROCEDURE: XR HIP [...] STAFF RADIOLOGIST. APPROVED BY STAFF RADIOLOGIST: Yasmeen Lizzy 06/20/2025 8:33 AM EST Narrative 06/20/2025 8:33 AM EST NAME: TANISHA COTA : 1940 AGE: 84 years GENDER: Female ORD PHYS: ZULY VANEGASLIVAN LOCATION: [facility] 06/20/2025 2:46 AM EST [id number] (CT HEAD WO CONTRAST) [id number] CT HEAD WO CONTRAST [id number] HISTORY: Pain with Trauma TECHNIQUE: Serial axial [...] GENDER: Female ORD PHYS: ZULY LEES LOCATION: [facility] 06/20/2025 2:46 AM EST [id number] (CT HEAD WO CONTRAST) [id number] CT HEAD WO CONTRAST [id number] HISTORY: Pain with Trauma TECHNIQUE: Serial axial [...] GENDER: Female ORD PHYS: ZULY LEES LOCATION: [facility] 06/20/2025 2:44 AM EST [id number] (CT CERVICAL SPINE WO CONTRAST) [id number] CT CERVICAL SPINE WO CONTRAST [id number] HISTORY: Pain with Trauma TECHNIQUE: Serial axial [...] scarring. Bilateral carotid bulb calcifications. Procedure Note Lizzy Yasmeen - 06/20/2025 NAME: TANISHA COTA : 1940 AGE: 84 years GENDER: Female ORD PHYS: ZULY LEES LOCATION: [facility] 06/20/2025 2:44 AM EST [id number] (CT CERVICAL SPINE WO CONTRAST) [id number] CT CERVICAL SPINE WO CONTRAST [id number] HISTORY: Pain with Trauma TECHNIQUE: Serial axial [...] STAFF RADIOLOGIST. APPROVED BY STAFF RADIOLOGIST: Yasmeen Lizzy 06/20/2025 9:54 AM EST us Zuly Lees [...] GENDER: Female ORD PHYS: ZULY LEES LOCATION: [facility] 06/20/2025 2:18 AM EST PROCEDURE: XR HIP [...] GENDER: Female ORD PHYS: ZULY LEES LOCATION: [facility] 06/20/2025 2:18 AM EST PROCEDURE: XR HIP [...] 84 years GENDER: Female ORD PHYS: ZULY Jarvis YOANA LOCATION: [facility] 06/20/2025 2:18 AM EST PROCEDURE: XR HIP [...] 84 years GENDER: Female ORD PHYS: ZULY Jarvis YOANA LOCATION: [facility] 06/20/2025 2:18 AM EST PROCEDURE: XR HIP [...] GENDER: Female ORD PHYS: ZULY LEES LOCATION: [facility] 06/20/2025 2:18 AM EST [id number] (XR CHEST PORTABLE) [id number] TECHNIQUE: AP view of the chest. INDICATION: [...] GENDER: Female ORD PHYS: ZULY LEES LOCATION: [facility] 06/20/2025 2:18 AM EST [id number] (XR CHEST PORTABLE) [id number] TECHNIQUE: AP view of the chest. INDICATION: [...] POCT glucose meter (06/20/2025 1:57 AM EST) POCT Glucose 76 70 - 139 mg/dL 06/20/2025 1:57 AM EST [facility] Blood Blood specimen / Unknown 06/20/2025 1:57 AM EST 06/20/2025 1:57 AM EST Zuly Lees MD LAB POINT OF CARE TEST DOCKED DEVICE UNSOLICITED RESULTS Final Result Performing Organization Address [facility] Co de Phone Number [facility] [address] [place] [address], * Lactic acid (06/20/2025 1:50 AM EST) Pathologist [facility] Lactic acid 0.8 0.5 - 2.2 mmol/L 06/20/2025 2:32 AM EST [facility] Blood Venous blood specimen / Unknown Venipuncture / Unknown 06/20/2025 1:50 AM EST 06/20/2025 1:53 AM EST Zuly Lees MD LAB BLOOD ORDERABLES Final Result Performing Organization Address City/[facility] Co de Phone Number [facility] [address] [place] [address], * Mckeon Top (06/20/2025 1:50 AM EST) [facility] Extra Tube Hold for add-ons. [facility] SANCHEZ IM 06/20/2025 3:02 AM EST [facility] Comment:Auto resulted. Blood Venous blood specimen / Unknown Venipuncture / Unknown 06/20/2025 1:50 AM EST 06/20/2025 1:53 AM EST Zuly Lees MD LAB BLOOD ORDERABLES Final Result Performing Organization Address City/[facility]/ZIP Co de Phone Number [facility] [address] [place] [address], * Prepare RBC, Leukoreduced: 2 Units (06/20/2025 1:49 AM EST) Unit Number [id number] [facility] BLOOD BANK Product Code E0332 [facility] B LOOD BANK Product Blood Type A POS [facility] BLOOD BANK Dispense Status Released [facility] BLOOD [facility] Blood Expiration Date [facility] BLOOD BANK Barcoded Product Code L8994P41 [facility] BLOOD BANK Barcoded ABO/Rh 6200 [facility] BLOOD B[facility] Crossmatch Interpretation Compatible [facility] BLOOD BANK Unit Number [id number] [facility] BLOOD B[facility] Product Code E0332 [facility] B LOOD BANK Product Blood Type A POS [facility] BLOOD BANK Dispense Status Released [facility] BLOOD BANK Blood Expiration Date [facility] BLOOD BANK Barcoded Product Code [id number] [facility] BLOOD BANK Barcoded ABO/Rh 6200 [facility] BLOOD BANK Crossmatch Interpretation Compatible [facility] BLOOD BANK Other 06/20/2025 1:49 AM EST 06/20/2025 1:49 AM EST Tracy Saleh MD BLOOD BANK PRODUCT ORDERABLE S Final Result [facility] BLOOD [address] [address], * SDS, Serum Drug Screen, [facility] (06/20/2025 1:49 AM EST) Acetaminophen level <5 <=30 ug/mL 06/20/2025 2:32 AM EST [facility] Ethanol level, plasma/serum <10 <=10 mg/dL 06/20/2025 2:32 AM EST [facility] Salicylate level <0.5 0.0 - 29.9 mg/dL 06/20/2025 2:32 AM EST [facility] Benzodiazepines screen, serum Not Detected Not Detected 06/20/2025 2:32 AM EST [facility] Tricyclics screen, serum Not Detected Not Detected 06/20/2025 2:32 AM EST [facility] Blood Venous blood specimen / Unknown Venipuncture / Unknown 06/20/2025 1:49 AM EST 06/20/2025 1:53 AM EST us Zuly Lees MD LAB BLOOD ORDERABLES Final Result [facility] [address] [place] [address], [place] * (ABNORMAL) CBC w/ Differential (06/20/2025 1:49 AM EST) WBC 7.2 4.0 - 11.0 K/uL 06/20/2025 2:08 AM EST [facility] RBC 4.36 3.70 - 5.20 M/uL 06/20/2025 2:08 AM [facility] Hemoglobin 13.2 11.0 - 16.0 g/dL 06/20/2025 2:08 AM [facility] Hematocrit 40.1 32.0 - 47.0 % 06/20/2025 2:08 AM [facility] MCV 92.0 80.0 - 100.0 fL 06/20/2025 2:08 AM [facility] MCH 30.3 26.0 - 34.0 pg 06/20/2025 2:08 AM [facility] MCHC 32.9 31.0 - 37.0 g/dL 06/20/2025 2:08 AM [facility] RDW-CV 13.0 11.5 - 14.5 % 06/20/2025 2:08 AM [facility] RDW-SD 43.9 35.0 - 51.0 fL 06/20/2025 2:08 AM [facility] Platelets 114(L) 150 - 400 K/uL 06/20/2025 2:08 AM [facility] MPV 10.2 9.1 - 12.4 fL 06/20/2025 2:08 AM [facility] Neutrophil % 90.4 % 06/20/2025 2:08 AM [facility] Lymphocyte % 4.0 % 06/20/2025 2:08 AM [facility] Monocytes % 4.3 % 06/20/2025 2:08 AM [facility] Eosinophils % 0.3 % 06/20/2025 2:08 AM EST [facility] Basophils % 0.4 % 06/20/2025 2:08 AM [facility] Immature Granulocytes % 0.6 % 06/20/2025 2:08 AM [facility] NRBC % 0.0 0.0 - 0.0 % 06/20/2025 2:08 AM [facility] Neutrophils Absolute 6.52 1.50 - 7.95 K/uL 06/20/2025 2:08 AM [facility] Lymphocytes Absolute 0.29(L) 0.70 - 4.00 K/uL 06/20/2025 2:08 AM [facility] Monocytes Absolute 0.31(L) 0.36 - 0.77 K/uL 06/20/2025 2:08 AM [facility] Eosinophils Absolute 0.02 0.00 - 0.50 K/uL 06/20/2025 2:08 AM [facility] Basophils Absolute 0.03 0.00 - 0.22 K/uL 06/20/2025 2:08 AM [facility] Immature Granulocytes Absolute 0.04 0.00 - 0.10 K/uL 06/20/2025 2:08 AM [facility] NRBC Absolute 0.00 0.00 - 2.00 K/uL 06/20/2025 2:08 AM [facility] Blood Venous blood specimen / Unknown Venipuncture / Unknown 06/20/2025 1:49 AM EST 06/20/2025 1:53 AM EST us Zuly Lees MD LAB BLOOD ORDERABLES Final Result [facility] [address] [place] [address], * Type and screen (06/20/2025 1:49 AM EST) ABORh A POS 06/20/2025 2:46 AM [facility] BLOOD BANK Antibody Screen NEG NEG 2:46 AM [facility] Specimen Expiration Date 06/23/2025 23:59 06/20/2025 2:46 AM [facility] Blood Venous blood specimen / Unknown Venipuncture / Unknown 06/20/2025 1:49 AM EST 06/20/2025 1:59 AM EST us Zuly Lees MD LAB BLOOD BANK TEST ORDERA BLES Final Result Performing Organization Address [facility] Co de Phone Number [facility] BLOOD BANK [address] [place] [address], * APTT (06/20/2025 1:49 AM EST) aPTT 29.7 25.7 - 35.7 Seconds 06/20/2025 2:12 AM EST [facility] Blood Venous blood specimen / Unknown Venipuncture / Unknown 06/20/2025 1:49 AM EST 06/20/2025 1:53 AM EST Zuly Lees MD LAB BLOOD ORDERABLES Final Result Performing Organization Address [facility] de Phone Number [facility] [address] [place] [address], * Protime-INR (06/20/2025 1:49 AM EST) Protime 11.5 9.7 - 14.0 seconds 06/20/2025 2:12 AM EST [facility] INR 1.00 See Comment 06/20/2025 2:12 AM EST [facility] Comment: NORMAL PATIENTS NOT ON ANTICOAGULANTS: INR: 0.9-1.3 RECOMMENDED INR WITH WARFARIN/COUMADIN THERAPY: INR: 2.00-3.00 Deep vein thrombosis Atrial Fibrillation Tissue Prosthetic Valve Stroke Prevention INR:2.50-3.50 Mechanical Prosthetic Valve and Recurrent Systemic Embolism Blood Venous blood specimen / Unknown Venipuncture / Unknown 06/20/2025 1:49 AM EST 06/20/2025 1:53 AM EST us Zuly Lees MD LAB BLOOD ORDERABLES Final Result Performing Organization Address [facility] Co de Phone Number [facility] [address] [place] [address], [place] * (ABNORMAL) Comprehensive metabolic panel (06/20/2025 1:49 AM EST) Sodium 135 135 - 146 mmol/L 06/20/2025 2:32 AM [facility] Potassium 4.1 3.6 - 5.2 mmol/L 06/20/2025 2:32 AM [facility] Comment:Specimen hemolyzed r esult may be falsely increased up to 1.0 mmol/L. Chloride 98 98 - 110 mmol/L 06/20/2025 2:32 AM [facility] CO2 (Bicarbonate) 26 20 - 32 mmol/L 06/20/2025 2:32 AM [facility] Anion Gap 11 3 - 14 mmol/L 06/20/2025 2:32 AM [facility] BUN 15 6 - 24 mg/dL 06/20/2025 2:32 AM [facility] Creatinine 0.81 0.55 - 1.30 mg/dL 06/20/2025 2:32 AM [facility] eGFRcr 71 >=60 mL/min/1. 73m*2 06/20/2025 2:32 AM [facility] Comment:Calculated using CKD -EPI 2020 creatinine equation. Glucose 96 70 - 139 mg/dL 06/20/2025 2:32 AM [facility] Fasting? Unknown [facility] ROYER INFINITY 06/20/2025 2:32 AM [facility] Calcium 9.1 8.5 - 10.5 mg/dL 06/20/2025 2:32 AM [facility] AST 32 6 - 42 U/L 06/20/2025 2:32 AM [facility] Comment:Specimen hemolyzed. Hemolysis may cause a positive bias. ALT 15 0 - 55 U/L 06/20/2025 2:32 AM [facility] Alkaline phosphatase 84 30 - 130 U/L 06/20/2025 2:32 AM [facility] Protein, total 8.8(H) 6.0 - 8.4 g/dL 06/20/2025 2:32 AM [facility] Albumin 4.5 3.2 - 5.0 g/dL 06/20/2025 2:32 AM [facility] Bilirubin, total 0.6 0.2 - 1.2 mg/dL 06/20/2025 2:32 AM EST [facility] Blood Venous blood specimen / Unknown Venipuncture / Unknown 06/20/2025 1:49 AM EST 06/20/2025 1:53 AM EST Zuly Lees MD LAB BLOOD ORDERABLES Final Result [facility] [address] [place] [address], * [place] [facility], E/M 30-103 MINUTES, [facility] ILL/INJURED PATIENT INIT 30-103 MIN (06/20/2025 1:20 AM EST) Zuly Resendez MD - 06/20/2025 1:20 AM EST Zuly [...] left femur, initial encounter Fall, initial encounter Closed fracture of neck of left femur, initial encounter documented in this encounter Admitting Diagnoses Diagnosis Closed fracture of neck of left femur, initial encounter documented in this encounter Administered Medications Inactive Administered Medications - up to 3 most recent administrations Medication Order MAR Action Action Date Dose Rate Site acetaminophen (Tylenol) tablet 975 mg 975 mg, oral, 3 times daily, First dose on Sofía 25/25 at 0900, For 5 days Given 06/22/2025 1:49 PM EST 975 mg Given 06/22/2025 8:49 AM EST 975 mg Given 06/21/2025 9:24 PM EST 975 mg amLODIPine (Norvasc) tablet 5 mg 5 mg, oral, Daily, First dose (after last modification) on Tue06/22/25 at 0900 apixaban (Eliquis) tablet 2.5 mg [...] Given 06/21/2025 9:24 PM EST 1 tablet cholecalciferol (vitamin D3) (Vitamin D-3) tablet 1,000 [...] Given 06/21/2025 8:42 AM EST 10 mg lisinopril tablet 20 mg 20 mg, oral, Every morning, First dose (after last modification) on Sofía 06/20/25 at 2000 Given 06/22/2025 8:52 AM EST 2 0 mg Given 06/21/2025 8:42 AM EST 20 [...] PRN, pain score 7-10 (severe), Starting on Tue06/20/25 at 1153, For 7 days, Recovery & [...] Provider: Driss Meek RN - Reason: NPO)0907 (AUG Hold - Provider: Automatic Transfer Provider - [...] (after last modification) on 06/22/25 at 0900 1402 (Held by provider - Provider: BLANKA Tran - Reason: Change in vital signs) 1209 (Unheld by provider - Provider: BLANKA Tran) 0900 (Not Given - Provider: Lucero Morrison RN - Reason: Patient/family refused - Comment: refused, svc aware) apixaban (Eliquis) tablet 2.5 mg 2.5 mg, oral, 2 times daily, First dose (after last modification) on Tue06/21/25 at 0900, For 30 days, Recovery & On Unit, Indication for use: Joint replacement, Type of therapy: New start 0842 (Given - Provider: Driss Meek RN)2124 (Given [...] Minutes, Every 8 hours, First dose on Tue06/20/25 at 1830, For 3 doses, Recovery & [...] 0852 (Given - Provider: Lucero Morrison RN) eltrombopag olamine (Promacta) tablet 50 mg [...] vital signs) 0842 (Given - Provider: Driss Meek, ERYN) 0851 (Given - Provider: Lucero Morrison, RN) fentaNYL (Sublimaze) injection 50 mcg (COMPLETED) 50 [...] morning, First dose (after last modification) on Tue06/20/25 at 2000 2000 (Not Given - Provider: Armida Beltran RN - Reason: Patient/family refused) 0842 (Given - Provider: Driss Meek RN) 0852 (Given - Provider: Lucero Morrison, ERYN) melatonin tablet 6 mg 6 mg, oral, Nightly, First dose on Tue06/21/25 at 2200 2124 (Given - Provider: Edith Bennett, ERYN) polyethylene glycol (Glycolax) packet 17 g 17 g, oral, Daily, First dose on Tue06/20/25 at 1700, Mix contents of one packet (17 grams) in 8 ounces of water, juice, soda, coffee, tea 1800 (Given - Provider: Driss Meek, ERYN) 0900 (Given - Provider: Driss Meek, ERYN) 0852 (Given - Provider: Lucero Morrison, RN) sennosides (Senokot) tablet 17.2 mg 17.2 mg (2 tablet), oral, Nightly, First dose on Tue06/21/25 at 2200 2124 (Given - Provider: Edith Bennett RN) Continuous Medication Order 06/20/2025 06/21/2025 06/22/2025 lactated [...] 24 hours. Do not crush. Use suppository 09 (AUG Hold - Provider: Automatic Transfer Provider - Reason: Unreviewed Transfer Orders)133 ([facility] Unhold - Provider: Automatic Transfer Provider) HYDROmorphone [...] 0842 (Given - Provider: Driss Meek RN)0907 (MAR Hold - Provider: Automatic Transfer Provider - Reason: Unreviewed Transfer Orders)1339 ([facility] Unhold - Provider: Automatic Transfer Provider) ondansetron [...] On Unit 2121 (Given - Provider: Armida Beltran RN) 0901 (Given - Provider: Driss Meek RN) [...] documented as of this encounter Care Teams [employer] Player Relationship Specialty Start Date End Date Unknown, Unknown PCP - General 06/20/25 documented as of this encounter
--- OUTSIDE RECORDS SUMMARY | 2025-06-20 10:14 | XMS_ITS | Encounter Summary ---
Author Organization [facility] Address [address] [facility] [address] [place] [address] Care Team Providers Care Production Posting Clerk Name Role Phone Unknown, Unknown Primary Care Provider Unavailab le Reason for Visit * Auth/Cert (Routine) Specialty Diagnoses / Procedures Referred By [facility] Referred To Contact Diagnoses Fall, initial encounter Closed fracture of neck of left femur, initial encounter Guillaume Peck MD [address] [place] [address] Phone: tel: fax: [facility] [address] [place] [address] Phone: tel: Referral ID Status Reason Start Date Expiration Date Visits Re quested Visits Authorized [id number] 1 1 Encounter Details Date Type Department Care Team (Late st Contact Info) Description 06/20/2025 10:14 AM EST Anesthesia Event [facility] Main OR [address] [place] [address] Becca Barksdale MD [address] [facility] [address] [place] [address] Dasha Lewis MD [address] [place] [address] Anesthesia Record Procedure Summary Procedure Name Responsible Anesthesiologist Anesthesia Start Time Anesthesia Stop Time Hemiarthroplasty, Hip, Bipolar or Unipolar (Left: Hip) Becca Barksdale MD 06/20/25 1014 06/20/25 1225 Events Date Time Event Comment 06/20/2025 0942 1014 In Room 1014 An Start The patient was re-evaluated prior to the induction of anesthesia and the anesthetic plan was determined to be suitable for the patient's condition and procedure. The first vital signs recorded are pre-induction. 1014 An Start Data 1020 An Induction 1023 An Intubation 1038 Anesthesia Ready 1045 Proc Start [address] elevation ap preciated in lead V which was not present previously. Ortho team aware. Plan for 12 lead EKG in the PACU. 1148 Proc Fin 1202 An Extubation Extubation cri teria met prior to extubation. 1204 an stop data 1208 Out of Room 1221 Handoff to Receiving I compl eted my handoff to the receiving clinician during which we: 1. Identified the patient 2. Identified the responsible provider 3. Reviewed the pertinent medical history 4. Discussed the surgical course 5. Reviewed intra-op anesthesia management and issues during anesthesia 6. Set expectations for post-procedure period 7. Allowed opportunity for questions and acknowledgement of understanding. 1225 An Stop Meds Name Total fentaNYL (Sublimaze) injection 50 mcg/mL vial 100 mcg lidocaine PF (Xylocaine-MPF) local injec tion 2 % 40 mg propofol (Diprivan) injection 10 mg/mL 7 0 mg rocuronium (ZeMuron) 50 mg/5 mL injectio n 50 mg ceFAZolin (Ancef) vial 1 g acetaminophen (Ofirmev) injection - [facility] Users: use division order analyst feature 1,000 mg dexMEDEtomidine (Precedex) injection 4 m cg/mL in NS 4 mcg norEPINEPHrine 4 mg/250 mL (16 mcg/mL) i n D5W infusion 0.31 mg phenylephrine 80 mcg/mL in NS 10 mL (pre filled syringe) 80 mcg tranexamic acid (Cyklokapron) injection 1,000 mg HYDROmorphone (Dilaudid) injection 1 mg/ mL 0.2 mg sugammadex (Bridion) injection 100 mg/mL 100 mg lactated Ringer's infusion 450 mL sodium chloride 0.9 % infusion 50 mL * Agents Name Sevoflurane * Blood No blood administrations on file. Lines, Drains, and Airways Type Details Placement Removal Wound 06/20/25; 1045; Y; Surgical; Closed Surgi; Hip; Left; Dressed with dermabond andAquacel.; 3 06/20/25 1045 by Bonnie Freedman RN Peripheral IV Placement Date: 06/20/25; Placement Time: 0149; Catheter Size: 20 G; Orientation: Anterior, Left, Upper; Location: Arm; Site Prep: Alcohol; Local Anesth: None; Technique: Anatomical landmarks; Inserted by: Axel; Insertion Attempts: 1; Patient Tolerance: Tolerated well; Removal Date: 06/21/25; Removal Time: 1352; Removal Reason: Infiltrated 06/20/25 0149 by Darleen Srivastava RN 06/21/25 1352 by Driss Meek RN Peripheral IV Placement Date: 06/20/25; Placement Time: 0150; Catheter Size: 20 G; Orientation: Anterior, Right; Location: Forearm; Site Prep: Alcohol; Local Anesth: None; Technique: Anatomical landmarks; Inserted by: Collette; Removal Date: 06/21/25; Removal Time: 1033; Removal Reason: Occluded 06/20/25 0150 by Darleen Srivastava RN 06/21/25 1033 by Driss Meek RN Urethral Catheter Placement Date: 06/20/25; Placement Time: 0311; Type: Double-lumen/Indwelling ; Size: 14 Fr.; Balloon Size: 10 mL; Urine Returned: Yes; Removal Date: 06/21/25; Removal Time: 1030 06/20/25 0311 by Axel Ag RN 06/21/25 1030 by Driss Meek RN ETT Placement Date: 06/20/25; Placement Time: 1023 (created via procedure documentation); Technique: Direct laryngoscopy; Type: ETT - single; Single Lumen Tube Size: 7 mm; Cuffed: Yes; Laryngoscope: Norma; Blade Size: 3; Location: Oral; Grade View: Grade IIa; Insertion Attempts: 1; Placement Verification: Auscultation; Removal Date: 06/20/25; Removal Time: 1202 06/20/25 1023 by Tracy Saleh MD 06/20/25 1202 by Tracy Saleh MD Peripheral IV Placement Date: 06/20/25; Placement Time: 1030 (created via procedure documentation); Catheter Size: 18 G; Orientation: Right; Location: Forearm; Site Prep: Alcohol; Local Anesth: None; Insertion Attempts: 1; Difficult Venous Access? No; Removal Date: 06/22/25; Removal Time: 14106/20/25 1030 by Tracy Saleh MD 06/22/25 141 by Lucero Morrison RN documented in this encounter Social History Tobacco Use Types Packs/Day Years Used Date Smoking Tobacco: Never Smokeless Tobacco: Never Alcohol Use Standard Drinks/Week Comments Yes 1 [...] often do you attend chur ch or yazidi services? Never 06/20/2025 Do you belong to any clubs o r organizations such as denominational groups, unions, fraternal or athletic groups, or [...] money to buy more. Never true 06/20/20 25 Ran Out of Food in the Last [...] any time in the past 12 m ont, were you homeless or living in a halfway (including now)? No 06/20/2025 Utilities Answer Date Recorded In the past 12 months has th e electric, gas, oil, or water company threatened to shut off services in your home? No 06/20/2025 Comments Unknown Sex and Gender Information Value Date Recorded Sex Assigned at Female 06/20/2025 2:51 PM EST Legal Sex Female 6:05 AM EST Gender Identity Female 06/20/2025 3:20 AM EST Sexual Orientation Straight 06/20/2025 2: 51 PM EST documented as of this encounter Functional Status * Are you deaf or do you have serious difficulty hearing? Answer Date of Assessment Author No 06/20/2025 8:39 AM Brady Weston RN * Are you blind or do you have serious difficulty seeing, even when wearing glasses? Answer Date of Assessment Author No 06/20/2025 8:39 AM Brady Weston RN * Do you have serious difficulty walking [...] 06/20/2025 8:39 AM Brady Weston RN documented as of this encounter Mental Status * Assessment Question Answer Entry Date Author Warming Device Off 06/20/2025 12:04 PM EST Tracy Craft MD * Because of a physical, mental, or emotional condition, do you have serious difficulty concentrating, remembering, or making decisions? Answer Entry Date Author No 06/20/2025 8:39 AM EST Brady Meek RN documented in this encounter Procedure Notes * Tracy Saleh MD - 06/20/2025 10:39 AM ESTAssociated Order(s): Peripheral IV Peripheral IV Date/Time: 06/20/2025 10:30 AM Placement Needle size: 18 G Laterality: right Location: forearm Local anesthetic: none Site prep: alcohol Technique: anatomical landmarks Attempts: 1 * Tracy Saleh MD - 06/20/2025 10:39 AM ESTAssociated Order(s): Airway Airway Date/Time: 06/20/2025 10:23 AM Location: OR Urgency: Elective Difficult Airway: No Induction Technique: Intravenous RSI: No Cricoid pressure: No ETT In Situ?: No Anesthesiologist: Becca Barksdale MD Resident/EMBOSSER APPRENTICE: Tracy Saleh MD Performed by: Resident/EMBOSSER APPRENTICE Becca Barksdale MD Indications for Airway Management: Anesthesia Preoxygenated: Yes Patient Position: Sniffing Mask Ventilation: Easy mask Final Airway Type: Endotracheal airway Final Endotracheal Airway: ETT Cuffed: Yes Stylet: Yes Technique Used for Successful ETT Placement: Direct laryngoscopy Insertion Site: Oral Blade Type: Norma Laryngoscope Blade/Video laryngoscope Blade Size: 3 ETT Size (mm): 7.0 Becca Barksdale MD Measured from: Lips ETT Depth (cm): 21 Placement Verified by: auscultation Cormack-Lehane Classification: Grade IIa - partial view of glottis Number of Attempts at Approach: 1 documented in this encounter Miscellaneous Notes * Anesthesia Postprocedure Evaluation - Tracy Saleh MD - 06/20/2025 12:25 PM EST Patient: Tanisha Reyes Procedure Summary Date: 06/20/25 Room / Location: [facility] OR [address] [place] [address] Operating Room Anesthesia Start: 1014 Anesthesia Stop: 1225 Procedure: Hemiarthroplasty, Hip, Bipolar or Unipolar (Left: Hip) Diagnosis: Closed fracture of neck of left femur, initial encounter (Closed fracture of neck of left femur, initial encounter [S72.002A]) Surgeons: Aime Keys MD Responsible Provider: Becca Barksdale MD Anesthesia Type: general ASA Status: 3 Anesthesia Type: general Vitals Value Taken Time BP 171/67 06/20/25 12:16 Temp 36.9 ??C (98.4 ??F) 06/20/25 12:10 Pulse 64 06/20/25 12:24 Resp 15 06/20/25 12:24 SpO2 100 % 06/20/25 12:24 Vitals shown include unfiled device data. Anesthesia Post Evaluation Note: Patient location during evaluation: PACU Patient participation: able to participate Level of consciousness: awake Cardiovascular and Hydration status: stable Respiratory Status Stable and Airway Patent: yes Nausea and Vomiting Control Satisfactory: yes Pain management: adequate Vitals reviewed: yes Unplanned ICU Admission: noComments: ST elevation intraop in lead V, 12 lead EKG did not show any ST elevation. Off pressors and hemodynamically stable. Patient denies chest pain and nausea. There were no known notable events for this encounter. 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 Patient with elevated troponin 22 and repeat after three hours at 23 presumably due to demand ischemia. Denies chest pain. Relevant Problems Musculoskeletal (+) Closed fracture of neck of left femur (+) Closed fracture of neck of left femur, initial encounter Clinical information reviewed: Diagnosis 1. Closed fracture of neck of left femur, initial encounter 2. Fall, initial encounter 3. Closed fracture of multiple ribs of right side, initial encounter Allergies Allergies[1] Past Medical History Medical History[2] Problem List Problem List[3] Past Surgical History Surgical History[4] Social History Social History[5] Medications: Prior to Admission Prescriptions Prior to Admission[6] Scheduled Scheduled Medications[7] Continuous Continuous Medications[8] PRN PRN Medications[9] Most Recent Labs Sodium Date/Time Value Ref Range Status 06/20/2025 01:49 AM 135 135 - 146 mmol/L Final Potassium Date/Time Value Ref Range Status 06/20/2025 01:49 AM 4.1 3.6 - 5.2 mmol/L Final Comment: Specimen hemolyzed result may be falsely increased up to 1.0 mmol/L. Chloride Date/Time Value Ref Range Status 06/20/2025 01:49 AM 98 98 - 110 mmol/L Final CO2 (Bicarbonate) Date/Time Value Ref Range Status 06/20/2025 01:49 AM 26 20 - 32 mmol/L Final BUN Date/Time Value Ref Range Status 06/20/2025 01:49 AM 15 6 - 24 mg/dL Final Creatinine Date/Time Value Ref Range Status 06/20/2025 01:49 AM 0.81 0.55 - 1.30 mg/dL Final Glucose Date/Time Value Ref Range Status 06/20/2025 01:49 AM 96 70 - 139 mg/dL Final WBC Date/Time Value Ref Range Status 06/20/2025 01:49 AM 7.2 4.0 - 11.0 K/uL Final Hemoglobin Date/Time Value Ref Range Status 06/20/2025 01:49 AM 13.2 11.0 - 16.0 g/dL Final Hematocrit Date/Time Value Ref Range Status 06/20/2025 01:49 AM 40.1 32.0 - 47.0 % Final Platelets Date/Time Value Ref Range Status 06/20/2025 01:49 AM 114 (L) 150 - 400 K/uL Final Protime Date/Time Value Ref Range Status 06/20/2025 01:49 AM 11.5 9.7 - 14.0 seconds Final INR Date/Time Value Ref Range Status 06/20/2025 01:49 AM 1.00 See Comment Final Comment: NORMAL PATIENTS NOT ON ANTICOAGULANTS: INR: 0.9-1.3 RECOMMENDED INR WITH WARFARIN/COUMADIN THERAPY: INR: 2.00-3.00 Deep vein thrombosis Atrial Fibrillation Tissue Prosthetic Valve Stroke Prevention INR:2.50-3.50 Mechanical Prosthetic Valve and Recurrent Systemic Embolism aPTT Date/Time Value Ref Range Status 06/20/2025 01:49 AM 29.7 25.7 - 35.7 Seconds Final ABORh Date/Time Value Ref Range Status 06/20/2025 01:49 AM A POS Final Status No results found for: PREGTESTUR , PREGSERUM , HCG , HCGQUANT , UHCGQL Cardiac No results found for this or any previous visit (from the past 4464 hours). TRANSTHORACIC ECHO (TTE) Result Date: 08/23/2024 Please see link for Cardiac Procedure Result Report under Order-Level Documents for the full result Allergies Meds Physical Exam Airway Mallampati: III TM distance: >3 FB Mouth opening: >3 FB Neck ROM: full Able to protrude mandible Cardiovascular - normal exam Rhythm: regular Rate: normal Comments: Independent lifestlye, walks to run errands, carries her own groceries Functional capacity: greater than or equal to 4 METS without symptoms Dental Comments: Partial dentures on upper jaw Pulmonary - normal exam Abdominal General Alert Anesthesia Plan ASA 3 NPO status verified general Airway: ETT Monitoring: standard monitors Postoperative Pain Control: IV/PO analgesics Multimodal PONV prophylaxis planned Essential imaging and labs available and reviewed Anesthetic plan and risks discussed with patient. Additional Equipment Requests [1] No Known Allergies [2] No past medical history on file. [3] Patient Active Problem List Diagnosis Closed fracture of neck of left femur [4] No past surgical history on file. [5] [6] (Not in a hospital admission) [7] [8] [9] PRN medications: [COMPLETED] Insert peripheral IV - Large Bore AND [COMPLETED] Saline lock IV AND sodium chloride 0.9 % documented in this encounter Plan of Treatment Upcoming Encounters Date Type Department Care Team (Late st Contact Info) Description 07/05/2025 10:15 AM EST Office Visit [facility] [address] [facility]th [place] [id number] Aime Keys MD [address] [facility] [address] [place] [id number] documented as of this encounter Goals Goal Patient Goal Type Associated Problems Recent Progress Patient-Stated? Author Autogenerat ed Goal Care Plan Autogenerated Problem No Julita Mustafa MD documented as of this encounter Procedures Procedure Name Priority Date/Time Associated Diagnosis Comments ANESTHESIA PERIPHERAL IV PLACEMENT Routine 06/20/2025 10:30 AM EST AN ELEC ENDOTRACHEAL AIRWAY NC Routine 06/20/2025 10:23 AM EST documented in this encounter Results * Peripheral IV (06/20/2025 10:30 AM EST) Narrative Tracy Saleh MD - 06/20/2025 10:30 AM EST Tracy Saleh MD 06/20/2025 10:39 AM Peripheral IV Date/Time: 06/20/2025 10:30 AM Placement Needle size: 18 G Laterality: right Location: forearm Local anesthetic: none Site prep: alcohol Technique: anatomical landmarks Attempts: 1 us Becca Barksdale MD ANESTHESIA ORDERABLES Final R esult * AN ELEC ENDOTRACHEAL AIRWAY NC (06/20/2025 10:23 AM EST) Narrative Tracy Saleh MD - 06/20/2025 10:23 AM EST Tracy Saleh MD 06/20/2025 10:39 AM Airway Date/Time: 06/20/2025 10:23 AM Location: OR Urgency: Elective Difficult Airway: No Induction Technique: Intravenous RSI: No Cricoid pressure: No ETT In Situ?: No Anesthesiologist: Becca Barksdale MD Resident/EMBOSSER APPRENTICE: Tracy Saleh MD Performed by: Resident/EMBOSSER APPRENTICE Becca Barksdale MD Indications for Airway Management: Anesthesia Preoxygenated: Yes Patient Position: Sniffing Mask Ventilation: Easy mask Final Airway Type: Endotracheal airway Final Endotracheal Airway: ETT Cuffed: Yes Stylet: Yes Technique Used for Successful ETT Placement: Direct laryngoscopy Insertion Site: Oral Blade Type: Norma Laryngoscope Blade/Video laryngoscope Blade Size: 3 ETT Size (mm): 7.0 Becca Barksdale MD Measured from: Lips ETT Depth (cm): 21 Placement Verified by: auscultation Cormack-Lehane Classification: Grade IIa - partial view of glottis Number of Attempts at Approach: 1 us Becca Barksdale MD ANESTHESIA ORDERABLES Final R esult documented in this encounter Visit Diagnoses Not on filedocumented in this encounter Administered Medications Inactive Administered Medications - up to 3 most recent administrations Medication Order MAR Action Action Date Dose Rate Site acetaminophen (Ofirmev) injection intravenous, Administer over 15 Minutes, As needed, Starting on Sofía 06/20/25 at 1140, Anesthesia Intraprocedure Given 06/20/2025 11:40 AM EST 1,000 mg ceFAZolin (Ancef) injection intravenous, As needed, Starting on Sofía 06/20/25 at 1035, Anesthesia Intraprocedure Given 06/20/2025 10:35 AM EST 1 g dexMEDEtomidine in NS (Precedex) injection intravenous, Administer over 10 Minutes, As needed, Starting on Sofía 06/20/25 at 1105, Anesthesia Intraprocedure Given 06/20/2025 11:05 AM EST 4 mcg fentaNYL (Sublimaze) injection intravenous, As needed, Starting on Sofía 06/20/25 at 1021, Anesthesia Intraprocedure Given 06/20/2025 10:21 AM EST 100 mcg HYDROmorphone (Dilaudid) injection intravenous, As needed, Starting on Sofía 06/20/25 at 1102, Anesthesia Intraprocedure Given 06/20/2025 11:02 AM EST 0.2 mg lactated Ringer's infusion 100 mL/hr, intravenous, Continuous, Starting on Sofía 06/20/25 at 0630 New Bag 06/20/2025 10:20 AM EST 50 mL/hr Continued by Anesthesia 06/20/2025 10:14 AM EST 100 mL/hr New Bag 06/20/2025 8:42 AM EST 100 mL/hr 100 mL/hr lidocaine PF (Xylocaine) 20 mg/mL (2 %) injection intravenous, As needed, Starting on Sofía 06/20/25 at 1021, Anesthesia Intraprocedure Given 06/20/2025 10:21 AM EST 40 mg norEPINEPHrine 4 mg/250 mL (16 mcg/mL) in D5W infusion intravenous, Continuous PRN, Starting on Sofía 06/20/25 at 1020, Anesthesia Intraprocedure Rate/Dose Change 06/20/2025 11:54 AM EST 0.05 mcg/kg/min 8.55 mL/hr Rate/Dose Change 06/20/2025 11:31 AM EST 0.14 mcg/kg/min 2 3.94 mL/hr Rate/Dose Change 06/20/2025 11:28 AM EST 0.12 mcg/kg/min 2 0.52 mL/hr phenylephrine in NS (Dejuan-Synephrine) syringe intravenous, As needed, Starting on Sofía 06/20/25 at 1024, Anesthesia Intraprocedure Given 06/20/2025 10:24 AM EST 80 mcg propofol (Diprivan) injection intravenous, As needed, Starting on Sofía 06/20/25 at 1021, Anesthesia Intraprocedure Given 06/20/2025 10:58 AM EST 20 mg Given 06/20/2025 10:21 AM EST 50 mg rocuronium (ZeMuron) injection intravenous, As needed, Starting on Sofía 06/20/25 at 1021, Anesthesia Intraprocedure Given 06/20/2025 10:21 AM EST 50 mg sodium chloride 0.9 % infusion intravenous, Continuous PRN, Starting on Sofía 06/20/25 at 1030, Anesthesia Intraprocedure New Bag 06/20/2025 10:30 AM EST sugammadex (Bridion) injection intravenous, As needed, Starting on Sofía 06/20/25 at 1153, Anesthesia Intraprocedure Given 06/20/2025 11:53 AM EST 100 mg tranexamic acid (Cyklokapron) injection intravenous, As needed, Starting on Sofía 06/20/25 at 1046, Anesthesia Intraprocedure Given 06/20/2025 10:46 AM EST 1,000 mg documented in this encounter Additional Health Concerns Active Problems Noted Date Diagnosed Date Autogenerated Problem 06/20/2025 documented as of this encounter Care Teams Production Posting Clerk Relationship Specialty Start Date End Date Unknown, Unknown PCP - General 06/20/25 documented as of this encounter
[2025-06-24 09:05] LABS: MANUAL DIFF FLAG NO
--- OUTSIDE RECORDS SUMMARY | 2025-06-24 09:20 | XMS_ITS ---
Author Organization [facility] Address [address] [place] [address] Care Team Providers Care Boot Trimmer Name Role Phone Ashwini Dutton MD Unavailable [phone] Ashwini Dutton MD Primary Care Provider Javad Camejo MD Unavailable [phone] Shahnaz Page MD Unavailable [phone] Jacob Najera MD Unavailable [phone] Dede Wall NP Unavailable Javad Camejo MD Unavailable [phone] Ashwini Dutton MD Unavailable [phone] Active Problems Problem Noted Date Diagnosed Date Bacteremia due to Streptococcus pneumoniae 08/26 Recurrent major depressive disorder, in remissio n 08/26/2024 History of ITP 08/26/2024 AMS (altered mental status) 08/24/2024 Altered mental status 08/23/2024 Acute metabolic encephalopathy 08/23/2024 Pseudophakia of both eyes 08/03/2024 Overview (08/03/2024): S/p YAG capsulotomy OU 2022 Assessment & Plan (08/03/2024 2:07 PM EST): Good post op appearance Presbyopia of both eyes 08/03/2024 Assessment & Plan (08/03/2024 2:07 PM EST): Spectacle Rx given to pt Dry eye syndrome of both eyes 08/03/2024 Assessment & Plan (08/03/2024 2:08 PM EST): Continue Refresh tear drops TID OU Gastroesophageal reflux disease 07/10/2024 Anxiety 07/10/2024 Concern about memory 05/02/2024 Overview (05/02/2024): MoCA 04/2024: 23/30 Iron deficiency anemia 12/12/2023 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 Pt was instructed to check an Amsler grid frequently, with advice to return immediately should it change. UV protection was recommended. Smoking status now and in the past was determined and advice based on the AREDS was provided regarding consumption of anti-oxidant supplements. Consumption of dark leafy green vegetables (i.e. Lutein) and fresh fruits of various colors was recommended. Patient was educated about importance of dilated eye exams. All questions were answered Neutropenia 07/02/2015 Overview (11/30/2023): Chemotherapy related? 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 Platelet count continues to be stable. No changes to the plan. - Continue eltrombopag - Continue to monitor platelet count every 3 months Assessment & Plan (01/14/2025 1:25 PM EDT): She continues on eltrombopag, with no issues. Platelet count continues to be stable. No changes to the plan. 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 SUV max ranging 2-5 and size ranging 1 to 4 cm. Bone marrow biopsy: BM FISH: A clonal B-cell population which is kappa restricted and CD5/CD10 negative is seen. A kappa restricted plasma cell population is also identified. The differential diagnosis includes marginal zone lymphoma and lymphoplasmacytic lymphoma. Correlation with clinical and bone marrow morphological findings is recommended. HYPERCELLULAR BONE MARROW WITH EXTENSIVE INVOLVEMENT BY A LOW-GRADE B-CELL LYMPHOPROLIFERATIVE DISORDER (SEE NOTE). Note: Given that a majority of the cells are CD5(-), CD10(-) B-cells, differential diagnostic considerations include marginal zone lymphoma, which is favored on cytomorphologic grounds, lymphoplasmacytic lymphoma, possible splenic lymphoma in the appropriate clinical context, and less likely atypical chronic lymphocytic leukemia/small lymphocytic lymphoma. FISH: 43% of the mononuclear interphase bone marrow cells examined in this CLL FISH panel had a probe signal pattern consistent with trisomy 12, which is a common cytogenetic feature of chronic lymphocytic leukemia (CLL) and other lymphoproliferative disorders. In CLL, trisomy 12 is associated with an intermediate to unfavorable prognosis. There is often an atypical immunophenotype and lymphocyte morphology. There was no evidence of deletion of 13q14 or the KERRY and TP53 genes. . Treatment Summary: 02/17/15: C1 Bendamustine 03/19/15: C1 Rituximab. Bendamustine held 03/19 due to low H/H and plts. 03/31/15: C2 Bendamustine/Rituximab given 04/30/15: C3 Rituximab. 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 Impression that her condition was similar to IgG LPL. Only 40% of such cases have MyD88 mutations compared to ~90% for IgM LPL. She has not had MyD88 status evaluated. She was managed with 3 cycles of Bendamustine and Rituximab in 2014 (stopped due to cytopenias). Her total IgG has decreased today. She is fortunately not anemic, and her renal function is normal. If she were to develop recurrent symptoms, worsening cytopenias (apart from ITP), or rapidly enlarging nodes/spleen that would be a reason to re-stage her with bone marrow biopsy and imaging and consider additional treatment. 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 Impression that her condition was similar to IgG LPL. Only 40% of such cases have MyD88 mutations compared to ~90% for IgM LPL. She has not had MyD88 status evaluated. She was managed with 3 cycles of Bendamustine and Rituximab in 2014 (stopped due to cytopenias). Her total IgG has decreased today. She is fortunately not anemic, and her renal function is normal. If she were to develop recurrent symptoms, worsening cytopenias (apart from ITP), or rapidly enlarging nodes/spleen that would be a reason to re-stage her with bone marrow biopsy and imaging and consider additional treatment. 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 IgG went from 2,190 to 2,332; FLC ratio is now 4.57, and her IgG kappa is measured at 1.3 g/dL (similar to Apr 2024). - Continue to follow labs twice yearly. 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 Impression that her condition was similar to IgG LPL. Only 40% of such cases have MyD88 mutations compared to ~90% for IgM LPL. She has not had MyD88 status evaluated. She was managed with 3 cycles of Bendamustine and Rituximab in 2014 (stopped due to cytopenias). Her IgG seems to be gradually rising, at 2.332 today. She is however fortunately not anemic, and her renal function is normal. If she were to develop recurrent symptoms, worsening cytopenias (apart from ITP), or rapidly enlarging nodes/spleen that would be a reason to re-stage her with bone marrow biopsy and imaging and consider additional treatment. 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 - Follow SPEP and FLC Vitamin D deficiency 01/30/2015 Anemia 01/30/2015 Herpesviral infection, unspecified 01/30/2015 Overview (11/30/2023): oral, above lip and in left nostril Hyponatremia 01/30/2015 Current Treatment and Therapy Plans BILH Line Flushes* Plan Start Date:12/13/2023 Plan Provider:Javad Camejo MD Linked Problems Low grade B-cell lymphoma (C MS-HCC)Anemia, unspecified type Treatment Medications sodium chloride (NS)sodium c hloride 0.9% (NS) Past Treatment and Therapy Plans Resolved Problems Problem Noted Date Diagnosed Date Resolved Date PCO (posterior capsular opacification), left 4 08/03/2024
--- OUTSIDE RECORDS SUMMARY | 2025-06-24 09:20 | XMS_ITS | Encounter Summary ---
Author Organization [facility] Address [address] [place] [address] Care Team Providers Care Change Management Administrator Name Role Phone Ashwini Dutton MD Unavailable [phone] Ashwini Dutton MD Primary Care Provider [phone] Javad Camejo MD Unavailable [phone] Shahnaz Page MD Unavailable [phone] Jacob Najera MD Unavailable [phone] Dede Wall NP Unavailable Javad Camejo MD Unavailable [phone] Ashwini Dutton MD Unavailable [phone] Justin Saucedo MD Unavailable Encounter Details Date Type Department Care Team (Late st Contact Info) Description 02/15/2024 Specialty Pharmacy [facility] [address] [facility] [place] [address] Vincent Strickland, Emily Social History Tobacco Use Types Packs/Day Years Used Date Smoking Tobacco: Never Assessed Comments Unknown Sex and Gender Information Value Date Recorded Sex Assigned at Female 08/11/2023 11:42 PM EST Legal Sex Female 11:42 PM EST Gender Identity Female 08/11/2023 11:42 PM EST Sexual Orientation Not on file documented as of this encounter Plan of Treatment Upcoming Encounters Date Type Department Care Team (Late st Contact Info) Description 07/11/2025 10:30 AM EST Office Visit [facility] 2nd [place] [address] Ashwini Dutton MD [facility] [address] [place] [address] In Person with Physician 07/22/2025 10:30 AM EST Lab [facility] Medical Oncology [address] [address] Javad Camejo MD [address] [place] [address] In Person with Resource 07/22/2025 11:00 AM EST Office Visit [facility] Medical Oncology [address] [address] Javad Camejo MD [address] [place] [address] Johan Malik MD [address] [place] [address] In Person with Physician 08/09/2025 10:30 AM EST Office Visit [facility] Optometry [address] [address] Cinthya Martinez, OD [address] [place] [address] [address] In Person with Fire Hazard Inspector 08/09/2025 10:45 AM EST Appointment [facility] Ophthalmology [address] [address] Cinthya Martinez, OD [address] [address] with Resource documented as of this encounter Visit Diagnoses Not on filedocumented in this encounter Additional Health Concerns Infection Onset Date Last Indicated Resolved Time Rule-Out Respiratory Virus 08/22/2024 08/22/2024 0 08/22/2024 10:03 PM EST Rule-Out Respiratory Virus 08/23/2024 08/23/2024 0 08/23/2024 12:48 AM EST documented as of this encounter Care Teams Change Management Administrator Relationship Specialty Start Date End Date Ashwini Dutton MD [facility] [address] [id number] PCP - Insurance Assigned PCP 08/31/23 Ashwini Dutton MD [facility] [address] [id number] PCP - General Internal Medicine 10/13/23 Javad Camejo MD [address] [place] [address] Consulting Provider Hematology 01/23/24 Shahnaz Page MD [address] [place] [address] Dermatology 03/10/20 Jacob Najera MD [address] [place] [address] Otolaryngology 03/10/20 Dede Wall NP [address] [place] [address] [address] [place] [address] Nurse Practitioner 08/09/22 Javad Camejo MD [address] [place] [address] Hematology 11/26/23 Ashwini Dutton MD [facility] [address] [place] [address] 08/31/23 Justin Saucedo MD [address] [place] [address] 9 [place] [address] Fellow Hematology/Oncology 05/07/24 04/16/25 documented as of this encounter
--- OUTSIDE RECORDS SUMMARY | 2025-06-24 09:20 | XMS_ITS | Encounter Summary ---
Author Organization [facility] Address [address] [place] [address] Care Team Providers Care Hospital Clerk Name Role Phone Ashwini Dutton MD Unavailable [phone] Ashwini Dutton MD Primary Care Provider [phone] Javad Camejo MD Unavailable [phone] Shahnaz Page MD Unavailable [phone] Jacob Najera MD Unavailable [phone] Dede Wall NP Unavailable Javad Camejo MD Unavailable [phone] Ashwini Dutton MD Unavailable [phone] Encounter Details Date Type Department Care Team (Latest Contact Info) Description 06/22/2025 Specialty Pharmacy [facility] [address] [facility] [address] [place], [place] [id number] Ivory Easton Refill Coordination - eltrombopag olamine (PROMACTA) for Blood Disorder Social History Tobacco Use Types Packs/Day Years Used Date Smoking Tobacco: Never Passive Smoke Exposure: Never Smokeless Tobacco: Never Alcohol Use Standard Drinks/Week Comments Never 0 (1 standard drink = 0.6 oz pur e alcohol) [facility] Utilities Answer Date Recorded In the past 12 months has [employer], [employer], oil, or water company threatened to shut off services in your home? No 08/23/2024 Humiliation, Afraid, Rape, and Kick questionnair e Answer Date Recorded Within the last year, have y ou been afraid of your partner or ex-partner? No 08/23/2024 Emotionally Abused Not on file 08/23/2024 Physically Abused Not on file 08/23/2024 Sexually Abused Not on file 08/23/2024 Overall Financial Resource Strain (CARDIA) Answe r Date Recorded How hard is it for you to pa y for the very basics like food, housing, medical care, and heating? Not hard at all 08/23/2024 Hunger Vital Sign Answer Date Recorded Within the past 12 months, y ou worried that your food would run out before you got the money to buy more. Never true 08/23/19 25 Ran Out of Food in the Last Year Not on file 08/23/2024 PRAPARE - Transportation Answer Date Re corded In the past 12 months, has l ack of transportation kept you from medical appointments or from getting medications? No 07/29 In the past 12 months, has l ack of transportation kept you from meetings, work, or from getting things needed for daily living? No 08/23/2024 Housing Stability Vital Sign Answer Silverio e Recorded In the last 12 months, was t here a time when you were not able to pay the mortgage or rent on time? No 08/23/2024 Number of Times Moved in the Last Year Not on fi le 08/23/2024 At any time in the past 12 m [facility], were you homeless or living in a half-way (including now)? No 08/23/2024 Food Insecurity Answer Date Recorded Within the past 12 months, y ou worried that your food would run out before you got the money to buy more. Never true 08/23/19 25 Ran Out of Food in the Last Year Not on file 08/23/2024 Intimate Partner Violence Answer Date R ecorded Emotionally Abused Not on file 08/23/2024 Within the last year, have y ou been afraid of your partner or ex-partner? No 08/23/2024 Physically Abused Not on file 08/23/2024 Sexually Abused Not on file 08/23/2024 Housing Stability Answer Date Recorded Unstable Housing in the Last Year Not on file 08/23/2024 In the last 12 months, was t here a time when you were not able to pay the mortgage or rent on time? No 08/23/2024 [address] Lived in the Last Year Not on f ile 08/23/2024 AUDIT C Answer Date Recorded How often have you had a dri nk containing alcohol, in the past year? 2 08/23/2024 How many standard drinks con taining alcohol have you had on a typical day when you are drinking, in the past year? 00 0 08/23/2024 How often have you had six o r more drinks on one occasion, in the past year? 0 08/23/2024 Comments Unknown Sex and Gender Information Value Date Recorded Sex Assigned at Female 08/11/2023 11:42 PM EST Legal Sex Female 11:42 PM EST Gender Identity Female 08/11/2023 11:42 PM EST Sexual Orientation Not on file documented as of this encounter Functional Status * Are you deaf or do you have serious difficulty hearing? Answer Date of Assessment Author Yes 12/01/2024 12:28 PM Josue So * Are you blind or do you have serious difficulty seeing, even when wearing glasses? Answer Date of Assessment Author Yes 12/01/2024 12:28 PM Josue So * Do you have serious difficulty walking or climbing stairs? Answer Date of Assessment Author No 12/01/2024 12:28 PM Josue So usana * Do you have difficulty dressing or bathing? Answer Date of Assessment Author No 12/01/2024 12:28 PM Josue So * Because of a physical, mental, or emotional condition, do you have difficulty doing errands alone such as visiting the doctor? Answer Date of Assessment Author No 12/01/2024 12:28 PM Josue So documented as of this encounter Mental Status * Because of a physical, mental, or emotional condition, do you have serious difficulty concentrating, remembering, or making decisions? Answer Entry Date Author No 12/01/2024 12:28 PM Josue So documented in this encounter Plan of Treatment Upcoming Encounters Date Type Department Care Team (Late st Contact Info) Description 07/11/2025 10:30 AM EST Office Visit [facility] 2nd [place] [address] Ashwini Dutton MD [facility] [address] [place] [address] In Person with Physician 07/22/2025 10:30 AM EST Lab [facility] Medical Oncology [address] [address] Javad Camejo MD [address] [place] [address] In Person with Resource 07/22/2025 11:00 AM EST Office Visit [facility] Medical Oncology [address] [address] Javad Camejo MD [address] [place] [address] Johan Malik MD [address] [place] [address] In Person with Physician 08/09/2025 10:30 AM EST Office Visit [facility] Optometry [address] [address] Cinthya Martinez, OD [address] [address] In Person with Scrap Burner 08/09/2025 10:45 AM EST Appointment [facility] Ophthalmology [address] [address] Cinthya Martinez, OD [address] [address] with Resource documented as of this encounter Visit Diagnoses Not on filedocumented in this encounter Care Teams Hospital Clerk Relationship Specialty Start Date End Date Ashwini Dutton MD [facility] [address] [place] [address] PCP - Insurance Assigned PCP 08/31/23 Ashwini Dutton MD [facility] [address] [place] [address] PCP - General Internal Medicine 10/13/23 Javad Camejo MD [address] [place] [address] Consulting Provider Hematology 01/23/24 Shahnaz Page MD [address] [place] [address] Dermatology 03/10/20 Jacob Najera MD [address] [place] [address] Otolaryngology 03/10/20 Dede Wall NP [address] [place] [address] [address] [place] [address] Nurse Practitioner 08/09/22 Javad Camejo MD [address] [place] [address] Hematology 11/26/23 Ashwini Dutton MD [facility] [address] [place] [address] 08/31/23 documented as of this encounter
--- OUTSIDE RECORDS SUMMARY | 2025-06-24 09:20 | XMS_ITS | Encounter Summary ---
Author Organization Jenny Riggins melinda Address [address] [place] [address] Care Team Providers Care Typewriter Assembly And Parts Inspector Name Role Phone Ashwini Dutton MD Unavailable [phone] Ashwini Dutton MD Primary Care Provider [phone] Javad Camejo MD Unavailable [phone] Shahnaz Page MD Unavailable [phone] Jacob Najera MD Unavailable [phone] Dede Wall NP Unavailable Javad Camejo MD Unavailable [phone] Ashwini Dutton MD Unavailable [phone] Justin Saucedo MD Unavailable Encounter Details Date Type Department Care Team (Late st Contact Info) Description 11/27/2024 Telephone [facility] Medical Oncology [facility] [address] [place] [address] Unknown, Provider, [address] [place] [address] Social History Tobacco Use Types Packs/Day Years Used Date Smoking Tobacco: Never Alcohol Use Standard Drinks/Week Comments Never 0 (1 standard drink = 0.6 oz pur e alcohol) [facility] Utilities Answer Date Recorded In the past 12 months has Mobile [employer], oil, or water [employer] threatened to shut off services in your [...] any time in the past 12 m [facility], were you homeless or living in a [...] hearing? Answer Date of Assessment Author No 08/22/2024 10:04 PM Bess Devlin * Are you blind or do you have serious difficulty seeing, even when wearing glasses? Answer Date of Assessment Author No 08/22/2024 10:04 PM Bess Devlin * Do you have serious difficulty walking or climbing stairs? Answer Date of Assessment Author No 08/22/2024 10:04 PM Bess Devlin * Do you have difficulty dressing or bathing? Answer Date of Assessment Author No 08/22/2024 10:04 PM Bess Devlin * Because of a physical, mental, or emotional condition, do you have difficulty doing errands alone such as visiting the doctor? Answer Date of Assessment Author No 08/22/2024 10:04 PM Bess Devlin documented as of this encounter Mental Status * Because of a physical, mental, or emotional condition, do you have serious difficulty concentrating, remembering, or making decisions? Answer Entry Date Author No 08/22/2024 10:04 PM Bess Devlin documented in this encounter Plan of Treatment Upcoming Encounters Date Type Department Care Team (Late st Contact Info) Description 07/11/2025 10:30 AM EST Office Visit [facility] Gerontology [facility] 2nd [place] [address] Ashwini Dutton MD [facility] [address] [place] [address] In Person with Physician 07/22/2025 10:30 AM EST Lab [facility] Medical Oncology [address] [address] Javad Camejo MD [address] [place] [address] In Person with Resource 07/22/2025 11:00 AM EST Office Visit [facility] Medical Oncology [address] [address] Javad Camejo MD [address] [place] [address] Johan Malik MD [address] [place] [address] In Person with Physician 08/09/2025 10:30 AM EST Office Visit [facility] Optometry [address] [address] Cinthya Martinez, OD [address] [address] In Person with Level Vial Inside Grinder 08/09/2025 10:45 AM EST Appointment [facility] Ophthalmology [address] [address] Cinthya Martinez, OD [address] [address] with Resource documented as of this encounter Visit Diagnoses Not on filedocumented in this encounter Care Teams Typewriter Assembly And Parts Inspector Relationship Specialty Start Date End Date Ashwini Dutton MD [facility] [address] [place] [address] PCP - Insurance Assigned PCP 08/31/23 Ashwini Dutton MD [facility] [address] [place] [address] PCP - General Internal Medicine 10/13/23 Javad Camejo MD [address] [place] [address] Consulting Provider Hematology 01/23/24 Shahnaz Page MD [address] [place] [address] Dermatology 03/10/20 Jacob Najera MD [address] [place] [address] Otolaryngology 03/10/20 Dede Wall NP [address] [place] [address] [address] [place] [address] Nurse Practitioner 08/09/22 Javad Camejo MD [address] [place] [address] Hematology 11/26/23 Ashwini Dutton MD [facility] [address] [place] [address] 08/31/23 Justin Saucedo MD [address] [place] [address] Fellow Hematology/Oncology 05/07/24 04/16/25 documented as of this encounter
--- OUTSIDE RECORDS SUMMARY | 2025-06-24 09:20 | XMS_ITS | Encounter Summary ---
Author Organization [facility] Address [address] [place] [address] Care Team Providers Care Telecommunications Network Engineer Name Role Phone Ashwini Dutton MD Unavailable [phone] Ashwini Dutton MD Primary Care Provider [phone] Javad Camejo MD Unavailable [phone] Shahnaz Page MD Unavailable [phone] Jacob Najera MD Unavailable [phone] Dede Wall NP Unavailable Javad Camejo MD Unavailable [phone] Ashwini Dutton MD Unavailable [phone] Encounter Details Date Type Department Care Team (Late st Contact Info) Description 06/19/2025 Specialty Pharmacy [facility] [address] [facility] [address] [place], [place] [id number] Tejal Alvarado RPHT Social History Tobacco Use Types Packs/Day Years Used Date Smoking Tobacco: Never Passive Smoke Exposure: Never Smokeless Tobacco: Never Alcohol Use Standard Drinks/Week Comments Never 0 (1 standard drink = 0.6 oz pur e alcohol) [facility] Utilities Answer Date Recorded In the past 12 months has [email or web address] electric, gas, oil, or water company threatened [...] in the past 12 m [facility], were you homeless or living in a long term (including now)? No 08/23/2024 Food Insecurity Answer [...] Author Yes 12/01/2024 12:28 PM Josue So usana * Do you have serious difficulty walking or climbing stairs? Answer Date of Assessment Author No 12/01/2024 12:28 PM DONNIE Gray S mohanna * Do you have difficulty dressing or bathing? Answer Date of Assessment Author No 12/01/2024 12:28 PM Josue So usana * Because of a physical, mental, or [...] Description 07/11/2025 10:30 AM EST Office Visit [facility] Gerontology [facility] 2nd [place] [address] Ashwini Dutton MD [facility] [address] [place] [address] In Person with Physician 07/22/2025 10:30 AM EST Lab [facility] Medical Oncology [address] [address] Javad Camejo MD [address] [place] [address] In Person with Resource 07/22/2025 11:00 AM EST Office Visit [facility] Medical Oncology [address] [address] Javad Camejo MD [address] [place] [address] Johan Malik MD [address] [place] [address] In Person with Physician 08/09/2025 10:30 AM EST Office Visit [facility] Optometry [address] [address] Cinthya Martinez, OD [address] [address] In Person with Grinder Outside Diameter 08/09/2025 10:45 AM EST Appointment [facility] Ophthalmology [address] [address] Cinthya Martinez, OD [address] [address] with Resource documented as of this encounter Visit Diagnoses Not on filedocumented in this encounter Care Teams Telecommunications Network Engineer Relationship Specialty Start Date End Date Ashwini Dutton MD [facility] [address] [place] [address] PCP - Insurance Assigned PCP 08/31/23 Ashwini Dutton MD [facility] [address] [place] [address] PCP - General Internal Medicine 10/13/23 Javad Camejo MD [address] [place] [address] Consulting Provider Hematology 01/23/24 Shahnaz Page MD [address] [place] [address] Dermatology 03/10/20 Jacob Najera MD [address] [place] [address] Otolaryngology 03/10/20 Dede Wall NP [address] [place] [address] [address] [place] [address] Nurse Practitioner 08/09/22 Javad Camejo MD [address] [place] [address] Hematology 11/26/23 Ashwini Dutton MD [facility] [address] [place] [address] 08/31/23 documented as of this encounter
--- OUTSIDE RECORDS SUMMARY | 2025-06-24 09:20 | XMS_ITS | Clinical Summary ---
Author Organization [facility] Address [address] [place] [address] Care Team Providers Care Maintenance Groundman Name Role Phone None Primary Care Provider Unavailabl e Allergies No known active allergies Medications No known medications Active Problems Problem Noted Date Diagnosed Date Actinic keratoses 07/29/2017 Elevated blood pressure read ing without diagnosis of hypertension 07/29/2017 Lymphoma in remission 09/13/2016 Annual physical exam 09/13/2016 Social History Tobacco Use Types Packs/Day Years Used Date Smoking Tobacco: Never Smokeless Tobacco: Never Tobacco Cessation:Counseling Given: No Comments No Sex and Gender Information Value Date Recorded Sex Assigned at Not on file Legal Sex Female 9:46 PM EDT Gender Identity Not on file Sexual Orientation Not on file Last Filed Vital Signs Vital Sign Reading Time Taken Comments Blood Pressure 144/84 07/29/2017 4:25 PM EST Pulse 63 07/29/2017 4:25 PM EST Temperature 36.3 C (97.3 F) 10/03/2008 10:30 AM EDT Respiratory Rate - - Oxygen Saturation 100% 07/29/2017 4:25 PM EST Inhaled Oxygen Concentration - - Weight 53.1 kg (117 lb) 07/29/2017 4:25 PM EST Height 160.5 cm (5' 3.2 ) 09/13/2016 1:56 PM EDT Body Mass Index 20.59 09/13/2016 1:56 PM EDT Plan of Treatment Health Maintenance Due Date Last Done Comments TETANUS VACCINE (1 - Tdap) 1957 PNEUMOCOCCAL VACCINE SERIES 50+ (1 of 1 - PCV) 1989 ZOSTER VACCINE (1 of 2) 1989 BONE DENSITY 2004 RSV OR 60+ (1 - 1-dose 75+ series) 2014 HEALTH CARE PROXY 09/15/2017 09/15/2016, 09/13/2016 (Completed at [facility]) FALL RISK ASSESSMENT: OVER 65 07/29/2018 (Completed at [facility]) COVID-19 Vaccine (4 - 2024-2 6 season) 2025 06/22/2021, 08/26/2020, 08/05/2020 INFLUENZA VACCINE (#1) 2025 8 (Discussed/Declined (reset due date to next due date per frequency)) PHYSICAL EXAM Completed 07/29/2017 HPV VACCINE SERIES Aged Out No longer eligible based on patient's age to complete this topic MENINGOCOCCAL (MCV4) VACCINE SERIES Aged Out No longer eligible b ased on patient's age to complete this topic MENINGOCOCCAL B VACCINE SERIES Aged Out No longer eligible based on patient's age to complete this topic Insurance MEDICARE COMPLETE Care Teams Maintenance Groundman Relationship Specialty Start Date End Date None PCP - General 10/19/23
--- OUTSIDE RECORDS SUMMARY | 2025-06-24 09:20 | XMS_ITS | Clinical Summary ---
Author Organization Jenny Riggins melinda Address [address] [place] [id number] Care Team Providers Care Delicatessen Store Manager Name Role Phone Ashwini Dutton MD Unavailable [phone] Ashwini Dutton MD Primary Care Provider [phone] Javad Camejo MD Unavailable [phone] Shahnaz Page MD Unavailable [phone] Jacob Najera MD Unavailable [phone] Dede Wall NP Unavailable Javad Camejo MD Unavailable [phone] Ashwini Dutton MD Unavailable [phone] Allergies No known active allergies Medications clobetasoL (TEMOVATE) 0.05 % cream Apply topically every morning & every evening. 60 g 12/02/19 25 Active eltrombopag olamine (PROMACTA) 50 MG tabletIndications:Im mune thrombocytopenic purpura (CMS-HCC) Take 1 tablet (50 mg total) by mouth daily. 30 tablet 11 05/28/2025 10:02 AM EST 12/26/19 25 Active furosemide (LASIX) 20 MG tablet HALF tablet once a day (morning) daily for 1 week. 45 tablet 1 01/03/20 25 Active lisinopriL (ZESTRIL) 20 MG tabletIndications:Hy pertension, unspecified type Take 1 tablet (20 mg total) by mouth in the morning. 90 tablet 2 05/20/20 25 Active amLODIPine (NORVASC) 10 MG tablet Take 1 tablet (10 mg total) by mouth in the morning. 90 tablet 05/22/20 25 026 Active escitalopram oxalate (LEXAPRO) 10 MG tablet Take 1 tablet (10 mg total) by mouth in the morning. 90 tablet 2 05/22/20 25 Active Active Problems Problem Noted Date Diagnosed Date [...] 3 cycles of Bendamustine and Rituximab in 2015 (stopped due to cytopenias). Her IgG seems [...] lip and in left nostril Hyponatremia 01/30/2015 Resolved Problems Problem Noted Date Diagnosed Date Resolved Date PCO (posterior capsular opacification), left 4 08/03/2024 Encounters Date Type Department Care Team Description 06/22/2025 Specialty Pharmacy [facility] [address] [place] [address] Ivory Easton Refill Coordination - eltrombopag olamine (PROMACTA) for Blood Disorder 06/19/2025 Specialty Pharmacy [facility] [address] [place] [address] [phone] Tejal Alvarado RPHT 06/18/2025 Specialty Pharmacy [facility] [address] [place] [address] Patricia West PharmD Refill Coordination - eltrombopag olamine (PROMACTA) for Blood Disorder, Specialty Medication Reassessment (90 day Recurrence) - eltrombopag olamine (PROMACTA) for Blood Disorder 05/27/2025 Specialty Pharmacy [facility] [address] [place] [address] Bryon Moreland RPHT Refill Coordination - eltrombopag olamine (PROMACTA) for Blood Disorder 05/27/2025 Specialty Pharmacy [facility] [address] [place] [address] Bryon Moreland, RPHT Refill Coordination - eltrombopag olamine (PROMACTA) for Blood Disorder 05/22/2025 Refill [facility] [address] [place] 05/20/[address] [address] [place] Hypertension, unspecified type 04/29/2025 Specialty Pharmacy [facility] [address] [place] [address] Dahlia Jackson, SCARIFIER OPERATOR Refill Coordination - eltrombopag olamine (PROMACTA) for Blood Disorder 04/15/2025 11:30 AM EDT Office Visit [facility] Medical Oncology [address], [address] [place] [address] Javad Camejo MD Martins de Oliveira Filho, [place]om[place], MD Low grade B-cell lymphoma (CMS-HCC) (Primary Dx); Thrombocytopenic purpura (CMS-HCC); Monoclonal (M) protein disease, multiple 'M' protein; Hypertension, unspecified type; Leg edema, right; Other fatigue 04/15/2025 11:00 AM EDT Lab [facility] Oncology [address] [address] Javad Camejo MD Low grade B-cell lymphoma (CMS-HCC); Leg edema, right; Monoclonal (M) protein disease, multiple 'M' protein; Other fatigue 04/01/2025 Specialty Pharmacy [facility] [address] [place] [address] Carolina Weir Refill Coordination - eltrombopag olamine (PROMACTA) for Blood Disorder 03/28/2025 Plan of Care Documentation [facility] [address] [place] [address] 03/28/2025 Specialty Pharmacy [facility] [address] [facility] [place] [address] Hung Mane, PharmD Refill Coordination - eltrombopag olamine (PROMACTA) for Blood Disorder, Specialty Medication Reassessment (90 day Recurrence) - eltrombopag olamine (PROMACTA) for Blood Disorder from Last 3 Months Immunizations Immunization Administration Dates Next Due COVID-19 Vaccine (PFIZER) Original Formulation (prior to Jun 2021) 06/22/2021,08/26/2020,08/05/2020 Family History Relation Status Comments Father at 78 chf Mother at 70. was smoker Social History Tobacco Use Types Packs/Day Years Used Date Smoking Tobacco: Never Passive Smoke Exposure: Never Smokeless Tobacco: Never Tobacco Cessation:Counseling Given: Not Answered Alcohol Use Standard Drinks/Week Comments Never 0 (1 standard drink = 0.6 oz pur e alcohol) [facility] Utilities Answer Date Recorded In the past 12 months has e [employer], [employer], oil, or water [employer] threatened to shut off services in your [...] any time in the past 12 m [facility], were you homeless or living in a snf (including now)? No 08/23/2024 Food Insecurity Answer [...] PM EST Sexual Orientation Not on file Last Filed Vital Signs Vital Sign Reading Time Taken Comments Blood Pressure 172/70 04/15/2025 11:37 AM EDT took it twice. second bp: 173/63. [place]ton notified Pulse 73 04/15/2025 11:36 AM EDT Temperature 37.2 C (98.9 F) 04/15/2025 11:36 AM EDT Respiratory Rate 16 04/15/2025 11:3 6 AM EDT Oxygen Saturation 100% 04/15/2025 11: 36 AM EDT Inhaled Oxygen Concentration - - Weight 45.6 kg (100 lb 8 oz) 04/15/2025 11:36 AM EDT Height 154.9 cm (5' 1 ) 04/15/2025 11:3 6 AM EDT Body Mass Index 18.99 04/15/2025 11:36 AM EDT Plan of Treatment Upcoming Encounters Date Type Department Care Team (Late st Contact Info) Description 07/11/2025 10:30 AM EST Office Visit [facility] [address] [place] [address] Ashwini Dutton MD [facility] [address] [place] [address] In Person with Physician 07/22/2025 10:30 AM EST Lab [facility] Medical Oncology [address] [place] [address] Javad Camejo MD [address] [place] [address] In Person with Resource 07/22/2025 11:00 AM EST Office Visit [address] [place] [address] Javad Camejo MD [address] [place] [address] Johan Malik MD [address] [place] [address] In Person with Physician 08/09/2025 10:30 AM EST Office Visit [facility] Optometry [address], [address] [place] [address] Cinthya Martinez OD [address] [place] [address] [place] [address] In Person with Agronomy Instructor 08/09/2025 10:45 AM EST Appointment [facility] Ophthalmology [facility] Clinical Center [address], 5th [place] [address] JuanCinthya, OD [address] [place] [address] with Resource Health Maintenance Due Date Last Done Comments Depression Screening 1952 DTaP,Tdap,and Td Vaccines (1 - Tdap) 1959 Pneumococcal Vaccine: 50+ Years (1 of 2 - PCV) 1959 Zoster Vaccine (1 of 2) 1959 Osteoporosis Screening 2004 COVID-19 Vaccine (4 - 2024-2 6 season) 2025 06/22/2021, 08/26/2020, 08/05/2020 Influenza Vaccine (#1) 2025 Blood Pressure 04/15/2026 04/15/2025 Meningococcal B Vaccines Aged Out No longer eligible based on patient's age to complete this topic Meningococcal Vaccines Aged Out No lo nger eligible based on patient's age to complete this topic Procedures Procedure Name Priority Date/Time Associated Diagnosis Comments CBC AND DIFFERENTIAL STAT 04/15/2025 10:42 AM EDT Low grade B-cell lymphoma (CMS-HCC) Leg edema, right TSH STAT 04/15/2025 10:42 AM EDT Other fatigue IGG, IGA, IGM QUANT Routine 04/15/2025 1 0:42 AM EDT Monoclonal (M) protein disease, multiple 'M' protein FREE LIGHT CHAINS,KAPPA/LAMBDA, BLOOD Routine 04/15/2025 10:42 AM EDT Monoclonal (M) protein disease, multiple 'M' protein PROTEIN ELECTROPHERESIS, SERUM Routine 04/15/2025 10:42 AM EDT Monoclonal (M) protein disease, multiple 'M' protein CBC AND DIFFERENTIAL STAT 04/15/2025 10:42 AM EDT Low grade B-cell lymphoma (CMS-HCC) Leg edema, right PROTEIN ELECTROPHORESIS, SERUM Routine 04/15/2025 10:42 AM EDT Monoclonal (M) protein disease, multiple 'M' protein LACTATE DEHYDROGENASE STAT 04/15/2025 10:42 AM EDT Low grade B-cell lymphoma (CMS-HCC) Leg edema, right ONCOLOGY METABOLIC PROFILE, PLASMA STAT 04/15/2025 10:42 AM EDT Low grade B-cell lymphoma (CMS-HCC) Leg edema, right from Last 3 Months Results * Protein Electrophoresis, Serum (04/15/2025 10:42 AM EDT) Protein Electrophoresis, Pathologist Interpretation An abnormal band is present in the gamma region. It was identified previously by immunofixation as a monoclonal IgG kappa (it was also previously described as near the cathodal edge but it is better described as 'mid-gamma').By densitometry the band accounts for, roughly,12% (888 mg/dl) of total protein. Clinical hx of note for a dx of low-grade lymphoma. 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 The most recent heme consult note considers the monoclonal might reflect either MGUS or SMM. Interpreted by Francisco Mai MD 04/16/2025 9:38 PM EDT [facility] Total Protein 7.4 6.4 - 8.3 g/dL 04/16/2025 9:38 PM EDT [facility] Albumin, Blood 4.2 3.5 - 5.2 g/dL 04/16/2025 9:38 PM EDT [facility] Blood Venipuncture / Unknown 04/15/2025 10:42 AM EDT 04/15/2025 10:53 AM EDT us Javad Camejo MD LAB BLOOD ORDERABLES Final Resu lt [facility] [address] [place] [address], [place] * (ABNORMAL) CBC and Differential (04/15/2025 10:42 AM EDT) WBC 5.63 4.00 - 10.00 K/uL 04/15/2025 10:53 AM EDT [facility] RBC 3.91 3.90 - 5.20 M/uL 04/15/2025 10:53 AM EDT [facility] Hemoglobin 11.5 11.2 - 15.7 g/dL 04/15/2025 10:53 AM EDT [facility] Hematocrit 35.5 34.0 - 45.0 % 04/15/2025 10:53 AM EDT [facility] MCV 91 82 - 98 fL 04/15/2025 10:53 AM EDT [facility] MCH 29.4 26.0 - 32.0 pg 04/15/2025 10:53 AM EDT [facility] MCHC 32.4 32.0 - 37.0 g/dL 04/15/2025 10:53 AM EDT [facility] RDW 12.9 10.5 - 15.5 % 04/15/2025 10:53 AM EDT [facility] RDW-SD 42.3 35.1 - 46.3 fL 04/15/2025 10:53 AM EDT [facility] Platelet Count 240 150 - 400 K/uL 04/15/2025 10:53 AM EDT [facility] Nucleated RBC 0 <=0 #/100 WBC 04/15/2025 10:53 AM EDT [facility] Neutrophil 84.2(H) 34.0 - 71.0 % 04/15/2025 10:53 AM EDT [facility] Lymphocyte 6.2(L) 19.0 - 53.0 % 04/15/2025 10:53 AM EDT [facility] Monocyte 8.5 5.0 - 13.0 % 04/15/2025 10:53 AM EDT [facility] Eosinophil 0.5(L) 1.0 - 7.0 % 04/15/2025 10:53 AM EDT [facility] Basophil 0.4 0.0 - 1.0 % 04/15/2025 10:53 AM EDT [facility] Immature Granulocyte ([place], Myelo, Promyelocyte) 0.2 0.0 - 0.6 % 04/15/2025 10:53 AM EDT [facility] Absolute Neutrophil Count 4.74 1.60 - 6.10 K/uL 04/15/2025 10:53 AM EDT [facility] Absolute Lymphocyte Count 0.35(L) 1.20 - 3.70 K/uL 04/15/2025 10:53 AM EDT [facility] Absolute Monocyte Count 0.48 0.20 - 0.80 K/uL 04/15/2025 10:53 AM EDT [facility] Absolute Eosinophil Count 0.03(L) 0.04 - 0.54 K/uL 04/15/2025 10:53 AM EDT [facility] Absolute Basophil Count 0.02 0.01 - 0.08 K/uL 04/15/2025 10:53 AM EDT [facility] Absolute Immature Granulocyte ([place], Myelo, Promyelocyte) 0.01 0.00 - 0.09 K/uL 04/15/2025 10:53 AM EDT [facility] Blood PERIPHERAL BLOOD SPECIMEN / Unknown Venipuncture / Unknown 04/15/2025 10:42 AM EDT 04/15/2025 10:45 AM EDT us Javad Camejo MD LAB BLOOD ORDERABLES Final Resu lt [facility] [address] [place] [address], * (ABNORMAL) Oncology Metabolic Profile, Plasma (04/15/2025 10:42 AM EDT) Sodium 130(L) 135 - 147 mmol/L 04/15/2025 11:38 AM EDT [facility] Potassium 4.1 3.5 - 5.4 mmol/L 04/15/2025 11:38 AM EDT [facility] Chloride 92(L) 96 - 108 mmol/L 04/15/2025 11:38 AM EDT [facility] Total CO2/Bicarbonate 24 22 - 32 mmol/L 04/15/2025 11:38 AM [facility] BUN 12 6 - 20 mg/dL 04/15/2025 11:38 AM [facility] Creatinine, Blood 0.70 0.40 - 1.10 mg/dL 04/15/2025 11:38 AM [facility] Glucose, Blood 89 70 - 100 mg/dL 04/15/2025 11:38 AM [facility] Calcium 8.7 8.4 - 10.3 mg/dL 04/15/2025 11:38 AM [facility] Total Protein 7.8 6.4 - 8.3 g/dL 04/15/2025 11:38 AM [facility] Albumin, Blood 4.1 3.5 - 5.2 g/dL 04/15/2025 11:38 AM [facility] Globulin Result 3.7 2.0 - 4.0 g/dL 04/15/2025 11:38 AM [facility] AST (SGOT) 21 0 - 40 U/L 04/15/2025 11:38 AM [facility] ALT (SGPT) 12 0 - 40 U/L 04/15/2025 11:38 AM [facility] Alkaline Phosphatase 63 35 - 105 U/L 04/15/2025 11:38 AM [facility] Total Bilirubin 0.7 0.0 - 1.5 mg/dL 04/15/2025 11:38 AM [facility] Uric Acid,Blood 3.7 2.4 - 5.7 mg/dL 04/15/2025 11:38 AM [facility] Phosphorus 3.0 2.7 - 4.5 mg/dL 04/15/2025 11:38 AM [facility] Magnesium, Blood 2.0 1.6 - 2.6 mg/dL 04/15/2025 11:38 AM [facility] Estimated GFR(CKD-EPI) 85 mL/min/BSA 04/15/2025 11:38 AM [facility] Comment:Chronic Kidney Disea se Epidemiology Collaboration (CKD-EPI) 2020 Creatinine Equation Anion Gap 14 4 - 16 mmol/L 04/15/2025 11:38 AM [facility] Blood PERIPHERAL BLOOD SPECIMEN / Unknown Venipuncture / Unknown 04/15/2025 10:42 AM EDT 04/15/2025 10:45 AM EDT us Javad Camejo MD LAB BLOOD ORDERABLES Final Resu lt Performing Organization Address [facility] de Phone Number [facility] [address] [place] [address], [place] * (ABNORMAL) Free Light Chains, [place]/Lambda, Blood (04/15/2025 10:42 AM EDT) [place] Free Lt Chn Bld 44.60(H) 3.30 - 19.40 mg/L 04/15/2025 11:47 AM EDT [facility] Comment:Measured by Binding [employer] s Optilite Analyzer. Patient results determined by different manufacturers or methods may not be comparable. Lambda Free Lt Chn Bld 11.59 5.70 - 26.30 mg/L 04/15/2025 11:47 AM EDT [facility] Comment:Measured by Binding Site s Optilite Analyzer. Patient results determined by different manufacturers or methods may not be comparable. [place]/Lambda Free Lt Chn Ratio 3.85(H) 0.26 - 1.65 ratio 04/15/2025 11:47 AM EDT [facility] Blood Venipuncture / Unknown 04/15/2025 10:42 AM EDT 04/15/2025 10:53 AM EDT us Javad Camejo MD LAB BLOOD ORDERABLES Final Resu lt Performing Organization Address [facility] Co de Phone Number [facility] [address] [place] [address], [place] * (ABNORMAL) IgG, IgA, IgM Quantitative (04/15/2025 10:42 AM EDT) IgG, Blood 2,097(H) 700 - 1,600 mg/dL 04/15/2025 12:52 PM EDT [facility] IgA, Blood 25(L) 70 - 400 mg/dL 04/15/2025 12:52 PM EDT [facility] IgM, Blood 70 40 - 230 mg/dL 04/15/2025 12:52 PM EDT [facility] Blood Venipuncture / Unknown 04/15/2025 10:42 AM EDT 04/15/2025 10:53 AM EDT Javad Camejo MD LAB BLOOD ORDERABLES Final Resu lt Performing Organization Address [facility]/ZIP Co de Phone Number [facility] [address] [place] [address], * TSH (04/15/2025 10:42 AM EDT) TSH 1.10 0.27 - 4.20 uIU/mL 04/15/2025 12:58 PM EDT [facility] Blood Venipuncture / Unknown 04/15/2025 10:42 AM EDT 04/15/2025 10:53 AM EDT Javad Camejo MD LAB BLOOD ORDERABLES Final Resu lt Performing Organization Address [facility] Co de Phone Number [facility] [address] [place] [address], * Lactate Dehydrogenase (04/15/2025 10:42 AM EDT) Lactate Dehydrogenase (LDH) 198 94 - 250 U/L 04/15/2025 11:38 AM EDT [facility] Blood PERIPHERAL BLOOD SPECIMEN / Unknown Venipuncture / Unknown 04/15/2025 10:42 AM EDT 04/15/2025 10:45 AM EDT Javad Camejo MD LAB BLOOD ORDERABLES Final Resu lt Performing Organization Address [facility] Co de Phone Number [facility] [address] [place] [address], from Last 3 Months Insurance MEDICARE ADVANTAGE Advance Directives Documents on File Type Date Recorded Patient Steam Tunnel Feeder Expl anation Health Care Proxy 03/17/2022 12:00 AM [place] Care Planning_HEALTH CARE PROXY * Full Code (Latest Code Status on File) Date Activated Date Inactivated Comments 08/23/2024 12:08 PM 12/01/2024 8:36 AM Question Answer Comments Discussed with/per: Patient Healthcare Agents on File Name Relationship Healthcare Agent Relationship Communication TYSON Abdirahman Daughter Health Care Agent [email or web address] Care Teams Delicatessen Store Manager Relationship Specialty Start Date End [place] [address] PCP - Insurance Assigned PCP 08/31/23 Ashwini Dutton MD [facility] [address] [place] [address] PCP - General Internal Medicine 10/13/23 Javad Camejo MD [address] [place] [address] Consulting Provider Hematology 01/23/24 Shahnaz Page MD [address] [place] [address] Dermatology 03/10/20 Jacob Najera MD [address] [place] [address] Otolaryngology 03/10/20 Dede Wall NP [address] [place] [address] [address] [place] [address] Nurse Practitioner 08/09/22 Javad Camejo MD [address] [place] [address] Hematology 11/26/23 Ashwini Dutton MD [facility] [address] [place] [address] 08/31/23
--- OUTSIDE RECORDS SUMMARY | 2025-06-24 09:20 | XMS_ITS | Encounter Summary ---
Author Organization Jenny Riggins [facility] Address [address] [place] [address] Care Team Providers Care Bobj Developer Name Role Phone Ashwini Dutton MD Unavailable [phone] Ashwini Dutton MD Primary Care Provider [phone] Javad Camejo MD Unavailable [phone] Shahnaz Page MD Unavailable [phone] Jacob Najera MD Unavailable [phone] Dede Wall NP Unavailable Javad Camejo MD Unavailable [phone] Ashwini Dutton MD Unavailable [phone] Justin Saucedo MD Unavailable Reason for Visit * Reason Onset Date Comments missed call 01/24/2024 Encounter Details Date Type Department Care Team (Late st Contact Info) Description 01/24/2024 Telephone [facility] Medical Oncology [facility] Clinical Center [address] 9[address] [place] [address] Javad Camejo MD [address] [facility] [address] [place] [address] missed call Social History Tobacco Use Types Packs/Day Years Used Date Smoking Tobacco: Never Assessed Comments Unknown Sex and Gender Information Value Date Recorded Sex Assigned at Female 08/11/2023 11:42 PM EST Legal Sex Female 11:42 PM EST Gender Identity Female 08/11/2023 11:42 PM EST Sexual Orientation Not on file documented as of this encounter Miscellaneous Notes * Telephone Encounter - Darleen Navarrete - 01/24/2024 12:56 PM EDT Pt is returning missed call yesterday from team, would like cb documented in this encounter Plan of Treatment Upcoming Encounters Date Type Department Care Team (Late st Contact Info) Description 07/11/2025 10:30 AM EST Office Visit [facility] [address] [place] [address] Ashwini Dutton MD [facility] [address] [place] [address] In Person with Physician 07/22/2025 10:30 AM EST Lab [facility] Medical Oncology [address] [place] [address] Javad Camejo MD [address] [place] [address] In Person with Resource 07/22/2025 11:00 AM EST Office Visit [address], [place] [address] Javad Camejo MD [address] [place] [address] Johan Malik MD [address] [place] [address] In Person with Physician 08/09/2025 10:30 AM EST Office Visit [facility] Optometry [address], [address] [place] [address] Cinthya Martinez, OD [address] [place] [address] In Person with Director Social Welfare 08/09/2025 10:45 AM EST Appointment [facility] Ophthalmology [facility] [address] [facility], 5th [place] [address] Cinthya Martinez, OD [address] [place] [address] with Resource documented as of this encounter Visit Diagnoses Not on filedocumented in this encounter Additional Health Concerns Infection Onset Date Last Indicated Resolved Time Rule-Out Respiratory Virus 08/22/2024 08/22/2024 0 08/22/2024 10:03 PM EST Rule-Out Respiratory Virus 08/23/2024 08/23/2024 0 08/23/2024 12:48 AM EST documented as of this encounter Care Teams Bobj Developer Relationship Specialty Start Date End Date Ashwini Dutton MD [facility] [address] [place] [address] PCP - Insurance Assigned PCP 08/31/23 Ashwini Dutton MD [facility] [address] [place] [address] PCP - General Internal Medicine 10/13/23 Javad Camejo MD [address] [place] [address] Consulting Provider Hematology 01/23/24 Shahnaz Page MD [address] [place] [address] Dermatology 03/10/20 Jacob Najera MD [address] [place] [address] Otolaryngology 03/10/20 Dede Wall NP [address] [place] [address] [address] [place] [address] Nurse Practitioner 08/09/22 Javad Camejo MD [address] [place] [address] [place] [address] Hematology 11/26/23 Ashwini Dutton MD [facility] [address] [place] [address] 08/31/23 Justin Saucedo MD [address] [place] [address] [facility] [address] [place] [address] Fellow Hematology/Oncology 05/07/24 04/16/25 documented as of this encounter
--- OUTSIDE RECORDS SUMMARY | 2025-06-24 09:20 | XMS_ITS | Encounter Summary ---
Author Organization [facility] Address [address] [place] [id number] Care Team Providers Care Commercial Lines Account Manager Name Role Phone Ashwini Dutton MD Unavailable [phone] Ashwini Dutton MD Primary Care Provider [phone] Javad Camejo MD Unavailable [phone] Shahnaz Page MD Unavailable [phone] Jacob Najera MD Unavailable [phone] Dede Wall NP Unavailable Javad Camejo MD Unavailable [phone] Ashwini Dutton MD Unavailable [phone] Justin Saucedo MD Unavailable Encounter Details Date Type Department Care Team (Late st Contact Info) Description 12/26/2023 Specialty Pharmacy [facility] [address] [facility] [place] [address] Yana Dhaliwal CPHT Social History Tobacco Use Types Packs/Day Years [...] Description 07/11/2025 10:30 AM EST Office Visit [facility] Gerontology [facility] 2nd [place] [address] Ashwini Dutton MD [employer] [address] [place] [address] In Person with Physician 07/22/2025 10:30 AM EST Lab [facility] Medical Oncology [address] [address] Javad Camejo MD [address] [place] [address] In Person with Resource 07/22/2025 11:00 AM EST Office Visit [facility] Medical Oncology [address] [address] Javad Camejo MD [address] [place] [address] Johan Malik MD [address] [place] [address] In Person with Physician 08/09/2025 10:30 AM EST Office Visit [facility] Optometry [address] [address] Cinthya Martinez, OD [address] [address] In Person with Extension Associate 08/09/2025 10:45 AM EST Appointment [facility] Ophthalmology [address] [address] Cinthya Martinez, OD [address] [address] with Resource documented as of this encounter Visit Diagnoses Not on filedocumented in this encounter Additional Health Concerns Infection Onset Date Last Indicated Resolved Time Rule-Out Respiratory Virus 08/22/2024 08/22/2024 0 08/22/2024 10:03 PM EST Rule-Out Respiratory Virus 08/23/2024 08/23/2024 0 08/23/2024 12:48 AM EST documented as of this encounter Care Teams Commercial Lines Account Manager Relationship Specialty Start Date End Date Ashwini Dutton MD [facility] [address] [phone] PCP - Insurance Assigned PCP 08/31/23 Ashwini Dutton MD [facility] [address] [phone] PCP - General Internal Medicine 10/13/23 Javad Camejo MD [address] [place] [address] Consulting Provider Hematology 01/23/24 Shahnaz Page MD [address] [place] [address] Dermatology 03/10/20 Jacob Najera MD [address] [place] [address] Otolaryngology 03/10/20 Dede Wall NP [address] [place] [address] [address] [place] [address] Nurse Practitioner 08/09/22 Javad Camejo MD [address] [place] [address] Hematology 11/26/23 Ashwini Dutton MD [facility] [address] [place] [address] 08/31/23 Justin Saucedo MD [address] [place] [address] 9 [place] [address] Fellow Hematology/Oncology 05/07/24 04/16/25 documented as of this encounter
--- OUTSIDE RECORDS SUMMARY | 2025-06-24 09:21 | XMS_ITS | Encounter Summary ---
Author Organization [facility] Address [address] [facility] [address] [place] [address] Care Team Providers Care Reference Test Clerk Name Role Phone Unknown, Unknown Primary Care Provider Unavailab le Encounter Details Date Type Department Care Team (Latest Contact Info) Description 06/20/2025 Travel Social History Tobacco Use Types Packs/Day Years [...] often do you attend chur ch or samaritan services? Never 06/20/2025 Do you belong to any clubs o r organizations such as zoroastrian groups, unions, fraternal or athletic groups, or [...] any time in the past 12 m [facility], were you homeless or living in a correction (including now)? No 06/20/2025 Utilities Answer Date [...] Brady Weston RN documented in this encounter Plan of Treatment Upcoming Encounters Date Type Department Care Team (Late st Contact Info) Description 07/05/2025 10:15 AM EST Office Visit [facility] Orthopedic [address] [place] [address] Aime Keys MD [address] [place] [address] [place] [id number] documented as of this encounter Goals Goal Patient Goal Type Associated Problems Recent Progress Patient-Stated? Author Autogenerat ed Goal Care Plan Autogenerated Problem No Julita Mustafa MD documented as of this encounter Visit Diagnoses Not on filedocumented in this encounter Additional Health Concerns Active Problems Noted Date Diagnosed Date Autogenerated Problem 06/20/2025 documented as of this encounter Care Teams Reference Test Clerk Relationship Specialty Start Date End Date Unknown, Unknown PCP - General 06/20/25 documented as of this encounter
--- OUTSIDE RECORDS SUMMARY | 2025-06-24 09:21 | XMS_ITS | Clinical Summary ---
Author Organization [facility] Address [address] [place] [address] Care Team Providers Care Intelligence Manager Name Role Phone Unknown, Unknown Primary Care Provider Unavailab le Allergies No known active allergies Medications amLODIPine (Norvasc) 10 mg tablet Take 10 mg by mouth once daily. Active eltrombopag olamine (Promacta) 50 mg tablet Take 50 mg by mouth once daily. 3 Active escitalopram (Lexapro) 10 mg tablet Take 10 mg by mouth in the morning. 5 Active lisinopril 20 mg tablet Take 20 mg by mouth in the morning. 5 Active polyethylene glycol (Glycolax) 17 gram packetIndicati ons:Closed fracture of neck of left femur, initial encounter Take 17 g by mouth once daily for 3 days. Mix each packet (17 g) with 4 to 8 ounces of liquid. 5 06/26/20 25 Active sennosides (Senokot) 8.6 mg tabletIndicati ons:Closed fracture of neck of left femur, initial encounter Take 2 tablets (17.2 mg) by mouth at bedtime. 5 Active acetaminophen (Tylenol) 325 mg tabletIndicati ons:Closed fracture of neck of left femur, initial encounter Take 3 tablets (975 mg) by mouth three times daily for 10 doses. 5 06/26/20 25 Active calcium citrate-vitami n D3 (Citracal+D) 315 mg-5 mcg (200 unit) tabletIndicati ons:Closed fracture of neck of left femur, initial encounter Take 1 tablet by mouth three times daily. Active cholecalcifero l, vitamin D3, (Vitamin D-3) 25 MCG (1000 UT) tabletIndicati ons:Closed fracture of neck of left femur, initial encounter Take 1 tablet (1,000 Units) by mouth once daily. Active apixaban (Eliquis) 2.5 mg tabletIndicati ons:Closed fracture of neck of left femur, initial encounter Take 1 tablet (2.5 mg) by mouth twice daily. 5 07/21/19 Active oxyCODONE (Roxicodone) 5 mg immediate release tabletIndicati ons:Closed fracture of neck of left femur, initial encounter Take 1 tablet (5 mg) by mouth every 4 (four) hours if needed for pain score 7-10 (severe) for up to 5 days. 8 tablet 5 06/27/19 Active oxyCODONE (Roxicodone) 5 mg immediate release tabletIndicati ons:Closed fracture of neck of left femur, initial encounter Take 1 tablet (5 mg) by mouth every 4 (four) hours if needed for pain score 7-10 (severe) for up to 5 days. 8 tablet 06/22/20 Discontinued Active Problems Problem Noted Date Diagnosed Date Impaired functional mobility and activity tolera nce 06/21/2025 Closed fracture of neck of left femur 06/20/2025 Closed fracture of neck of left femur, initial e ncounter 06/20/2025 Encounters Date Type Department Care Team Description 06/20/2025 10:14 AM EST Anesthesia Event [facility] OR [address] [place] [phone] Becca Barksdale MD Tsang, Miranda, MD 06/20/2025 8:00 AM EST - 06/20/2025 9:50 AM EST Surgery [facility] OR [address] [place] [phone] Aime Keys MD Hemiarthroplasty, Hip, Bipolar or Unipolar [77882 (CPT )] 06/20/2025 1:24 AM EST - 06/22/2025 2:30 PM EST Hospital Encounter [facility] [address] [place] [phone] Jose Lees MD White, Peter, MD Lam, Francis, MD Patel, Dhrusti, MD Bugaev, Nikolay, MD Gharti-Chhetri, Gaurav, MD Closed fracture of neck of left femur, initial encounter (Primary Dx); Fall, initial encounter Discharge Disposition: [facility]dc Facility 06/20/2025 Travel from Last 3 Months Social History Tobacco Use Types Packs/Day Years [...] week 06/20/2025 How often do you attend [facility] or zoroastrian services? Never 06/20/2025 Do you belong to any clubs o r organizations such as gnosticist groups, unions, fraternal or athletic groups, or [...] any time in the past 12 m onths, were you homeless or living in a fpc (including now)? No 06/20/2025 Utilities Answer Date [...] Orientation Straight 06/20/2025 2: 51 PM EST Last Filed Vital Signs Vital Sign Reading [...] Mass Index 19 06/20/2025 9:21 AM EST Plan of Treatment Upcoming Encounters Date Type Department Care Team (Late st Contact Info) Description 07/05/2025 10:15 AM EST Office Visit [address], [address]th [place] [phone] Aime Kyes MD [address] [facility] [address] [place] [address] Health Maintenance Due Date Last Done Comments Bone Density Scan 1940 Welcome to Medicare Visit (IPPE) 1940 DTaP/Tdap/Td Vaccines (1 - Tdap) 1959 Pneumococcal Vaccine: 50+ Years (1 of 2 - PCV) 1959 Zoster Vaccines (1 of 2) 1959 Depression Screening 06/27/2024 COVID-19 Vaccine (4 - 2024-2 6 season) 2025 06/22/2021, 08/26/2020, 08/05/2020 Influenza Vaccine (#1) 2025 HIB Vaccines Aged Out No longer eligi ble based on patient's age to complete this topic HPV Vaccines (No Doses Required) Completed Hepatitis A Vaccines Aged Out No long er eligible based on patient's age to complete this topic Hepatitis B Vaccines Aged Out No long er eligible based on patient's age to complete this topic IPV Vaccines Aged Out No longer eligi ble based on patient's age to complete this topic Meningococcal B Vaccine Aged Out No l onger eligible based on patient's age to complete this topic Meningococcal Vaccine Aged Out No jonathon maddie eligible based on patient's age to complete this topic Rotavirus Vaccines Aged Out No longer eligible based on patient's age to complete this topic Goals Goal Patient Goal Type Associated Problems Recent Progress Patient-Stated? Author Autogenerat ed Goal Care Plan Autogenerated Problem No Julita Mustafa MD Medical Devices Implanted Type Area Pbx Inspector Device Identifier Shelf Expiration Date Model / Serial / Lot Cement Simplex P Full Dose / - [id number] Implanted:Qty: 1 on 06/20/2025 at [facility] Bone Cement Left: Hip [employer] 08/24/2026 6191-00 1 [id number] Cement Simplex P Full Dose / - [id number] Implanted:Qty: 1 on 06/20/2025 at [facility] Bone Cement Left: Hip [employer] 08/24/2027 6191-00 6191- 1 / [id number] Stem Centralizer 10mm Cemented Implanted:Qty: 1 on 06/20/2025 by Aime Keys MD at [facility] Insert Left: Hip DE[employer] 11/24/2028 [id number] / [id number] / Procedures Procedure Name Priority Date/Time Associated Diagnosis Comments CBC WITH DIFFERENTIAL Routine 06/22/2025 6:35 AM EST CBC W/DIFF Routine 06/22/2025 6:35 AM EST PHOSPHORUS Routine 06/22/2025 6:35 AM EST MAGNESIUM Routine 06/22/2025 6:35 AM EST BASIC METABOLIC PANEL Routine 06/22/2025 6:35 AM EST PTH, INTACT Add-On 06/21/2025 5:27 AM EST ALBUMIN Add-On 06/21/2025 5:27 AM EST CBC WITH DIFFERENTIAL Routine 06/21/2025 5:27 AM EST VITAMIN D 25 HYDROXY Routine 06/21/2025 5:27 AM EST CBC W/DIFF Routine 06/21/2025 5:27 AM EST BASIC METABOLIC PANEL Routine 06/21/2025 5:27 AM EST TROPONIN T, HIGH SENSITIVITY STAT 06/20/2025 1:56 PM EST XR PELVIS 1-2 VIEWS STAT 06/20/2025 1 :48 PM EST ECG 12-LEAD STAT 06/20/2025 12:17 PM EST Closed fracture of neck of left femur, initial encounter ANESTHESIA PERIPHERAL IV PLACEMENT Routine 06/20/2025 10:30 AM EST AN ELEC ENDOTRACHEAL AIRWAY NC Routine 06/20/2025 10:23 AM EST TROPONIN T, HIGH SENSITIVITY STAT 06/20/2025 8:21 AM EST LAVENDER TOP Routine 06/20/2025 8:17 AM EST EXTRA TUBES Routine 06/20/2025 8:17 AM EST ECG 12-LEAD STAT 06/20/2025 5:02 AM EST Closed fracture of neck of left femur, initial encounter PHOSPHORUS Add-On 06/20/2025 4:48 AM EST MAGNESIUM Add-On 06/20/2025 4:48 AM EST LACTIC ACID Routine 06/20/2025 4:48 AM EST TROPONIN T, HIGH SENSITIVITY Routine 06/20/2025 4:48 AM EST CONFIRM ABO/RH STAT 06/20/2025 4:[address] 3D RECONSTRUCTION [...] POCT GLUCOSE Routine 06/20/2025 1:57 AM EST LACTIC ACID STAT Add-on 06/20/2025 1:50 AM EST MCKEON TOP STAT 06/20/2025 1:50 AM EST RAINBOW DRAW STAT 06/20/2025 1:50 AM EST PREPARE RBC, LEUKOREDUCED STAT 06/20/2025 1:49 AM EST SDS, SERUM DRUG SCREEN STAT 1:49 AM EST CBC WITH DIFFERENTIAL STAT 06/20/2025 1:49 AM EST TYPE AND SCREEN STAT 06/20/2025 1:49 AM EST PTT STAT 06/20/2025 1:49 AM EST PROTIME-INR STAT 06/20/2025 1:49 AM EST COMPREHENSIVE METABOLIC PANEL STAT 06/20/2025 1:49 AM EST HC CRITICAL CARE ILL/INJURED PATIENT INIT 30-103 MIN Routine 06/20/2025 1:20 AM EST LA CRITICAL CARE, E/M 30-103 MINUTES Routine 06/20/2025 1:20 AM EST from Last 3 Months Results * (ABNORMAL) CBC w/ Differential (06/22/2025 6:35 AM EST) Only the most recent of3 resultswithin the time period is included. WBC 10.0 4.0 - 11.0 K/uL 06/22/2025 6:59 AM [facility] RBC 3.46(L) 3.70 - 5.20 M/uL 06/22/2025 6:59 AM [facility] Hemoglobin 10.5(L) 11.0 - 16.0 g/dL 06/22/2025 6:59 AM [facility] Hematocrit 31.8(L) 32.0 - 47.0 % 06/22/2025 6:59 AM [facility] MCV 91.9 80.0 - 100.0 fL 06/22/2025 6:59 AM [facility] MCH 30.3 26.0 - 34.0 pg 06/22/2025 6:59 AM [facility] MCHC 33.0 31.0 - 37.0 g/dL 06/22/2025 6:59 AM [facility] RDW-CV 13.2 11.5 - 14.5 % 06/22/2025 6:59 AM [facility] RDW-SD 44.4 35.0 - 51.0 fL 06/22/2025 6:59 AM [facility] Platelets 135(L) 150 - 400 K/uL 06/22/2025 6:59 AM [facility] MPV 10.6 9.1 - 12.4 fL 06/22/2025 6:59 AM [facility] Neutrophil % 89.5 % 06/22/2025 6:59 AM [facility] Lymphocyte % 2.6 % 06/22/2025 6:59 AM [facility] Monocytes % 7.3 % 06/22/2025 6:59 AM [facility] Eosinophils % 0.1 % 06/22/2025 6:59 AM [facility] Basophils % 0.2 % 06/22/2025 6:59 AM [facility] Immature Granulocytes % 0.3 % 06/22/2025 6:59 AM [facility] NRBC % 0.0 0.0 - 0.0 % 06/22/2025 6:59 AM [facility] Neutrophils Absolute 8.92(H) 1.50 - 7.95 K/uL 06/22/2025 6:59 AM EST [facility] Lymphocytes Absolute 0.26(L) 0.70 - 4.00 K/uL 06/22/2025 6:59 AM EST [facility] Monocytes Absolute 0.73 0.36 - 0.77 K/uL 06/22/2025 6:59 AM EST [facility] Eosinophils Absolute 0.01 0.00 - 0.50 K/uL 06/22/2025 6:59 AM EST [facility] Basophils Absolute 0.02 0.00 - 0.22 K/uL 06/22/2025 6:59 AM [facility] Immature Granulocytes Absolute 0.03 0.00 - 0.10 K/uL 06/22/2025 6:59 AM EST [facility] NRBC Absolute 0.00 0.00 - 2.00 K/uL 06/22/2025 6:59 AM [facility] Blood Venous blood specimen / Unknown Venipuncture / Unknown 06/22/2025 6:35 AM EST 06/22/2025 6:54 AM EST Kelsea MOSCOSO LAB BLOOD ORDERABLES Final Resul t Performing Organization Address City/[facility]/ZIP Co de Phone Number [facility] [address] [place] [address], * Phosphorus (06/22/2025 6:35 AM EST) Only the most recent of2 resultswithin the time period is included. Phosphorus 2.4 2.4 - 4.9 mg/dL 06/22/2025 7:27 AM [facility] Blood Venous blood specimen / Unknown Venipuncture / Unknown 06/22/2025 6:35 AM EST 06/22/2025 6:55 AM EST Sinan Caicedo MD LAB BLOOD ORDERABLES Final Resu lt [facility] [address] [place] [address], * Magnesium (06/22/2025 6:35 AM EST) Only the most recent of2 resultswithin the time period is included. Magnesium 1.8 1.6 - 2.6 mg/dL 06/22/2025 7:27 AM [facility] Blood Venous blood specimen / Unknown Venipuncture / Unknown 06/22/2025 6:35 AM EST 06/22/2025 6:55 AM EST Sinan Caicedo MD LAB BLOOD ORDERABLES Final Resu lt [facility] [address] [place] [address], * (ABNORMAL) Basic metabolic panel (06/22/2025 6:35 AM EST) Only the most recent of2 resultswithin the time period is included. Sodium 132(L) 135 - 146 mmol/L 06/22/2025 7:27 AM [facility] Potassium 3.9 3.6 - 5.2 mmol/L 06/22/2025 7:27 AM [facility] Comment:Specimen hemolyzed r esult may be falsely increased up to 1.0 mmol/L. Chloride 98 98 - 110 mmol/L 06/22/2025 7:27 AM [facility] CO2 (Bicarbonate) 25 20 - 32 mmol/L 06/22/2025 7:27 AM [facility] Anion Gap 9 3 - 14 mmol/L 06/22/2025 7:27 AM [facility] BUN 11 6 - 24 mg/dL 06/22/2025 7:27 AM [facility] Creatinine 0.61 0.55 - 1.30 mg/dL 06/22/2025 7:27 AM [facility] eGFRcr 88 >=60 mL/min/1.7 3m*2 06/22/2025 7:27 AM [facility] Comment:Calculated using CKD -EPI 2020 creatinine equation. Glucose 98 70 - 139 mg/dL 06/22/2025 7:27 AM [facility] Fasting? Unknown [facility] INFINITY 06/22/2025 7:27 AM [facility] Calcium 8.7 8.5 - 10.5 mg/dL 06/22/2025 7:27 AM EST [facility] Blood Venous blood specimen / Unknown Venipuncture / Unknown 06/22/2025 6:35 AM EST 06/22/2025 6:55 AM EST us Sinan Caicedo MD LAB BLOOD ORDERABLES Final Resu lt Performing Organization Address City/[facility]/ZIP Co de Phone Number [facility] [address] [place] [address], [place] * (ABNORMAL) Vitamin D 25 hydroxy (06/21/2025 5:27 AM EST) Pathologist [facility] Vitamin D, 25-Hydroxy 27.5(L) 30.0 - 100.0 ng/mL 06/22/2025 4:05 PM EST [facility] Comment: Vitamin D deficiency has been defined by the [place] of [employer] and an Endocrine Society practice guideline as a level of serum 25-OH vitamin D less than 20 ng/mL (1,2). The Endocrine Society went on to further define vitamin D insufficiency as a level between 21 and 29 ng/mL (2). 1. IOM ([place] of [employer]). 2010. Dietary reference intakes for calcium and D. [place]: The National Academies Press. 2. Gaye MF, Chantel NC, Marco Antonio BEE, et al. Evaluation, treatment, and prevention of vitamin D deficiency: an Endocrine Society clinical practice guideline. JCEM. 2010; 96(7):1911-30. Blood Venous blood specimen / Unknown Venipuncture / Unknown 06/21/2025 5:27 AM EST 06/21/2025 6:21 AM EST Narrative [facility] - 06/22/2025 4:05 PM EST Performed at: 01 - [facility] [address] [id number] Rn Recruitment: Maryana Thao MD, Phone: [phone] us Kelsea MOSCOSO LAB BLOOD ORDERABLES Final Resul t [facility] [address] [place] [address], * (ABNORMAL) PTH, intact (06/21/2025 5:27 AM EST) Pathologist [facility] PTH 68.8(H) 15.0 - 65.0 pg/mL 06/22/2025 4:37 AM EST [facility] Blood Venous blood specimen / Unknown Venipuncture / Unknown 06/21/2025 5:27 AM EST 06/21/2025 6:21 AM EST Wilfredo MOSCOSO LAB BLOOD ORDERABLES Final Result Performing Organization Address [facility] de Phone Number [facility] [address] [place] [address], * Albumin (06/21/2025 5:27 AM EST) [facility] Albumin 3.3 3.2 - 5.0 g/dL 06/21/2025 10:29 AM EST [facility] Blood Venous blood specimen / Unknown Venipuncture / Unknown 06/21/2025 5:27 AM EST 06/21/2025 6:21 AM EST Wilfredo MOSCOSO LAB BLOOD ORDERABLES Final Result Performing Organization Address [facility] Phone Number [facility] [address] [place] [address], * (ABNORMAL) Troponin T, High Sensitivity (06/20/2025 1:56 PM EST) Only the most recent of3 resultswithin the time period is included. [facility] Troponin T, High Sensitivity 22(H) <12 ng/L 06/20/2025 3:25 PM EST [facility] Comment: Performed by [facility] electrochemiluminescence immunoassay (ECLIA). [facility] cut-off for healthy adults: 11 ng/L. More information available on JULES. Blood Venous blood specimen / Unknown Venipuncture / Unknown 06/20/2025 1:56 PM EST 06/20/2025 2:56 PM EST Kelsea MOSCOSO LAB BLOOD ORDERABLES Final Resul t Performing Organization Address City/[facility] Phone Number [facility] [address] [place] [address], [place] * XR PELVIS 1-2 VIEWS (06/20/2025 1:48 PM EST) Only the most recent of2 resultswithin the time period is included. 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 The alignment is normal. APPROVED BY STAFF RADIOLOGIST: Lena [place] MD 06/20/2025 11:16 PM EST Narrative 06/20/2025 11:16 PM EST NAME: TANISHA COTA : 1940 AGE: 84 years GENDER: Female ORD PHYS: DHRUSTI CAICEDO LOCATION: [facility] 06/20/2025 1:48 PM EST [id number] (XR PELVIS 1-2 VIEWS) [id number] Indication: s/p L hip francis COMPARISON: Radiograph earlier the same day Procedure Note Lena [place] MD - 06/20/2025 NAME: TANISHA COTA : 1940 AGE: 84 years GENDER: Female ORD PHYS: DHRUSTI CAICEDO LOCATION: [facility] 06/20/2025 1:48 PM EST [id number] (XR PELVIS 1-2 VIEWS) [id number] Indication: s/p L hip francis COMPARISON: Radiograph earlier the same day IMPRESSION: FINDINGS/IMPRESSION: 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 Thealignment is normal. APPROVED BY STAFF RADIOLOGIST: Lena [place] MD 06/20/2025 11:16PM EST us Sinan Caicedo MD IMG XR PROCEDURES Final Result * Peripheral IV (06/20/2025 10:30 AM EST) Narrative Tracy Saleh MD - 06/20/2025 10:30 AM EST Tracy Saleh MD 06/20/2025 10:39 AM Peripheral IV Date/Time: 06/20/2025 10:30 AM Placement Needle size: 18 G Laterality: right Location: forearm Local anesthetic: none Site prep: alcohol Technique: anatomical landmarks Attempts: 1 Becca Barksdale MD ANESTHESIA ORDERABLES Final R esult * AN ELEC ENDOTRACHEAL AIRWAY NC (06/20/2025 10:23 AM EST) Narrative Tracy Saleh MD - 06/20/2025 10:23 AM EST Tracy Saleh MD 06/20/2025 10:39 AM Airway Date/Time: 06/20/2025 10:23 AM Location: OR Urgency: Elective Difficult Airway: No Induction Technique: Intravenous RSI: No Cricoid pressure: No ETT In Situ?: No Anesthesiologist: Becca Barksdale MD Resident/STATION BAGGAGE AGENT: Tracy Saleh MD Performed by: Resident/STATION BAGGAGE AGENT Becac Barksdale MD Indications for Airway Management: Anesthesia [...] glottis Number of Attempts at Approach: 1 Becca Barksdale MD ANESTHESIA ORDERABLES Final R esult * Lavender Top (06/20/2025 8:17 AM EST) Extra Tube Hold for add-ons. [facility] IM 06/20/2025 10:02 AM EST [facility] Comment:Auto resulted. Blood Venous blood specimen / Unknown 06/20/2025 8:17 AM EST 06/20/2025 8:47 AM EST Sinan Caicedo MD LAB BLOOD ORDERABLES Final Resu lt [facility] [address] [place] [address], [place] * ECG 12 lead (06/20/2025 5:02 AM EST) 06/20/2025 5:02 AM EST Narrative [facility] STRESS/ECG EPIPHANY CARDIOSERVER - 06/21/2025 12:32 PM EST [facility] Test Date: 2025-06-20 Pat Name: TANISHA COTA Department: N1-ED Room: T04 Gender: Female V Belt [employer] As[employer]er And Curer: JAZMIN : 1940 Requested By: JOSE LEES Order Number: [id number] Reading MD: Erwin Eastman Measurements Intervals [place] Rate: 82 P: 12 LA: 118 QRS: -27 QRSD: 100 T: 36 QT: 414 QTc: 484 Interpretive Statements Sinus rhythm Atrial premature complex ANTEROSEPTAL INFARCT, AGE INDETERMINATE No previous ECG available for comparison Electronically Signed On 06-21-2025 12:32:11 EST by Erwin Eastman us Jose Lees MD ECG ORDERABLES Final Resu lt [facility] STRESS/ECG EPIPHANY CARDIOSERVER * Confirm ABO/Rh (06/20/2025 4:48 AM EST) Confirm ABORh A POS 06/20/2025 6:15 AM EST [facility] Blood Venous blood specimen / Unknown Venipuncture / Unknown 06/20/2025 4:48 AM EST 06/20/2025 5:16 AM EST Jose Lees MD LAB BLOOD BANK TEST ORDERA BLES Final Result [facility] [address] [place] [address], * Lactic acid (06/20/2025 4:48 AM EST) Only the most recent of2 resultswithin the time period is included. Lactic acid 0.7 0.5 - 2.2 mmol/L 06/20/2025 5:34 AM EST [facility] Blood Venous blood specimen / Unknown Venipuncture / Unknown 06/20/2025 4:48 AM EST 06/20/2025 4:59 AM EST Jose Lees MD LAB BLOOD ORDERABLES Final Result [facility] [address] [place] [address], [place] * CT 3D RECONSTRUCTION (06/20/2025 4:41 AM [...] AGE: 84 years GENDER: Female ORD PHYS: JOSE ELES LOCATION: [facility] 06/20/2025 4:41 AM EST [id number] (CT 3D RECONSTRUCTION) [id number] PROCEDURE: CT 3D RECONSTRUCTION, CT FEMUR LEFT [...] AGE: 84 years GENDER: Female ORD PHYS: JOSE LEES LOCATION: [facility] 06/20/2025 4:41 AM EST [id number] (CT 3D RECONSTRUCTION) [id number] PROCEDURE: CT 3D RECONSTRUCTION, CT FEMUR LEFT [...] RADIOLOGIST: Merlin Davis 06/21/2025 5:30 AM EST us Ryan Pierce MD IMG CT PROCEDURES Final [...] AGE: 84 years GENDER: Female ORD PHYS: JOSE VANEGASLIVAN LOCATION: [facility] 06/20/2025 4:31 AM EST [id number] (CT ABDOMEN PELVIS W CONTRAST) [id number] CT ABDOMEN PELVIS W CONTRAST Reason for [...] Note Merlin Davis MD - 06/20/2025 NAME: ATNISHA COTA : 1940 AGE: 84 years GENDER: Female ORD PHYS: JOSE LEES LOCATION: [facility] 06/20/2025 4:31 AM EST [id number] (CT ABDOMEN PELVIS W CONTRAST) [id number] CT ABDOMEN PELVIS W CONTRAST Reason for [...] Merlin Davis 06/20/2025 9:14 AM EST us Jose Lees MD IMG CT PROCEDURES Final Re [...] AGE: 84 years GENDER: Female ORD PHYS: JOSE LEES LOCATION: [facility] 06/20/2025 4:29 AM EST [id number] (CT CHEST W CONTRAST) [id number] EXAM: CONTRAST ENHANCED CT OF THE CHEST [...] AGE: 84 years GENDER: Female ORD PHYS: JOSE LEES LOCATION: [facility] 06/20/2025 4:29 AM EST [id number] (CT CHEST W CONTRAST) [id number] EXAM: CONTRAST ENHANCED CT OF THE CHEST [...] RADIOLOGIST: Merlin Davis 06/20/2025 8:45 AM EST us Jose Lees MD IMG CT PROCEDURES Final Re [...] AGE: 84 years GENDER: Female ORD PHYS: JOSE LEES LOCATION: [facility] 06/20/2025 4:41 AM EST [id number] (CT 3D RECONSTRUCTION) [id number] PROCEDURE: CT 3D RECONSTRUCTION, CT FEMUR LEFT [...] AGE: 84 years GENDER: Female ORD PHYS: JOSE LEES LOCATION: [facility] 06/20/2025 4:41 AM EST [id number] (CT 3D RECONSTRUCTION) [id number] PROCEDURE: CT 3D RECONSTRUCTION, CT FEMUR LEFT [...] 06/21/2025 5:30 AM EST Ryan Pierce MD [facility] [place] PROCEDURES Final Result * Urine Drug Screen (06/20/2025 3:12 AM EST) [facility] Amphetamines screen, urine Not Detected Not Detected 06/20/2025 3:55 AM EST [facility] Comment:Cutoff concentration = 1000 ng/mL. Barbiturates screen, urine Not Detected Not Detected 06/20/2025 3:55 AM EST [facility] Comment:Cutoff concentration = 200 ng/mL. Benzodiazepines screen, urine Not Detected Not Detected 06/20/2025 3:55 AM EST [facility] Comment:Cutoff concentration = 200 ng/mL. Buprenorphine screen, urine Not Detected Not Detected 06/20/2025 3:55 AM [facility] Comment:Cutoff concentration = 5 ng/mL Cannabinoids screen, urine Not Detected Not Detected 06/20/2025 3:55 AM [facility] Comment:Cutoff concentration = 50 ng/mL. Cocaine screen, urine Not Detected Not Detected 06/20/2025 3:55 AM [facility] Comment:Cutoff concentration = 300 ng/mL. Ethanol screen, urine Not Detected Not Detected 06/20/2025 3:55 AM [facility] Comment:Cutoff concentration = 20 mg/dL. Fentanyl screen, urine Not Detected Not Detected 06/20/2025 3:55 AM [facility] Comment:Cutoff concentration = 1.0 ng/mL. Methadone screen, urine Not Detected Not Detected 06/20/2025 3:55 AM [facility] Comment:Cutoff concentration = 300 mg/dL. Opiates screen, urine Not Detected Not Detected 06/20/2025 3:55 AM [facility] Comment:Cutoff concentration = 300 ng/mL. Oxycodone screen, urine Not Detected Not Detected 06/20/2025 3:55 AM [facility] Comment:Cutoff concentration = 100 ng/mL. Creatinine, urine, specimen validity 20.80 >=20.00 mg/dL 06/20/2025 3:55 AM [facility] CENTER Urine Urine specimen / Unknown Non-blood Collection / Unknown 06/20/2025 3:12 AM EST 06/20/2025 3:21 AM EST Narrative [facility] - 06/20/2025 3:55 AM EST These are unconfirmed screening results and should be used only for medical purposes. If the clinical setting requires confirmation, contact the clinical laboratory. us Jose Lees MD LAB URINE ORDERABLES Final Result [facility] [address] [place] [address], [place] * XR KNEE LEFT 1-2 VIEWS (06/20/2025 [...] AGE: 84 years GENDER: Female ORD PHYS: JOSE Jarvis YOANA LOCATION: [facility] 06/20/2025 2:50 AM EST [id number] (XR KNEE LEFT 1-2 VIEWS ) [id number] PROCEDURE: XR KNEE LEFT 1-2 VIEWS 06/20/2025 2:39 AM EST INDICATIONS: pain after fall COMPARISON: None. VIEWS: 2 views of the left knee. FINDINGS: No acute fracture. Anatomic joint alignment. Preserved joint spaces. Unremarkable soft tissues. No radiopaque foreign body. No sizable joint effusion. Procedure Note Lena Cordova MD - 06/20/2025 NAME: TANISHA COTA : 1940 AGE: 84 years GENDER: Female ORD PHYS: JOSE Jarvis YOANA LOCATION: [facility] 06/20/2025 2:50 AM EST [id number] (XR KNEE LEFT 1-2 VIEWS ) [id number] PROCEDURE: XR KNEE LEFT 1-2 VIEWS 06/20/2025 [...] Lena Cordova MD 06/20/2025 10:32AM EST us Jose Lees MD IMG XR PROCEDURES Final Re [...] AGE: 84 years GENDER: Female ORD PHYS: JOSE LEES LOCATION: [facility] 06/20/2025 2:18 AM EST PROCEDURE: XR [...] AGE: 84 years GENDER: Female ORD PHYS: JOSE Simona YOANA LOCATION: [facility] 06/20/2025 2:18 AM EST PROCEDURE: XR [...] Lena Cordova MD 06/20/2025 10:31AM EST us Jose Lees MD IMG XR PROCEDURES Final Re [...] AGE: 84 years GENDER: Female ORD PHYS: JOSE LEES LOCATION: [facility] 06/20/2025 2:46 AM EST [id number] (CT HEAD WO CONTRAST) [id number] CT HEAD WO CONTRAST [id number] HISTORY: Pain with Trauma TECHNIQUE: Serial axial [...] AGE: 84 years GENDER: Female ORD PHYS: JOSE Jarvis LEES LOCATION: [facility] 06/20/2025 2:46 AM EST [id number] (CT HEAD WO CONTRAST) [id number] CT HEAD WO CONTRAST [id number] HISTORY: Pain with Trauma TECHNIQUE: Serial axial [...] Yasmeen Ball 06/20/2025 8:33 AM EST us Jose Lees MD IMG CT PROCEDURES Final Re [...] AGE: 84 years GENDER: Female ORD PHYS: JOSE LEES LOCATION: [facility] 06/20/2025 2:44 AM EST [id number] (CT CERVICAL SPINE WO CONTRAST) [id number] CT CERVICAL SPINE WO CONTRAST [id number] HISTORY: Pain with Trauma TECHNIQUE: Serial axial [...] AGE: 84 years GENDER: Female ORD PHYS: JOSE LEES LOCATION: [facility] 06/20/2025 2:44 AM EST [id number] (CT CERVICAL SPINE WO CONTRAST) [id number] CT CERVICAL SPINE WO CONTRAST [id number] HISTORY: Pain with Trauma TECHNIQUE: Serial axial [...] Yasmeen Ball 06/20/2025 9:54 AM EST us Jose Lees MD IMG CT PROCEDURES Final Re [...] AGE: 84 years GENDER: Female ORD PHYS: JOSE Jarvis YOANA LOCATION: [facility] 06/20/2025 2:18 AM EST PROCEDURE: XR [...] AGE: 84 years GENDER: Female ORD PHYS: JOSE Jarvis YOANA LOCATION: [facility] 06/20/2025 2:18 AM EST PROCEDURE: XR [...] Lena Cordova MD 06/20/2025 10:31AM EST us Jose Lees MD IMG XR PROCEDURES Final Re [...] AGE: 84 years GENDER: Female ORD PHYS: JOSE VANEGASLIVAN LOCATION: [facility] 06/20/2025 2:18 AM EST [id number] (XR CHEST PORTABLE) [id number] TECHNIQUE: AP view of the chest. INDICATION: [...] AGE: 84 years GENDER: Female ORD PHYS: JOSE LEES LOCATION: [facility] 06/20/2025 2:18 AM EST [id number] (XR CHEST PORTABLE) [id number] TECHNIQUE: AP view of the chest. INDICATION: [...] RADIOLOGIST: Paulino Harris 06/20/2025 3:26 AM EST Jose Lees MD IMG XR PROCEDURES Final Re sult * POCT glucose meter (06/20/2025 1:57 AM EST) Pathologist [facility] POCT Glucose 76 70 - 139 mg/dL 06/20/2025 1:57 AM EST [facility] Blood Blood specimen / Unknown 06/20/2025 1:57 AM EST 06/20/2025 1:57 AM EST Jose Lees MD LAB POINT OF CARE TEST DOCKED DEVICE UNSOLICITED RESULTS Final Result Performing Organization Address City/[facility]/ZIP Co de Phone Number [facility] [address] [place] [address], [place] * [place] Top (06/20/2025 1:50 AM EST) [facility] Extra Tube Hold for add-ons. [facility] SANCHEZ IM 06/20/2025 3:02 AM EST [facility] Comment:Auto resulted. Blood Venous blood specimen / Unknown Venipuncture / Unknown 06/20/2025 1:50 AM EST 06/20/2025 1:53 AM EST Jose Lees MD LAB BLOOD ORDERABLES Final Result Performing Organization Address City/[facility]/ZIP Co de Phone Number [facility] [address] [place] [address], [place] * SDS, Serum Drug Screen, [facility] (06/20/2025 1:49 AM EST) Pathologist [facility] Acetaminophen level <5 <=30 ug/mL 06/20/2025 2:32 AM EST [facility] Ethanol level, plasma/serum <10 <=10 mg/dL 06/20/2025 2:32 AM EST [facility] Salicylate level <0.5 0.0 - 29.9 mg/dL 06/20/2025 2:32 AM EST [facility] Benzodiazepines screen, serum Not Detected Not Detected 06/20/2025 2:32 AM EST [facility] Tricyclics screen, serum Not Detected Not Detected 06/20/2025 2:32 AM EST [facility] Blood Venous blood specimen / Unknown Venipuncture / Unknown 06/20/2025 1:49 AM EST 06/20/2025 1:53 AM EST Jose Lees MD LAB BLOOD ORDERABLES Final Result Performing Organization Address City/[facility] Co de Phone Number [facility] [address] [place] [address], * APTT (06/20/2025 1:49 AM EST) aPTT 29.7 25.7 - 35.7 Seconds 06/20/2025 2:12 AM EST [facility] Blood Venous blood specimen / Unknown Venipuncture / Unknown 06/20/2025 1:49 AM EST 06/20/2025 1:53 AM EST Jose Lees MD LAB BLOOD ORDERABLES Final Result Performing Organization Address [facility] Phone Number [facility] [address] [place] [address], * Protime-INR (06/20/2025 1:49 AM EST) Protime 11.5 9.7 - 14.0 seconds 06/20/2025 2:12 AM EST [facility] INR 1.00 See Comment 06/20/2025 2:12 AM EST [facility] Comment: NORMAL PATIENTS NOT ON ANTICOAGULANTS: INR: 0.9-1.3 RECOMMENDED INR WITH WARFARIN/COUMADIN THERAPY: INR: 2.00-3.00 Deep vein thrombosis Atrial Fibrillation Tissue Prosthetic Valve Stroke Prevention INR:2.50-3.50 Mechanical Prosthetic Valve and Recurrent Systemic Embolism Blood Venous blood specimen / Unknown Venipuncture / Unknown 06/20/2025 1:49 AM EST 06/20/2025 1:53 AM EST us Jose Lees MD LAB BLOOD ORDERABLES Final Result Performing Organization Address City/[facility] Co de Phone Number [facility] [address] [place] [address], * Prepare RBC, Leukoreduced: 2 Units (06/20/2025 1:49 AM EST) Unit Number [id number] [facility] BLOOD BANK Product Code E0332 [facility] B LOOD BANK Product Blood Type A POS [facility] BLOOD BANK Dispense Status Released [facility] BLOOD [facility] Blood Expiration Date [facility] BLOOD BANK Barcoded Product Code A8320P06 [facility] BLOOD BANK Barcoded ABO/Rh 6200 [facility] BLOOD BANK Crossmatch Interpretation Compatible [facility] BLOOD BANK Unit Number [id number] [facility] BLOOD BANK Product Code E0332 [facility] B LOOD BANK Product Blood Type A POS [facility] BLOOD BANK Dispense Status Released [facility] BLOOD BANK Blood Expiration Date [id number] [facility] BLOOD BANK Barcoded Product Code [id number] [facility] BLOOD BANK Barcoded ABO/Rh 6200 [facility] BLOOD BANK Crossmatch Interpretation Compatible [facility] BLOOD BANK Other 06/20/2025 1:49 AM EST 06/20/2025 1:49 AM EST Tracy Saleh MD BLOOD BANK PRODUCT ORDERABLE S Final Result Performing Organization Address City/[facility] Co de Phone Number [facility] [address] [place] [address], * Type and screen (06/20/2025 1:49 AM EST) ABORh A POS 06/20/2025 2:46 AM EST [facility] BLOOD BANK Antibody Screen NEG NEG 2:46 AM EST [facility] BLOOD BANK Specimen Expiration Date 06/23/2025 23:59 06/20/2025 2:46 AM EST [facility] BLOOD BANK Blood Venous blood specimen / Unknown Venipuncture / Unknown 06/20/2025 1:49 AM EST 06/20/2025 1:59 AM EST Jose Lees MD LAB BLOOD BANK TEST ORDERA BLES Final Result [facility] BLOOD BANK [address] [place] [address], * (ABNORMAL) Comprehensive metabolic panel (06/20/2025 1:49 AM EST) Sodium 135 135 - 146 mmol/L 06/20/2025 2:32 AM EST [facility] Potassium 4.1 3.6 - 5.2 mmol/L 06/20/2025 2:32 AM EST [facility] Comment:Specimen hemolyzed r esult may be falsely increased up to 1.0 mmol/L. Chloride 98 98 - 110 mmol/L 06/20/2025 2:32 AM [facility] CO2 (Bicarbonate) 26 20 - 32 mmol/L 06/20/2025 2:32 AM [facility] Anion Gap 11 3 - 14 mmol/L 06/20/2025 2:32 AM [facility] BUN 15 6 - 24 mg/dL 06/20/2025 2:32 AM [facility] Creatinine 0.81 0.55 - 1.30 mg/dL 06/20/2025 2:32 AM [facility] eGFRcr 71 >=60 mL/min/1. 73m*2 06/20/2025 2:32 AM [facility] Comment:Calculated using CKD -EPI 2020 creatinine equation. Glucose 96 70 - 139 mg/dL 06/20/2025 2:32 AM [facility] Fasting? Unknown [facility] ROYER INFINITY 06/20/2025 2:32 AM [facility] Calcium 9.1 8.5 - 10.5 mg/dL 06/20/2025 2:32 AM [facility] AST 32 6 - 42 U/L 06/20/2025 2:32 AM [facility] Comment:Specimen hemolyzed. Hemolysis may cause a positive bias. ALT 15 0 - 55 U/L 06/20/2025 2:32 AM [facility] Alkaline phosphatase 84 30 - 130 U/L 06/20/2025 2:32 AM [facility] Protein, total 8.8(H) 6.0 - 8.4 g/dL 06/20/2025 2:32 AM [facility] Albumin 4.5 3.2 - 5.0 g/dL 06/20/2025 2:32 AM EST [facility] Bilirubin, total 0.6 0.2 - 1.2 mg/dL 06/20/2025 2:32 AM EST [facility] Blood Venous blood specimen / Unknown Venipuncture / Unknown 06/20/2025 1:49 AM EST 06/20/2025 1:53 AM EST Jose Lees MD LAB BLOOD ORDERABLES Final Result [facility] [address] [place] [address], * [facility], E/M 30-103 MINUTES, [facility] ILL/INJURED PATIENT INIT 30-103 MIN (06/20/2025 1:20 AM EST) Narrative Jose Lees MD - 06/20/2025 1:20 AM EST Jose Lees MD 06/20/2025 6:19 AM Critical Care Performed by: Jose Lees MD Authorized by: Jose Lees MD Critical care provider statement: Critical [...] patient's condition Care discussed with: admitting provider Jose Lees MD IN CLINIC/BEDSIDE ORDERABL ES Final Result from Last 3 Months Additional Health Concerns Active Problems Noted Date Diagnosed Date Autogenerated Problem 06/20/2025 Insurance [facility] MEDICARE COMPLETE HMO [facility] Advance Directives Documents on File Type Date Recorded Patient Manufacturing Scheduler Expl anation Health Care Proxy 06/23/2025 10:15 AM * Full Code (Latest Code Status on File) Date Activated Date Inactivated Comments 06/20/2025 6:45 AM * Full Code Date Activated Date Inactivated Comments 06/20/2025 6:28 AM 06/20/2025 6:45 AM Care Teams Intelligence Manager Relationship Specialty Start Date End Date Unknown, Unknown PCP - General 06/20/25
--- OUTSIDE RECORDS SUMMARY | 2025-06-24 09:22 | XMS_ITS ---
Author Organization Jenny Riggins [facility] Address [address] [place] [address] Care Team Providers Care Roller Coaster Designer Name Role Phone Ashwini Dutton MD Unavailable [phone] Ashwini Dutton MD Primary Care Provider [phone] Javad Camejo MD Unavailable [phone] Shahnaz Page MD Unavailable [phone] Jacob Najera MD Unavailable [phone] Dede Wall NP Unavailable Javad Camejo MD Unavailable [phone] Ashwini Dutton MD Unavailable [phone] Blood Disorder Status:Enrolled (Active) Start date:12/25/2024 Enrollment date:12/25/2024 Enrollment reason:Identified from a specialty prescription Current support & services provided:Clinical Management, Refill Management, Benefits and PA Management Linked medications:eltrombopag olamine (Active) Linked problems:Thrombocytopenic purpura ([facility]) (Active) Continued Care and Services Coordination
--- OUTSIDE RECORDS SUMMARY | 2025-06-24 09:22 | XMS_ITS | Clinical Summary ---
Author Organization [employer] Address [address] [place] [address] Care Team Providers Care Business Loan Processor Name Role Phone Provider, Not In System Primary Care Provider Un available Allergies No known active allergies Medications Promacta 50 MG tablet Take 50 mg by mouth in the morning. 08/23/2022 Active amLODIPine (Norvasc) 5 MG tablet Take 5 mg by mouth Once per day. 08/29/2024 Active lisinopril 20 MG tablet Take 20 mg by mouth Once per day. 08/29/2024 Active escitalopram (Lexapro) 10 MG tablet Take 10 mg by mouth Once per day. 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 Herpesviral infection, unspecified 01/30/2015 Overview (03/26/2024): oral, above lip and in left nostril Social History Tobacco Use Types Packs/Day Years Used Date Smoking Tobacco: Never Passive Smoke Exposure: Never Smokeless Tobacco: Never Tobacco Cessation:Counseling Given: Not Answered Comments Unknown Sex and Gender Information Value Date Recorded Sex Assigned at Female 04/23/2022 3:29 PM EDT Legal Sex Female 3:29 PM EDT Gender Identity Female 04/23/2022 3:29 PM EDT Sexual Orientation Straight 04/23/2022 3: 29 PM EDT Last Filed Vital Signs Vital Sign Reading Time Taken Comments Blood Pressure 151/83 03/26/2024 4:56 PM EDT Pulse 75 03/26/2024 4:56 PM EDT Temperature - - Respiratory Rate - - Oxygen Saturation - - Inhaled Oxygen Concentration - - Weight - - Height - - Body Mass Index - - Plan of Treatment Upcoming Encounters Date Type Department Care Team (Late st Contact Info) Description 07/23/2025 1:00 PM EST Office Visit [facility] [address] [place] [address] [facility] Maintenance Due Date Last Done Comments Depression Screening 1940 Lipid Panel 1940 SDOH Screening 1940 Alcohol/Substance Use Screening 1951 DTaP/Tdap/Td Vaccines (1 - Tdap) 1958 Pneumococcal Vaccine: 50+ Years (1 of 2 - PCV) 1958 Zoster Vaccines (1 of 2) 1958 RSV Patients and Patients Aged 60 years or older (1 - 1-dose 75+ series) 2014 Dental X-Ray: Full Mouth 12/21/2021 12/20/2018, 10/25 Tobacco Screening 08/29/2023 08/28/2022 COVID-19 Vaccine ( season) 2025 06/22/2021, 08/26/2020, 08/05/2020 Influenza Vaccine (#1) 2025 Dental Oral Exam 05/09/2025 11/05/2024, , 09/16/2023, Additional history exists Dental Prophylaxis 05/09/2025 11/05/2024, 0 03/26/2024, 09/16/2023, Additional history exists Dental X-Ray: Bitewings 11/06/2025 11/06/19 25, 09/16/2023, 08/28/2022, Additional history exists HIB Vaccines Aged Out No longer eligi ble based on patient's age to complete this topic HPV Vaccines Aged Out No longer eligi ble based on patient's age to complete this topic Hepatitis A Vaccines Aged Out No long [...] on patient's age to complete this topic RSV under 20 months Aged Out No longe r eligible based on patient's age to complete this topic Rotavirus Vaccines Aged Out No longer eligible based on patient's age to complete this topic Procedures Procedure Name Priority Date/Time Associated Diagnosis Comments Full PROPHYLAXIS - ADULT Routine 025 10:00 AM EDT BITEWINGS - 4 RADIOGRAPHIC IMAGES Routine 11/05/2024 10:00 AM EDT PERIODIC ORAL EVALUATION - ESTABLISHED PATIENT Routine 11/05/2024 10:00 AM EDT INTRAORAL - COMPLETE SERIES OF RADIOGRAPHIC IMAGES Routine 12/20/2018 12:00 AM EDT from Last 3 Months or Most Recently Relevant to Health Maintenance Insurance D[facility]AL - [facility] Care Teams Business Loan Processor Relationship Specialty Start Date End Date Provider, Not In System PCP - General Family Medicine 03/24/24
[2025-06-24 09:52] LABS: Hematocrit 27.9 % (37.0-47.0); Hemoglobin 9.1 g/dl (12.0-16.0); Imm Gran Abs Auto 0.01 X10*3/uL (0.00-0.03); Imm Gran Pct Auto 0.2 % (0.0-0.4); Lymphocytes Absolute Auto 0.2 X10*3/uL (1.2-4.9); Mean Corpuscular HGB Conc 32.6 g/dl (31.0-35.0); Mean Corpuscular Hemoglobin 30.3 pg (27.0-33.0); Mean Corpuscular Volume 93.0 fL (80.0-98.0); NRBC Abs Auto 0.000 X10*3/uL (0.0-0.012); NRBC Pct Auto 0.0 /100WBC (0.0-0.2); Platelet Count 210 X10*3/uL (160-400); Red Blood Count 3.00 X10*6/uL (4.20-5.50); White Blood Count 4.5 X10*3/uL (4.8-10.8)
[2025-06-24 10:10] LABS: Alanine Aminotransferase 6 U/L (0-31); Albumin Level 2.8 g/dL (3.5-5.0); Alkaline Phosphatase 69 U/L (39-117); Anion Gap 10 (12-20); Aspartate Amino Transferase 30 U/L (5-31); Blood Urea Nitrogen 12 mg/dL (9-16); Calcium 8.1 mg/dL (8.4-10.2); Carbon Dioxide 27 mmol/L (22-29); Chloride 106 mmol/L (96-108); Estimated Glomerular Filt Rate > 60; Potassium 3.6 mmol/L (3.3-5.1); Sodium 139 mmol/L (135-145); Total Protein 5.8 g/dL (6.5-8.0)
== END 2025-06-24 08:59 ==
LOC: HO.MMNH1L 08:58
PROVIDERS: Visit Provider Physician Assistant Medical
DX: I10 Essential (primary) hypertension (principal); Z13.1 Encounter for screening for diabetes mellitus
CPT/HCPCS: 36415; 80053; 83036; 85025